=== PATIENT | female | born 1945 | race Caucasian/White ===

== ENCOUNTER → 2022-09-30 | Outpatient (CLI) | payer MEDICARE ==
[2022-09-30 14:07] LABS: Creatinine,Urine Random 39.6 mg/dL; Protein/Creatinine Ratio,Urine 0.227
[2022-09-30 20:44] LABS: Appearance,Urine Clear (Clear); Bilirubin,Urine Negative (Negative); Blood,Urine Negative (Negative); Color,Urine Yellow (Yellow); Ketones,Urine Negative (Negative); Nitrite,Urine Negative (Negative); PH, Urine 6.5 (5.0-8.0); Specific Gravity,Urine 1.014 (1.001-1.030); Urobilinogen,Urine 0.2 (0.2,1.0)
[2022-09-30 21:17] LABS: HCT 41.5 % (37.2-46.3); HGB 13.4 g/dL (12.0-15.0); MCH 29.3 pg (27.0-32.0); MCHC 32.3 g/dL (32.0-37.0); MCV 90.8 fL (80.0-97.0); Mean Platelet Volume 11.1 fL (9.5-12.2); NRBC Per 100 WBC 0 /100 WBCS (0.0-0.0); Platelet Count 259 X 10*3/uL (140-440); RBC 4.57 X 10*6/uL (4.10-5.20); RDW 14.2 % (11.5-14.5)
[2022-09-30 22:35] LABS: African American GFR (CKD) 85.5 (60.0-200.0); Albumin 4.7 g/dL (3.8-4.9); Albumin/Globulin Ratio 1.8 (1.60-3.17); Anion Gap 12.2 mmol/L (10.00-18.00); BUN/Creat Ratio 24.18 Ratio (12.00-20.00); Blood Urea Nitrogen 19.1 mg/dL (9.0-27.0); Calcium 10.3 mg/dL (8.7-10.3); Carbon Dioxide 26.7 mmol/L (20.0-27.5); Globulin 2.6 g/dL (1.6-3.3); Magnesium 2.4 mg/dL (1.5-2.4); Non-African American GFR(CKD) 73.7 (60.0-200.0); Phosphorus 3.1 mg/dL (2.4-5.1); Potassium 3.4 mmol/L (3.5-5.5); Total Bilirubin 0.3 mg/dL (0.30-1.20); Total Protein 7.2 g/dL (6.2-8.2)
== END | disposition home or self-care (01) ==
LOC: LABWHC1 12:18
PROVIDERS: ATTEND Nurse Practitioner Acute Care
DX: N25.81 Secondary hyperparathyroidism of renal origin (principal); N18.31 Chronic kidney disease, stage 3a; D63.1 Anemia in chronic kidney disease; N39.0 Urinary tract infection, site not specified; R80.9 Proteinuria, unspecified; E55.9 Vitamin D deficiency, unspecified
CPT/HCPCS: 36415; 80053; 81003; 82306; 82570; 83735; 83970; 84100; 84156; 85027

== ENCOUNTER → 2022-09-30 | Outpatient (CLI) | payer MEDICARE | END | disposition home or self-care (01) | LOC: LABPAT 12:15 | PROVIDERS: ATTEND Internal Medicine | DX: Z01.812 Encounter for preprocedural laboratory examination (principal); I35.0 Nonrheumatic aortic (valve) stenosis ==

== ENCOUNTER 2022-11-08 05:39 | Inpatient (IN) | payer MEDICARE, SELFPAY ==
[~2022-11-08 05:39] MED LIST: ALBUMIN HUMAN 25% 50 ML IV ONE; ALBUMIN HUMAN 5% 500 ML IVPB ONE; ASPIRIN 325 MG TAB PO ONE; CALCIUM CHLORIDE 100 MG/ML 10 ML SYRINGE IV ONE; CARDIOPLEGIC SOLN (K+ 16 MEQ/L 1,000 ML with SODIUM BICARB (1 MEQ/ML) 20 ML, LIDOCAINE ... PERFUSION ONE; CHLORHEXIDINE GLUCONATE 15 ML CUP MUCOUS MEM ONE; CLEVIDIPINE BUTYRATE 25 MG in EMPTY BAG 1 BAG IV ONE; HEPARIN SODIUM 1,000 UN/ML (10ML VL) IV ONE; HEPARIN SODIUM,PORCINE 5,000 UNIT in SODIUM CHLORIDE 0.9% 500 ML 500 ML IV ONE; INSULIN REGULAR 100 UNIT in SODIUM CHLORIDE 0.9% 100 ML IV ONE; LACTATED RINGERS 1,000 ML IV ONE; MAGNESIUM SULFATE 16.24 MEQ in EMPTY SYRINGE 1 SYR IV ONE; MANNITOL 25% 12.5 GM/50 ML VIAL IV ONE; NITROGLYCERIN SL TABS 0.4 MG TAB SUBLINGUAL ONE; NITROGLYCERIN-D5W PMX 25 MG/250 ML BTL IV ONE; NITROGLYCERIN-D5W PMX 50 MG in DEXTROSE/WATER 1 250ML.BAG IV ONE; NOREPINEPHRINE 4 MG in SODIUM CHLORIDE 0.9% 250 ML IV ONE; PAPAVERINE 360 MG in SODIUM CHLORIDE 0.9% 90 ML IV ONE; PHENYLEPHRINE 10 MG/ML VIAL IV ONE; PHENYLEPHRINE 40 MG in SODIUM CHLORIDE 0.9% 250 ML IV ONE; PROTAMINE SULFATE 10 MG/ML 25 ML VIAL IV ONE; PROTAMINE SULFATE 250 MG in EMPTY BAG 1 BAG IV ONE; SODIUM BICARB 8.4% 50 ML SYR (1 MEQ/ML) IV ONE; SODIUM CHLORIDE 0.9% 1,000 ML IV ONE; TRANEXAMIC ACID 2,000 MG in SODIUM CHLORIDE 0.9% 80 ML IV ONE; ceFAZolin 1,000 MG in SODIUM CHLORIDE 0.9% IRRIGATIO 1,000 ML IRRIGATION ONE; propofoL 1,000 MG/100 ML VIAL IV ONE
[2022-11-08] MEDS ORDERED: LACTATED RINGERS 1,000 ML IV ONE (06:00)
[2022-11-08] MEDS: ATORVASTATIN 10 MG TAB PO ONE ×2 (06:06→11:57)
[2022-11-08] MEDS ORDERED: SODIUM CHLORIDE 0.9% 100 ML BAG ONE (07:40)
[2022-11-08] MEDS ORDERED: MIDAZOLAM HCL 10 MG/10 ML VIAL ONE (07:40)
[2022-11-08] MEDS ORDERED: POTASSIUM ACETATE 2 MEQ/ML 20 ML VIAL IV ONE (07:40)
[2022-11-08] MEDS ORDERED: fentaNYL (PF) 50 MCG/ML 50 ML VIAL ONE (07:40)
[2022-11-08] MEDS ORDERED: HEPARIN SODIUM,PORCINE 10,000 UNIT/ML 1 ML VIAL ONE (07:40)
[2022-11-08] MEDS ORDERED: INSULIN REGULAR 100 UNIT/ML VIAL (IV) ONE (07:40)
[2022-11-08] MEDS ORDERED: ceFAZolin 1,000 MG VIAL ONE (07:40)
[2022-11-08] MEDS ORDERED: VECURONIUM 10 MG VIAL IV ONE (07:40)
[2022-11-08] MEDS ORDERED: ELECTROLYTE-R (PH 7.4) 1,000 ML IV.SOLN IV ONE (07:40)
[2022-11-08] MEDS ORDERED: MAGNESIUM SULFATE 4 MEQ/ML 10ML VIAL ONE (07:40)
[2022-11-08] MEDS ORDERED: NITROGLYCERIN-D5W PMX 50 MG/250 ML BOTTLE IV ONE (07:40)
[2022-11-08] MEDS ORDERED: WATER FOR INJECTION, STERILE 10 ML VIAL IV ONE (07:40)
[2022-11-08] MEDS ORDERED: CALCIUM CHLORIDE 100 MG/ML 10 ML SYRINGE ONE (07:40)
[2022-11-08] MEDS ORDERED: PROTAMINE SULFATE 10 MG/ML 5 ML VIAL IV ONE (07:40)
[2022-11-08] MEDS ORDERED: TRANEXAMIC ACID IN NACL,ISO-OS 1,000 MG/100 ML BAG ONE (07:40)
[2022-11-08] MEDS ORDERED: SODIUM CHLORIDE 0.9% IRRIG 1,000 ML BTL IRRIGATION ONE (07:40)
[2022-11-08] MEDS ORDERED: PHENYLEPHRINE-0.9% NACL SYG 1,000 MCG/10 ML SYRINGE ONE (07:40)
[2022-11-08] MEDS ORDERED: LIDOCAINE 2% SYG (PF) 100 MG/5 ML ONE (07:40)
[2022-11-08] MEDS ORDERED: PROPOFOL 10 MG/ML 20 ML VIAL IV ONE (07:40)
[2022-11-08 08:33] LABS: ABG Base Excess 2.7 mmol/L; ABG Glucose Whole Blood 118 mg/dL (75-99); ABG HCO3 27 mmol/L (21-25); ABG Hematocrit 34 % (34.0-46.0); ABG Ionized Calcium 4.8 mg/dL (4.5-5.3); ABG Lactic Acid Whole Blood 1.6 mmol/L (0.5-1.6); ABG Oxygen Saturation 99.7 % (94-97); ABG PCO2 37 mmHg (35-45); ABG PH 7.46 (7.35-7.45); ABG PO2 206 mmHg (83-108); ABG Sodium Whole Blood 142 mmol/L (135-146); ABG TCO2 28 mmol/L (19-24)
[2022-11-08 09:27] LABS: ABG Base Excess 1.7 mmol/L; ABG Glucose Whole Blood 133 mg/dL (75-99); ABG HCO3 27 mmol/L (21-25); ABG Hematocrit 32 % (34.0-46.0); ABG Ionized Calcium 4.7 mg/dL (4.5-5.3); ABG Lactic Acid Whole Blood 1.7 mmol/L (0.5-1.6); ABG Oxygen Saturation 99.5 % (94-97); ABG PCO2 43 mmHg (35-45); ABG PO2 191 mmHg (83-108); ABG Potassium Whole Blood 3.2 mmol/L (3.4-4.5); ABG Sodium Whole Blood 141 mmol/L (135-146); ABG TCO2 28 mmol/L (19-24)
--- NOTE | 2022-11-08 09:57 | P.ANPRN ---
Procedure Note - Anesthesia - MELISSA Intraop Pre Bypass MELISSA Intraop - Anesthesia Indication: Aortic Stenosis Date of Procedure: 11/08/22 Pre-operative Diagnosis: Aortic Stenosis Post-operative Diagnosis: Aortic Stenosis Surgeon: Shankar Naylor Ejection Fraction: Normal Regional Wall Motion Abnormalities: None Left Ventricle Hypertrophy: No R. Ventricle Function: Normal Aortic Valve: Aortic Stenosis. 0.5cm2 valve area. Peak mid 50's, mean low 30s asleep. Anatomy: Trileaflet Aortic Stenosis: Severe Aortic Regurgitation: Moderate Mitral Regurgitation: Mild Tricuspid Regurgitation: Trace Pulmonic Regurgitation: None Aortic Dissection: No Aortic Calcification: Mild Plural Effusion: None
[2022-11-08 10:05] LABS: ABG Base Excess 4.8 mmol/L; ABG HCO3 28 mmol/L (21-25); ABG Ionized Calcium 3.7 mg/dL (4.5-5.3); ABG Lactic Acid Whole Blood 1.6 mmol/L (0.5-1.6); ABG Oxygen Saturation 99.8 % (94-97); ABG PCO2 36 mmHg (35-45); ABG Potassium Whole Blood 3.5 mmol/L (3.4-4.5); ABG Sodium Whole Blood 143 mmol/L (135-146); ABG TCO2 29 mmol/L (19-24)
[2022-11-08 10:36] LABS: ABG Base Excess 0.8 mmol/L; ABG HCO3 24 mmol/L (21-25); ABG Hematocrit 26 % (34.0-46.0); ABG Ionized Calcium 4.3 mg/dL (4.5-5.3); ABG Lactic Acid Whole Blood 1.9 mmol/L (0.5-1.6); ABG PCO2 34 mmHg (35-45); ABG PH 7.47 (7.35-7.45); ABG PO2 379 mmHg (83-108); ABG Potassium Whole Blood 3.1 mmol/L (3.4-4.5); ABG Sodium Whole Blood 142 mmol/L (135-146); ABG TCO2 25 mmol/L (19-24)
[2022-11-08 11:27] LABS: ABG Base Excess -1.4 mmol/L; ABG HCO3 23 mmol/L (21-25); ABG Hematocrit 27 % (34.0-46.0); ABG Ionized Calcium 4.4 mg/dL (4.5-5.3); ABG PCO2 38 mmHg (35-45); ABG PO2 359 mmHg (83-108); ABG Potassium Whole Blood 3.9 mmol/L (3.4-4.5); ABG Sodium Whole Blood 142 mmol/L (135-146); ABG TCO2 25 mmol/L (19-24)
[2022-11-08 12:22] LABS: ABG Glucose Whole Blood 134 mg/dL (75-99); ABG PO2 >420 mmHg (83-108)
[2022-11-08 12:23] LABS: ABG Hematocrit 24 % (34.0-46.0)
[2022-11-08 12:24] LABS: ABG Glucose Whole Blood 118 mg/dL (75-99)
[2022-11-08 12:25] LABS: ABG Glucose Whole Blood 136 mg/dL (75-99); ABG Lactic Acid Whole Blood 2.7 mmol/L (0.5-1.6)
[2022-11-08 12:29] LABS: ABG Base Excess -0.6 mmol/L; ABG Glucose Whole Blood 155 mg/dL (75-99); ABG HCO3 24 mmol/L (21-25); ABG Hematocrit 30 % (34.0-46.0); ABG Ionized Calcium 4.9 mg/dL (4.5-5.3); ABG Oxygen Saturation 98.9 % (94-97); ABG PCO2 40 mmHg (35-45); ABG PH 7.39 (7.35-7.45); ABG PO2 131 mmHg (83-108); ABG Potassium Whole Blood 4.2 mmol/L (3.4-4.5); ABG Sodium Whole Blood 143 mmol/L (135-146); ABG TCO2 25 mmol/L (19-24)
--- NOTE | 2022-11-08 12:32 | P.OP ---
Date of Procedure: 11/08/22 Preoperative Diagnosis: Calcific aortic stenosis, single-vessel coronary artery disease in the LAD Postoperative Diagnosis: Same Procedure(s) Performed: Coronary artery bypass grafting 1 with CHOPRA to LAD, aortic valve replacement with 21 mm Inspiris Bovine aortic valve prosthesis, ligation of left atrial appendage with 35 mm AtriCure clip, epi-aortic ultrasound. Implants: 35mm AtriCure clip, 21 mm Inspiris bovine pericardial valve prosthesis in aortic position. Anesthesia: GETA Surgeon: Shankar Naylor Environmental Programs Manager #1: Rah Chowdhury Environmental Programs Manager #2: Daryn Epperson Estimated Blood Loss (ml): 200 IV fluids (ml): 2,000 Urine output (ml): 500 Pathology: other (Aortic valve) Condition: stable Disposition: ICU Indications for Procedure: 76-year-old female presented with shortness of breath and chest pain found to have significant disease in the left anterior descending coronary artery as well as severe aortic valvular stenosis. She was evaluated in the high risk valve clinic and felt to be appropriate for either surgery or 4 percutaneous intervention and have her. Both options were presented to the patient and she opted for surgery. This was scheduled electively. Operative Findings: Left ventricular function was normal. The heart was relatively small in size. Aortic valve was tricuspid and calcified. There was calcium in the aortic root. The ascending aorta was relatively disease-free. There was some calcification of the ascending aorta in the area of the root at the sinotubular junction. Left atrial appendage was relatively small. The LAD was a diffusely diseased vessel. Was grafted fairly proximally beyond the significant lesion. Description of Procedure: The patient was brought to the operating room, placed supine on the operating table, anesthetized and intubated. Arterial and [place]-Bobby lines had been placed in the preop holding area. We'll anesthesia was induced and the patient was intubated. MELISSA probe was placed and monitored by anesthesia. The anterior torso and bilateral lower extremities were sterilely prepped and draped. Midline sternotomy was performed a left hemisternum was retracted upwards and the left internal mammary artery was harvested on a vascularized pedicle. It was left intact on its origin from the subclavian and divided distally. It was a good conduit. The left pleural space was drained with 32-Tristanian chest tube. Standard sternal retractor was placed and the pericardium was opened in the midline. The heart was exposed with pericardial sutures. Epi-aortic ultrasound was performed with the findings as noted above. Patient was heparinized and cannulated for cardiopulmonary bypass with a 7 mm soft flow cannula in the distal ascending aorta and a two-stage venous cannula through the right atrial appendage into the inferior vena cava. Antegrade and retrograde cardioplegia lines were placed in standard fashion. Patient was placed on cardiopulmonary bypass and stabilized. Pursestring was placed in the right superior pulmonary vein. Aorta was crossclamped and the heart was arrested with cold crystalloid antegrade cardioplegia followed by retrograde cardioplegia. A second dose of retrograde cardioplegia was given after an hour. Left atrial vent was placed through the pursestring in the right superior pulmonary vein. The CHOPRA was tunneled into the pericardial space. The LAD was identified and opened just beyond the distal disease. CHOPRA was cut to appropriate length and the CHOPRA to LAD anastomosis constructed with running 8-0 Prolene suture. On completion anastomosis it was probed and noted to be patent. Suture was tied. Refitted flow of the CHOPRA was opened and the graft was noted to fill the distal vessel well the cunha was noted to fill well and there was no heme us fat acute issue. The CHOPRA was reclamped. The aorta was opened transversely and the aortic valve was exposed. The aortic valve was excised. The annulus was debrided of calcium. We copiously irrigated and then placed our valve sutures using pledgeted 2-0 Tycron with the pledgets on the ventricular side. The annulus was sized and a 21 mm interspersed valve was chosen and brought up on the field. Valve sutures were last through the sewing ring of the valve and the valve was seated without difficulty. Sutures were tied and cut and the valve was noted to seat well. Coronary ostia were free. We again irrigated and then closed the aorta with a 2 layer running closure of 4-0 Prolene. This was reinforced with some CoSeal. Patient was placed in Trendelenburg. Left atrial vent was removed and the pursestring was tied. Cross-clamp was removed. The aortic vent was turned on. Retrograde cardioplegia line was removed. Atrial and ventricular pacing wires were placed. The patient was initially paced. She eventually returned to normal sinus rhythm and the pacer was placed on backup. The heart was de-aired through the apex with a 16-gauge Angiocath through the apex of the left ventricle and through the aortic vent site. On completion of de-airing, the aortic vent was removed and the site reinforced with a 4-0 pledgeted Prolene suture. Patient was weaned from cardiopulmonary bypass without the use of inotropic support. Heparin was reversed with protamine and the patient was decannulated in standard fashion. The atrial cannulation site was reinforced with a 5-0 Prolene suture. Aortic cannulation site was reinforced with a 4-0 pledgeted Prolene suture. Patient remained hemodynamically stable without the need for inotropes. Blood from the pump was returned. Patient responded well to volume support. Once good hemostasis throughout had been assured, mediastinum was drained with a 36-Tristanian chest tube in the sternum closed with 8 sternal wires. Fascia was closed with 0 Ethibond. Subcutaneous and subcuticular layers were closed with layers of Vicryl suture. Dry sterile dressings were applied the patient was transferred to the ICU in stable condition.
[2022-11-08] MEDS ORDERED: ONDANSETRON 4 MG/2 ML VIAL IVP PRN (12:35)
[2022-11-08] MEDS ORDERED: DEXTROSE 5% IN WATER 100 ML with AMIODARONE 150 MG IV PRN (12:35)
[2022-11-08] MEDS ORDERED: Potassium Replacement Protocol 1 EACH MISC MISCELLANE PRN ×2 (12:35→14:20)
[2022-11-08] MEDS ORDERED: IPRATROPIUM-ALBUTEROL 3 ML NEB INHALATION SCH ×2 (12:35→20:00)
[2022-11-08] MEDS ORDERED: AMIODARONE 360 MG in DEXTROSE 5% IN WATER 200 ML IV PRN ×2 (12:35)
[2022-11-08] MEDS ORDERED: CALCIUM GLUCONATE IN NACL 2 GM in SALINE 1 100ML.BAG IVPB PRN (12:35)
[2022-11-08] MEDS ORDERED: NITROGLYCERIN-D5W PMX 50 MG in DEXTROSE/WATER 1 250ML.BAG IV SCH (12:35)
[2022-11-08] MEDS ORDERED: IPRATROPIUM-ALBUTEROL 3 ML NEB INHALATION PRN (12:35)
[2022-11-08] MEDS ORDERED: DEXTROSE 50% SYRINGE 50 ML IVP PRN ×2 (12:35)
[2022-11-08] MEDS ORDERED: DEXMEDETOMIDINE/0.9% NACL(PMX) 400 MCG in EMPTY BAG 1 BAG IV SCH (12:35)
[2022-11-08] MEDS ORDERED: BENZOCAINE/MENTHOL LOZENG 1 EACH LOZENGE MUCOUS MEM PRN (12:35)
[2022-11-08] MEDS ORDERED: Magnesium Replacement Protocol 1 EACH MISC MISCELLANE PRN (12:35)
[2022-11-08] MEDS ORDERED: METOCLOPRAMIDE 5 MG/ML 2 ML VIAL IVP PRN (12:35)
[2022-11-08] MEDS ORDERED: AMIODARONE 450 MG in DEXTROSE 5% IN WATER 250 ML IV PRN ×2 (12:35)
[2022-11-08] MEDS ORDERED: hydrALAZINE HCL 20 MG/ML 1 ML VIAL IVP PRN (12:35)
[2022-11-08 12:47] LABS: ABG Lactic Acid Whole Blood 3.5 mmol/L (0.5-1.6)
[2022-11-08] MEDS: LACTATED RINGERS 1,000 ML IV SCH (13:00)
[2022-11-08 13:05] LABS: Glucose,Whole Blood 147 mg/dL (70-110)
[2022-11-08] MEDS: CLEVIDIPINE BUTYRATE 25 MG in EMPTY BAG 1 BAG IV SCH ×3 (13:15→23:21)
[2022-11-08 13:22] LABS: Ionized Calcium 5.5 mg/dL (4.5-5.3)
[2022-11-08 13:26] LABS: ABG Base Excess -2.3 mmol/L; ABG HCO3 25 mmol/L (21-25); ABG Oxygen Saturation 98.5 % (94-97); ABG PCO2 54 mmHg (35-45); ABG PH 7.27 (7.35-7.45); ABG PO2 245 mmHg (83-108); ABG TCO2 26 mmol/L (19-24); Allen Test Performed? Yes
--- NOTE | 2022-11-08 13:29 | XR ---
EXAMINATION TYPE: XR chest 1V portable DATE OF EXAM: 11/08/2022 COMPARISON: 10/12/2022 HISTORY: Post cardiac procedure TECHNIQUE: Single frontal view of the chest is obtained. FINDINGS: ET tube is approximately 2 cm above kim. NG tube appears in good position. [place]-Bobby ca theter with tip overlying the proximal pulmonary outflow tract. There is postsurgical changes with le ft-sided chest tube. Mediastinal drain noted. Cardiac valve replacement surgery suggested. No sizable pneumothorax. Subsegmental changes at the left lung base most typical of postoperative atelectasis. IMPRESSION: 1. Postsurgical changes with suspected left basilar postoperative atelectasis.
[2022-11-08] MEDS: INSULIN REGULAR 100 UNIT in SODIUM CHLORIDE 0.9% 100 ML IV SCH (13:30)
[2022-11-08 13:32] LABS: ALT 23 U/L (4-34); Total Bilirubin 0.7 mg/dL (0.2-1.3)
[2022-11-08 13:33] LABS: Basophils % (A) 0 %; Eosinophils # (A) 0.1 k/uL (0-0.7); Eosinophils % (A) 0 %; HCT 28.1 % (34.0-46.0); Lymphocytes # (A) 0.9 k/uL (1.0-4.8); Lymphocytes % (A) 7 %; MCH 31.1 pg (25.0-35.0); MCHC 36.3 g/dL (31.0-37.0); MCV 85.7 fL (80.0-100.0); Mean Platelet Volume 8.1; Monocytes # (A) 0.4 k/uL (0-1.0); Monocytes % (A) 3 %; Neutrophils # (A) 12.5 k/uL (1.3-7.7); Neutrophils % (A) 89 %; Platelet Count 136 k/uL (150-450); Poikilocytosis Slight; RBC 3.28 m/uL (3.80-5.40); RDW 14.7 % (11.5-15.5)
[2022-11-08 13:34] LABS: HGB 10.2 gm/dL (11.4-16.0)
[2022-11-08 13:39] LABS: Partial Thromboplastin Time 24.1 sec (22.0-30.0); Prothrombin Time 10.9 sec (9.0-12.0)
[2022-11-08 13:44] LABS: AST 46 U/L (14-36); Alkaline Phosphatase 49 U/L (38-126); Magnesium 3.9 mg/dL (1.6-2.3)
[2022-11-08] MEDS ORDERED: IPRATROPIUM 0.5 MG/2.5 ML NEBU INHALATION PRN (13:45)
[2022-11-08 13:59] LABS: Glucose,Whole Blood 166 mg/dL (70-110)
[2022-11-08 14:01] LABS: African American GFR (CKD) >90 (>60 ml/min/1.73 sqM); Albumin 3.2 g/dL (3.5-5.0); Anion Gap 7 mmol/L; Blood Urea Nitrogen 20 mg/dL (7-17); Calcium 8.6 mg/dL (8.4-10.2); Carbon Dioxide 25 mmol/L (22-30); Chloride 109 mmol/L (98-107); Glucose 140 mg/dL (74-99); Non-African American GFR(CKD) 87 (>60 ml/min/1.73 sqM); Sodium 141 mmol/L (137-145); Total Protein 5.3 g/dL (6.3-8.2)
[2022-11-08 14:10] LABS: Potassium 3.8 mmol/L (3.5-5.1)
[2022-11-08] MEDS: POTASSIUM CHLORIDE 10 MEQ in WATER FOR INJECTION 1 100ML.BAG IVPB SCH ×2 (14:35→16:11)
[2022-11-08] MEDS: ACETAMINOPHEN IV (For NPO) 1,000 MG in EMPTY BAG 1 BAG IVPB SCH ×2 (14:35→18:07)
--- NOTE | 2022-11-08 14:40 | P.CNPUL ---
History of Present Illness Consult date: 11/08/22 Requesting physician: Shankar Naylor Reason for consult: other Chief complaint: Aortic stenosis, CAD. History of present illness: Pulmonary consult dated 11/08/2022. 76-year-old female with history of aortic stenosis and coronary disease. The patient is postop day #0, status post one-vessel bypass, CHOPRA to LAD, aortic valve replacement with 21 mm bovine aortic valve prosthesis, ligation of left atrial appendage, and epi-aortic ultrasound. I was asked to see the patient for critical care management. The patient is back in the intensive care unit. Her ventilator settings include the volume assist control, rate 16, tidal volume 350, FiO2 100%, and PEEP of 10. Blood gases show a PaO2 of 245, pCO2 of 54, and a pH is 7.27. The FiO2 was reduced down to 60%, and subsequently to 50%, and the rate was increased from 12 up to 16. The surgery was done by Dr. Naylor. I'm seeing the patient in the intensive care unit, room 263. She's currently on propofol at 35 mcg/kg/m, lactated Ringer's at 50 mL an hour, insulin at 2.5 units an hour, Cleveprex at 8 mg an hour and nitroglycerin at 5 mcg/m. The patient was initially evaluated by Dr. Naylor in early October. She apparently has had no aortic stenosis for many years. Her past medical history is positive for CAD, aortic stenosis, hypertension, hyperlipidemia, and atrial fibrillation. White count is 14, hemoglobin 10.2, and platelet count 136,000. Sodium 141, potassium 3.8, chlorides 109, CO2 25, BUN 20, creatinine 0.67. Chest x-ray shows typical postsurgical changes, and some atelectasis at the left lung base. Review of Systems REVIEW OF SYSTEMS: Review of systems cannot be obtained, as the patient is currently sedated and on the mechanical ventilator. In the history and physical performed by the surgeon, it is mentioned that the patient does have fatigue, and shortness of breath on exertion. CONSTITUTIONAL: [Negative.] NEUROLOGIC: [ Negative.] HEENT: [ Negative.] CARDIAC: [Negative.] PULMONARY: [Negative.] GI: [Negative.] : [Negative.] RHEUMATOLOGIC: [ Negative.] IMMUNOLOGIC: [ Negative.] ENDOCRINE: [Negative. ] DERMATOLOGIC: [Negative.] Past Medical History Past Medical History: Atrial Fibrillation, Asthma, Hyperlipidemia, Hypertension, Liver Disease, Osteoarthritis (OA), Renal Disease Additional Past Medical History / Comment(s): SOB w/exertion, allergy induced/environmental asthma, sees nephr.([place]) for some decreased kidney function, some meds affecting liver in past but now resolved, fatty liver History of Any Multi-Drug Resistant Organisms: None Reported Past Surgical History: Cardiac Ablation, Heart Catheterization, Joint Repla cement, Orthopedic Surgery, Tonsillectomy Additional Past Surgical History / Comment(s): right hip replaced, left knee replaced, ghulam CTS, cyst removed from foot, cyst removed from back, cataract removed right eye Past Anesthesia/Blood Transfusion Reactions: No Reported Reaction Smoking Status: Never smoker - Past Family History Father Family Medical History: Coronary Artery Disease (CAD) Additional Family Medical History / Comment(s): CABG x6 Medications and Allergies Home Medications Medication Instructions Recorded Confirmed Type Apixaban [Eliquis] 5 mg PO BID 10/08/22 11/03/22 History Astaxanthin 1 tab PO DAILY 10/08/22 11/08/22 History Cyanocobalamin (Vitamin B-12) 5,000 mcg PO DAILY 10/08/22 11/08/22 History [Vitamin B-12] Evolocumab [Repatha Syringe] 140 mg SQ Q14D 10/08/22 11/08/22 History Losartan [Cozaar] 50 mg PO DAILY 10/08/22 11/08/22 History Magnesium 400 mg PO DAILY 10/08/22 11/08/22 History Red Yeast Rice 600 mg PO BID 10/08/22 11/08/22 History Triamterene/Hydrochlorothiazid 1 each PO DAILY 10/08/22 11/08/22 History [Triamterene-Hctz 75-50 mg Tab] Vit C/Quercetin/Bioflav,Raoul 1 each PO BID 10/08/22 11/08/22 History [Quercetin Complex Capsule] Zinc Gluconate [Zinc] 30 mg PO DAILY 10/08/22 11/08/22 History dilTIAZem HCL [dilTIAZem HCL 24Hr 120 mg PO DAILY 10/08/22 11/08/22 History ER] Aspirin [[place] Aspirin EC] 81 mg PO DAILY 10/12/22 11/08/22 History Allergies Allergy/AdvReac Type Severity Reaction Status Date / Time ibuprofen Allergy throat Verified 11/08/22 06:06 swelling Penicillins Allergy throat Verified 11/08/22 06:06 swelling diphenhydramine AdvReac elevates Verified 11/08/22 06:06 [From Benadryl] blood pressure lactose AdvReac Abdominal Verified 11/08/22 06:06 Pain, increases phlegm beta severiano AdvReac Cough Uncoded 11/02/22 13:06 Physical Exam Osteopathic Statement: *. No significant issues noted on an osteopathic structural exam other than those noted in the History and Physical/Consult. Vitals: Vital Signs Temp Pulse Pulse Resp BP BP Pulse Ox 11/08/22 14:00 96.6 F L 74 16 96 11/08/22 13:45 76 16 96 11/08/22 13:32 11/08/22 13:30 83 12 97 11/08/22 13:15 80 12 98 11/08/22 13:00 96.1 F L 74 12 98 11/08/22 12:57 11/08/22 06:14 96.9 F L 63 16 146/70 158/81 98 FiO2 11/08/22 14:00 11/08/22 13:45 11/08/22 13:32 50 11/08/22 13:30 11/08/22 13:15 11/08/22 13:00 100 11/08/22 12:57 100 11/08/22 06:14 Intake and Output 11/07/22 11/08/22 11/08/22 22:59 06:59 14:59 Intake Total 200 198.299 Output Total 2180 Balance 200 -1981.701 Intake: IV 200 53 Intake, IV Titration 145.299 Amount Clevidipine Butyrate 25 0.567 mg In Empty Bag 1 bag @ 1 MG/HR 2 mls/hr IV .Q24H MICHELLE Rx#:[id number] Insulin Regular 100 unit 0.732 In Sodium Chloride 0.9% 100 ml @ Per Protocol IV .Q0M MICHELLE Rx#:[id number] Lactated Ringers 1,000 ml 100 @ 50 mls/hr IV .Q20H MICHELLE Rx#:[id number] Nitroglycerin-D5w Pmx 50 3.0 mg In Dextrose/Water 1 250ml.bag @ 5 MCG/MIN 1.5 mls/hr IV .Q24H MICHELLE Rx#: [id number] propofoL 1,000 mg In 41 Empty Bag 1 bag @ Titrate IV .Q0M MICHELLE Rx#: [id number] Output: Chest Tube Drainage 90 Lt Pleural 10 Mediastinal 80 Urine 590 Estimated Blood Loss 1500 Other: Weight 88.9 kg ABP, PAP, CO, CI - Last 8 Hours Arterial Blood Pressure 115/53 Arterial Blood Pressure 126/56 Arterial Blood Pressure 144/64 Arterial Blood Pressure 123/54 Arterial Blood Pressure 122/61 Pulmonary Artery Pressure 35/22 Pulmonary Artery Pressure 36/23 Pulmonary Artery Pressure 37/22 Pulmonary Artery Pressure 37/22 Pulmonary Artery Pressure 33/17 Cardiac Output 4.4 Cardiac Output 3.9 Cardiac Index 2.3 Cardiac Index 2.1 No acute distress, sedated, with an orally placed endotracheal tube. HEENT examination is grossly unremarkable. Neck supple. Full range of motion. No adenopathy thyromegaly or neck vein distention. Cardiovascular examination reveals regular rhythm rate. S1-S2 normal. No S3 or S4. No discernible murmur noted. Heart rate is 74 bpm. Lungs reveal clear breath sounds. Breath sounds are equal bilaterally. No adventitious lung sounds including wheezes rhonchi or crackles. Abdomen soft bowel sounds are heard. No masses or tenderness. Extremities are intact. No cyanosis clubbing or edema. Skin is without rash or lesion. Neurologic examination cannot be adequately assessed at this time. Results - Laboratory Findings CBC and BMP: 11/08/22 12:57 11/08/22 12:57 ABG ABG pH 7.27 (7.35-7.45) L 11/08/22 13:23 ABG pCO2 54 mmHg (35-45) H 11/08/22 13:23 ABG pO2 245 mmHg (83-108) H 11/08/22 13:23 ABG O2 Saturation 98.5 % (94-97) H 11/08/22 13:23 PT/INR, D-dimer PT 10.9 sec (9.0-12.0) 11/08/22 12:57 INR 1.0 (<1.2) 11/08/22 12:57 Abnormal lab findings: Abnormal Labs 11/05/22 11/08/22 11/08/22 11:56 08:30 09:28 WBC RBC Hgb Hct Plt Count Neutrophils # Lymphocytes # ABG pH 7.46 H ABG pCO2 ABG pO2 206 H 191 H ABG HCO3 27 H 27 H ABG Total CO2 28 H 28 H ABG O2 Saturation 99.7 H 99.5 H ABG Hematocrit 32 L ABG Potassium 3.0 L* 3.2 L ABG Ionized Calcium ABG Glucose 118 H 133 H ABG Lactic Acid 1.7 H Hemoglobin 10.9 L 10.5 L Chloride BUN Glucose POC Glucose (mg/dL) Ionized Calcium Vivi Magnesium AST Total Protein Albumin Arterial Blood Potassium 3.0 L* 3.2 L Arterial Blood Glucose 118 H 133 H Crossmatch See Detail 11/08/22 11/08/22 11/08/22 10:07 10:38 11:28 WBC RBC Hgb Hct Plt Count Neutrophils # Lymphocytes # ABG pH 7.50 H 7.47 H ABG pCO2 34 L ABG pO2 >420 H 379 H 359 H ABG HCO3 28 H ABG Total CO2 29 H 25 H 25 H ABG O2 Saturation 99.8 H 100.0 H 100.0 H ABG Hematocrit 24 L 26 L 27 L ABG Potassium 3.1 L ABG Ionized Calcium 3.7 L 4.3 L 4.4 L ABG Glucose 134 H 118 H 136 H ABG Lactic Acid 1.9 H 2.7 H* Hemoglobin 7.8 L 8.6 L 8.7 L Chloride BUN Glucose POC Glucose (mg/dL) Ionized Calcium Vivi Magnesium AST Total Protein Albumin Arterial Blood Potassium 3.1 L Arterial Blood Glucose 134 H 118 H 136 H Crossmatch 11/08/22 11/08/22 11/08/22 12:31 12:57 12:57 WBC 14.0 H RBC 3.28 L Hgb 10.2 L D Hct 28.1 L Plt Count 136 L Neutrophils # 12.5 H Lymphocytes # 0.9 L ABG pH ABG pCO2 ABG pO2 131 H ABG HCO3 ABG Total CO2 25 H ABG O2 Saturation 98.9 H ABG Hematocrit 30 L ABG Potassium ABG Ionized Calcium ABG Glucose 155 H ABG Lactic Acid 3.5 H* Hemoglobin 9.7 L Chloride 109 H BUN 20 H Glucose 140 H POC Glucose (mg/dL) Ionized Calcium Vivi 5.5 H Magnesium 3.9 H AST 46 H Total Protein 5.3 L Albumin 3.2 L Arterial Blood Potassium Arterial Blood Glucose 155 H Crossmatch 11/08/22 11/08/22 11/08/22 13:04 13:23 13:58 WBC RBC Hgb Hct Plt Count Neutrophils # Lymphocytes # ABG pH 7.27 L ABG pCO2 54 H ABG pO2 245 H ABG HCO3 ABG Total CO2 26 H ABG O2 Saturation 98.5 H ABG Hematocrit ABG Potassium ABG Ionized Calcium ABG Glucose ABG Lactic Acid Hemoglobin Chloride BUN Glucose POC Glucose (mg/dL) 147 H 166 H Ionized Calcium Vivi Magnesium AST Total Protein Albumin Arterial Blood Potassium Arterial Blood Glucose Crossmatch - Diagnostic Findings Chest x-ray: image reviewed Assessment and Plan Assessment: Postop day #0, status post aortic valve replacement, and single-vessel bypass, CHOPRA to LAD, and ligation of left atrial appendage. Routine postoperative ventilator management. History of long-standing aortic stenosis. History of CAD. History of atrial fibrillation. History of hypertension. History of hyperlipidemia. Plan: Plan dated 11/08/2022. The patient is seen in the intensive care unit, room 263. Labs, x-rays, and medications are reviewed. The surgeons operative note is also reviewed. The patient is examined. Ventilator changes are made. We will continue to follow the patient and make recommendations along the way. Overall prognosis remains guarded. No additional recommendations at this time. We will hopefully get the patient extubated in a timely fashion. Time with Patient: Greater than 30
[2022-11-08 15:07] LABS: Glucose,Whole Blood 155 mg/dL (70-110)
[2022-11-08 15:34] LABS: Basophils % (A) 0 %; Eosinophils % (A) 0 %; HCT 33.5 % (34.0-46.0); HGB 11.7 gm/dL (11.4-16.0); Lymphocytes # (A) 0.9 k/uL (1.0-4.8); Lymphocytes % (A) 6 %; MCH 30.1 pg (25.0-35.0); MCHC 34.9 g/dL (31.0-37.0); MCV 86.1 fL (80.0-100.0); Mean Platelet Volume 7.9; Monocytes # (A) 0.6 k/uL (0-1.0); Monocytes % (A) 4 %; Neutrophils # (A) 12.6 k/uL (1.3-7.7); Neutrophils % (A) 89 %; Platelet Count 185 k/uL (150-450); Poikilocytosis Slight; RBC 3.89 m/uL (3.80-5.40); RDW 14.3 % (11.5-15.5); WBC 14.1 k/uL (3.8-10.6)
--- NOTE | 2022-11-08 15:34 | P.ANPRN ---
Procedure Note - Anesthesia - MELISSA Intraop Post Bypass MELISSA Intraop Post Bypass Procedure Performed: CABG AVR Left Ventricle: wnl Ejection Fraction: Normal Regional Wall Motion Abnormalities: None R. Ventricle Function: Normal Aortic Valve: Prosthetic valve in place. No AI. Peak gradient 18, mean 8. No Perivalvular leak Mitral Valve: Unchanged Tricuspid: Unchanged Pulmonic: Unchanged Aortic Dissection: No
[2022-11-08] MEDS ORDERED: ALBUTEROL NEBULIZED 2.5 MG/3 ML INHALATION SCH (16:00)
[2022-11-08] MEDS ORDERED: IPRATROPIUM 0.5 MG/2.5 ML NEBU INHALATION SCH (16:00)
[2022-11-08] MEDS: ALBUMIN HUMAN 5% 250 ML in EMPTY BAG 1 BAG IVPB PRN ×2 (16:02→16:54)
[2022-11-08] MEDS: HEPARIN SODIUM,PORCINE/PF 5,000 UNIT/0.5 ML SYRINGE SQ SCH ×2 (16:03→23:21)
[2022-11-08 16:10] LABS: Glucose,Whole Blood 148 mg/dL (70-110)
[2022-11-08 17:01] LABS: Glucose,Whole Blood 142 mg/dL (70-110)
[2022-11-08 18:03] LABS: Glucose,Whole Blood 140 mg/dL (70-110)
--- NOTE | 2022-11-08 18:16 | P.CONS ---
History of Present Illness - Reason for Consult Consult date: 11/08/22 prediabetes Requesting physician: Shankar Naylor - Chief Complaint fatigue - History of Present Illness Patient is a 76-year-old female with atrial fibrillation, asthma, hypertension, dyslipidemia, and fatty infiltration of the liver who presented for coronary artery bypass grafting with a CHOPRA to the LAD as well as aortic valve replacement, bioprosthetic. Already of the procedure well and has been admitted to the ICU. Patient seen and examined at bedside. She is intubated and sedated on vent. Per nursing no immediate concerns, but is not yet awake enough for extubation. Vital signs reviewed General: nontoxic, no distress, appears at stated age Derm: warm, dry, WAYLON wraps in place b/l LE Eyes: pupils equal round reactive to light, conjunctival edema ENT: Nose and ears atraumatic Cardiovascular: S1S2 reg, no murmur, positive posterior tibial pulse bilateral Lungs: clear to auscultation bilateral, no rhonchi, no rales, no wheeze, no accessory muscle use Abdominal: soft, nontender to palpation, no guarding, no appreciable organomegaly, normal bowel sounds Ext: no gross muscle atrophy, no contractures Neuro: Sedated on vent. Psych: Alert, oriented, appropriate affect Assessment: CAD s/p CHOPRA to LAD with bioprosthetic valve replacement Hyperglycemia with prediabetes-A1c 10/12/22 6.3 Elevated lactic acid, anticipated outcome Leukocytosis, reactive Chronic atrial fibrillation Asthma without exacerbation Hypertension Dyslipidemia Fatty infiltration of the liver Chronic kidney disease Imaging: Chest X-ray post-surgical changes with suspected left basilar postoperative atelectasis Data Review: Return urinalysis reviewed white blood cell count 14.1, hemoglobin 11.7, platelets 185. Most recent ABG with pH of 7.27 pCO2 of 54 PaO2 to 45. Sodium 141, potassium 3.8, chloride 109, BUN 20, creatinine 0.67, blood sugar 140, ionized calcium 5.5, magnesium 3.9, bilirubin 0.7, AST 46, ALT 23. Blood sugars reviewed postoperatively asked for have been 140, 142:48, and 155. Plan: -Requires insulin drip for hyperglycemia control given recent coronary artery bypass Grafting. Currently getting 2.5 units per hour. Continue to follow blood sugars every hour. -Currently receiving lactated Ringer's and nitroglycerin at 5 mcg/m. -Goal is for extubation within the next 1 hour and 30 minutes per nursing -Will need repeat CBC, CMP in a.m. due to the recent open-heart surgery. Thank you for allowing us to participate in the care of this pleasant patient. Do not hesitate to contact us with questions. Someone can be reached from the [facility] hospitalist group all hours of the day at [phone] or via [employer]. Past Medical History Past Medical History: Atrial Fibrillation, Asthma, Hyperlipidemia, Hypertension, Liver Disease, Osteoarthritis (OA), Renal Disease Additional Past Medical History / Comment(s): SOB w/exertion, allergy induced/environmental asthma, sees nephr.([facility]) for some decreased kidney function, some meds affecting liver in past but now resolved, fatty liver History of Any Multi-Drug Resistant Organisms: None Reported Past Surgical History: Cardiac Ablation, Heart Catheterization, Joint Replacement, Orthopedic Surgery, Tonsillectomy Additional Past Surgical History / Comment(s): right hip replaced, left knee replaced, ghulam CTS, cyst removed from foot, cyst removed from back, cataract removed right eye Past Anesthesia/Blood Transfusion Reactions: No Reported Reaction Smoking Status: Never smoker - Past Family History Father Family Medical History: Coronary Artery Disease (CAD) Additional Family Medical History / Comment(s): CABG x6 Medications and Allergies Home Medications Medication Instructions Recorded Confirmed Type Apixaban [Eliquis] 5 mg PO BID 10/08/22 11/03/22 History Astaxanthin 1 tab PO DAILY 10/08/22 11/08/22 History Cyanocobalamin (Vitamin B-12) 5,000 mcg PO DAILY 10/08/22 11/08/22 History [Vitamin B-12] Evolocumab [Repatha Syringe] 140 mg SQ Q14D 10/08/22 11/08/22 History Losartan [Cozaar] 50 mg PO DAILY 10/08/22 11/08/22 History Magnesium 400 mg PO DAILY 10/08/22 11/08/22 History Red Yeast Rice 600 mg PO BID 10/08/22 11/08/22 History Triamterene/Hydrochlorothiazid 1 each PO DAILY 10/08/22 11/08/22 History [Triamterene-Hctz 75-50 mg Tab] Vit C/Quercetin/Bioflav,Barbour 1 each PO BID 10/08/22 11/08/22 History [Quercetin Complex Capsule] Zinc Gluconate [Zinc] 30 mg PO DAILY 10/08/22 11/08/22 History dilTIAZem HCL [dilTIAZem HCL 24Hr 120 mg PO DAILY 10/08/22 11/08/22 History ER] Aspirin [Dimmit Aspirin EC] 81 mg PO DAILY 10/12/22 11/08/22 History Allergies Allergy/AdvReac Type Severity Reaction Status Date / Time ibuprofen Allergy throat Verified 11/08/22 06:06 swelling Penicillins Allergy throat Verified 11/08/22 06:06 swelling diphenhydramine AdvReac elevates Verified 11/08/22 06:06 [From Benadryl] blood pressure lactose AdvReac Abdominal Verified 11/08/22 06:06 Pain, increases phlegm beta severiano AdvReac Cough Uncoded 11/02/22 13:06 Physical Exam Osteopathic Statement: *. No significant issues noted on an osteopathic structural exam other than those noted in the History and Physical/Consult. Vitals: Vital Signs Temp Pulse Pulse Resp BP BP Pulse Ox 11/08/22 18:04 11/08/22 17:15 70 25 H 99 11/08/22 17:00 98.2 F 70 23 98 11/08/22 16:57 11/08/22 16:45 67 24 98 11/08/22 16:30 71 19 98 11/08/22 16:15 73 23 99 11/08/22 16:04 77 11/08/22 16:00 98.1 F 74 20 99 11/08/22 15:45 75 21 98 11/08/22 15:38 11/08/22 15:37 74 11/08/22 15:30 75 16 98 11/08/22 15:15 74 21 99 11/08/22 15:00 73 18 97 11/08/22 14:45 72 18 97 11/08/22 14:30 71 17 97 11/08/22 14:15 71 15 97 11/08/22 14:00 96.6 F L 74 16 96 11/08/22 13:45 76 16 96 11/08/22 13:32 11/08/22 13:30 83 12 97 11/08/22 13:15 80 12 98 11/08/22 13:00 96.1 F L 74 12 98 11/08/22 12:57 11/08/22 06:14 96.9 F L 63 16 146/70 158/81 98 FiO2 11/08/22 18:04 30 11/08/22 17:15 11/08/22 17:00 11/08/22 16:57 40 11/08/22 16:45 11/08/22 16:30 11/08/22 16:15 11/08/22 16:04 11/08/22 16:00 40 11/08/22 15:45 11/08/22 15:38 50 11/08/22 15:37 11/08/22 15:30 11/08/22 15:15 11/08/22 15:00 11/08/22 14:45 11/08/22 14:30 11/08/22 14:15 11/08/22 14:00 11/08/22 13:45 11/08/22 13:32 50 11/08/22 13:30 11/08/22 13:15 11/08/22 13:00 100 11/08/22 12:57 100 11/08/22 06:14 Intake and Output 11/08/22 11/08/22 11/08/22 06:59 14:59 22:59 Intake Total 200 029.653 1746.803 Output Total 2210 230 Balance 200 -3557.493 4835.803 Intake: IV 200 53 Intake, IV Titration 031.129 5893.803 Amount ACETAMINOPHEN IV (For NPO 100 ) 1,000 mg In Empty Bag 1 bag @ 400 mls/hr IVPB Q6H MICHELLE Rx#:[id number] Albumin Human 5% 250 ml 250 In Empty Bag 1 bag @ 250 mls/hr IVPB ONCE ONE Rx#: [id number] Albumin Human 5% 250 ml 500 In Empty Bag 1 bag @ 250 mls/hr IVPB Q1HR PRN Rx#: [id number] Clevidipine Butyrate 25 10.866 2.933 mg In Empty Bag 1 bag @ 1 MG/HR 2 mls/hr IV .Q24H MICHELLE Rx#:[id number] Dexmedetomidine/0.9% NaCl 9.076 (Pmx) 400 mcg In Empty Bag 1 bag @ Titrate IV . Q0M MICHELLE Rx#:[id number] Insulin Regular 100 unit 0.732 4.579 In Sodium Chloride 0.9% 100 ml @ Per Protocol IV .Q0M MICHELLE Rx#:[id number] Lactated Ringers 1,000 ml 100 250 @ 50 mls/hr IV .Q20H MICHELLE Rx#:[id number] Nitroglycerin-D5w Pmx 50 3.0 7.5 mg In Dextrose/Water 1 250ml.bag @ 5 MCG/MIN 1.5 mls/hr IV .Q24H MICHELLE Rx#: [id number] Potassium Chloride 10 meq 300 In Water For Injection 1 100ml.bag @ 100 mls/hr IVPB Q1H MICHELLE Rx#: [id number] ceFAZolin 2 gm In Sodium 50 Chloride 0.9% 50 ml @ 100 mls/hr IVPB Q8HR MICHELLE Rx# :[id number] propofoL 1,000 mg In 68.07 22.715 Empty Bag 1 bag @ Titrate IV .Q0M MICHELLE Rx#: [id number] Output: Chest Tube Drainage 100 65 Lt Pleural 15 20 Mediastinal 85 45 Urine 610 165 Estimated Blood Loss 1500 Other: Voiding Method Indwelling Catheter Indwelling Catheter Weight 88.9 kg ABP, PAP, CO, CI - Last 8 Hours Arterial Blood Pressure 101/50 Arterial Blood Pressure 110/54 Arterial Blood Pressure 104/51 Arterial Blood Pressure 127/59 Arterial Blood Pressure 142/66 Arterial Blood Pressure 143/70 Arterial Blood Pressure 136/64 Arterial Blood Pressure 122/57 Arterial Blood Pressure 133/63 Arterial Blood Pressure 120/54 Arterial Blood Pressure 119/55 Arterial Blood Pressure 113/52 Arterial Blood Pressure 112/51 Arterial Blood Pressure 115/53 Arterial Blood Pressure 126/56 Arterial Blood Pressure 144/64 Arterial Blood Pressure 123/54 Arterial Blood Pressure 122/61 Pulmonary Artery Pressure 30/17 Pulmonary Artery Pressure 31/20 Pulmonary Artery Pressure 30/20 Pulmonary Artery Pressure 33/21 Pulmonary Artery Pressure 33/21 Pulmonary Artery Pressure 36/21 Pulmonary Artery Pressure 33/20 Pulmonary Artery Pressure 33/20 Pulmonary Artery Pressure 33/20 Pulmonary Artery Pressure 35/22 Pulmonary Artery Pressure 33/20 Pulmonary Artery Pressure 34/21 Pulmonary Artery Pressure 35/21 Pulmonary Artery Pressure 35/22 Pulmonary Artery Pressure 36/23 Pulmonary Artery Pressure 37/22 Pulmonary Artery Pressure 37/22 Pulmonary Artery Pressure 33/17 Cardiac Output 4 Cardiac Output 3.8 Cardiac Output 4.1 Cardiac Output 4.4 Cardiac Output 3.9 Cardiac Index 2.1 Cardiac Index 2 Cardiac Index 2.2 Cardiac Index 2.3 Cardiac Index 2.1 Results CBC & Chem 7: 11/08/22 15:00 11/08/22 12:57 Labs: Abnormal Lab Results - Last 24 Hours (Table) 11/05/22 11/08/22 11/08/22 Range/Units 11:56 08:30 09:28 WBC (3.8-10.6) k/uL RBC (3.80-5.40) m/uL Hgb (11.4-16.0) gm/dL Hct (34.0-46.0) % Plt Count (150-450) k/uL Neutrophils # (1.3-7.7) k/uL Lymphocytes # (1.0-4.8) k/uL ABG pH 7.46 H (7.35-7.45) ABG pCO2 (35-45) mmHg ABG pO2 206 H 191 H (83-108) mmHg ABG HCO3 27 H 27 H (21-25) mmol/L ABG Total CO2 28 H 28 H (19-24) mmol/L ABG O2 Saturation 99.7 H 99.5 H (94-97) % ABG Hematocrit 32 L (34.0-46.0) % ABG Potassium 3.0 L* 3.2 L (3.4-4.5) mmol/L ABG Ionized Calcium (4.5-5.3) mg/dL ABG Glucose 118 H 133 H (75-99) mg/dL ABG Lactic Acid 1.7 H (0.5-1.6) mmol/L Hemoglobin 10.9 L 10.5 L (11.4-16.0) gm/dL Chloride (98-107) mmol/L BUN (7-17) mg/dL Glucose (74-99) mg/dL POC Glucose (mg/dL) (70-110) mg/dL Ionized Calcium Vivi (4.5-5.3) mg/dL Magnesium (1.6-2.3) mg/dL AST (14-36) U/L Total Protein (6.3-8.2) g/dL Albumin (3.5-5.0) g/dL Arterial Blood Potassium 3.0 L* 3.2 L (3.4-4.5) mmol/L Arterial Blood Glucose 118 H 133 H (75-99) mg/dL Crossmatch See Detail 11/08/22 11/08/22 11/08/22 Range/Units 10:07 10:38 11:28 WBC (3.8-10.6) k/uL RBC (3.80-5.40) m/uL Hgb (11.4-16.0) gm/dL Hct (34.0-46.0) % Plt Count (150-450) k/uL Neutrophils # (1.3-7.7) k/uL Lymphocytes # (1.0-4.8) k/uL ABG pH 7.50 H 7.47 H (7.35-7.45) ABG pCO2 34 L (35-45) mmHg ABG pO2 >420 H 379 H 359 H (83-108) mmHg ABG HCO3 28 H (21-25) mmol/L ABG Total CO2 29 H 25 H 25 H (19-24) mmol/L ABG O2 Saturation 99.8 H 100.0 H 100.0 H (94-97) % ABG Hematocrit 24 L 26 L 27 L (34.0-46.0) % ABG Potassium 3.1 L (3.4-4.5) mmol/L ABG Ionized Calcium 3.7 L 4.3 L 4.4 L (4.5-5.3) mg/dL ABG Glucose 134 H 118 H 136 H (75-99) mg/dL ABG Lactic Acid 1.9 H 2.7 H* (0.5-1.6) mmol/L Hemoglobin 7.8 L 8.6 L 8.7 L (11.4-16.0) gm/dL Chloride (98-107) mmol/L BUN (7-17) mg/dL Glucose (74-99) mg/dL POC Glucose (mg/dL) (70-110) mg/dL Ionized Calcium Vivi (4.5-5.3) mg/dL Magnesium (1.6-2.3) mg/dL AST (14-36) U/L Total Protein (6.3-8.2) g/dL Albumin (3.5-5.0) g/dL Arterial Blood Potassium 3.1 L (3.4-4.5) mmol/L Arterial Blood Glucose 134 H 118 H 136 H (75-99) mg/dL Crossmatch 02/27/23 02/27/23 02/27/23 Range/Units 12:31 12:57 12:57 WBC 14.0 H (3.8-10.6) k/uL RBC 3.28 L (3.80-5.40) m/uL Hgb 10.2 L D (11.4-16.0) gm/dL Hct 28.1 L (34.0-46.0) % Plt Count 136 L (150-450) k/uL Neutrophils # 12.5 H (1.3-7.7) k/uL Lymphocytes # 0.9 L (1.0-4.8) k/uL ABG pH (7.35-7.45) ABG pCO2 (35-45) mmHg ABG pO2 131 H (83-108) mmHg ABG HCO3 (21-25) mmol/L ABG Total CO2 25 H (19-24) mmol/L ABG O2 Saturation 98.9 H (94-97) % ABG Hematocrit 30 L (34.0-46.0) % ABG Potassium (3.4-4.5) mmol/L ABG Ionized Calcium (4.5-5.3) mg/dL ABG Glucose 155 H (75-99) mg/dL ABG Lactic Acid 3.5 H* (0.5-1.6) mmol/L Hemoglobin 9.7 L (11.4-16.0) gm/dL Chloride 109 H (98-107) mmol/L BUN 20 H (7-17) mg/dL Glucose 140 H (74-99) mg/dL POC Glucose (mg/dL) (70-110) mg/dL Ionized Calcium Vivi 5.5 H (4.5-5.3) mg/dL Magnesium 3.9 H (1.6-2.3) mg/dL AST 46 H (14-36) U/L Total Protein 5.3 L (6.3-8.2) g/dL Albumin 3.2 L (3.5-5.0) g/dL Arterial Blood Potassium (3.4-4.5) mmol/L Arterial Blood Glucose 155 H (75-99) mg/dL Crossmatch 11/08/22 11/08/22 11/08/22 Range/Units 13:04 13:23 13:58 WBC (3.8-10.6) k/uL RBC (3.80-5.40) m/uL Hgb (11.4-16.0) gm/dL Hct (34.0-46.0) % Plt Count (150-450) k/uL Neutrophils # (1.3-7.7) k/uL Lymphocytes # (1.0-4.8) k/uL ABG pH 7.27 L (7.35-7.45) ABG pCO2 54 H (35-45) mmHg ABG pO2 245 H (83-108) mmHg ABG HCO3 (21-25) mmol/L ABG Total CO2 26 H (19-24) mmol/L ABG O2 Saturation 98.5 H (94-97) % ABG Hematocrit (34.0-46.0) % ABG Potassium (3.4-4.5) mmol/L ABG Ionized Calcium (4.5-5.3) mg/dL ABG Glucose (75-99) mg/dL ABG Lactic Acid (0.5-1.6) mmol/L Hemoglobin (11.4-16.0) gm/dL Chloride (98-107) mmol/L BUN (7-17) mg/dL Glucose (74-99) mg/dL POC Glucose (mg/dL) 147 H 166 H (70-110) mg/dL Ionized Calcium Vivi (4.5-5.3) mg/dL Magnesium (1.6-2.3) mg/dL AST (14-36) U/L Total Protein (6.3-8.2) g/dL Albumin (3.5-5.0) g/dL Arterial Blood Potassium (3.4-4.5) mmol/L Arterial Blood Glucose (75-99) mg/dL Crossmatch 11/08/22 11/08/22 11/08/22 Range/Units 15:00 15:04 16:08 WBC 14.1 H (3.8-10.6) k/uL RBC (3.80-5.40) m/uL Hgb (11.4-16.0) gm/dL Hct 33.5 L (34.0-46.0) % Plt Count (150-450) k/uL Neutrophils # 12.6 H (1.3-7.7) k/uL Lymphocytes # 0.9 L (1.0-4.8) k/uL ABG pH (7.35-7.45) ABG pCO2 (35-45) mmHg ABG pO2 (83-108) mmHg ABG HCO3 (21-25) mmol/L ABG Total CO2 (19-24) mmol/L ABG O2 Saturation (94-97) % ABG Hematocrit (34.0-46.0) % ABG Potassium (3.4-4.5) mmol/L ABG Ionized Calcium (4.5-5.3) mg/dL ABG Glucose (75-99) mg/dL ABG Lactic Acid (0.5-1.6) mmol/L Hemoglobin (11.4-16.0) gm/dL Chloride (98-107) mmol/L BUN (7-17) mg/dL Glucose (74-99) mg/dL POC Glucose (mg/dL) 155 H 148 H (70-110) mg/dL Ionized Calcium Vivi (4.5-5.3) mg/dL Magnesium (1.6-2.3) mg/dL AST (14-36) U/L Total Protein (6.3-8.2) g/dL Albumin (3.5-5.0) g/dL Arterial Blood Potassium (3.4-4.5) mmol/L Arterial Blood Glucose (75-99) mg/dL Crossmatch 11/08/22 11/08/22 Range/Units 16:59 18:02 WBC (3.8-10.6) k/uL RBC (3.80-5.40) m/uL Hgb (11.4-16.0) gm/dL Hct (34.0-46.0) % Plt Count (150-450) k/uL Neutrophils # (1.3-7.7) k/uL Lymphocytes # (1.0-4.8) k/uL ABG pH (7.35-7.45) ABG pCO2 (35-45) mmHg ABG pO2 (83-108) mmHg ABG HCO3 (21-25) mmol/L ABG Total CO2 (19-24) mmol/L ABG O2 Saturation (94-97) % ABG Hematocrit (34.0-46.0) % ABG Potassium (3.4-4.5) mmol/L ABG Ionized Calcium (4.5-5.3) mg/dL ABG Glucose (75-99) mg/dL ABG Lactic Acid (0.5-1.6) mmol/L Hemoglobin (11.4-16.0) gm/dL Chloride (98-107) mmol/L BUN (7-17) mg/dL Glucose (74-99) mg/dL POC Glucose (mg/dL) 142 H 140 H (70-110) mg/dL Ionized Calcium Vivi (4.5-5.3) mg/dL Magnesium (1.6-2.3) mg/dL AST (14-36) U/L Total Protein (6.3-8.2) g/dL Albumin (3.5-5.0) g/dL Arterial Blood Potassium (3.4-4.5) mmol/L Arterial Blood Glucose (75-99) mg/dL Crossmatch
[2022-11-08] MEDS ORDERED: ALBUMIN HUMAN 5% 250 ML in EMPTY BAG 1 BAG IVPB ONE (18:30)
[2022-11-08 18:39] LABS: ABG Base Excess -1.8 mmol/L; ABG HCO3 23 mmol/L (21-25); ABG Oxygen Saturation 99.1 % (94-97); ABG PCO2 38 mmHg (35-45); ABG PH 7.39 (7.35-7.45); ABG PO2 122 mmHg (83-108); ABG TCO2 24 mmol/L (19-24); Allen Test Performed? Yes
[2022-11-08 18:45] LABS: Basophils % (A) 0 %; Eosinophils % (A) 0 %; HCT 29.4 % (34.0-46.0); Lymphocytes # (A) 0.4 k/uL (1.0-4.8); Lymphocytes % (A) 3 %; MCH 29.3 pg (25.0-35.0); MCHC 34.1 g/dL (31.0-37.0); MCV 85.9 fL (80.0-100.0); Mean Platelet Volume 8.4; Monocytes # (A) 0.5 k/uL (0-1.0); Monocytes % (A) 4 %; Neutrophils # (A) 11.7 k/uL (1.3-7.7); Neutrophils % (A) 92 %; Platelet Count 140 k/uL (150-450); Poikilocytosis Slight; RBC 3.42 m/uL (3.80-5.40); RDW 14.2 % (11.5-15.5); WBC 12.7 k/uL (3.8-10.6)
[2022-11-08 19:00] LABS: Glucose,Whole Blood 138 mg/dL (70-110)
[2022-11-08 20:04] LABS: Glucose,Whole Blood 164 mg/dL (70-110)
[2022-11-08 20:54] LABS: Glucose,Whole Blood 158 mg/dL (70-110)
[2022-11-08] MEDS: ALBUTEROL NEBULIZED 2.5 MG/3 ML INHALATION SCH (21:35)
[2022-11-08] MEDS: IPRATROPIUM 0.5 MG/2.5 ML NEBU INHALATION SCH (21:35)
[2022-11-08 22:00] LABS: Glucose,Whole Blood 150 mg/dL (70-110)
[2022-11-08 23:13] LABS: Glucose,Whole Blood 162 mg/dL (70-110)
[2022-11-09 00:06] LABS: Glucose,Whole Blood 151 mg/dL (70-110)
[2022-11-09 00:58] LABS: Glucose,Whole Blood 147 mg/dL (70-110)
[2022-11-09] MEDS ORDERED: HYDROcodone/APAP 5-325MG 1 EACH TAB PO PRN ×2 (01:00)
[2022-11-09 01:54] LABS: Glucose,Whole Blood 144 mg/dL (70-110)
[2022-11-09 03:12] LABS: Glucose,Whole Blood 131 mg/dL (70-110)
[2022-11-09] MEDS: CLEVIDIPINE BUTYRATE 25 MG in EMPTY BAG 1 BAG IV SCH ×3 (03:38→22:20)
[2022-11-09 04:01] LABS: Glucose,Whole Blood 141 mg/dL (70-110)
[2022-11-09 05:00] LABS: Glucose,Whole Blood 139 mg/dL (70-110)
[2022-11-09 05:16] LABS: Basophils % (A) 0 %; Eosinophils % (A) 0 %; HGB 10.1 gm/dL (11.4-16.0); Lymphocytes # (A) 0.8 k/uL (1.0-4.8); Lymphocytes % (A) 6 %; MCH 30.7 pg (25.0-35.0); MCHC 35.9 g/dL (31.0-37.0); MCV 85.4 fL (80.0-100.0); Mean Platelet Volume 8.7; Monocytes # (A) 0.5 k/uL (0-1.0); Monocytes % (A) 4 %; Neutrophils # (A) 12.4 k/uL (1.3-7.7); Neutrophils % (A) 90 %; Platelet Count 159 k/uL (150-450); Poikilocytosis Slight; RBC 3.28 m/uL (3.80-5.40); RDW 14.2 % (11.5-15.5); WBC 13.9 k/uL (3.8-10.6)
[2022-11-09 05:28] LABS: Ionized Calcium 5.2 mg/dL (4.5-5.3)
[2022-11-09 05:49] LABS: ALT 21 U/L (4-34); AST 46 U/L (14-36); African American GFR (CKD) >90 (>60 ml/min/1.73 sqM); Albumin 3.8 g/dL (3.5-5.0); Alkaline Phosphatase 43 U/L (38-126); Anion Gap 10 mmol/L; Blood Urea Nitrogen 20 mg/dL (7-17); Calcium 8.8 mg/dL (8.4-10.2); Carbon Dioxide 25 mmol/L (22-30); Chloride 106 mmol/L (98-107); Glucose 128 mg/dL (74-99); Magnesium 2.7 mg/dL (1.6-2.3); Non-African American GFR(CKD) 82 (>60 ml/min/1.73 sqM); Sodium 141 mmol/L (137-145); Total Bilirubin 0.4 mg/dL (0.2-1.3); Total Protein 5.8 g/dL (6.3-8.2)
[2022-11-09] MEDS: POTASSIUM CHLORIDE 20 MEQ in WATER FOR INJECTION 1 100ML.BAG IVPB SCH ×4 (06:24→22:28)
[2022-11-09 06:59] LABS: Glucose,Whole Blood 134 mg/dL (70-110)
[2022-11-09] MEDS ORDERED: ACETAMINOPHEN TAB 325 MG TAB PO PRN (07:03)
--- NOTE | 2022-11-09 07:37 | P.CRDCN ---
History of Present Illness Consult date: 11/09/22 Chief complaint: Valvular heart disease History of present illness: The patient is a pleasant 76-year-old female patient with aortic stenosis and coronary artery disease as well as hypertension and dyslipidemia who was admitted to the hospital yesterday and underwent aortic valve replacement along with CHOPRA to LAD. This is postoperative patient day #1. The patient is more than 90 stable and as a matter of fact she is hypertensive. She was receiving calcium channel severiano IV and that was substituted into calcium channel severiano by mouth. We'll continue monitor the pressure and consider adjusting the medication if she remains hypertensive each she is refusing beta severiano. She is also somewhat confusing statin. Beside that she is on dual antiplatelet therapy with aspirin and Plavix. Urine output has been within normal limits. A t this point we'll continue the current medical regimen. Continue monitor urine output. Continue monitor the electrolytes. Consider adjusting the blood pressure medications if the pressure remains elevated. This is a correlation between the A-line as well as the blood pressure cuff. Assessment Status post aortic valve replacement Status post CHOPRA to LAD Hypertension Dyslipidemia Plan Continue the current medical regimen Agree about starting the patient on oral calcium channel severiano Monitor the kidney function and electrolytes Monitor urine output Follow-up with the patient Past Medical History Past Medical History: Atrial Fibrillation, Asthma, Hyperlipidemia, Hypertension, Liver Disease, Osteoarthritis (OA), Renal Disease Additional Past Medical History / Comment(s): SOB w/exertion, allergy induced/environmental asthma, sees nephr.([place]) for some decreased kidney function, some meds affecting liver in past but now resolved, fatty liver History of Any Multi-Drug Resistant Organisms: None Reported Past Surgical History: Cardiac Ablation, Heart Catheterization, Joint Replacement, Orthopedic Surgery, Tonsillectomy Additional Past Surgical History / Comment(s): right hip replaced, left knee replaced, ghulam CTS, cyst removed from foot, cyst removed from back, cataract removed right eye Past Anesthesia/Blood Transfusion Reactions: No Reported Reaction Smoking Status: Never smoker - Past Family History Father Family Medical History: Coronary Artery Disease (CAD) Additional Family Medical History / Comment(s): CABG x6 Medications and Allergies Home Medications Medication Instructions Recorded Confirmed Type Apixaban [Eliquis] 5 mg PO BID 10/08/22 11/03/22 History Astaxanthin 1 tab PO DAILY 10/08/22 11/08/22 History Cyanocobalamin (Vitamin B-12) 5,000 mcg PO DAILY 10/08/22 11/08/22 History [Vitamin B-12] Evolocumab [Repatha Syringe] 140 mg SQ Q14D 10/08/22 11/08/22 History Losartan [Cozaar] 50 mg PO DAILY 10/08/22 11/08/22 History Magnesium 400 mg PO DAILY 10/08/22 11/08/22 History Red Yeast Rice 600 mg PO BID 10/08/22 11/08/22 History Triamterene/Hydrochlorothiazid 1 each PO DAILY 10/08/22 11/08/22 History [Triamterene-Hctz 75-50 mg Tab] Vit C/Quercetin/Bioflav,[place] 1 each PO BID 10/08/22 11/08/22 History [Quercetin Complex Capsule] Zinc Gluconate [Zinc] 30 mg PO DAILY 10/08/22 11/08/22 History dilTIAZem HCL [dilTIAZem HCL 24Hr 120 mg PO DAILY 10/08/22 11/08/22 History ER] Aspirin [Christian Aspirin EC] 81 mg PO DAILY 10/12/22 11/08/22 History Allergies Allergy/AdvReac Type Severity Reaction Status Date / Time ibuprofen Allergy throat Verified 11/08/22 06:06 swelling Penicillins Allergy throat Verified 11/08/22 06:06 swelling diphenhydramine AdvReac elevates Verified 11/08/22 06:06 [From Benadryl] blood pressure lactose AdvReac Abdominal Verified 11/08/22 06:06 Pain, increases phlegm beta severiano AdvReac Cough Uncoded 11/02/22 13:06 Physical Exam Vitals: Vital Signs Temp Pulse Resp BP Pulse Ox FiO2 11/09/22 07:00 80 22 134/59 97 11/09/22 06:00 80 19 93 L 11/09/22 05:00 77 14 93 L 11/09/22 04:00 99.9 F H 77 19 93 L 11/09/22 03:00 79 20 94 L 11/09/22 02:00 78 17 95 11/09/22 01:00 78 18 95 11/09/22 00:00 99.1 F 80 23 95 11/08/22 23:10 83 20 96 11/08/22 23:00 83 14 95 11/08/22 22:30 84 19 96 02/27/23 22:00 85 14 95 11/08/22 21:56 84 11/08/22 21:39 80 11/08/22 21:30 82 12 96 11/08/22 21:00 80 17 95 11/08/22 20:30 81 20 96 11/08/22 20:00 98.6 F 81 19 95 11/08/22 19:30 78 21 93 L 11/08/22 19:00 98.4 F 78 22 94 L 11/08/22 18:45 76 24 97 11/08/22 18:30 77 21 99 11/08/22 18:15 77 22 98 11/08/22 18:04 30 11/08/22 18:00 98.6 F 74 23 99 11/08/22 17:45 73 24 99 11/08/22 17:30 70 23 98 11/08/22 17:15 70 25 H 99 11/08/22 17:00 98.2 F 70 23 98 11/08/22 16:57 40 11/08/22 16:45 67 24 98 11/08/22 16:30 71 19 98 11/08/22 16:15 73 23 99 11/08/22 16:04 77 11/08/22 16:00 98.1 F 74 20 99 40 11/08/22 15:45 75 21 98 11/08/22 15:38 50 11/08/22 15:37 74 11/08/22 15:30 75 16 98 11/08/22 15:15 74 21 99 11/08/22 15:00 73 18 97 11/08/22 14:45 72 18 97 11/08/22 14:30 71 17 97 11/08/22 14:15 71 15 97 11/08/22 14:00 96.6 F L 74 16 96 11/08/22 13:45 76 16 96 11/08/22 13:32 50 11/08/22 13:30 83 12 97 11/08/22 13:15 80 12 98 11/08/22 13:00 96.1 F L 74 12 98 100 11/08/22 12:57 100 Intake and Output 11/08/22 11/09/22 11/09/22 22:59 06:59 14:59 Intake Total 1754.248 749.824 Output Total 706 823 Balance 1048.248 -73.176 Intake: IV 217 571 CO/ CI 40 40 LR @50mls/hr 150 450 Pressure bag 27 81 Intake, IV Titration 1537.248 178.824 Amount ACETAMINOPHEN IV (For NPO 100 ) 1,000 mg In Empty Bag 1 bag @ 400 mls/hr IVPB Q6H [facility] Rx#:[id number] Albumin Human 5% 250 ml 250 In Empty Bag 1 bag @ 250 mls/hr IVPB ONCE ONE Rx#: [id number] Albumin Human 5% 250 ml 500 In Empty Bag 1 bag @ 250 mls/hr IVPB Q1HR PRN Rx#: [id number] Clevidipine Butyrate 25 26.766 86.800 mg In Empty Bag 1 bag @ 1 MG/HR 2 mls/hr IV .Q24H [facility] Rx#:[id number] Dexmedetomidine/0.9% NaCl 9.076 (Pmx) 400 mcg In Empty Bag 1 bag @ Titrate IV . Q0M [facility] Rx#:[id number] Insulin Regular 100 unit 16.691 28.524 In Sodium Chloride 0.9% 100 ml @ Per Protocol IV .Q0M [facility] Rx#:[id number] Lactated Ringers 1,000 ml 250 @ 50 mls/hr IV .Q20H [facility] Rx#:[id number] Nitroglycerin-D5w Pmx 50 12.0 13.5 mg In Dextrose/Water 1 250ml.bag @ 5 MCG/MIN 1.5 mls/hr IV .Q24H [facility] Rx#: [id number] Potassium Chloride 10 meq 300 In Water For Injection 1 100ml.bag @ 100 mls/hr IVPB Q1H [facility] Rx#: [id number] ceFAZolin 2 gm In Sodium 50 50 Chloride 0.9% 50 ml @ 100 mls/hr IVPB Q8HR [facility] Rx# :[id number] propofoL 1,000 mg In 22.715 Empty Bag 1 bag @ Titrate IV .Q0M [facility] Rx#: [id number] Output: Chest Tube Drainage 171 233 Lt Pleural 56 113 Mediastinal 115 120 Urine 535 590 Other: Voiding Method Indwelling Catheter Indwelling Catheter Weight 90.3 kg ABP, PAP, CO, CI - Last 8 Hours Arterial Blood Pressure 157/52 Arterial Blood Pressure 167/61 Arterial Blood Pressure 151/54 Arterial Blood Pressure 131/52 Arterial Blood Pressure 151/53 Arterial Blood Pressure 141/50 Arterial Blood Pressure 139/49 Arterial Blood Pressure 140/49 Pulmonary Artery Pressure 27/9 Pulmonary Artery Pressure 37/18 Pulmonary Artery Pressure 32/14 Pulmonary Artery Pressure 30/14 Pulmonary Artery Pressure 30/18 Pulmonary Artery Pressure 28/15 Pulmonary Artery Pressure 28/15 Pulmonary Artery Pressure 27/15 Cardiac Output 5 Cardiac Output 5 Cardiac Output 5.2 Cardiac Index 2.6 Cardiac Index 2.6 Cardiac Index 2.7 Results 11/09/22 05:00 11/09/22 05:00 Cardiac Enzymes 11/08/22 11/09/22 Range/Units 12:57 05:00 AST 46 H 46 H (14-36) U/L Coagulation 11/08/22 Range/Units 12:57 PT 10.9 (9.0-12.0) sec APTT 24.1 (22.0-30.0) sec CBC 11/08/22 11/08/22 11/08/22 Range/Units 12:57 15:00 18:00 WBC 14.0 H 14.1 H 12.7 H (3.8-10.6) k/uL RBC 3.28 L 3.89 3.42 L (3.80-5.40) m/uL Hgb 10.2 L D 11.7 10.0 L D (11.4-16.0) gm/dL Hct 28.1 L 33.5 L 29.4 L (34.0-46.0) % Plt Count 136 L 185 140 L (150-450) k/uL 11/09/22 Range/Units 05:00 WBC 13.9 H (3.8-10.6) k/uL RBC 3.28 L (3.80-5.40) m/uL Hgb 10.1 L (11.4-16.0) gm/dL Hct 28.0 L (34.0-46.0) % Plt Count 159 (150-450) k/uL Comprehensive Metabolic Panel 11/08/22 11/09/22 Range/Units 12:57 05:00 Sodium 141 141 (137-145) mmol/L Potassium 3.8 3.0 L (3.5-5.1) mmol/L Chloride 109 H 106 (98-107) mmol/L Carbon Dioxide 25 25 (22-30) mmol/L BUN 20 H 20 H (7-17) mg/dL Creatinine 0.67 0.73 (0.52-1.04) mg/dL Glucose 140 H 128 H (74-99) mg/dL Calcium 8.6 8.8 (8.4-10.2) mg/dL AST 46 H 46 H (14-36) U/L ALT 23 21 (4-34) U/L Alkaline Phosphatase 49 43 (38-126) U/L Total Protein 5.3 L 5.8 L (6.3-8.2) g/dL Albumin 3.2 L 3.8 (3.5-5.0) g/dL Current Medications Generic Name Dose Route Start Last Admin Trade Name Freq PRN Reason Stop Dose Admin Acetaminophen 650 mg 11/09/22 07:03 Acetaminophen Tab 325 Mg Tab PO Q4HR PRN Fever and/ or Pain Hydrocodone Bitart/Acetaminophen 2 each 11/09/22 01:00 Hydrocodone/Apap 5-325mg 1 Each Tab PO Q4HR PRN Severe Pain (Scale 7 to 10) Hydrocodone Bitart/Acetaminophen 1 each 11/09/22 01:00 11/09/22 03:02 Hydrocodone/Apap 5-325mg 1 Each Tab PO 1 each Q4HR PRN Administration Moderate Pain (Scale 4 to 6) Albuterol Sulfate 2.5 mg 11/08/22 20:00 11/08/22 21:35 Albuterol Nebulized 2.5 Mg/3 Ml INHALATION 2.5 mg RT-QID MICHELLE Administration Albuterol Sulfate 2.5 mg 11/08/22 13:45 Albuterol Nebulized 2.5 Mg/3 Ml INHALATION RT-Q2H PRN Shortness Of Breath Or Wheezing Aspirin 325 mg 11/09/22 09:00 Aspirin 325 Mg Tab PO DAILY [facility] Atorvastatin Calcium 40 mg 11/09/22 09:00 Atorvastatin 40 Mg Tab PO DAILY [facility] Benzocaine/Menthol 1 each 11/08/22 12:35 Benzocaine/Menthol Lozeng 1 Each Lozenge MUCOUS MEM Q2H PRN Sore Throat Bisacodyl 10 mg 11/09/22 09:00 Bisacodyl 10 Mg Supp RECTAL DAILY PRN Constipation Clopidogrel Bisulfate 75 mg 11/09/22 09:00 Clopidogrel 75 Mg Tab PO DAILY [facility] Cyanocobalamin 5,000 mcg 11/09/22 09:00 Cyanocobalamin 500 Mcg Tab PO DAILY [facility] Dextrose/Water 25 ml 11/08/22 12:35 Dextrose 50% Syringe 50 Ml IVP PER PROTOCOL PRN Hypoglycemia Protocol Dextrose/Water 50 ml 11/08/22 12:35 Dextrose 50% Syringe 50 Ml IVP PER PROTOCOL PRN Hypoglycemia Protocol Diltiazem HCl 30 mg 11/09/22 07:30 Diltiazem Oral 30 Mg Tab PO Q6HR MICHELLE Heparin Sodium (Porcine) 5,000 unit 11/08/22 16:00 11/08/22 23:21 Heparin Sodium,Porcine/Pf 5,000 Unit/0.5 Ml Syringe SQ 5,000 unit Q8HR MICHELLE Administration Hydralazine HCl 10 mg 11/08/22 12:35 11/09/22 06:24 Hydralazine Hcl 20 Mg/Ml 1 Ml Vial IVP 10 mg Q1H PRN Administration Blood Pressure - High Amiodarone HCl 150 mg/ 103 mls @ 618 mls/hr 11/08/22 12:35 Dextrose/Water IV .Q10M PRN A.FIB/FLUTTER Protocol Amiodarone HCl 360 mg/ 207.2 mls @ 34.533 mls/hr 11/08/22 12:35 Dextrose/Water IV .Q6H PRN A.FIB/FLUTTER Protocol 1 MG/MIN Amiodarone HCl 450 mg/ 250 mls @ 16.667 mls/hr 11/08/22 12:35 Dextrose/Water IV .Q15H PRN A.FIB/FLUTTER Protocol 0.5 MG/MIN Albumin Human 250 ml/ IV 250 mls @ 250 mls/hr 11/08/22 12:35 11/08/22 16:54 Solution IVPB 11/10/22 12:36 250 mls/hr Q1HR PRN Administration For Volume Protocol Cefazolin Sodium 2 gm/ Sodium 50 mls @ 100 mls/hr 11/08/22 16:00 11/08/22 23:12 Chloride IVPB 11/09/22 08:29 100 mls/hr Q8HR MICHELLE Administration Protocol Calcium Gluconate/Sodium 100 mls @ 100 mls/hr 11/08/22 12:35 Chloride 2 gm/ IV Solution IVPB 12/08/22 12:36 ONCE PRN Ionized Calcium less than 4.4 Clevidipine 25 mg/ IV Solution 50 mls @ 2 mls/hr 11/08/22 12:35 11/09/22 06:29 IV 0 mg/hr .Q24H MICHELLE 0 mls/hr Titration Protocol 1 MG/HR Lactated Ringer's 1,000 mls @ 20 mls/hr 11/08/22 12:35 11/08/22 13:00 Lactated Ringers IV 50 mls/hr .Q24H MICHELLE Administration Insulin Human Regular 100 unit 101 mls @ 0 mls/hr 11/08/22 12:35 11/09/22 03:17 / Sodium Chloride IV 4.5 unit/hr .Q0M MICHELLE 4.545 mls/hr Titration Protocol Per Protocol Potassium Chloride 20 meq/ IV 100 mls @ 50 mls/hr 11/09/22 06:00 11/09/22 06:24 Solution IVPB 11/09/22 11:59 50 mls/hr Q2H MICHELLE Administration Protocol Ipratropium V[place]y 0.5 mg 11/08/22 20:00 11/08/22 21:35 Ipratropium 0.5 Mg/2.5 Ml Nebu INHALATION 0.5 mg RT-QID MICHELLE Administration Ipratropium [place] 0.5 mg 11/08/22 13:45 Ipratropium 0.5 Mg/2.5 Ml Nebu INHALATION RT-Q2H PRN Shortness Of Breath Or Wheezing Magnesium Hydroxide 2,400 mg 11/09/22 09:00 Magnesium Hydroxide 2,400 Mg/10 Ml Cup PO BID PRN Constipation Metoclopramide HCl 10 mg 11/08/22 12:35 Metoclopramide 5 Mg/Ml 2 Ml Vial IVP Q4H PRN Nausea And Vomiting Miscellaneous Information 1 each 11/08/22 12:35 Potassium Replacement Protocol 1 Each Misc MISCELLANE DAILY PRN Per Protocol Protocol Miscellaneous Information 1 each 11/08/22 12:35 Magnesium Replacement Protocol 1 Each Misc MISCELLANE DAILY PRN Per Protocol Protocol Miscellaneous Information 1 each 11/08/22 14:20 Potassium Replacement Protocol 1 Each Misc MISCELLANE DAILY PRN Per Protocol Protocol Ondansetron HCl 4 mg 11/08/22 12:35 Ondansetron 4 Mg/2 Ml Vial IVP Q6HR PRN Nausea And Vomiting Pantoprazole Sodium 40 mg 11/09/22 09:00 Pantoprazole 40 Mg/10 Ml Vial IVP 11/09/22 10:00 DAILY [facility] Pantoprazole Sodium 40 mg 11/10/22 07:30 Pantoprazole 40 Mg Tablet PO AC-BRKFST MICHEL[facility] Senna/Docusate Sodium 2 each 11/09/22 21:00 Sennosides-Docusate Sodium 1 Each Tab PO HS [facility] Sodium Chloride 10 ml 11/08/22 21:00 11/08/22 21:41 Sodium Chloride 0.9% Flush 10 Ml Syringe IV Not Given BID [facility] Intake and Output 11/08/22 11/09/22 11/09/22 22:59 06:59 14:59 Intake Total 1754.248 749.824 Output Total 706 823 Balance 1048.248 -73.176 Intake: IV 217 571 CO/ CI 40 40 LR @50mls/hr 150 450 Pressure bag 27 81 Intake, IV Titration 1537.248 178.824 Amount ACETAMINOPHEN IV (For NPO 100 ) 1,000 mg In Empty Bag 1 bag @ 400 mls/hr IVPB Q6H [facility] Rx#:[id number] Albumin Human 5% 250 ml 250 In Empty Bag 1 bag @ 250 mls/hr IVPB ONCE ONE Rx#: [id number] Albumin Human 5% 250 ml 500 In Empty Bag 1 bag @ 250 mls/hr IVPB Q1HR PRN Rx#: [id number] Clevidipine Butyrate 25 26.766 86.800 mg In Empty Bag 1 bag @ 1 MG/HR 2 mls/hr IV .Q24H [facility] Rx#:[id number] Dexmedetomidine/0.9% NaCl 9.076 (Pmx) 400 mcg In Empty Bag 1 bag @ Titrate IV . Q0M [facility] Rx#:[id number] Insulin Regular 100 unit 16.691 28.524 In Sodium Chloride 0.9% 100 ml @ Per Protocol IV .Q0M [facility] Rx#:[id number] Lactated Ringers 1,000 ml 250 @ 50 mls/hr IV .Q20H [facility] Rx#:[id number] Nitroglycerin-D5w Pmx 50 12.0 13.5 mg In Dextrose/Water 1 250ml.bag @ 5 MCG/MIN 1.5 mls/hr IV .Q24H [facility] Rx#: [id number] Potassium Chloride 10 meq 300 In Water For Injection 1 100ml.bag @ 100 mls/hr IVPB Q1H [facility] Rx#: [id number] ceFAZolin 2 gm In Sodium 50 50 Chloride 0.9% 50 ml @ 100 mls/hr IVPB Q8HR [facility] Rx# :[id number] propofoL 1,000 mg In 22.715 Empty Bag 1 bag @ Titrate IV .Q0M [facility] Rx#: [id number] Output: Chest Tube Drainage 171 233 Lt Pleural 56 113 Mediastinal 115 120 Urine 535 590 Other: Voiding Method Indwelling Catheter Indwelling Catheter Weight 90.3 kg 11/09/22 05:00 11/09/22 05:00
[2022-11-09 08:14] LABS: Glucose,Whole Blood 121 mg/dL (70-110)
[2022-11-09] MEDS: ALBUTEROL NEBULIZED 2.5 MG/3 ML INHALATION SCH ×4 (08:20→21:12)
[2022-11-09] MEDS: IPRATROPIUM 0.5 MG/2.5 ML NEBU INHALATION SCH ×4 (08:20→21:12)
--- NOTE | 2022-11-09 08:46 | XR ---
EXAMINATION TYPE: XR chest 1V portable DATE OF EXAM: 11/09/2022 COMPARISON: 11/08/2022 HISTORY: Postoperative TECHNIQUE: Single frontal view of the chest is obtained. FINDINGS: ET tube and NG tube have been removed. Greene-Bobby catheter with tip overlying the proximal pulmonary outflow tract. There is postsurgical changes with left-sided chest tube. Mediastinal drain noted. Cardiac valve replacement surgery suggested. No sizable pneumothorax. Subsegmental changes at the left lung base most typical of postoperative atelectasis. Suspect small bilateral pleural effusio ns on today's exam. IMPRESSION: 1. Basilar suspected postoperative atelectasis with small pleural effusion.
[2022-11-09] MEDS: ASPIRIN 325 MG TAB PO SCH (08:59)
[2022-11-09] MEDS: CLOPIDOGREL 75 MG TAB PO SCH (08:59)
[2022-11-09] MEDS: CYANOCOBALAMIN 500 MCG TAB PO SCH (08:59)
[2022-11-09] MEDS: HEPARIN SODIUM,PORCINE/PF 5,000 UNIT/0.5 ML SYRINGE SQ SCH ×2 (08:59→16:40)
[2022-11-09] MEDS ORDERED: LOSARTAN 25 MG TAB PO SCH (09:00)
[2022-11-09] MEDS ORDERED: MAGNESIUM HYDROXIDE 2,400 MG/10 ML CUP PO PRN (09:00)
[2022-11-09] MEDS ORDERED: PANTOPRAZOLE 40 MG/10 ML VIAL IVP SCH (09:00)
[2022-11-09] MEDS ORDERED: ATORVASTATIN 40 MG TAB PO SCH (09:00)
[2022-11-09] MEDS ORDERED: bisacodyL 10 MG SUPP RECTAL PRN (09:00)
[2022-11-09] MEDS: DILTIAZEM ORAL 30 MG TAB PO SCH ×3 (09:00→16:40)
[2022-11-09 09:09] LABS: Glucose,Whole Blood 133 mg/dL (70-110)
--- NOTE | 2022-11-09 09:11 | P.PN ---
Subjective Progress Note Date: 11/09/22 Principal diagnosis: Calcific aortic stenosis, single-vessel coronary artery disease in the LAD. Previous medical history of preserved left ventricular function, HTN, HLD with statin intolerance, paroxysmal atrial fibrillation status post ablation on Eliquis for anticoagulation, stage III chronic kidney disease, previous tobacco dependence, family history of coronary artery disease POD #1 coronary artery bypass grafting 1 with left internal mammary artery to the left anterior descending artery, aortic valve replacement with 21 mm Inspiris bovine aortic valve prosthesis, ligation of the left atrial appendage with 35 mm AtriCure clip, epi-aortic ultrasound Postoperative acute blood loss anemia, expected given hemodilution, cardiopulmonary bypass pump and history of CKD The patient was seen and examined this morning sitting up in bed in the intensive care unit in no acute distress. She was successfully extubated yesterday at 18:44. Remains in sinus rhythm, hemodynamically stable although a bit hypertensive on no inotropes or pressors. Currently on IV nitro for vessel spasm prophylaxis. Currently on 4 L nasal cannula, only able to achieve 500 mL on her incentive spirometer with poor effort. Patient is very sleepy this morning but does arouse to voice, oriented to person, place, situation but thinks the year is 1972. When asked she does complain of post surgical pain, denies shortness of breath. Right internal jugular [place]/Cordis, right radial arterial line, mediastinal/left pleural chest tubes all present. Chest x-ray, lab work reviewed. No other new concerns. Objective - Vital Signs Vital signs: Vital Signs Temp 99.9 F H 11/09/22 04:00 Pulse 80 11/09/22 07:00 Resp 22 11/09/22 07:00 BP 134/59 11/09/22 07:00 Pulse Ox 97 11/09/22 07:00 FiO2 30 11/08/22 18:04 Intake & Output 11/08/22 11/09/22 11/09/22 18:59 06:59 18:59 Intake Total 2786.281 5712.450 Output Total 2440 1299 Balance -747.710 -251.550 Weight 90.3 kg Intake: IV 53 788 CO/ CI 80 LR @50mls/hr 600 Pressure bag 108 Intake, IV Titration 1639.290 259.450 Amount ACETAMINOPHEN IV (For NPO 100 ) 1,000 mg In Empty Bag 1 bag @ 400 mls/hr IVPB Q6H MICHELLE Rx#:[id number] Albumin Human 5% 250 ml 250 In Empty Bag 1 bag @ 250 mls/hr IVPB ONCE ONE Rx#: [id number] Albumin Human 5% 250 ml 500 In Empty Bag 1 bag @ 250 mls/hr IVPB Q1HR PRN Rx#: [id number] Clevidipine Butyrate 25 18.132 106.300 mg In Empty Bag 1 bag @ 1 MG/HR 2 mls/hr IV .Q24H MICHELLE Rx#:[id number] Dexmedetomidine/0.9% NaCl 9.076 (Pmx) 400 mcg In Empty Bag 1 bag @ Titrate IV . Q0M MICHELLE Rx#:[id number] Insulin Regular 100 unit 12.297 33.650 In Sodium Chloride 0.9% 100 ml @ Per Protocol IV .Q0M MICHELLE Rx#:[id number] Lactated Ringers 1,000 ml 300 50 @ 50 mls/hr IV .Q20H MICHELLE Rx#:[id number] Nitroglycerin-D5w Pmx 50 9.0 19.5 mg In Dextrose/Water 1 250ml.bag @ 5 MCG/MIN 1.5 mls/hr IV .Q24H MICHELLE Rx#: [id number] Potassium Chloride 10 meq 300 In Water For Injection 1 100ml.bag @ 100 mls/hr IVPB Q1H MICHELLE Rx#: [id number] ceFAZolin 2 gm In Sodium 50 50 Chloride 0.9% 50 ml @ 100 mls/hr IVPB Q8HR MICHELLE Rx# :[id number] propofoL 1,000 mg In 90.785 Empty Bag 1 bag @ Titrate IV .Q0M MICHELLE Rx#: [id number] Output: Chest Tube Drainage 165 339 Lt Pleural 35 149 Mediastinal 130 190 Urine 775 960 Estimated Blood Loss 1500 Other: Voiding Method Indwelling Catheter Indwelling Catheter ABP, PAP, CO, CI - Last Documented Arterial Blood Pressure 157/52 Pulmonary Artery Pressure 27/9 Cardiac Output 5 Cardiac Index 2.6 - Exam CONSTITUTIONAL: Appears comfortable, cooperative, no acute distress, very sleepy RESPIRATORY: Lungs sounds diminished bilaterally. Respirations even, nonlabored. Currently on 4 liters nasal cannula with oxygen saturation 96%. Able to achieve 500 mL on incentive spirometry. Very weak cough. CARDIOVASCULAR: S1, S2 present. Regular rate and rhythm, sinus rhythm on telemetry. Sternum stable. Palpable peripheral pulses bilaterally. Generalized edema present. No calf pain or tenderness noted. Heart hugger, antiembolism stockings, SCDs present. GASTROINTESTINAL: Abdomen soft, nontender, nondistended. Hypoactive bowel sounds present 4 quadrants. Tolerating minimal clear liquid diet. Denies flatus GENITOURINARY: Samaniego present draining clear, yellow urine. Output overnight 40-80 mL per hour INTEGUMENTARY: Skin is warm and dry with evidence of good perfusion. Anterior chest incision well approximated and covered with dry intact dressing NEUROLOGIC: Cranial nerves II through XII intact MUSKULOSKELETAL: Able to move all extremities, strength equal bilaterally PSYCHIATRIC: Sleepy but does arouse to voice, oriented to person place and situation, thinks the year is 1971 INVASIVE LINES AND TUBES: Mediastinal/left pleural chest tubes present and connected to wall suction, no air leaks present. Mediastinal tube with 90 mL serosanguineous drainage overnight, 320 mL since surgery. Left pleural chest tube with 93 mL serosanguineous drainage overnight, 210 mL since surgery. A/V epicardial pacemaker wires present, grounded. Right internal jugular [place]ord[place], right radial arterial line present. Last CO/CI 5/2.6, PA 26/9, CVP 7. - Allied health notes Allied health notes reviewed: nursing - Labs CBC & Chem 7: 11/09/22 05:00 11/09/22 05:00 Labs: Abnormal Lab Results - Last 24 Hours (Table) 11/05/22 11/08/22 11/08/22 Range/Units 11:56 08:30 09:28 WBC (3.8-10.6) k/uL RBC (3.80-5.40) m/uL Hgb (11.4-16.0) gm/dL Hct (34.0-46.0) % Plt Count (150-450) k/uL Neutrophils # (1.3-7.7) k/uL Lymphocytes # (1.0-4.8) k/uL ABG pH 7.46 H (7.35-7.45) ABG pCO2 (35-45) mmHg ABG pO2 206 H 191 H (83-108) mmHg ABG HCO3 27 H 27 H (21-25) mmol/L ABG Total CO2 28 H 28 H (19-24) mmol/L ABG O2 Saturation 99.7 H 99.5 H (94-97) % ABG Hematocrit 32 L (34.0-46.0) % ABG Potassium 3.0 L* 3.2 L (3.4-4.5) mmol/L ABG Ionized Calcium (4.5-5.3) mg/dL ABG Glucose 118 H 133 H (75-99) mg/dL ABG Lactic Acid 1.7 H (0.5-1.6) mmol/L Hemoglobin 10.9 L 10.5 L (11.4-16.0) gm/dL Potassium (3.5-5.1) mmol/L Chloride (98-107) mmol/L BUN (7-17) mg/dL Glucose (74-99) mg/dL POC Glucose (mg/dL) (70-110) mg/dL Ionized Calcium Vivi (4.5-5.3) mg/dL Magnesium (1.6-2.3) mg/dL AST (14-36) U/L Total Protein (6.3-8.2) g/dL Albumin (3.5-5.0) g/dL Arterial Blood Potassium 3.0 L* 3.2 L (3.4-4.5) mmol/L Arterial Blood Glucose 118 H 133 H (75-99) mg/dL Crossmatch See Detail 11/08/22 11/08/22 11/08/22 Range/Units 10:07 10:38 11:28 WBC (3.8-10.6) k/uL RBC (3.80-5.40) m/uL Hgb (11.4-16.0) gm/dL Hct (34.0-46.0) % Plt Count (150-450) k/uL Neutrophils # (1.3-7.7) k/uL Lymphocytes # (1.0-4.8) k/uL ABG pH 7.50 H 7.47 H (7.35-7.45) ABG pCO2 34 L (35-45) mmHg ABG pO2 >420 H 379 H 359 H (83-108) mmHg ABG HCO3 28 H (21-25) mmol/L ABG Total CO2 29 H 25 H 25 H (19-24) mmol/L ABG O2 Saturation 99.8 H 100.0 H 100.0 H (94-97) % ABG Hematocrit 24 L 26 L 27 L (34.0-46.0) % ABG Potassium 3.1 L (3.4-4.5) mmol/L ABG Ionized Calcium 3.7 L 4.3 L 4.4 L (4.5-5.3) mg/dL ABG Glucose 134 H 118 H 136 H (75-99) mg/dL ABG Lactic Acid 1.9 H 2.7 H* (0.5-1.6) mmol/L Hemoglobin 7.8 L 8.6 L 8.7 L (11.4-16.0) gm/dL Potassium (3.5-5.1) mmol/L Chloride (98-107) mmol/L BUN (7-17) mg/dL Glucose (74-99) mg/dL POC Glucose (mg/dL) (70-110) mg/dL Ionized Calcium Vivi (4.5-5.3) mg/dL Magnesium (1.6-2.3) mg/dL AST (14-36) U/L Total Protein (6.3-8.2) g/dL Albumin (3.5-5.0) g/dL Arterial Blood Potassium 3.1 L (3.4-4.5) mmol/L Arterial Blood Glucose 134 H 118 H 136 H (75-99) mg/dL Crossmatch 11/08/22 11/08/22 11/08/22 Range/Units 12:31 12:57 12:57 WBC 14.0 H (3.8-10.6) k/uL RBC 3.28 L (3.80-5.40) m/uL Hgb 10.2 L D (11.4-16.0) gm/dL Hct 28.1 L (34.0-46.0) % Plt Count 136 L (150-450) k/uL Neutrophils # 12.5 H (1.3-7.7) k/uL Lymphocytes # 0.9 L (1.0-4.8) k/uL ABG pH (7.35-7.45) ABG pCO2 (35-45) mmHg ABG pO2 131 H (83-108) mmHg ABG HCO3 (21-25) mmol/L ABG Total CO2 25 H (19-24) mmol/L ABG O2 Saturation 98.9 H (94-97) % ABG Hematocrit 30 L (34.0-46.0) % ABG Potassium (3.4-4.5) mmol/L ABG Ionized Calcium (4.5-5.3) mg/dL ABG Glucose 155 H (75-99) mg/dL ABG Lactic Acid 3.5 H* (0.5-1.6) mmol/L Hemoglobin 9.7 L (11.4-16.0) gm/dL Potassium (3.5-5.1) mmol/L Chloride 109 H (98-107) mmol/L BUN 20 H (7-17) mg/dL Glucose 140 H (74-99) mg/dL POC Glucose (mg/dL) (70-110) mg/dL Ionized Calcium Vivi 5.5 H (4.5-5.3) mg/dL Magnesium 3.9 H (1.6-2.3) mg/dL AST 46 H (14-36) U/L Total Protein 5.3 L (6.3-8.2) g/dL Albumin 3.2 L (3.5-5.0) g/dL Arterial Blood Potassium (3.4-4.5) mmol/L Arterial Blood Glucose 155 H (75-99) mg/dL Crossmatch 11/08/22 11/08/22 11/08/22 Range/Units 13:04 13:23 13:58 WBC (3.8-10.6) k/uL RBC (3.80-5.40) m/uL Hgb (11.4-16.0) gm/dL Hct (34.0-46.0) % Plt Count (150-450) k/uL Neutrophils # (1.3-7.7) k/uL Lymphocytes # (1.0-4.8) k/uL ABG pH 7.27 L (7.35-7.45) ABG pCO2 54 H (35-45) mmHg ABG pO2 245 H (83-108) mmHg ABG HCO3 (21-25) mmol/L ABG Total CO2 26 H (19-24) mmol/L ABG O2 Saturation 98.5 H (94-97) % ABG Hematocrit (34.0-46.0) % ABG Potassium (3.4-4.5) mmol/L ABG Ionized Calcium (4.5-5.3) mg/dL ABG Glucose (75-99) mg/dL ABG Lactic Acid (0.5-1.6) mmol/L Hemoglobin (11.4-16.0) gm/dL Potassium (3.5-5.1) mmol/L Chloride (98-107) mmol/L BUN (7-17) mg/dL Glucose (74-99) mg/dL POC Glucose (mg/dL) 147 H 166 H (70-110) mg/dL Ionized Calcium Vivi (4.5-5.3) mg/dL Magnesium (1.6-2.3) mg/dL AST (14-36) U/L Total Protein (6.3-8.2) g/dL Albumin (3.5-5.0) g/dL Arterial Blood Potassium (3.4-4.5) mmol/L Arterial Blood Glucose (75-99) mg/dL Crossmatch 11/08/22 11/08/22 11/08/22 Range/Units 15:00 15:04 16:08 WBC 14.1 H (3.8-10.6) k/uL RBC (3.80-5.40) m/uL Hgb (11.4-16.0) gm/dL Hct 33.5 L (34.0-46.0) % Plt Count (150-450) k/uL Neutrophils # 12.6 H (1.3-7.7) k/uL Lymphocytes # 0.9 L (1.0-4.8) k/uL ABG pH (7.35-7.45) ABG pCO2 (35-45) mmHg ABG pO2 (83-108) mmHg ABG HCO3 (21-25) mmol/L ABG Total CO2 (19-24) mmol/L ABG O2 Saturation (94-97) % ABG Hematocrit (34.0-46.0) % ABG Potassium (3.4-4.5) mmol/L ABG Ionized Calcium (4.5-5.3) mg/dL ABG Glucose (75-99) mg/dL ABG Lactic Acid (0.5-1.6) mmol/L Hemoglobin (11.4-16.0) gm/dL Potassium (3.5-5.1) mmol/L Chloride (98-107) mmol/L BUN (7-17) mg/dL Glucose (74-99) mg/dL POC Glucose (mg/dL) 155 H 148 H (70-110) mg/dL Ionized Calcium Vivi (4.5-5.3) mg/dL Magnesium (1.6-2.3) mg/dL AST (14-36) U/L Total Protein (6.3-8.2) g/dL Albumin (3.5-5.0) g/dL Arterial Blood Potassium (3.4-4.5) mmol/L Arterial Blood Glucose (75-99) mg/dL Crossmatch 11/08/22 11/08/22 11/08/22 Range/Units 16:59 18:00 18:02 WBC 12.7 H (3.8-10.6) k/uL RBC 3.42 L (3.80-5.40) m/uL Hgb 10.0 L D (11.4-16.0) gm/dL Hct 29.4 L (34.0-46.0) % Plt Count 140 L (150-450) k/uL Neutrophils # 11.7 H (1.3-7.7) k/uL Lymphocytes # 0.4 L (1.0-4.8) k/uL ABG pH (7.35-7.45) ABG pCO2 (35-45) mmHg ABG pO2 (83-108) mmHg ABG HCO3 (21-25) mmol/L ABG Total CO2 (19-24) mmol/L ABG O2 Saturation (94-97) % ABG Hematocrit (34.0-46.0) % ABG Potassium (3.4-4.5) mmol/L ABG Ionized Calcium (4.5-5.3) mg/dL ABG Glucose (75-99) mg/dL ABG Lactic Acid (0.5-1.6) mmol/L Hemoglobin (11.4-16.0) gm/dL Potassium (3.5-5.1) mmol/L Chloride (98-107) mmol/L BUN (7-17) mg/dL Glucose (74-99) mg/dL POC Glucose (mg/dL) 142 H 140 H (70-110) mg/dL Ionized Calcium Vivi (4.5-5.3) mg/dL Magnesium (1.6-2.3) mg/dL AST (14-36) U/L Total Protein (6.3-8.2) g/dL Albumin (3.5-5.0) g/dL Arterial Blood Potassium (3.4-4.5) mmol/L Arterial Blood Glucose (75-99) mg/dL Crossmatch 11/08/22 11/08/22 11/08/22 Range/Units 18:36 18:57 20:01 WBC (3.8-10.6) k/uL RBC (3.80-5.40) m/uL Hgb (11.4-16.0) gm/dL Hct (34.0-46.0) % Plt Count (150-450) k/uL Neutrophils # (1.3-7.7) k/uL Lymphocytes # (1.0-4.8) k/uL ABG pH (7.35-7.45) ABG pCO2 (35-45) mmHg ABG pO2 122 H (83-108) mmHg ABG HCO3 (21-25) mmol/L ABG Total CO2 (19-24) mmol/L ABG O2 Saturation 99.1 H (94-97) % ABG Hematocrit (34.0-46.0) % ABG Potassium (3.4-4.5) mmol/L ABG Ionized Calcium (4.5-5.3) mg/dL ABG Glucose (75-99) mg/dL ABG Lactic Acid (0.5-1.6) mmol/L Hemoglobin (11.4-16.0) gm/dL Potassium (3.5-5.1) mmol/L Chloride (98-107) mmol/L BUN (7-17) mg/dL Glucose (74-99) mg/dL POC Glucose (mg/dL) 138 H 164 H (70-110) mg/dL Ionized Calcium Vivi (4.5-5.3) mg/dL Magnesium (1.6-2.3) mg/dL AST (14-36) U/L Total Protein (6.3-8.2) g/dL Albumin (3.5-5.0) g/dL Arterial Blood Potassium (3.4-4.5) mmol/L Arterial Blood Glucose (75-99) mg/dL Crossmatch 11/08/22 11/08/22 11/08/22 Range/Units 20:52 21:57 23:06 WBC (3.8-10.6) k/uL RBC (3.80-5.40) m/uL Hgb (11.4-16.0) gm/dL Hct (34.0-46.0) % Plt Count (150-450) k/uL Neutrophils # (1.3-7.7) k/uL Lymphocytes # (1.0-4.8) k/uL ABG pH (7.35-7.45) ABG pCO2 (35-45) mmHg ABG pO2 (83-108) mmHg ABG HCO3 (21-25) mmol/L ABG Total CO2 (19-24) mmol/L ABG O2 Saturation (94-97) % ABG Hematocrit (34.0-46.0) % ABG Potassium (3.4-4.5) mmol/L ABG Ionized Calcium (4.5-5.3) mg/dL ABG Glucose (75-99) mg/dL ABG Lactic Acid (0.5-1.6) mmol/L Hemoglobin (11.4-16.0) gm/dL Potassium (3.5-5.1) mmol/L Chloride (98-107) mmol/L BUN (7-17) mg/dL Glucose (74-99) mg/dL POC Glucose (mg/dL) 158 H 150 H 162 H (70-110) mg/dL Ionized Calcium Vivi (4.5-5.3) mg/dL Magnesium (1.6-2.3) mg/dL AST (14-36) U/L Total Protein (6.3-8.2) g/dL Albumin (3.5-5.0) g/dL Arterial Blood Potassium (3.4-4.5) mmol/L Arterial Blood Glucose (75-99) mg/dL Crossmatch 11/09/22 11/09/22 11/09/22 Range/Units 00:05 00:56 01:53 WBC (3.8-10.6) k/uL RBC (3.80-5.40) m/uL Hgb (11.4-16.0) gm/dL Hct (34.0-46.0) % Plt Count (150-450) k/uL Neutrophils # (1.3-7.7) k/uL Lymphocytes # (1.0-4.8) k/uL ABG pH (7.35-7.45) ABG pCO2 (35-45) mmHg ABG pO2 (83-108) mmHg ABG HCO3 (21-25) mmol/L ABG Total CO2 (19-24) mmol/L ABG O2 Saturation (94-97) % ABG Hematocrit (34.0-46.0) % ABG Potassium (3.4-4.5) mmol/L ABG Ionized Calcium (4.5-5.3) mg/dL ABG Glucose (75-99) mg/dL ABG Lactic Acid (0.5-1.6) mmol/L Hemoglobin (11.4-16.0) gm/dL Potassium (3.5-5.1) mmol/L Chloride (98-107) mmol/L BUN (7-17) mg/dL Glucose (74-99) mg/dL POC Glucose (mg/dL) 151 H 147 H 144 H (70-110) mg/dL Ionized Calcium Vivi (4.5-5.3) mg/dL Magnesium (1.6-2.3) mg/dL AST (14-36) U/L Total Protein (6.3-8.2) g/dL Albumin (3.5-5.0) g/dL Arterial Blood Potassium (3.4-4.5) mmol/L Arterial Blood Glucose (75-99) mg/dL Crossmatch 11/09/22 11/09/22 11/09/22 Range/Units 03:10 04:00 04:58 WBC (3.8-10.6) k/uL RBC (3.80-5.40) m/uL Hgb (11.4-16.0) gm/dL Hct (34.0-46.0) % Plt Count (150-450) k/uL Neutrophils # (1.3-7.7) k/uL Lymphocytes # (1.0-4.8) k/uL ABG pH (7.35-7.45) ABG pCO2 (35-45) mmHg ABG pO2 (83-108) mmHg ABG HCO3 (21-25) mmol/L ABG Total CO2 (19-24) mmol/L ABG O2 Saturation (94-97) % ABG Hematocrit (34.0-46.0) % ABG Potassium (3.4-4.5) mmol/L ABG Ionized Calcium (4.5-5.3) mg/dL ABG Glucose (75-99) mg/dL ABG Lactic Acid (0.5-1.6) mmol/L Hemoglobin (11.4-16.0) gm/dL Potassium (3.5-5.1) mmol/L Chloride (98-107) mmol/L BUN (7-17) mg/dL Glucose (74-99) mg/dL POC Glucose (mg/dL) 131 H 141 H 139 H (70-110) mg/dL Ionized Calcium Vivi (4.5-5.3) mg/dL Magnesium (1.6-2.3) mg/dL AST (14-36) U/L Total Protein (6.3-8.2) g/dL Albumin (3.5-5.0) g/dL Arterial Blood Potassium (3.4-4.5) mmol/L Arterial Blood Glucose (75-99) mg/dL Crossmatch 11/09/22 11/09/22 11/09/22 Range/Units 05:00 05:00 06:58 WBC 13.9 H (3.8-10.6) k/uL RBC 3.28 L (3.80-5.40) m/uL Hgb 10.1 L (11.4-16.0) gm/dL Hct 28.0 L (34.0-46.0) % Plt Count (150-450) k/uL Neutrophils # 12.4 H (1.3-7.7) k/uL Lymphocytes # 0.8 L (1.0-4.8) k/uL ABG pH (7.35-7.45) ABG pCO2 (35-45) mmHg ABG pO2 (83-108) mmHg ABG HCO3 (21-25) mmol/L ABG Total CO2 (19-24) mmol/L ABG O2 Saturation (94-97) % ABG Hematocrit (34.0-46.0) % ABG Potassium (3.4-4.5) mmol/L ABG Ionized Calcium (4.5-5.3) mg/dL ABG Glucose (75-99) mg/dL ABG Lactic Acid (0.5-1.6) mmol/L Hemoglobin (11.4-16.0) gm/dL Potassium 3.0 L (3.5-5.1) mmol/L Chloride (98-107) mmol/L BUN 20 H (7-17) mg/dL Glucose 128 H (74-99) mg/dL POC Glucose (mg/dL) 134 H (70-110) mg/dL Ionized Calcium Vivi (4.5-5.3) mg/dL Magnesium 2.7 H (1.6-2.3) mg/dL AST 46 H (14-36) U/L Total Protein 5.8 L (6.3-8.2) g/dL Albumin (3.5-5.0) g/dL Arterial Blood Potassium (3.4-4.5) mmol/L Arterial Blood Glucose (75-99) mg/dL Crossmatch 11/09/22 Range/Units 08:12 WBC (3.8-10.6) k/uL RBC (3.80-5.40) m/uL Hgb (11.4-16.0) gm/dL Hct (34.0-46.0) % Plt Count (150-450) k/uL Neutrophils # (1.3-7.7) k/uL Lymphocytes # (1.0-4.8) k/uL ABG pH (7.35-7.45) ABG pCO2 (35-45) mmHg ABG pO2 (83-108) mmHg ABG HCO3 (21-25) mmol/L ABG Total CO2 (19-24) mmol/L ABG O2 Saturation (94-97) % ABG Hematocrit (34.0-46.0) % ABG Potassium (3.4-4.5) mmol/L ABG Ionized Calcium (4.5-5.3) mg/dL ABG Glucose (75-99) mg/dL ABG Lactic Acid (0.5-1.6) mmol/L Hemoglobin (11.4-16.0) gm/dL Potassium (3.5-5.1) mmol/L Chloride (98-107) mmol/L BUN (7-17) mg/dL Glucose (74-99) mg/dL POC Glucose (mg/dL) 121 H (70-110) mg/dL Ionized Calcium Vivi (4.5-5.3) mg/dL Magnesium (1.6-2.3) mg/dL AST (14-36) U/L Total Protein (6.3-8.2) g/dL Albumin (3.5-5.0) g/dL Arterial Blood Potassium (3.4-4.5) mmol/L Arterial Blood Glucose (75-99) mg/dL Crossmatch - Imaging and Cardiology Chest x-ray: report reviewed, image reviewed Assessment and Plan Assessment: 1. Calcific aortic stenosis, status post bioprostetic AVR 2. Single-vessel coronary artery disease in the LAD, status post 1V CABG 3. Preserved left ventricular function, EF 55% on MELISSA 4. HTN 5. HLD with statin intolerance, currently on Repatha, cholesterol 195, LDL 98 6. Paroxysmal atrial fibrillation status post ablation on Eliquis for anticoagulation, currently sinus, status post ligation of left atrial appendage 7. Stage III chronic kidney disease 8. Previous tobacco dependence, preoperative FEV1 96% of predicted 9. Family history of coronary artery disease 10. Postoperative acute blood loss anemia, expected Plan: 1. Continue to maximize medical therapy with aspirin, Plavix. Will initiate CCB due to BB intolerance, continue Repatha at home (only takes every 2 weeks). Discontinue IV nitro. Will start ARB for better blood pressure control 2. Wean O2 as tolerated. Encourage incentive spirometry is 10 times every hour while awake. Bronchodilators per pulmonology 3. Increase activity as tolerated, PT/OT/cardiac rehab consulted 4. Will monitor daily labs and x-rays. Electrolyte replacement per protocol 5. GI/DVT prophylaxis 6. Pain control with current medication regimen. No narcotics due to sleepiness 7. Insulin management per primary care service. Patient is not diabetic, hemoglobin A1c 6.3% 8. Discontinue [place]. Connect Cordis to continuous CVP monitoring 9. Will discontinue mediastinal chest tube, continue left pleural chest tube for another 24 hours 10. Continue Samaniego catheter for another 24 hours for strict accurate intake and output 11. Daily weights 12. Reorient PRN 13. Patient takes multuple homeopathic meds at home, hold for now 14. More recommendations to follow
[2022-11-09 10:20] LABS: Glucose,Whole Blood 124 mg/dL (70-110)
--- NOTE | 2022-11-09 10:30 | P.PN ---
Subjective Progress Note Date: 11/09/22 Principal diagnosis: ICU management. Pulmonary consult dated 11/08/2022. 76-year-old female with history of aortic stenosis and coronary disease. The patient is postop day #0, status post one-vessel bypass, CHOPRA to LAD, aortic valve replacement with 21 mm bovine aortic valve prosthesis, ligation of left atrial appendage, and epi-aortic ultrasound. I was asked to see the patient for critical care management. The patient is back in the intensive care unit. Her ventilator settings include the volume assist control, rate 16, tidal volume 350, FiO2 100%, and PEEP of 10. Blood gases show a PaO2 of 245, pCO2 of 54, and a pH is 7.27. The FiO2 was reduced down to 60%, and subsequently to 50%, and the rate was increased from 12 up to 16. The surgery was done by Dr. Naylor. I'm seeing the patient in the intensive care unit, room 263. She's currently on propofol at 35 mcg/kg/m, lactated Ringer's at 50 mL an hour, insulin at 2.5 units an hour, Cleveprex at 8 mg an hour and nitroglycerin at 5 mcg/m. The patient was initially evaluated by Dr. Naylor in early October. She apparently has had no aortic stenosis for many years. Her past medical history is positive for CAD, aortic stenosis, hypertension, hyperlipidemia, and atrial fibrillation. White count is 14, hemoglobin 10.2, and platelet count 136,000. Sodium 141, potassium 3.8, chlorides 109, CO2 25, BUN 20, creatinine 0.67. Chest x-ray shows typical postsurgical changes, and some atelectasis at the left lung base. Progress note dated 11/09/2022. This is a 76-year-old female seen yesterday in consultation. She has a history of long-standing aortic stenosis and coronary disease. She is postop day #1, has post one-vessel bypass, CHOPRA to LAD, and aortic valve replacement, with a bovine aortic valve prosthesis. She also had ligation upper left atrial appendage. The patient was extubated in less than 6 hours. Today she is seen in room 263. The patient's on 4 L of oxygen. She's receiving an insulin drip at 4 units an hour. She's getting lactated Ringer's at 20 mL an hour. She's quite lethargic. White count 13.9, hemoglobin 10.1, hematocrit 28, with a normal platelet count. Sodium 141, potassium 3, chlorides 106, CO2 25, BUN 20, creatinine 0.73. Chest x-ray shows some bibasilar atelectasis or infiltrate. Objective - Vital Signs Vital signs: Vital Signs Temp 100.0 F H 11/09/22 08:00 Pulse 81 11/09/22 09:00 Resp 27 H 11/09/22 09:00 BP 126/67 11/09/22 09:00 Pulse Ox 97 11/09/22 09:00 FiO2 30 11/08/22 18:04 Intake & Output 11/08/22 11/09/22 11/09/22 18:59 06:59 18:59 Intake Total 0020.377 0973.450 160.649 Output Total 2440 1299 115 Balance -747.710 -251.550 45.649 Weight 90.3 kg Intake: IV 53 788 138 CO/ CI 80 20 LR @50mls/hr 600 100 Pressure bag 108 18 Intake, IV Titration 1639.290 259.450 22.649 Amount ACETAMINOPHEN IV (For NPO 100 ) 1,000 mg In Empty Bag 1 bag @ 400 mls/hr IVPB Q6H MICHELLE Rx#:[id number] Albumin Human 5% 250 ml 250 In Empty Bag 1 bag @ 250 mls/hr IVPB ONCE ONE Rx#: [id number] Albumin Human 5% 250 ml 500 In Empty Bag 1 bag @ 250 mls/hr IVPB Q1HR PRN Rx#: [id number] Clevidipine Butyrate 25 18.132 106.300 mg In Empty Bag 1 bag @ 1 MG/HR 2 mls/hr IV .Q24H MICHELLE Rx#:[id number] Dexmedetomidine/0.9% NaCl 9.076 (Pmx) 400 mcg In Empty Bag 1 bag @ Titrate IV . Q0M MICHELLE Rx#:[id number] Insulin Regular 100 unit 12.297 33.650 22.649 In Sodium Chloride 0.9% 100 ml @ Per Protocol IV .Q0M MICHELLE Rx#:[id number] Lactated Ringers 1,000 ml 300 50 @ 20 mls/hr IV .Q24H MICHELLE Rx#:[id number] Nitroglycerin-D5w Pmx 50 9.0 19.5 mg In Dextrose/Water 1 250ml.bag @ 5 MCG/MIN 1.5 mls/hr IV .Q24H MICHELLE Rx#: [id number] Potassium Chloride 10 meq 300 In Water For Injection 1 100ml.bag @ 100 mls/hr IVPB Q1H MICHELLE Rx#: [id number] ceFAZolin 2 gm In Sodium 50 50 Chloride 0.9% 50 ml @ 100 mls/hr IVPB Q8HR MICHELLE Rx# :[id number] propofoL 1,000 mg In 90.785 Empty Bag 1 bag @ Titrate IV .Q0M MICHELLE Rx#: [id number] Output: Chest Tube Drainage 165 339 10 Lt Pleural 35 149 0 Mediastinal 130 190 10 Urine 775 960 105 Estimated Blood Loss 1500 Other: Voiding Method Indwelling Catheter Indwelling Catheter Indwelling Catheter ABP, PAP, CO, CI - Last Documented Arterial Blood Pressure 167/54 Pulmonary Artery Pressure 24/8 Cardiac Output 5.2 Cardiac Index 2.7 - Exam No acute distress, lethargic, extubated, currently on 4 L. HEENT examination is grossly unremarkable. Neck supple. Full range of motion. No adenopathy thyromegaly or neck vein distention. Cardiovascular examination reveals regular rhythm rate. S1-S2 normal. No S3 or S4. No discernible murmur noted. Heart rate is 81 bpm. Lungs reveal clear breath sounds. Breath sounds are equal bilaterally. No adventitious lung sounds including wheezes rhonchi or crackles. Saturations are 96%. Abdomen soft bowel sounds are heard. No masses or tenderness. Extremities are intact. No cyanosis clubbing or edema. Skin is without rash or lesion. Neurologic examination is brief but nonfocal. The patient's quite lethargic. - Labs CBC & Chem 7: 11/09/22 05:00 11/09/22 05:00 Labs: Abnormal Lab Results - Last 24 Hours (Table) 11/05/22 11/08/22 11/08/22 Range/Units 11:56 08:30 09:28 WBC (3.8-10.6) k/uL RBC (3.80-5.40) m/uL Hgb (11.4-16.0) gm/dL Hct (34.0-46.0) % Plt Count (150-450) k/uL Neutrophils # (1.3-7.7) k/uL Lymphocytes # (1.0-4.8) k/uL ABG pH 7.46 H (7.35-7.45) ABG pCO2 (35-45) mmHg ABG pO2 206 H 191 H (83-108) mmHg ABG HCO3 27 H 27 H (21-25) mmol/L ABG Total CO2 28 H 28 H (19-24) mmol/L ABG O2 Saturation 99.7 H 99.5 H (94-97) % ABG Hematocrit 32 L (34.0-46.0) % ABG Potassium 3.0 L* 3.2 L (3.4-4.5) mmol/L ABG Ionized Calcium (4.5-5.3) mg/dL ABG Glucose 118 H 133 H (75-99) mg/dL ABG Lactic Acid 1.7 H (0.5-1.6) mmol/L Hemoglobin 10.9 L 10.5 L (11.4-16.0) gm/dL Potassium (3.5-5.1) mmol/L Chloride (98-107) mmol/L BUN (7-17) mg/dL Glucose (74-99) mg/dL POC Glucose (mg/dL) (70-110) mg/dL Ionized Calcium Vivi (4.5-5.3) mg/dL Magnesium (1.6-2.3) mg/dL AST (14-36) U/L Total Protein (6.3-8.2) g/dL Albumin (3.5-5.0) g/dL Arterial Blood Potassium 3.0 L* 3.2 L (3.4-4.5) mmol/L Arterial Blood Glucose 118 H 133 H (75-99) mg/dL Crossmatch See Detail 11/08/22 11/08/22 11/08/22 Range/Units 10:07 10:38 11:28 WBC (3.8-10.6) k/uL RBC (3.80-5.40) m/uL Hgb (11.4-16.0) gm/dL Hct (34.0-46.0) % Plt Count (150-450) k/uL Neutrophils # (1.3-7.7) k/uL Lymphocytes # (1.0-4.8) k/uL ABG pH 7.50 H 7.47 H (7.35-7.45) ABG pCO2 34 L (35-45) mmHg ABG pO2 >420 H 379 H 359 H (83-108) mmHg ABG HCO3 28 H (21-25) mmol/L ABG Total CO2 29 H 25 H 25 H (19-24) mmol/L ABG O2 Saturation 99.8 H 100.0 H 100.0 H (94-97) % ABG Hematocrit 24 L 26 L 27 L (34.0-46.0) % ABG Potassium 3.1 L (3.4-4.5) mmol/L ABG Ionized Calcium 3.7 L 4.3 L 4.4 L (4.5-5.3) mg/dL ABG Glucose 134 H 118 H 136 H (75-99) mg/dL ABG Lactic Acid 1.9 H 2.7 H* (0.5-1.6) mmol/L Hemoglobin 7.8 L 8.6 L 8.7 L (11.4-16.0) gm/dL Potassium (3.5-5.1) mmol/L Chloride (98-107) mmol/L BUN (7-17) mg/dL Glucose (74-99) mg/dL POC Glucose (mg/dL) (70-110) mg/dL Ionized Calcium Vivi (4.5-5.3) mg/dL Magnesium (1.6-2.3) mg/dL AST (14-36) U/L Total Protein (6.3-8.2) g/dL Albumin (3.5-5.0) g/dL Arterial Blood Potassium 3.1 L (3.4-4.5) mmol/L Arterial Blood Glucose 134 H 118 H 136 H (75-99) mg/dL Crossmatch 11/08/22 11/08/22 11/08/22 Range/Units 12:31 12:57 12:57 WBC 14.0 H (3.8-10.6) k/uL RBC 3.28 L (3.80-5.40) m/uL Hgb 10.2 L D (11.4-16.0) gm/dL Hct 28.1 L (34.0-46.0) % Plt Count 136 L (150-450) k/uL Neutrophils # 12.5 H (1.3-7.7) k/uL Lymphocytes # 0.9 L (1.0-4.8) k/uL ABG pH (7.35-7.45) ABG pCO2 (35-45) mmHg ABG pO2 131 H (83-108) mmHg ABG HCO3 (21-25) mmol/L ABG Total CO2 25 H (19-24) mmol/L ABG O2 Saturation 98.9 H (94-97) % ABG Hematocrit 30 L (34.0-46.0) % ABG Potassium (3.4-4.5) mmol/L ABG Ionized Calcium (4.5-5.3) mg/dL ABG Glucose 155 H (75-99) mg/dL ABG Lactic Acid 3.5 H* (0.5-1.6) mmol/L Hemoglobin 9.7 L (11.4-16.0) gm/dL Potassium (3.5-5.1) mmol/L Chloride 109 H (98-107) mmol/L BUN 20 H (7-17) mg/dL Glucose 140 H (74-99) mg/dL POC Glucose (mg/dL) (70-110) mg/dL Ionized Calcium Vivi 5.5 H (4.5-5.3) mg/dL Magnesium 3.9 H (1.6-2.3) mg/dL AST 46 H (14-36) U/L Total Protein 5.3 L (6.3-8.2) g/dL Albumin 3.2 L (3.5-5.0) g/dL Arterial Blood Potassium (3.4-4.5) mmol/L Arterial Blood Glucose 155 H (75-99) mg/dL Crossmatch 11/08/22 11/08/22 11/08/22 Range/Units 13:04 13:23 13:58 WBC (3.8-10.6) k/uL RBC (3.80-5.40) m/uL Hgb (11.4-16.0) gm/dL Hct (34.0-46.0) % Plt Count (150-450) k/uL Neutrophils # (1.3-7.7) k/uL Lymphocytes # (1.0-4.8) k/uL ABG pH 7.27 L (7.35-7.45) ABG pCO2 54 H (35-45) mmHg ABG pO2 245 H (83-108) mmHg ABG HCO3 (21-25) mmol/L ABG Total CO2 26 H (19-24) mmol/L ABG O2 Saturation 98.5 H (94-97) % ABG Hematocrit (34.0-46.0) % ABG Potassium (3.4-4.5) mmol/L ABG Ionized Calcium (4.5-5.3) mg/dL ABG Glucose (75-99) mg/dL ABG Lactic Acid (0.5-1.6) mmol/L Hemoglobin (11.4-16.0) gm/dL Potassium (3.5-5.1) mmol/L Chloride (98-107) mmol/L BUN (7-17) mg/dL Glucose (74-99) mg/dL POC Glucose (mg/dL) 147 H 166 H (70-110) mg/dL Ionized Calcium Vivi (4.5-5.3) mg/dL Magnesium (1.6-2.3) mg/dL AST (14-36) U/L Total Protein (6.3-8.2) g/dL Albumin (3.5-5.0) g/dL Arterial Blood Potassium (3.4-4.5) mmol/L Arterial Blood Glucose (75-99) mg/dL Crossmatch 11/08/22 11/08/22 11/08/22 Range/Units 15:00 15:04 16:08 WBC 14.1 H (3.8-10.6) k/uL RBC (3.80-5.40) m/uL Hgb (11.4-16.0) gm/dL Hct 33.5 L (34.0-46.0) % Plt Count (150-450) k/uL Neutrophils # 12.6 H (1.3-7.7) k/uL Lymphocytes # 0.9 L (1.0-4.8) k/uL ABG pH (7.35-7.45) ABG pCO2 (35-45) mmHg ABG pO2 (83-108) mmHg ABG HCO3 (21-25) mmol/L ABG Total CO2 (19-24) mmol/L ABG O2 Saturation (94-97) % ABG Hematocrit (34.0-46.0) % ABG Potassium (3.4-4.5) mmol/L ABG Ionized Calcium (4.5-5.3) mg/dL ABG Glucose (75-99) mg/dL ABG Lactic Acid (0.5-1.6) mmol/L Hemoglobin (11.4-16.0) gm/dL Potassium (3.5-5.1) mmol/L Chloride (98-107) mmol/L BUN (7-17) mg/dL Glucose (74-99) mg/dL POC Glucose (mg/dL) 155 H 148 H (70-110) mg/dL Ionized Calcium Vivi (4.5-5.3) mg/dL Magnesium (1.6-2.3) mg/dL AST (14-36) U/L Total Protein (6.3-8.2) g/dL Albumin (3.5-5.0) g/dL Arterial Blood Potassium (3.4-4.5) mmol/L Arterial Blood Glucose (75-99) mg/dL Crossmatch 11/08/22 11/08/22 11/08/22 Range/Units 16:59 18:00 18:02 WBC 12.7 H (3.8-10.6) k/uL RBC 3.42 L (3.80-5.40) m/uL Hgb 10.0 L D (11.4-16.0) gm/dL Hct 29.4 L (34.0-46.0) % Plt Count 140 L (150-450) k/uL Neutrophils # 11.7 H (1.3-7.7) k/uL Lymphocytes # 0.4 L (1.0-4.8) k/uL ABG pH (7.35-7.45) ABG pCO2 (35-45) mmHg ABG pO2 (83-108) mmHg ABG HCO3 (21-25) mmol/L ABG Total CO2 (19-24) mmol/L ABG O2 Saturation (94-97) % ABG Hematocrit (34.0-46.0) % ABG Potassium (3.4-4.5) mmol/L ABG Ionized Calcium (4.5-5.3) mg/dL ABG Glucose (75-99) mg/dL ABG Lactic Acid (0.5-1.6) mmol/L Hemoglobin (11.4-16.0) gm/dL Potassium (3.5-5.1) mmol/L Chloride (98-107) mmol/L BUN (7-17) mg/dL Glucose (74-99) mg/dL POC Glucose (mg/dL) 142 H 140 H (70-110) mg/dL Ionized Calcium Vivi (4.5-5.3) mg/dL Magnesium (1.6-2.3) mg/dL AST (14-36) U/L Total Protein (6.3-8.2) g/dL Albumin (3.5-5.0) g/dL Arterial Blood Potassium (3.4-4.5) mmol/L Arterial Blood Glucose (75-99) mg/dL Crossmatch 11/08/22 11/08/22 11/08/22 Range/Units 18:36 18:57 20:01 WBC (3.8-10.6) k/uL RBC (3.80-5.40) m/uL Hgb (11.4-16.0) gm/dL Hct (34.0-46.0) % Plt Count (150-450) k/uL Neutrophils # (1.3-7.7) k/uL Lymphocytes # (1.0-4.8) k/uL ABG pH (7.35-7.45) ABG pCO2 (35-45) mmHg ABG pO2 122 H (83-108) mmHg ABG HCO3 (21-25) mmol/L ABG Total CO2 (19-24) mmol/L ABG O2 Saturation 99.1 H (94-97) % ABG Hematocrit (34.0-46.0) % ABG Potassium (3.4-4.5) mmol/L ABG Ionized Calcium (4.5-5.3) mg/dL ABG Glucose (75-99) mg/dL ABG Lactic Acid (0.5-1.6) mmol/L Hemoglobin (11.4-16.0) gm/dL Potassium (3.5-5.1) mmol/L Chloride (98-107) mmol/L BUN (7-17) mg/dL Glucose (74-99) mg/dL POC Glucose (mg/dL) 138 H 164 H (70-110) mg/dL Ionized Calcium Vivi (4.5-5.3) mg/dL Magnesium (1.6-2.3) mg/dL AST (14-36) U/L Total Protein (6.3-8.2) g/dL Albumin (3.5-5.0) g/dL Arterial Blood Potassium (3.4-4.5) mmol/L Arterial Blood Glucose (75-99) mg/dL Crossmatch 11/08/22 11/08/22 11/08/22 Range/Units 20:52 21:57 23:06 WBC (3.8-10.6) k/uL RBC (3.80-5.40) m/uL Hgb (11.4-16.0) gm/dL Hct (34.0-46.0) % Plt Count (150-450) k/uL Neutrophils # (1.3-7.7) k/uL Lymphocytes # (1.0-4.8) k/uL ABG pH (7.35-7.45) ABG pCO2 (35-45) mmHg ABG pO2 (83-108) mmHg ABG HCO3 (21-25) mmol/L ABG Total CO2 (19-24) mmol/L ABG O2 Saturation (94-97) % ABG Hematocrit (34.0-46.0) % ABG Potassium (3.4-4.5) mmol/L ABG Ionized Calcium (4.5-5.3) mg/dL ABG Glucose (75-99) mg/dL ABG Lactic Acid (0.5-1.6) mmol/L Hemoglobin (11.4-16.0) gm/dL Potassium (3.5-5.1) mmol/L Chloride (98-107) mmol/L BUN (7-17) mg/dL Glucose (74-99) mg/dL POC Glucose (mg/dL) 158 H 150 H 162 H (70-110) mg/dL Ionized Calcium Vivi (4.5-5.3) mg/dL Magnesium (1.6-2.3) mg/dL AST (14-36) U/L Total Protein (6.3-8.2) g/dL Albumin (3.5-5.0) g/dL Arterial Blood Potassium (3.4-4.5) mmol/L Arterial Blood Glucose (75-99) mg/dL Crossmatch 11/09/22 11/09/22 11/09/22 Range/Units 00:05 00:56 01:53 WBC (3.8-10.6) k/uL RBC (3.80-5.40) m/uL Hgb (11.4-16.0) gm/dL Hct (34.0-46.0) % Plt Count (150-450) k/uL Neutrophils # (1.3-7.7) k/uL Lymphocytes # (1.0-4.8) k/uL ABG pH (7.35-7.45) ABG pCO2 (35-45) mmHg ABG pO2 (83-108) mmHg ABG HCO3 (21-25) mmol/L ABG Total CO2 (19-24) mmol/L ABG O2 Saturation (94-97) % ABG Hematocrit (34.0-46.0) % ABG Potassium (3.4-4.5) mmol/L ABG Ionized Calcium (4.5-5.3) mg/dL ABG Glucose (75-99) mg/dL ABG Lactic Acid (0.5-1.6) mmol/L Hemoglobin (11.4-16.0) gm/dL Potassium (3.5-5.1) mmol/L Chloride (98-107) mmol/L BUN (7-17) mg/dL Glucose (74-99) mg/dL POC Glucose (mg/dL) 151 H 147 H 144 H (70-110) mg/dL Ionized Calcium Vivi (4.5-5.3) mg/dL Magnesium (1.6-2.3) mg/dL AST (14-36) U/L Total Protein (6.3-8.2) g/dL Albumin (3.5-5.0) g/dL Arterial Blood Potassium (3.4-4.5) mmol/L Arterial Blood Glucose (75-99) mg/dL Crossmatch 11/09/22 11/09/22 11/09/22 Range/Units 03:10 04:00 04:58 WBC (3.8-10.6) k/uL RBC (3.80-5.40) m/uL Hgb (11.4-16.0) gm/dL Hct (34.0-46.0) % Plt Count (150-450) k/uL Neutrophils # (1.3-7.7) k/uL Lymphocytes # (1.0-4.8) k/uL ABG pH (7.35-7.45) ABG pCO2 (35-45) mmHg ABG pO2 (83-108) mmHg ABG HCO3 (21-25) mmol/L ABG Total CO2 (19-24) mmol/L ABG O2 Saturation (94-97) % ABG Hematocrit (34.0-46.0) % ABG Potassium (3.4-4.5) mmol/L ABG Ionized Calcium (4.5-5.3) mg/dL ABG Glucose (75-99) mg/dL ABG Lactic Acid (0.5-1.6) mmol/L Hemoglobin (11.4-16.0) gm/dL Potassium (3.5-5.1) mmol/L Chloride (98-107) mmol/L BUN (7-17) mg/dL Glucose (74-99) mg/dL POC Glucose (mg/dL) 131 H 141 H 139 H (70-110) mg/dL Ionized Calcium Vivi (4.5-5.3) mg/dL Magnesium (1.6-2.3) mg/dL AST (14-36) U/L Total Protein (6.3-8.2) g/dL Albumin (3.5-5.0) g/dL Arterial Blood Potassium (3.4-4.5) mmol/L Arterial Blood Glucose (75-99) mg/dL Crossmatch 11/09/22 11/09/22 11/09/22 Range/Units 05:00 05:00 06:58 WBC 13.9 H (3.8-10.6) k/uL RBC 3.28 L (3.80-5.40) m/uL Hgb 10.1 L (11.4-16.0) gm/dL Hct 28.0 L (34.0-46.0) % Plt Count (150-450) k/uL Neutrophils # 12.4 H (1.3-7.7) k/uL Lymphocytes # 0.8 L (1.0-4.8) k/uL ABG pH (7.35-7.45) ABG pCO2 (35-45) mmHg ABG pO2 (83-108) mmHg ABG HCO3 (21-25) mmol/L ABG Total CO2 (19-24) mmol/L ABG O2 Saturation (94-97) % ABG Hematocrit (34.0-46.0) % ABG Potassium (3.4-4.5) mmol/L ABG Ionized Calcium (4.5-5.3) mg/dL ABG Glucose (75-99) mg/dL ABG Lactic Acid (0.5-1.6) mmol/L Hemoglobin (11.4-16.0) gm/dL Potassium 3.0 L (3.5-5.1) mmol/L Chloride (98-107) mmol/L BUN 20 H (7-17) mg/dL Glucose 128 H (74-99) mg/dL POC Glucose (mg/dL) 134 H (70-110) mg/dL Ionized Calcium Vivi (4.5-5.3) mg/dL Magnesium 2.7 H (1.6-2.3) mg/dL AST 46 H (14-36) U/L Total Protein 5.8 L (6.3-8.2) g/dL Albumin (3.5-5.0) g/dL Arterial Blood Potassium (3.4-4.5) mmol/L Arterial Blood Glucose (75-99) mg/dL Crossmatch 11/09/22 11/09/22 11/09/22 Range/Units 08:12 09:07 10:18 WBC (3.8-10.6) k/uL RBC (3.80-5.40) m/uL Hgb (11.4-16.0) gm/dL Hct (34.0-46.0) % Plt Count (150-450) k/uL Neutrophils # (1.3-7.7) k/uL Lymphocytes # (1.0-4.8) k/uL ABG pH (7.35-7.45) ABG pCO2 (35-45) mmHg ABG pO2 (83-108) mmHg ABG HCO3 (21-25) mmol/L ABG Total CO2 (19-24) mmol/L ABG O2 Saturation (94-97) % ABG Hematocrit (34.0-46.0) % ABG Potassium (3.4-4.5) mmol/L ABG Ionized Calcium (4.5-5.3) mg/dL ABG Glucose (75-99) mg/dL ABG Lactic Acid (0.5-1.6) mmol/L Hemoglobin (11.4-16.0) gm/dL Potassium (3.5-5.1) mmol/L Chloride (98-107) mmol/L BUN (7-17) mg/dL Glucose (74-99) mg/dL POC Glucose (mg/dL) 121 H 133 H 124 H (70-110) mg/dL Ionized Calcium Vivi (4.5-5.3) mg/dL Magnesium (1.6-2.3) mg/dL AST (14-36) U/L Total Protein (6.3-8.2) g/dL Albumin (3.5-5.0) g/dL Arterial Blood Potassium (3.4-4.5) mmol/L Arterial Blood Glucose (75-99) mg/dL Crossmatch Assessment and Plan Assessment: Postop day #1, status post aortic valve replacement, and single-vessel bypass, CHOPRA to LAD, and ligation of left atrial appendage. Routine postoperative ventilator management, status post extubation on 11/08/2022. History of long-standing aortic stenosis. History of CAD. History of atrial fibrillation. History of hypertension. History of hyperlipidemia. Plan: Plan dated 11/08/2022. The patient is seen in the intensive care unit, room 263. Labs, x-rays, and medications are reviewed. The surgeons operative note is also reviewed. The patient is examined. Ventilator changes are made. We will continue to follow the patient and make recommendations along the way. Overall prognosis remains guarded. No additional recommendations at this time. We will hopefully get the patient extubated in a timely fashion. Plan dated 11/09/2022. The patient was extubated yesterday, within the 6 hour window. Labs, x-rays, and medications are reviewed. The patient is quite lethargic this morning. We will continue to follow and make recommendations along the way. Her labs, x- rays, medications are all reviewed. The patient currently is on 4 L. She is receiving an insulin drip at 4 units an hour. She's getting lactated Ringer's at 20 mL an hour. Prognosis is guarded. Time with Patient: Greater than 30
[2022-11-09] MEDS ORDERED: LOSARTAN 25 MG TAB PO STA (10:52)
[2022-11-09 11:06] LABS: Glucose,Whole Blood 130 mg/dL (70-110)
[2022-11-09] MEDS: LACTATED RINGERS 1,000 ML IV SCH (11:29)
[2022-11-09 13:02] LABS: Glucose,Whole Blood 119 mg/dL (70-110)
[2022-11-09 14:30] LABS: Glucose,Whole Blood 122 mg/dL (70-110)
[2022-11-09 16:33] LABS: Glucose,Whole Blood 138 mg/dL (70-110)
[2022-11-09] MEDS: INSULIN REGULAR 100 UNIT in SODIUM CHLORIDE 0.9% 100 ML IV SCH (17:07)
[2022-11-09 17:08] LABS: ABG Base Excess 0.4 mmol/L; ABG HCO3 23 mmol/L (21-25); ABG Oxygen Saturation 92.7 % (94-97); ABG PCO2 28 mmHg (35-45); ABG PH 7.52 (7.35-7.45); ABG TCO2 24 mmol/L (19-24); Allen Test Performed? Yes
[2022-11-09 17:08] LABS: Glucose,Whole Blood 145 mg/dL (70-110)
[2022-11-09 17:10] LABS: ABG PO2 57 mmHg (83-108)
--- NOTE | 2022-11-09 18:03 | P.PN ---
Subjective Progress Note Date: 11/09/22 (delayed charting seen at 0955) Patient is a 76-year-old female with atrial fibrillation, asthma, hypertension, dyslipidemia, and fatty infiltration of the liver who presented for coronary artery bypass grafting with a CHOPRA to the LAD as well as aortic valve replacement, bioprosthetic. She tolerated the procedure well was admitted to the ICU. Patient seen and examined at bedside. She is up in the chair, she denies any pain at this time, she is feeling very tired. No nausea or vomiting. Vital signs reviewed General: nontoxic, no distress, appears at stated age Cardiovascular: S1S2 reg, no murmur, positive posterior tibial pulse bilateral, Lungs: CTA bilateral, no rhonchi, no rales , no accessory muscle use Abdominal: soft, nontender to palpation, no guarding, no appreciable organomegaly Ext: no gross muscle atrophy, no edema, no contractures Neuro: CN II-XI grossly intact, no focal neuro deficits Psych: Alert, oriented, appropriate affect Assessment: CAD s/p CHOPRA to LAD with bioprosthetic valve replacement Hyperglycemia with prediabetes-A1c 10/12/22 6.3 Elevated lactic acid, anticipated outcome Leukocytosis, reactive Chronic atrial fibrillation Asthma without exacerbation Hypertension Dyslipidemia Fatty infiltration of the liver Chronic kidney disease stage III Imaging: chest x-ray reviwed by myself. Line and tubes in appropraite position. b/l atelectasis Data Review: Labs reviewed White blood cell count 13.9, hemoglobin 10.1, platelets 159, sodium 141, potassium 3, carbon dioxide 25, chloride 10, BUN 20, creatinine 0.73, blood sugar 128, bilirubin 2.7 Blood sugars reviewed and on the trip she has had a blood sugar of 121-147 Plan: - cardio thorasic note reviewed. Hx of BB intoleratnce, continue repatha, continue diltiazem 30 mg every 6 hours -Pulmonary note reviewed. Continue to wean oxygen as able. -Patient continues to be lethargic with variable oral intake. Recommend contin uing insulin drip today. Plans will be to transition to sliding scale insulin tomorrow. At the time of my evaluation she was requiring 4 units per hour. -She'll need repeat CBC in a.m. to assess for stabilization of hemoglobin and white blood cell count. We will need repeat BMP in a.m. to the invasive nature of coronary artery bypass grafting. - Continue with aspirin 325 mg daily and Plavix 75 mg daily Cozaar 50 mg oral daily Thank you for allowing us to participate in the care of this pleasant patient. Do not hesitate to contact us with questions. Someone can be reached from the [facility] [place] [facility] [place] [facility] all hours of the day at [phone] or via perfect serve. DVT prophylaxis: Heparin 5000 units every 8 hours Objective - Vital Signs Vital signs: Vital Signs Temp 99 F 11/09/22 16:00 Pulse 82 11/09/22 17:00 Resp 26 H 11/09/22 17:00 BP 100/56 11/09/22 17:00 Pulse Ox 92 L 11/09/22 17:00 FiO2 60 11/09/22 17:39 Intake & Output 11/08/22 11/09/22 11/09/22 18:59 06:59 18:59 Intake Total 1844.155 9950.450 796.186 Output Total 2440 1299 615 Balance -747.710 -251.550 181.186 Weight 90.3 kg 90.3 kg Intake: IV 53 788 708 CO/ CI 80 20 LR @50mls/hr 600 340 Potassium Chloride 20 meq 300 In Water For Injection 1 100ml.bag @ 50 mls/hr IVPB Q2H [facility] Rx#: [id number] Pressure bag 108 48 Intake, IV Titration 1639.290 259.450 88.186 Amount ACETAMINOPHEN IV (For NPO 100 ) 1,000 mg In Empty Bag 1 bag @ 400 mls/hr IVPB Q6H [facility] Rx#:[id number] Albumin Human 5% 250 ml 250 In Empty Bag 1 bag @ 250 mls/hr IVPB ONCE ONE Rx#: [id number] Albumin Human 5% 250 ml 500 In Empty Bag 1 bag @ 250 mls/hr IVPB Q1HR PRN Rx#: [id number] Clevidipine Butyrate 25 18.132 106.300 33.133 mg In Empty Bag 1 bag @ 1 MG/HR 2 mls/hr IV .Q24H [facility] Rx#:[id number] Dexmedetomidine/0.9% NaCl 9.076 (Pmx) 400 mcg In Empty Bag 1 bag @ Titrate IV . Q0M [facility] Rx#:[id number] Insulin Regular 100 unit 12.297 33.650 55.053 In Sodium Chloride 0.9% 100 ml @ Per Protocol IV .Q0M [facility] Rx#:[id number] Lactated Ringers 1,000 ml 300 50 @ 20 mls/hr IV .Q24H [facility] Rx#:[id number] Nitroglycerin-D5w Pmx 50 9.0 19.5 mg In Dextrose/Water 1 250ml.bag @ 5 MCG/MIN 1.5 mls/hr IV .Q24H [facility] Rx#: [id number] Potassium Chloride 10 meq 300 In Water For Injection 1 100ml.bag @ 100 mls/hr IVPB Q1H [facility] Rx#: [id number] ceFAZolin 2 gm In Sodium 50 50 Chloride 0.9% 50 ml @ 100 mls/hr IVPB Q8HR [facility] Rx# :[id number] propofoL 1,000 mg In 90.785 Empty Bag 1 bag @ Titrate IV .Q0M [facility] Rx#: [id number] Output: Chest Tube Drainage 165 339 180 Lt Pleural 35 149 170 Mediastinal 130 190 10 Urine 775 960 435 Estimated Blood Loss 1500 Other: Voiding Method Indwelling Catheter Indwelling Catheter Indwelling Catheter ABP, PAP, CO, CI - Last Documented Arterial Blood Pressure 145/48 Pulmonary Artery Pressure 27/10 Cardiac Output 5.2 Cardiac Index 2.7 - Labs CBC & Chem 7: 11/09/22 05:00 11/09/22 05:00 Labs: Abnormal Lab Results - Last 24 Hours (Table) 11/05/22 11/08/22 11/08/22 Range/Units 11:56 18:00 18:02 WBC 12.7 H (3.8-10.6) k/uL RBC 3.42 L (3.80-5.40) m/uL Hgb 10.0 L D (11.4-16.0) gm/dL Hct 29.4 L (34.0-46.0) % Plt Count 140 L (150-450) k/uL Neutrophils # 11.7 H (1.3-7.7) k/uL Lymphocytes # 0.4 L (1.0-4.8) k/uL ABG pH (7.35-7.45) ABG pCO2 (35-45) mmHg ABG pO2 (83-108) mmHg ABG O2 Saturation (94-97) % Potassium (3.5-5.1) mmol/L BUN (7-17) mg/dL Glucose (74-99) mg/dL POC Glucose (mg/dL) 140 H (70-110) mg/dL Magnesium (1.6-2.3) mg/dL AST (14-36) U/L Total Protein (6.3-8.2) g/dL Crossmatch See Detail 11/08/22 11/08/22 11/08/22 Range/Units 18:36 18:57 20:01 WBC (3.8-10.6) k/uL RBC (3.80-5.40) m/uL Hgb (11.4-16.0) gm/dL Hct (34.0-46.0) % Plt Count (150-450) k/uL Neutrophils # (1.3-7.7) k/uL Lymphocytes # (1.0-4.8) k/uL ABG pH (7.35-7.45) ABG pCO2 (35-45) mmHg ABG pO2 122 H (83-108) mmHg ABG O2 Saturation 99.1 H (94-97) % Potassium (3.5-5.1) mmol/L BUN (7-17) mg/dL Glucose (74-99) mg/dL POC Glucose (mg/dL) 138 H 164 H (70-110) mg/dL Magnesium (1.6-2.3) mg/dL AST (14-36) U/L Total Protein (6.3-8.2) g/dL Crossmatch 11/08/22 11/08/22 11/08/22 Range/Units 20:52 21:57 23:06 WBC (3.8-10.6) k/uL RBC (3.80-5.40) m/uL Hgb (11.4-16.0) gm/dL Hct (34.0-46.0) % Plt Count (150-450) k/uL Neutrophils # (1.3-7.7) k/uL Lymphocytes # (1.0-4.8) k/uL ABG pH (7.35-7.45) ABG pCO2 (35-45) mmHg ABG pO2 (83-108) mmHg ABG O2 Saturation (94-97) % Potassium (3.5-5.1) mmol/L BUN (7-17) mg/dL Glucose (74-99) mg/dL POC Glucose (mg/dL) 158 H 150 H 162 H (70-110) mg/dL Magnesium (1.6-2.3) mg/dL AST (14-36) U/L Total Protein (6.3-8.2) g/dL Crossmatch 11/09/22 11/09/22 11/09/22 Range/Units 00:05 00:56 01:53 WBC (3.8-10.6) k/uL RBC (3.80-5.40) m/uL Hgb (11.4-16.0) gm/dL Hct (34.0-46.0) % Plt Count (150-450) k/uL Neutrophils # (1.3-7.7) k/uL Lymphocytes # (1.0-4.8) k/uL ABG pH (7.35-7.45) ABG pCO2 (35-45) mmHg ABG pO2 (83-108) mmHg ABG O2 Saturation (94-97) % Potassium (3.5-5.1) mmol/L BUN (7-17) mg/dL Glucose (74-99) mg/dL POC Glucose (mg/dL) 151 H 147 H 144 H (70-110) mg/dL Magnesium (1.6-2.3) mg/dL AST (14-36) U/L Total Protein (6.3-8.2) g/dL Crossmatch 11/09/22 11/09/22 11/09/22 Range/Units 03:10 04:00 04:58 WBC (3.8-10.6) k/uL RBC (3.80-5.40) m/uL Hgb (11.4-16.0) gm/dL Hct (34.0-46.0) % Plt Count (150-450) k/uL Neutrophils # (1.3-7.7) k/uL Lymphocytes # (1.0-4.8) k/uL ABG pH (7.35-7.45) ABG pCO2 (35-45) mmHg ABG pO2 (83-108) mmHg ABG O2 Saturation (94-97) % Potassium (3.5-5.1) mmol/L BUN (7-17) mg/dL Glucose (74-99) mg/dL POC Glucose (mg/dL) 131 H 141 H 139 H (70-110) mg/dL Magnesium (1.6-2.3) mg/dL AST (14-36) U/L Total Protein (6.3-8.2) g/dL Crossmatch 11/09/22 11/09/22 11/09/22 Range/Units 05:00 05:00 06:58 WBC 13.9 H (3.8-10.6) k/uL RBC 3.28 L (3.80-5.40) m/uL Hgb 10.1 L (11.4-16.0) gm/dL Hct 28.0 L (34.0-46.0) % Plt Count (150-450) k/uL Neutrophils # 12.4 H (1.3-7.7) k/uL Lymphocytes # 0.8 L (1.0-4.8) k/uL ABG pH (7.35-7.45) ABG pCO2 (35-45) mmHg ABG pO2 (83-108) mmHg ABG O2 Saturation (94-97) % Potassium 3.0 L (3.5-5.1) mmol/L BUN 20 H (7-17) mg/dL Glucose 128 H (74-99) mg/dL POC Glucose (mg/dL) 134 H (70-110) mg/dL Magnesium 2.7 H (1.6-2.3) mg/dL AST 46 H (14-36) U/L Total Protein 5.8 L (6.3-8.2) g/dL Crossmatch 11/09/22 11/09/22 11/09/22 Range/Units 08:12 09:07 10:18 WBC (3.8-10.6) k/uL RBC (3.80-5.40) m/uL Hgb (11.4-16.0) gm/dL Hct (34.0-46.0) % Plt Count (150-450) k/uL Neutrophils # (1.3-7.7) k/uL Lymphocytes # (1.0-4.8) k/uL ABG pH (7.35-7.45) ABG pCO2 (35-45) mmHg ABG pO2 (83-108) mmHg ABG O2 Saturation (94-97) % Potassium (3.5-5.1) mmol/L BUN (7-17) mg/dL Glucose (74-99) mg/dL POC Glucose (mg/dL) 121 H 133 H 124 H (70-110) mg/dL Magnesium (1.6-2.3) mg/dL AST (14-36) U/L Total Protein (6.3-8.2) g/dL Crossmatch 11/09/22 11/09/22 11/09/22 Range/Units 11:04 13:01 14:27 WBC (3.8-10.6) k/uL RBC (3.80-5.40) m/uL Hgb (11.4-16.0) gm/dL Hct (34.0-46.0) % Plt Count (150-450) k/uL Neutrophils # (1.3-7.7) k/uL Lymphocytes # (1.0-4.8) k/uL ABG pH (7.35-7.45) ABG pCO2 (35-45) mmHg ABG pO2 (83-108) mmHg ABG O2 Saturation (94-97) % Potassium (3.5-5.1) mmol/L BUN (7-17) mg/dL Glucose (74-99) mg/dL POC Glucose (mg/dL) 130 H 119 H 122 H (70-110) mg/dL Magnesium (1.6-2.3) mg/dL AST (14-36) U/L Total Protein (6.3-8.2) g/dL Crossmatch 11/09/22 11/09/22 11/09/22 Range/Units 16:31 17:06 17:07 WBC (3.8-10.6) k/uL RBC (3.80-5.40) m/uL Hgb (11.4-16.0) gm/dL Hct (34.0-46.0) % Plt Count (150-450) k/uL Neutrophils # (1.3-7.7) k/uL Lymphocytes # (1.0-4.8) k/uL ABG pH 7.52 H (7.35-7.45) ABG pCO2 28 L (35-45) mmHg ABG pO2 57 L* (83-108) mmHg ABG O2 Saturation 92.7 L (94-97) % Potassium (3.5-5.1) mmol/L BUN (7-17) mg/dL Glucose (74-99) mg/dL POC Glucose (mg/dL) 138 H 145 H (70-110) mg/dL Magnesium (1.6-2.3) mg/dL AST (14-36) U/L Total Protein (6.3-8.2) g/dL Crossmatch
[2022-11-09 18:16] LABS: Glucose,Whole Blood 144 mg/dL (70-110)
[2022-11-09 19:01] LABS: Glucose,Whole Blood 149 mg/dL (70-110)
[2022-11-09 19:47] LABS: Glucose,Whole Blood 140 mg/dL (70-110)
--- NOTE | 2022-11-09 20:03 | XR ---
EXAMINATION TYPE: XR chest 1V DATE OF EXAM: 11/09/2022 COMPARISON: Today HISTORY: Short of breath TECHNIQUE: FINDINGS: Heart size is normal. There is some mild atelectasis left lower lung field. No heart failur e. There are sternal wires. There is left-sided chest tube. No pneumothorax. There are no hilar lukas s. Thoracic aorta is atheromatous. IMPRESSION: There is some atelectasis in the left lower lobe which is improved compared to exam this morning. No heart failure.
[2022-11-09 21:29] LABS: Glucose,Whole Blood 125 mg/dL (70-110)
[2022-11-09 22:26] LABS: Glucose,Whole Blood 138 mg/dL (70-110)
[2022-11-09] MEDS: SENNOSIDES-DOCUSATE SODIUM 1 EACH TAB PO SCH (22:29)
[2022-11-09 22:34] LABS: ABG Base Excess 2.3 mmol/L; ABG HCO3 26 mmol/L (21-25); ABG Oxygen Saturation 98.4 % (94-97); ABG PCO2 33 mmHg (35-45); ABG PO2 190 mmHg (83-108); ABG TCO2 27 mmol/L (19-24); Allen Test Performed? Yes
[2022-11-10] MEDS: ACETAMINOPHEN TAB 500 MG TAB PO PRN ×2 (00:24→06:48)
[2022-11-10] MEDS: DILTIAZEM ORAL 30 MG TAB PO SCH ×4 (00:25→17:21)
[2022-11-10] MEDS: HEPARIN SODIUM,PORCINE/PF 5,000 UNIT/0.5 ML SYRINGE SQ SCH ×3 (00:25→15:44)
[2022-11-10] MEDS: POTASSIUM CHLORIDE 20 MEQ in WATER FOR INJECTION 1 100ML.BAG IVPB SCH (00:25)
[2022-11-10 00:39] LABS: Glucose,Whole Blood 152 mg/dL (70-110)
[2022-11-10 02:05] LABS: Glucose,Whole Blood 136 mg/dL (70-110)
[2022-11-10 03:21] LABS: Glucose,Whole Blood 127 mg/dL (70-110)
[2022-11-10 04:58] LABS: Glucose,Whole Blood 121 mg/dL (70-110)
[2022-11-10 05:06] LABS: Basophils % (A) 0 %; Eosinophils % (A) 0 %; HCT 27.3 % (34.0-46.0); HGB 9.3 gm/dL (11.4-16.0); Lymphocytes # (A) 1.8 k/uL (1.0-4.8); Lymphocytes % (A) 11 %; MCH 29.7 pg (25.0-35.0); MCHC 34.1 g/dL (31.0-37.0); MCV 87.2 fL (80.0-100.0); Mean Platelet Volume 9.1; Monocytes # (A) 0.6 k/uL (0-1.0); Monocytes % (A) 4 %; Neutrophils % (A) 83 %; Platelet Count 156 k/uL (150-450); RBC 3.13 m/uL (3.80-5.40); RDW 14.8 % (11.5-15.5); WBC 15.6 k/uL (3.8-10.6)
[2022-11-10 05:12] LABS: Ionized Calcium 5.3 mg/dL (4.5-5.3)
[2022-11-10 05:20] LABS: ALT 17 U/L (4-34); AST 30 U/L (14-36); African American GFR (CKD) >90 (>60 ml/min/1.73 sqM); Albumin 3.3 g/dL (3.5-5.0); Alkaline Phosphatase 49 U/L (38-126); Anion Gap 7 mmol/L; Blood Urea Nitrogen 23 mg/dL (7-17); Calcium 8.8 mg/dL (8.4-10.2); Carbon Dioxide 26 mmol/L (22-30); Chloride 104 mmol/L (98-107); Glucose 120 mg/dL (74-99); Non-African American GFR(CKD) 79 (>60 ml/min/1.73 sqM); Potassium 3.9 mmol/L (3.5-5.1); Sodium 137 mmol/L (137-145); Total Bilirubin 0.7 mg/dL (0.2-1.3); Total Protein 5.5 g/dL (6.3-8.2)
[2022-11-10] MEDS: POTASSIUM CHLORIDE 10 MEQ in WATER FOR INJECTION 1 100ML.BAG IVPB SCH ×2 (06:49→08:22)
[2022-11-10] MEDS: PANTOPRAZOLE 40 MG TABLET PO SCH (06:49)
[2022-11-10 06:56] LABS: Glucose,Whole Blood 141 mg/dL (70-110)
[2022-11-10 07:54] LABS: Glucose,Whole Blood 140 mg/dL (70-110)
[2022-11-10] MEDS: ASPIRIN 325 MG TAB PO SCH (08:22)
[2022-11-10] MEDS: CLOPIDOGREL 75 MG TAB PO SCH (08:22)
[2022-11-10] MEDS: LOSARTAN 50 MG TAB PO SCH (08:22)
[2022-11-10] MEDS: CYANOCOBALAMIN 500 MCG TAB PO SCH (08:23)
[2022-11-10] MEDS: ALBUTEROL NEBULIZED 2.5 MG/3 ML INHALATION SCH ×4 (08:39→20:10)
[2022-11-10] MEDS: IPRATROPIUM 0.5 MG/2.5 ML NEBU INHALATION SCH ×4 (08:39→20:10)
--- NOTE | 2022-11-10 08:46 | XR ---
EXAMINATION TYPE: XR chest 1V portable DATE OF EXAM: 11/10/2022 COMPARISON: 11/09/2022 HISTORY: Shortness of breath TECHNIQUE: Single frontal view of the chest is obtained. FINDINGS: Heart is enlarged with postoperative change. Atherosclerotic change aorta. Left-sided ches t tube seen and there is bibasilar consolidation and small effusion. Suggestion of previous aortic va lve surgery. Epicardial leads suggested. IMPRESSION: 1. Small bilateral effusions with cardiomegaly and basilar atelectasis or early infiltrate. Findings are stable.
[2022-11-10 09:12] LABS: Glucose,Whole Blood 128 mg/dL (70-110)
[2022-11-10] MEDS: INSULIN DETEMIR (LEVEMIR) 100 UNIT/ML SYR SQ SCH (09:13)
[2022-11-10] MEDS: LACTATED RINGERS 1,000 ML IV SCH (09:14)
[2022-11-10] MEDS ORDERED: FUROSEMIDE 10 MG/ML 2 ML VIAL IV ONE (09:33)
--- NOTE | 2022-11-10 10:01 | P.PN ---
Subjective Progress Note Date: 11/10/22 Principal diagnosis: Calcific aortic stenosis, single-vessel coronary artery disease in the LAD. Previous medical history of preserved left ventricular function, HTN, HLD with statin intolerance, paroxysmal atrial fibrillation status post ablation on Eliquis for anticoagulation, stage III chronic kidney disease, previous tobacco dependence, family history of coronary artery disease POD #2 coronary artery bypass grafting 1 with left internal mammary artery to the left anterior descending artery, aortic valve replacement with 21 mm Inspiris bovine aortic valve prosthesis, ligation of the left atrial appendage with 35 mm AtriCure clip, epi-aortic ultrasound Postoperative acute blood loss anemia, expected given hemodilution, cardiopulmonary bypass pump and history of CKD The patient was seen and examined this morning sitting up in a recliner in the intensive care unit in no acute distress. Remains in sinus rhythm, hemodynamically stable. Currently on 7 L high flow nasal cannula, only able to achieve 500 mL on her incentive spirometer with poor effort, was on bipap last night due to ABGs 7.52///. Patient remains very sleepy this morning, oriented to person only, does not know where she is or why she is here, doesn't know the date. When asked she does complain of post surgical pain, denies shortness of breath. Right internal jugular cordis, right radial arterial line, left pleural chest tubes all present. Chest x-ray, lab work reviewed. Objective - Vital Signs Vital signs: Vital Signs Temp 97.5 F L 11/10/22 04:00 Pulse 79 11/10/22 08:51 Resp 21 11/10/22 08:51 BP 119/67 11/10/22 07:00 Pulse Ox 94 L 11/10/22 07:00 FiO2 50 11/10/22 04:00 Intake & Output 11/09/22 11/10/22 11/10/22 18:59 06:59 18:59 Intake Total 832.186 505.832 81 Output Total 665 525 40 Balance 167.186 -19.168 41 Weight 90.3 kg Intake: IV 744 407 31 CO/ CI 20 LR @50mls/hr 370 335 25 Potassium Chloride 20 meq 300 In Water For Injection 1 100ml.bag @ 50 mls/hr IVPB Q2H [facility] Rx#: [id number] Pressure bag 54 72 6 Intake, IV Titration 88.186 98.832 50 Amount Clevidipine Butyrate 25 33.133 29.134 50 mg In Empty Bag 1 bag @ 1 MG/HR 2 mls/hr IV .Q24H [facility] Rx#:[id number] Insulin Regular 100 unit 55.053 69.698 In Sodium Chloride 0.9% 100 ml @ Per Protocol IV .Q0M [facility] Rx#:[id number] Output: Chest Tube Drainage 200 90 0 Lt Pleural 190 90 0 Mediastinal 10 Urine 465 435 40 Other: Voiding Method Indwelling Catheter Indwelling Catheter ABP, PAP, CO, CI - Last Documented Arterial Blood Pressure 129/48 Pulmonary Artery Pressure 27/10 Cardiac Output 5.2 Cardiac Index 2.7 - Exam CONSTITUTIONAL: Appears comfortable but somewhat fidgity, cooperative, no acute distress, very sleepy RESPIRATORY: Lungs sounds diminished bilaterally. Respirations even, nonlabored. Currently on 7 liters high flow nasal cannula with oxygen saturation 956%. Able to achieve 500 mL on incentive spirometry with very poor effort. Very weak cough. CARDIOVASCULAR: S1, S2 present. Regular rate and rhythm, sinus rhythm on telemetry. Sternum stable. Palpable peripheral pulses bilaterally. Generalized edema present. No calf pain or tenderness noted. Heart hugger, antiembolism stockings, SCDs present. GASTROINTESTINAL: Abdomen soft, nontender, nondistended. Hypoactive bowel sounds present 4 quadrants. Tolerating minimal clear liquid diet. Denies flatus GENITOURINARY: Samaniego present draining clear, yellow urine. Output overnight 20-40 mL per hour, 900 mL in the last 24 hours INTEGUMENTARY: Skin is warm and dry with evidence of good perfusion. Anterior chest incision well approximated and covered with dry intact dressing NEUROLOGIC: Cranial nerves II through XII intact MUSKULOSKELETAL: Able to move all extremities, strength equal bilaterally PSYCHIATRIC: Sleepy but does arouse to voice, oriented to person only INVASIVE LINES AND TUBES: Left pleural chest tube present and connected to wall suction, no air leaks present, 70 mL serosanguineous drainage overnight, 300 mL in the last 24 hours. A/V epicardial pacemaker wires present, grounded. Right internal jugular Cordis, right radial arterial line present. Last CVP 10. - Allied health notes Allied health notes reviewed: nursing - Labs CBC & Chem 7: 11/10/22 05:00 11/10/22 05:00 Labs: Abnormal Lab Results - Last 24 Hours (Table) 11/09/22 11/09/22 11/09/22 Range/Units 10:18 11:04 13:01 WBC (3.8-10.6) k/uL RBC (3.80-5.40) m/uL Hgb (11.4-16.0) gm/dL Hct (34.0-46.0) % Neutrophils # (1.3-7.7) k/uL ABG pH (7.35-7.45) ABG pCO2 (35-45) mmHg ABG pO2 (83-108) mmHg ABG HCO3 (21-25) mmol/L ABG Total CO2 (19-24) mmol/L ABG O2 Saturation (94-97) % Potassium (3.5-5.1) mmol/L BUN (7-17) mg/dL Glucose (74-99) mg/dL POC Glucose (mg/dL) 124 H 130 H 119 H (70-110) mg/dL Total Protein (6.3-8.2) g/dL Albumin (3.5-5.0) g/dL 11/09/22 11/09/22 11/09/22 Range/Units 14:27 16:31 17:06 WBC (3.8-10.6) k/uL RBC (3.80-5.40) m/uL Hgb (11.4-16.0) gm/dL Hct (34.0-46.0) % Neutrophils # (1.3-7.7) k/uL ABG pH 7.52 H (7.35-7.45) ABG pCO2 28 L (35-45) mmHg ABG pO2 57 L* (83-108) mmHg ABG HCO3 (21-25) mmol/L ABG Total CO2 (19-24) mmol/L ABG O2 Saturation 92.7 L (94-97) % Potassium (3.5-5.1) mmol/L BUN (7-17) mg/dL Glucose (74-99) mg/dL POC Glucose (mg/dL) 122 H 138 H (70-110) mg/dL Total Protein (6.3-8.2) g/dL Albumin (3.5-5.0) g/dL 11/09/22 11/09/22 11/09/22 Range/Units 17:07 18:15 19:00 WBC (3.8-10.6) k/uL RBC (3.80-5.40) m/uL Hgb (11.4-16.0) gm/dL Hct (34.0-46.0) % Neutrophils # (1.3-7.7) k/uL ABG pH (7.35-7.45) ABG pCO2 (35-45) mmHg ABG pO2 (83-108) mmHg ABG HCO3 (21-25) mmol/L ABG Total CO2 (19-24) mmol/L ABG O2 Saturation (94-97) % Potassium (3.5-5.1) mmol/L BUN (7-17) mg/dL Glucose (74-99) mg/dL POC Glucose (mg/dL) 145 H 144 H 149 H (70-110) mg/dL Total Protein (6.3-8.2) g/dL Albumin (3.5-5.0) g/dL 11/09/22 11/09/22 11/09/22 Range/Units 19:45 19:45 21:28 WBC (3.8-10.6) k/uL RBC (3.80-5.40) m/uL Hgb (11.4-16.0) gm/dL Hct (34.0-46.0) % Neutrophils # (1.3-7.7) k/uL ABG pH (7.35-7.45) ABG pCO2 (35-45) mmHg ABG pO2 (83-108) mmHg ABG HCO3 (21-25) mmol/L ABG Total CO2 (19-24) mmol/L ABG O2 Saturation (94-97) % Potassium 3.4 L (3.5-5.1) mmol/L BUN (7-17) mg/dL Glucose (74-99) mg/dL POC Glucose (mg/dL) 140 H 125 H (70-110) mg/dL Total Protein (6.3-8.2) g/dL Albumin (3.5-5.0) g/dL 11/09/22 11/09/22 11/10/22 Range/Units 22:25 22:30 00:38 WBC (3.8-10.6) k/uL RBC (3.80-5.40) m/uL Hgb (11.4-16.0) gm/dL Hct (34.0-46.0) % Neutrophils # (1.3-7.7) k/uL ABG pH 7.50 H (7.35-7.45) ABG pCO2 33 L (35-45) mmHg ABG pO2 190 H (83-108) mmHg ABG HCO3 26 H (21-25) mmol/L ABG Total CO2 27 H (19-24) mmol/L ABG O2 Saturation 98.4 H (94-97) % Potassium (3.5-5.1) mmol/L BUN (7-17) mg/dL Glucose (74-99) mg/dL POC Glucose (mg/dL) 138 H 152 H (70-110) mg/dL Total Protein (6.3-8.2) g/dL Albumin (3.5-5.0) g/dL 11/10/22 11/10/22 11/10/22 Range/Units 02:04 03:20 04:55 WBC (3.8-10.6) k/uL RBC (3.80-5.40) m/uL Hgb (11.4-16.0) gm/dL Hct (34.0-46.0) % Neutrophils # (1.3-7.7) k/uL ABG pH (7.35-7.45) ABG pCO2 (35-45) mmHg ABG pO2 (83-108) mmHg ABG HCO3 (21-25) mmol/L ABG Total CO2 (19-24) mmol/L ABG O2 Saturation (94-97) % Potassium (3.5-5.1) mmol/L BUN (7-17) mg/dL Glucose (74-99) mg/dL POC Glucose (mg/dL) 136 H 127 H 121 H (70-110) mg/dL Total Protein (6.3-8.2) g/dL Albumin (3.5-5.0) g/dL 11/10/22 11/10/22 11/10/22 Range/Units 05:00 05:00 06:55 WBC 15.6 H (3.8-10.6) k/uL RBC 3.13 L (3.80-5.40) m/uL Hgb 9.3 L (11.4-16.0) gm/dL Hct 27.3 L (34.0-46.0) % Neutrophils # 13.0 H (1.3-7.7) k/uL ABG pH (7.35-7.45) ABG pCO2 (35-45) mmHg ABG pO2 (83-108) mmHg ABG HCO3 (21-25) mmol/L ABG Total CO2 (19-24) mmol/L ABG O2 Saturation (94-97) % Potassium (3.5-5.1) mmol/L BUN 23 H (7-17) mg/dL Glucose 120 H (74-99) mg/dL POC Glucose (mg/dL) 141 H (70-110) mg/dL Total Protein 5.5 L (6.3-8.2) g/dL Albumin 3.3 L (3.5-5.0) g/dL 11/10/22 11/10/22 Range/Units 07:53 09:10 WBC (3.8-10.6) k/uL RBC (3.80-5.40) m/uL Hgb (11.4-16.0) gm/dL Hct (34.0-46.0) % Neutrophils # (1.3-7.7) k/uL ABG pH (7.35-7.45) ABG pCO2 (35-45) mmHg ABG pO2 (83-108) mmHg ABG HCO3 (21-25) mmol/L ABG Total CO2 (19-24) mmol/L ABG O2 Saturation (94-97) % Potassium (3.5-5.1) mmol/L BUN (7-17) mg/dL Glucose (74-99) mg/dL POC Glucose (mg/dL) 140 H 128 H (70-110) mg/dL Total Protein (6.3-8.2) g/dL Albumin (3.5-5.0) g/dL - Imaging and Cardiology Chest x-ray: report reviewed, image reviewed Assessment and Plan Assessment: 1. Calcific aortic stenosis, status post bioprostetic AVR 2. Single-vessel coronary artery disease in the LAD, status post 1V CABG 3. Preserved left ventricular function, EF 55% on MELISSA 4. HTN 5. HLD with statin intolerance, currently on Repatha, cholesterol 195, LDL 98 6. Paroxysmal atrial fibrillation status post ablation on Eliquis for anticoagulation, currently sinus, status post ligation of left atrial appendage 7. Stage III chronic kidney disease 8. Previous tobacco dependence, preoperative FEV1 96% of predicted 9. Family history of coronary artery disease 10. Postoperative acute blood loss anemia, expected 11. Confusion, encephalopathy Plan: 1. Continue to maximize medical therapy with aspirin, Plavix, CCB, ARB. Continue Repatha at home (only takes every 2 weeks) 2. Wean O2 as tolerated. Encourage incentive spirometry is 10 times every hour while awake. Bronchodilators per pulmonology 3. Increase activity as tolerated, PT/OT/cardiac rehab consulted 4. Will monitor daily labs and x-rays. Electrolyte replacement per protocol. Will give 20 mg IVP lasix x1 5. GI/DVT prophylaxis 6. Pain control with current medication regimen. No narcotics due to sleepiness 7. Insulin management per primary care service. Patient is not diabetic, hemoglobin A1c 6.3% 8. Discontinue cordis, arterial line 9. Will discontinue left pleural chest tube 10. Continue Samaniego catheter for another 24 hours for strict accurate intake and output 11. Daily weights 12. Reorient PRN. Will send for brain CT 13. Patient takes multuple homeopathic meds at home, hold for now 14. More recommendations to follow
[2022-11-10 10:15] LABS: Glucose,Whole Blood 138 mg/dL (70-110)
[2022-11-10 10:41] LABS: ABG Base Excess 2.1 mmol/L; ABG HCO3 25 mmol/L (21-25); ABG Oxygen Saturation 99.5 % (94-97); ABG PCO2 33 mmHg (35-45); ABG PO2 157 mmHg (83-108); ABG TCO2 26 mmol/L (19-24)
--- NOTE | 2022-11-10 10:43 | P.PN ---
Subjective Progress Note Date: 11/10/22 The patient is a pleasant 76-year-old female patient who underwent the day before yesterday aortic valve replacement using bioprosthetic valve with CHOPRA to LAD 11/10/2022 The patient was seen and evaluated this morning beach she does have change in mental status and there is a concern regarding stroke. She is in process of having the computed tomography scan. Otherwise she is hemodynamically stable a nd she has been maintaining normal sinus mechanism. From the cardiovascular standpoint of view, at this point we'll continue the current medical regimen. Continue dual antiplatelet therapy along with beta severiano and statin. Follow- up with the patient after the computed tomography scan Examination is remarkable for change in mental status. She has otherwise regular rhythm with diminished breathing sounds bilaterally and no lower extremities edema noted Assessment Change in mental status Status post aortic valve replacement and CHOPRA to LAD bypass Multiple comorbid conditions Plan Continue the current medical regimen Follow-up with the patient after the computed tomography scan Continue monitor the hemoglobin and kidney function Follow-up with the patient Objective - Vital Signs Vital signs: Vital Signs Temp 97.5 F L 11/10/22 04:00 Pulse 79 11/10/22 08:51 Resp 21 11/10/22 08:51 BP 119/67 11/10/22 07:00 Pulse Ox 94 L 11/10/22 07:00 FiO2 50 11/10/22 04:00 Intake & Output 11/09/22 11/10/22 11/10/22 18:59 06:59 18:59 Intake Total 832.186 505.832 81 Output Total 665 525 40 Balance 167.186 -19.168 41 Weight 90.3 kg Intake: IV 744 407 31 CO/ CI 20 LR @50mls/hr 370 335 25 Potassium Chloride 20 meq 300 In Water For Injection 1 100ml.bag @ 50 mls/hr IVPB Q2H [facility] Rx#: [id number] Pressure bag 54 72 6 Intake, IV Titration 88.186 98.832 50 Amount Clevidipine Butyrate 25 33.133 29.134 50 mg In Empty Bag 1 bag @ 1 MG/HR 2 mls/hr IV .Q24H [facility] Rx#:[id number] Insulin Regular 100 unit 55.053 69.698 In Sodium Chloride 0.9% 100 ml @ Per Protocol IV .Q0M [facility] Rx#:[id number] Output: Chest Tube Drainage 200 90 0 Lt Pleural 190 90 0 Mediastinal 10 Urine 465 435 40 Other: Voiding Method Indwelling Catheter Indwelling Catheter ABP, PAP, CO, CI - Last Documented Arterial Blood Pressure 129/48 Pulmonary Artery Pressure 27/10 Cardiac Output 5.2 Cardiac Index 2.7 - Labs CBC & Chem 7: 11/10/22 05:00 11/10/22 05:00 Labs: Abnormal Lab Results - Last 24 Hours (Table) 11/09/22 11/09/22 11/09/22 Range/Units 11:04 13:01 14:27 WBC (3.8-10.6) k/uL RBC (3.80-5.40) m/uL Hgb (11.4-16.0) gm/dL Hct (34.0-46.0) % Neutrophils # (1.3-7.7) k/uL ABG pH (7.35-7.45) ABG pCO2 (35-45) mmHg ABG pO2 (83-108) mmHg ABG HCO3 (21-25) mmol/L ABG Total CO2 (19-24) mmol/L ABG O2 Saturation (94-97) % Potassium (3.5-5.1) mmol/L BUN (7-17) mg/dL Glucose (74-99) mg/dL POC Glucose (mg/dL) 130 H 119 H 122 H (70-110) mg/dL Total Protein (6.3-8.2) g/dL Albumin (3.5-5.0) g/dL 11/09/22 11/09/22 11/09/22 Range/Units 16:31 17:06 17:07 WBC (3.8-10.6) k/uL RBC (3.80-5.40) m/uL Hgb (11.4-16.0) gm/dL Hct (34.0-46.0) % Neutrophils # (1.3-7.7) k/uL ABG pH 7.52 H (7.35-7.45) ABG pCO2 28 L (35-45) mmHg ABG pO2 57 L* (83-108) mmHg ABG HCO3 (21-25) mmol/L ABG Total CO2 (19-24) mmol/L ABG O2 Saturation 92.7 L (94-97) % Potassium (3.5-5.1) mmol/L BUN (7-17) mg/dL Glucose (74-99) mg/dL POC Glucose (mg/dL) 138 H 145 H (70-110) mg/dL Total Protein (6.3-8.2) g/dL Albumin (3.5-5.0) g/dL 11/09/22 11/09/22 11/09/22 Range/Units 18:15 19:00 19:45 WBC (3.8-10.6) k/uL RBC (3.80-5.40) m/uL Hgb (11.4-16.0) gm/dL Hct (34.0-46.0) % Neutrophils # (1.3-7.7) k/uL ABG pH (7.35-7.45) ABG pCO2 (35-45) mmHg ABG pO2 (83-108) mmHg ABG HCO3 (21-25) mmol/L ABG Total CO2 (19-24) mmol/L ABG O2 Saturation (94-97) % Potassium 3.4 L (3.5-5.1) mmol/L BUN (7-17) mg/dL Glucose (74-99) mg/dL POC Glucose (mg/dL) 144 H 149 H (70-110) mg/dL Total Protein (6.3-8.2) g/dL Albumin (3.5-5.0) g/dL 11/09/22 11/09/22 11/09/22 Range/Units 19:45 21:28 22:25 WBC (3.8-10.6) k/uL RBC (3.80-5.40) m/uL Hgb (11.4-16.0) gm/dL Hct (34.0-46.0) % Neutrophils # (1.3-7.7) k/uL ABG pH (7.35-7.45) ABG pCO2 (35-45) mmHg ABG pO2 (83-108) mmHg ABG HCO3 (21-25) mmol/L ABG Total CO2 (19-24) mmol/L ABG O2 Saturation (94-97) % Potassium (3.5-5.1) mmol/L BUN (7-17) mg/dL Glucose (74-99) mg/dL POC Glucose (mg/dL) 140 H 125 H 138 H (70-110) mg/dL Total Protein (6.3-8.2) g/dL Albumin (3.5-5.0) g/dL 11/09/22 11/10/22 11/10/22 Range/Units 22:30 00:38 02:04 WBC (3.8-10.6) k/uL RBC (3.80-5.40) m/uL Hgb (11.4-16.0) gm/dL Hct (34.0-46.0) % Neutrophils # (1.3-7.7) k/uL ABG pH 7.50 H (7.35-7.45) ABG pCO2 33 L (35-45) mmHg ABG pO2 190 H (83-108) mmHg ABG HCO3 26 H (21-25) mmol/L ABG Total CO2 27 H (19-24) mmol/L ABG O2 Saturation 98.4 H (94-97) % Potassium (3.5-5.1) mmol/L BUN (7-17) mg/dL Glucose (74-99) mg/dL POC Glucose (mg/dL) 152 H 136 H (70-110) mg/dL Total Protein (6.3-8.2) g/dL Albumin (3.5-5.0) g/dL 11/10/22 11/10/22 11/10/22 Range/Units 03:20 04:55 05:00 WBC 15.6 H (3.8-10.6) k/uL RBC 3.13 L (3.80-5.40) m/uL Hgb 9.3 L (11.4-16.0) gm/dL Hct 27.3 L (34.0-46.0) % Neutrophils # 13.0 H (1.3-7.7) k/uL ABG pH (7.35-7.45) ABG pCO2 (35-45) mmHg ABG pO2 (83-108) mmHg ABG HCO3 (21-25) mmol/L ABG Total CO2 (19-24) mmol/L ABG O2 Saturation (94-97) % Potassium (3.5-5.1) mmol/L BUN (7-17) mg/dL Glucose (74-99) mg/dL POC Glucose (mg/dL) 127 H 121 H (70-110) mg/dL Total Protein (6.3-8.2) g/dL Albumin (3.5-5.0) g/dL 11/10/22 11/10/22 11/10/22 Range/Units 05:00 06:55 07:53 WBC (3.8-10.6) k/uL RBC (3.80-5.40) m/uL Hgb (11.4-16.0) gm/dL Hct (34.0-46.0) % Neutrophils # (1.3-7.7) k/uL ABG pH (7.35-7.45) ABG pCO2 (35-45) mmHg ABG pO2 (83-108) mmHg ABG HCO3 (21-25) mmol/L ABG Total CO2 (19-24) mmol/L ABG O2 Saturation (94-97) % Potassium (3.5-5.1) mmol/L BUN 23 H (7-17) mg/dL Glucose 120 H (74-99) mg/dL POC Glucose (mg/dL) 141 H 140 H (70-110) mg/dL Total Protein 5.5 L (6.3-8.2) g/dL Albumin 3.3 L (3.5-5.0) g/dL 11/10/22 11/10/22 Range/Units 09:10 10:13 WBC (3.8-10.6) k/uL RBC (3.80-5.40) m/uL Hgb (11.4-16.0) gm/dL Hct (34.0-46.0) % Neutrophils # (1.3-7.7) k/uL ABG pH (7.35-7.45) ABG pCO2 (35-45) mmHg ABG pO2 (83-108) mmHg ABG HCO3 (21-25) mmol/L ABG Total CO2 (19-24) mmol/L ABG O2 Saturation (94-97) % Potassium (3.5-5.1) mmol/L BUN (7-17) mg/dL Glucose (74-99) mg/dL POC Glucose (mg/dL) 128 H 138 H (70-110) mg/dL Total Protein (6.3-8.2) g/dL Albumin (3.5-5.0) g/dL
[2022-11-10 10:44] LABS: Allen Test Performed? no
--- NOTE | 2022-11-10 11:09 | CT ---
EXAMINATION TYPE: CT brain wo con DATE OF EXAM: 11/10/2022 COMPARISON: Encephalopathy HISTORY: Encephalopathy CT DLP: 1146.9 mGycm Automated exposure control for dose reduction was used. FINDINGS: There is hyperostosis of the calvarium which appears intact. There is no midline shift or mass effect . Mild generalized degenerative change. Asymmetry of the frontal horn could be on the basis of the sy nechia. Faint low attenuation in the white matter nonspecific but most likely on the basis of remote white matter ischemia. Intracranial atherosclerotic changes. Craniocervical junction maintained. Sell a turcica is normal. IMPRESSION: 1. No acute hemorrhage or mass effect. Asymmetry of the frontal horn could be nn the basis of a synec hia. No prior studies available for comparison. MRI recommended for further evaluation. 2. Nonspecific white matter changes most likely on the basis of remote white matter ischemia. If conc olga for acute ischemia or brain edema correlate with MRI as clinically indicated.
--- NOTE | 2022-11-10 11:13 | P.PN ---
Subjective Progress Note Date: 11/10/22 Principal diagnosis: ICU management. Pulmonary consult dated 11/08/2022. 76-year-old female with history of aortic stenosis and coronary disease. The patient is postop day #0, status post one-vessel bypass, CHOPRA to LAD, aortic valve replacement with 21 mm bovine aortic valve prosthesis, ligation of left atrial appendage, and epi-aortic ultrasound. I was asked to see the patient for critical care management. The patient is back in the intensive care unit. Her ventilator settings include the volume assist control, rate 16, tidal volume 350, FiO2 100%, and PEEP of 10. Blood gases show a PaO2 of 245, pCO2 of 54, and a pH is 7.27. The FiO2 was reduced down to 60%, and subsequently to 50%, and the rate was increased from 12 up to 16. The surgery was done by Dr. Naylor. I'm seeing the patient in the intensive care unit, room 263. She's currently on propofol at 35 mcg/kg/m, lactated Ringer's at 50 mL an hour, insulin at 2.5 units an hour, Cleveprex at 8 mg an hour and nitroglycerin at 5 mcg/m. The patient was initially evaluated by Dr. Naylor in early October. She apparently has had no aortic stenosis for many years. Her past medical history is positive for CAD, aortic stenosis, hypertension, hyperlipidemia, and atrial fibrillation. White count is 14, hemoglobin 10.2, and platelet count 136,000. Sodium 141, potassium 3.8, chlorides 109, CO2 25, BUN 20, creatinine 0.67. Chest x-ray shows typical postsurgical changes, and some atelectasis at the left lung base. Progress note dated 11/09/2022. This is a 76-year-old female seen yesterday in consultation. She has a history of long-standing aortic stenosis and coronary disease. She is postop day #1, has post one-vessel bypass, CHOPRA to LAD, and aortic valve replacement, with a bovine aortic valve prosthesis. She also had ligation upper left atrial appendage. The patient was extubated in less than 6 hours. Today she is seen in room 263. The patient's on 4 L of oxygen. She's receiving an insulin drip at 4 units an hour. She's getting lactated Ringer's at 20 mL an hour. She's quite lethargic. White count 13.9, hemoglobin 10.1, hematocrit 28, with a normal platelet count. Sodium 141, potassium 3, chlorides 106, CO2 25, BUN 20, creatinine 0.73. Chest x-ray shows some bibasilar atelectasis or infiltrate. Progress note dated 11/10/2022. 76-year-old female, postop day #2, status post aortic valve replacement for aortic stenosis, and one-vessel bypass. Currently, the patient's on 7 L high flow oxygen. Lactated Ringer's is running at keep vein open. She's getting insulin drip of 5.5 units an hour. Her respiratory difficulty last night, I placed on BiPAP, 10/5 and 50%. She seemed to tolerate that well. Because of her mental status, we will send her for a CAT scan of the brain. Labs today include a white count 15.6, hemoglobin 9.3, hematocrit 27.3, and a normal rodo telet count. Blood gases done in the morning, show pO2 of 157, pCO2 33, and a pH is 7.5. Sodium 137, potassium 3.9, chlorides 104, CO2 26, BUN 23, and creatinine 0.75. Chest x-ray shows some bibasilar atelectasis, and small pleural effusions. Brain CT, done without contrast showed no acute hemorrhage or mass effect. Objective - Vital Signs Vital signs: Vital Signs Temp 97.5 F L 11/10/22 04:00 Pulse 79 11/10/22 08:51 Resp 21 11/10/22 08:51 BP 119/67 11/10/22 07:00 Pulse Ox 94 L 11/10/22 07:00 FiO2 50 11/10/22 04:00 Intake & Output 11/09/22 11/10/22 11/10/22 18:59 06:59 18:59 Intake Total 832.186 505.832 81 Output Total 665 525 40 Balance 167.186 -19.168 41 Weight 90.3 kg Intake: IV 744 407 31 CO/ CI 20 LR @50mls/hr 370 335 25 Potassium Chloride 20 meq 300 In Water For Injection 1 100ml.bag @ 50 mls/hr IVPB Q2H [facility] Rx#: [id number] Pressure bag 54 72 6 Intake, IV Titration 88.186 98.832 50 Amount Clevidipine Butyrate 25 33.133 29.134 50 mg In Empty Bag 1 bag @ 1 MG/HR 2 mls/hr IV .Q24H [facility] Rx#:[id number] Insulin Regular 100 unit 55.053 69.698 In Sodium Chloride 0.9% 100 ml @ Per Protocol IV .Q0M [facility] Rx#:[id number] Output: Chest Tube Drainage 200 90 0 Lt Pleural 190 90 0 Mediastinal 10 Urine 465 435 40 Other: Voiding Method Indwelling Catheter Indwelling Catheter ABP, PAP, CO, CI - Last Documented Arterial Blood Pressure 129/48 Pulmonary Artery Pressure 27/10 Cardiac Output 5.2 Cardiac Index 2.7 - Exam No acute distress, lethargic, extubated, currently on 7 L. HEENT examination is grossly unremarkable. Neck supple. Full range of motion. No adenopathy thyromegaly or neck vein distention. Cardiovascular examination reveals regular rhythm rate. S1-S2 normal. No S3 or S4. No discernible murmur noted. Heart rate is 79 bpm. Lungs reveal clear breath sounds. Breath sounds are equal bilaterally. No adventitious lung sounds including wheezes rhonchi or crackles. Saturations are 94 %. Abdomen soft bowel sounds are heard. No masses or tenderness. Extremities are intact. No cyanosis clubbing or edema. Skin is without rash or lesion. Neurologic examination is brief but nonfocal. The patient's quite lethargic. - Labs CBC & Chem 7: 11/10/22 05:00 11/10/22 05:00 Labs: Abnormal Lab Results - Last 24 Hours (Table) 11/09/22 11/09/22 11/09/22 Range/Units 11:04 13:01 14:27 WBC (3.8-10.6) k/uL RBC (3.80-5.40) m/uL Hgb (11.4-16.0) gm/dL Hct (34.0-46.0) % Neutrophils # (1.3-7.7) k/uL ABG pH (7.35-7.45) ABG pCO2 (35-45) mmHg ABG pO2 (83-108) mmHg ABG HCO3 (21-25) mmol/L ABG Total CO2 (19-24) mmol/L ABG O2 Saturation (94-97) % Potassium (3.5-5.1) mmol/L BUN (7-17) mg/dL Glucose (74-99) mg/dL POC Glucose (mg/dL) 130 H 119 H 122 H (70-110) mg/dL Total Protein (6.3-8.2) g/dL Albumin (3.5-5.0) g/dL 11/09/22 11/09/22 11/09/22 Range/Units 16:31 17:06 17:07 WBC (3.8-10.6) k/uL RBC (3.80-5.40) m/uL Hgb (11.4-16.0) gm/dL Hct (34.0-46.0) % Neutrophils # (1.3-7.7) k/uL ABG pH 7.52 H (7.35-7.45) ABG pCO2 28 L (35-45) mmHg ABG pO2 57 L* (83-108) mmHg ABG HCO3 (21-25) mmol/L ABG Total CO2 (19-24) mmol/L ABG O2 Saturation 92.7 L (94-97) % Potassium (3.5-5.1) mmol/L BUN (7-17) mg/dL Glucose (74-99) mg/dL POC Glucose (mg/dL) 138 H 145 H (70-110) mg/dL Total Protein (6.3-8.2) g/dL Albumin (3.5-5.0) g/dL 11/09/22 11/09/22 11/09/22 Range/Units 18:15 19:00 19:45 WBC (3.8-10.6) k/uL RBC (3.80-5.40) m/uL Hgb (11.4-16.0) gm/dL Hct (34.0-46.0) % Neutrophils # (1.3-7.7) k/uL ABG pH (7.35-7.45) ABG pCO2 (35-45) mmHg ABG pO2 (83-108) mmHg ABG HCO3 (21-25) mmol/L ABG Total CO2 (19-24) mmol/L ABG O2 Saturation (94-97) % Potassium 3.4 L (3.5-5.1) mmol/L BUN (7-17) mg/dL Glucose (74-99) mg/dL POC Glucose (mg/dL) 144 H 149 H (70-110) mg/dL Total Protein (6.3-8.2) g/dL Albumin (3.5-5.0) g/dL 11/09/22 11/09/22 11/09/22 Range/Units 19:45 21:28 22:25 WBC (3.8-10.6) k/uL RBC (3.80-5.40) m/uL Hgb (11.4-16.0) gm/dL Hct (34.0-46.0) % Neutrophils # (1.3-7.7) k/uL ABG pH (7.35-7.45) ABG pCO2 (35-45) mmHg ABG pO2 (83-108) mmHg ABG HCO3 (21-25) mmol/L ABG Total CO2 (19-24) mmol/L ABG O2 Saturation (94-97) % Potassium (3.5-5.1) mmol/L BUN (7-17) mg/dL Glucose (74-99) mg/dL POC Glucose (mg/dL) 140 H 125 H 138 H (70-110) mg/dL Total Protein (6.3-8.2) g/dL Albumin (3.5-5.0) g/dL 11/09/22 11/10/22 11/10/22 Range/Units 22:30 00:38 02:04 WBC (3.8-10.6) k/uL RBC (3.80-5.40) m/uL Hgb (11.4-16.0) gm/dL Hct (34.0-46.0) % Neutrophils # (1.3-7.7) k/uL ABG pH 7.50 H (7.35-7.45) ABG pCO2 33 L (35-45) mmHg ABG pO2 190 H (83-108) mmHg ABG HCO3 26 H (21-25) mmol/L ABG Total CO2 27 H (19-24) mmol/L ABG O2 Saturation 98.4 H (94-97) % Potassium (3.5-5.1) mmol/L BUN (7-17) mg/dL Glucose (74-99) mg/dL POC Glucose (mg/dL) 152 H 136 H (70-110) mg/dL Total Protein (6.3-8.2) g/dL Albumin (3.5-5.0) g/dL 11/10/22 11/10/22 11/10/22 Range/Units 03:20 04:55 05:00 WBC 15.6 H (3.8-10.6) k/uL RBC 3.13 L (3.80-5.40) m/uL Hgb 9.3 L (11.4-16.0) gm/dL Hct 27.3 L (34.0-46.0) % Neutrophils # 13.0 H (1.3-7.7) k/uL ABG pH (7.35-7.45) ABG pCO2 (35-45) mmHg ABG pO2 (83-108) mmHg ABG HCO3 (21-25) mmol/L ABG Total CO2 (19-24) mmol/L ABG O2 Saturation (94-97) % Potassium (3.5-5.1) mmol/L BUN (7-17) mg/dL Glucose (74-99) mg/dL POC Glucose (mg/dL) 127 H 121 H (70-110) mg/dL Total Protein (6.3-8.2) g/dL Albumin (3.5-5.0) g/dL 11/10/22 11/10/22 11/10/22 Range/Units 05:00 06:55 07:53 WBC (3.8-10.6) k/uL RBC (3.80-5.40) m/uL Hgb (11.4-16.0) gm/dL Hct (34.0-46.0) % Neutrophils # (1.3-7.7) k/uL ABG pH (7.35-7.45) ABG pCO2 (35-45) mmHg ABG pO2 (83-108) mmHg ABG HCO3 (21-25) mmol/L ABG Total CO2 (19-24) mmol/L ABG O2 Saturation (94-97) % Potassium (3.5-5.1) mmol/L BUN 23 H (7-17) mg/dL Glucose 120 H (74-99) mg/dL POC Glucose (mg/dL) 141 H 140 H (70-110) mg/dL Total Protein 5.5 L (6.3-8.2) g/dL Albumin 3.3 L (3.5-5.0) g/dL 11/10/22 11/10/22 11/10/22 Range/Units 09:10 10:13 10:39 WBC (3.8-10.6) k/uL RBC (3.80-5.40) m/uL Hgb (11.4-16.0) gm/dL Hct (34.0-46.0) % Neutrophils # (1.3-7.7) k/uL ABG pH 7.50 H (7.35-7.45) ABG pCO2 33 L (35-45) mmHg ABG pO2 157 H (83-108) mmHg ABG HCO3 (21-25) mmol/L ABG Total CO2 26 H (19-24) mmol/L ABG O2 Saturation 99.5 H (94-97) % Potassium (3.5-5.1) mmol/L BUN (7-17) mg/dL Glucose (74-99) mg/dL POC Glucose (mg/dL) 128 H 138 H (70-110) mg/dL Total Protein (6.3-8.2) g/dL Albumin (3.5-5.0) g/dL Assessment and Plan Assessment: Postop day #2, status post aortic valve replacement, and single-vessel bypass, CHOPRA to LAD, and ligation of left atrial appendage. Routine postoperative ventilator management, status post extubation on 11/08/2022. History of long-standing aortic stenosis. History of CAD. History of atrial fibrillation. History of hypertension. History of hyperlipidemia. Plan: Plan dated 11/08/2022. The patient is seen in the intensive care unit, room 263. Labs, x-rays, and medications are reviewed. The surgeons operative note is also reviewed. The patient is examined. Ventilator changes are made. We will continue to follow the patient and make recommendations along the way. Overall prognosis remains guarded. No additional recommendations at this time. We will hopefully get the patient extubated in a timely fashion. Plan dated 11/09/2022. The patient was extubated yesterday, within the 6 hour window. Labs, x-rays, and medications are reviewed. The patient is quite lethargic this morning. We will continue to follow and make recommendations along the way. Her labs, x- rays, medications are all reviewed. The patient currently is on 4 L. She is receiving an insulin drip at 4 units an hour. She's getting lactated Ringer's at 20 mL an hour. Prognosis is guarded. Plan dated 11/10/2022. Computed tomography scan of the brain without contrast, showed no acute hemorrhage or mass effect. Other changes are noted. MRI was recommended. The patient is currently on 7 L high flow oxygen. She's getting insulin 5.5 units per hour. Last night we had her on BiPAP with settings of 10/5 and 50%. Labs, x-rays, and medications are reviewed. Overall prognosis remains guarded. We will continue to follow and make recommendations along the way. Time with Patient: Less than 30
[2022-11-10 11:45] LABS: Glucose,Whole Blood 137 mg/dL (70-110)
[2022-11-10] MEDS: INSULIN ASPART (NovoLOG) 100 UNIT/ML VIAL SQ SCH ×5 (12:02→20:46)
[2022-11-10 17:21] LABS: Glucose,Whole Blood 117 mg/dL (70-110)
--- NOTE | 2022-11-10 17:42 | P.PN ---
Subjective Progress Note Date: 11/10/22 (Delayed charting seen at 1005) Patient is a 76-year-old female with atrial fibrillation, asthma, hypertension, dyslipidemia, and fatty infiltration of the liver who presented for coronary artery bypass grafting with a CHOPRA to the LAD as well as aortic valve replacement, bioprosthetic. She tolerated the procedure well was admitted to the ICU. Patient seen and examined at bedside. She is in the chair but is lethargic and not rousable to voice, no sternal rub she does groan. Per nursing has been lethargic this morning and stat head CT was ordered by critical care Vital signs reviewed General: nontoxic, no distress, appears at stated age Cardiovascular: S1S2 reg, no murmur, positive posterior tibial pulse bilateral, Lungs: CTA bilateral, no rhonchi, no rales , no accessory muscle use Abdominal: soft, nontender to palpation, no guarding, no appreciable organomegaly Ext: no gross muscle atrophy, no edema, no contractures Neuro: Withdraws to tactile stimuli in the right arm and right leg, left arm, and left leg. Psych: Lethargic, was able to answer her name to stimuli. Assessment: CAD s/p CHOPRA to LAD with bioprosthetic valve replacement Hyperglycemia with prediabetes - A1c 10/12/22 6.3 Acute blood loss anemia, anticipated outcome of surgery. Leukocytosis, reactive Chronic atrial fibrillation Asthma without exacerbation Hypertension Dyslipidemia Fatty infiltration of the liver Chronic kidney disease stage II Resolved: Elevated lactic acid, anticipated outcome Imaging: chest x-ray reviwed by myself from 11/10/22 left sided chest tube remains in place. Data Review: Labs reviewed- blood cell count 15.6, hemoglobin 9.3, platelets 166, sodium 137, potassium 3.9, chloride 104, bicarb 26, BUN 23, creatinine 0.75, glucose 117. Blood sugars overnight are reviewed and have ranged between 152 and 141 this morning. Plan: - Discontinue insulin drip. Start Levemir 20 units in the morning, NovoLog 5 un its with meals, and sliding scale insulin - Pulmonary note reviewed. Check head CT - cardio thorasic note reviewed. Hx of BB intolerance, continue repatha, continue diltiazem 30 mg every 6 hours. Lasix IVP X 1 - Cardio note reviewed: continue current care - Check ABG- reviewed without hypercapnea - Requires CBC in a.m. to assess for stabilization of hemoglobin and white blood cell count, BMP in a.m. to the invasive nature of coronary artery bypass grafting. - Continue with aspirin 325 mg daily and Plavix 75 mg daily - Cozaar 50 mg oral daily Thank you for allowing us to participate in the care of this pleasant patient. Do not hesitate to contact us with questions. Someone can be reached from the [facility] hospitalist group all hours of the day at [phone] or via [employer]. DVT prophylaxis: Heparin 5000 units every 8 hours Objective - Vital Signs Vital signs: Vital Signs Temp 98.4 F 11/10/22 16:00 Pulse 85 11/10/22 16:00 Resp 21 11/10/22 16:00 BP 100/48 11/10/22 15:00 Pulse Ox 98 11/10/22 16:00 FiO2 50 11/10/22 04:00 Intake & Output 11/09/22 11/10/22 11/10/22 18:59 06:59 18:59 Intake Total 832.186 505.832 673 Output Total 051 979 1553 Balance 167.186 -19.168 -747 Weight 90.3 kg Intake: IV 744 407 623 CO/ CI 20 LR @50mls/hr 370 335 475 Potassium Chloride 20 meq 300 100 In Water For Injection 1 100ml.bag @ 50 mls/hr IVPB Q2H [facility] Rx#: [id number] Pressure bag 54 72 48 Intake, IV Titration 88.186 98.832 50 Amount Clevidipine Butyrate 25 33.133 29.134 50 mg In Empty Bag 1 bag @ 1 MG/HR 2 mls/hr IV .Q24H [facility] Rx#:[id number] Insulin Regular 100 unit 55.053 69.698 In Sodium Chloride 0.9% 100 ml @ Per Protocol IV .Q0M [facility] Rx#:[id number] Output: Chest Tube Drainage 200 90 0 Lt Pleural 190 90 0 Mediastinal 10 Urine 408 119 1611 Other: Voiding Method Indwelling Catheter Indwelling Catheter Indwelling Catheter ABP, PAP, CO, CI - Last Documented Arterial Blood Pressure 130/48 Pulmonary Artery Pressure 27/10 Cardiac Output 5.2 Cardiac Index 2.7 - Labs CBC & Chem 7: 11/10/22 05:00 11/10/22 05:00 Labs: Abnormal Lab Results - Last 24 Hours (Table) 11/09/22 11/09/22 11/09/22 Range/Units 18:15 19:00 19:45 WBC (3.8-10.6) k/uL RBC (3.80-5.40) m/uL Hgb (11.4-16.0) gm/dL Hct (34.0-46.0) % Neutrophils # (1.3-7.7) k/uL ABG pH (7.35-7.45) ABG pCO2 (35-45) mmHg ABG pO2 (83-108) mmHg ABG HCO3 (21-25) mmol/L ABG Total CO2 (19-24) mmol/L ABG O2 Saturation (94-97) % Potassium 3.4 L (3.5-5.1) mmol/L BUN (7-17) mg/dL Glucose (74-99) mg/dL POC Glucose (mg/dL) 144 H 149 H (70-110) mg/dL Total Protein (6.3-8.2) g/dL Albumin (3.5-5.0) g/dL 11/09/22 11/09/22 11/09/22 Range/Units 19:45 21:28 22:25 WBC (3.8-10.6) k/uL RBC (3.80-5.40) m/uL Hgb (11.4-16.0) gm/dL Hct (34.0-46.0) % Neutrophils # (1.3-7.7) k/uL ABG pH (7.35-7.45) ABG pCO2 (35-45) mmHg ABG pO2 (83-108) mmHg ABG HCO3 (21-25) mmol/L ABG Total CO2 (19-24) mmol/L ABG O2 Saturation (94-97) % Potassium (3.5-5.1) mmol/L BUN (7-17) mg/dL Glucose (74-99) mg/dL POC Glucose (mg/dL) 140 H 125 H 138 H (70-110) mg/dL Total Protein (6.3-8.2) g/dL Albumin (3.5-5.0) g/dL 11/09/22 11/10/22 11/10/22 Range/Units 22:30 00:38 02:04 WBC (3.8-10.6) k/uL RBC (3.80-5.40) m/uL Hgb (11.4-16.0) gm/dL Hct (34.0-46.0) % Neutrophils # (1.3-7.7) k/uL ABG pH 7.50 H (7.35-7.45) ABG pCO2 33 L (35-45) mmHg ABG pO2 190 H (83-108) mmHg ABG HCO3 26 H (21-25) mmol/L ABG Total CO2 27 H (19-24) mmol/L ABG O2 Saturation 98.4 H (94-97) % Potassium (3.5-5.1) mmol/L BUN (7-17) mg/dL Glucose (74-99) mg/dL POC Glucose (mg/dL) 152 H 136 H (70-110) mg/dL Total Protein (6.3-8.2) g/dL Albumin (3.5-5.0) g/dL 11/10/22 11/10/22 11/10/22 Range/Units 03:20 04:55 05:00 WBC 15.6 H (3.8-10.6) k/uL RBC 3.13 L (3.80-5.40) m/uL Hgb 9.3 L (11.4-16.0) gm/dL Hct 27.3 L (34.0-46.0) % Neutrophils # 13.0 H (1.3-7.7) k/uL ABG pH (7.35-7.45) ABG pCO2 (35-45) mmHg ABG pO2 (83-108) mmHg ABG HCO3 (21-25) mmol/L ABG Total CO2 (19-24) mmol/L ABG O2 Saturation (94-97) % Potassium (3.5-5.1) mmol/L BUN (7-17) mg/dL Glucose (74-99) mg/dL POC Glucose (mg/dL) 127 H 121 H (70-110) mg/dL Total Protein (6.3-8.2) g/dL Albumin (3.5-5.0) g/dL 11/10/22 11/10/22 11/10/22 Range/Units 05:00 06:55 07:53 WBC (3.8-10.6) k/uL RBC (3.80-5.40) m/uL Hgb (11.4-16.0) gm/dL Hct (34.0-46.0) % Neutrophils # (1.3-7.7) k/uL ABG pH (7.35-7.45) ABG pCO2 (35-45) mmHg ABG pO2 (83-108) mmHg ABG HCO3 (21-25) mmol/L ABG Total CO2 (19-24) mmol/L ABG O2 Saturation (94-97) % Potassium (3.5-5.1) mmol/L BUN 23 H (7-17) mg/dL Glucose 120 H (74-99) mg/dL POC Glucose (mg/dL) 141 H 140 H (70-110) mg/dL Total Protein 5.5 L (6.3-8.2) g/dL Albumin 3.3 L (3.5-5.0) g/dL 11/10/22 11/10/22 11/10/22 Range/Units 09:10 10:13 10:39 WBC (3.8-10.6) k/uL RBC (3.80-5.40) m/uL Hgb (11.4-16.0) gm/dL Hct (34.0-46.0) % Neutrophils # (1.3-7.7) k/uL ABG pH 7.50 H (7.35-7.45) ABG pCO2 33 L (35-45) mmHg ABG pO2 157 H (83-108) mmHg ABG HCO3 (21-25) mmol/L ABG Total CO2 26 H (19-24) mmol/L ABG O2 Saturation 99.5 H (94-97) % Potassium (3.5-5.1) mmol/L BUN (7-17) mg/dL Glucose (74-99) mg/dL POC Glucose (mg/dL) 128 H 138 H (70-110) mg/dL Total Protein (6.3-8.2) g/dL Albumin (3.5-5.0) g/dL 11/10/22 11/10/22 Range/Units 11:44 17:20 WBC (3.8-10.6) k/uL RBC (3.80-5.40) m/uL Hgb (11.4-16.0) gm/dL Hct (34.0-46.0) % Neutrophils # (1.3-7.7) k/uL ABG pH (7.35-7.45) ABG pCO2 (35-45) mmHg ABG pO2 (83-108) mmHg ABG HCO3 (21-25) mmol/L ABG Total CO2 (19-24) mmol/L ABG O2 Saturation (94-97) % Potassium (3.5-5.1) mmol/L BUN (7-17) mg/dL Glucose (74-99) mg/dL POC Glucose (mg/dL) 137 H 117 H (70-110) mg/dL Total Protein (6.3-8.2) g/dL Albumin (3.5-5.0) g/dL
[2022-11-10 20:37] LABS: Glucose,Whole Blood 131 mg/dL (70-110)
[2022-11-10] MEDS: SENNOSIDES-DOCUSATE SODIUM 1 EACH TAB PO SCH (21:50)
[2022-11-11] MEDS: HEPARIN SODIUM,PORCINE/PF 5,000 UNIT/0.5 ML SYRINGE SQ SCH ×4 (00:47→23:57)
[2022-11-11] MEDS: DILTIAZEM ORAL 30 MG TAB PO SCH ×2 (00:47→06:31)
[2022-11-11 04:30] LABS: Basophils % (A) 0 %; Eosinophils # (A) 0.1 k/uL (0-0.7); Eosinophils % (A) 1 %; HCT 23.3 % (34.0-46.0); Lymphocytes # (A) 1.5 k/uL (1.0-4.8); Lymphocytes % (A) 16 %; MCH 29.6 pg (25.0-35.0); MCHC 33.6 g/dL (31.0-37.0); Monocytes # (A) 0.3 k/uL (0-1.0); Monocytes % (A) 4 %; Neutrophils % (A) 77 %; Platelet Count 133 k/uL (150-450); RBC 2.65 m/uL (3.80-5.40); RDW 14.6 % (11.5-15.5)
[2022-11-11 04:39] LABS: HGB 7.8 gm/dL (11.4-16.0)
[2022-11-11 04:49] LABS: ALT 19 U/L (4-34); AST 43 U/L (14-36); African American GFR (CKD) >90 (>60 ml/min/1.73 sqM); Albumin 2.9 g/dL (3.5-5.0); Alkaline Phosphatase 52 U/L (38-126); Anion Gap 6 mmol/L; Blood Urea Nitrogen 22 mg/dL (7-17); Calcium 8.4 mg/dL (8.4-10.2); Carbon Dioxide 26 mmol/L (22-30); Chloride 106 mmol/L (98-107); Glucose 124 mg/dL (74-99); Non-African American GFR(CKD) 81 (>60 ml/min/1.73 sqM); Potassium 3.4 mmol/L (3.5-5.1); Sodium 138 mmol/L (137-145); Total Bilirubin 0.6 mg/dL (0.2-1.3); Total Protein 5.2 g/dL (6.3-8.2)
[2022-11-11 06:29] LABS: Glucose,Whole Blood 124 mg/dL (70-110)
[2022-11-11] MEDS: INSULIN ASPART (NovoLOG) 100 UNIT/ML VIAL SQ SCH ×5 (06:29→20:56)
[2022-11-11] MEDS: INSULIN DETEMIR (LEVEMIR) 100 UNIT/ML SYR SQ SCH (06:29)
[2022-11-11] MEDS: POTASSIUM CHLORIDE 10 MEQ in WATER FOR INJECTION 1 100ML.BAG IVPB SCH ×8 (06:31→21:52)
[2022-11-11] MEDS: PANTOPRAZOLE 40 MG TABLET PO SCH (06:31)
[2022-11-11] MEDS ORDERED: FUROSEMIDE 10 MG/ML 2 ML VIAL IV ONE ×2 (08:02→20:07)
[2022-11-11] MEDS: ALBUTEROL NEBULIZED 2.5 MG/3 ML INHALATION SCH ×4 (08:19→20:02)
[2022-11-11] MEDS: IPRATROPIUM 0.5 MG/2.5 ML NEBU INHALATION SCH ×4 (08:19→20:02)
--- NOTE | 2022-11-11 08:29 | P.PN ---
Subjective Progress Note Date: 11/11/22 Principal diagnosis: Calcific aortic stenosis, single-vessel coronary artery disease in the LAD. Previous medical history of preserved left ventricular function, HTN, HLD with statin intolerance, paroxysmal atrial fibrillation status post ablation on Eliquis for anticoagulation, stage III chronic kidney disease, previous tobacco dependence, family history of coronary artery disease POD #2 coronary artery bypass grafting 1 with left internal mammary artery to the left anterior descending artery, aortic valve replacement with 21 mm Inspiris bovine aortic valve prosthesis, ligation of the left atrial appendage with 35 mm AtriCure clip, epi-aortic ultrasound Postoperative acute blood loss anemia, expected given hemodilution, cardiopulmonary bypass pump and history of CKD Confusion, encephalopathy, no acute events on CT of brain The patient was seen and examined this morning sitting up in a recliner in the intensive care unit in no acute distress. Remains in sinus rhythm, hemodynamically stable. Currently on 3 L nasal cannula with oxygen saturation in the mid 90s, only able to achieve 500 mL on her incentive spirometer with poor effort, was on bipap last night. Patient more alert this morning, alert to person, place, surgery but still doesn't know the year. When asked she does complain of post surgical pain, denies shortness of breath. Did have CT of the brain yesterday which demonstrated no acute process. Right radial arterial line present. Chest x-ray, lab work reviewed. Objective - Vital Signs Vital signs: Vital Signs Temp 98.5 F 11/11/22 08:00 Pulse 90 11/11/22 08:00 Resp 28 H 11/11/22 08:00 BP 106/58 11/11/22 08:00 Pulse Ox 96 11/11/22 08:00 FiO2 50 11/11/22 05:00 Intake & Output 11/10/22 11/11/22 11/11/22 18:59 06:59 18:59 Intake Total 779 636 106 Output Total 1510 490 135 Balance -731 146 -29 Weight 88.5 kg Intake: IV 729 636 106 LR @50mls/hr 575 600 100 Potassium Chloride 20 meq 100 In Water For Injection 1 100ml.bag @ 50 mls/hr IVPB Q2H [facility] Rx#: [id number] Pressure bag 54 36 6 Intake, IV Titration 50 Amount Clevidipine Butyrate 25 50 mg In Empty Bag 1 bag @ 1 MG/HR 2 mls/hr IV .Q24H [facility] Rx#:[id number] Output: Chest Tube Drainage 0 Lt Pleural 0 Urine 1510 490 135 Other: Voiding Method Indwelling Catheter Indwelling Catheter ABP, PAP, CO, CI - Last Documented Arterial Blood Pressure 130/48 Pulmonary Artery Pressure 27/10 Cardiac Output 5.2 Cardiac Index 2.7 - Exam CONSTITUTIONAL: Appears comfortable but somewhat fidgity, cooperative, no acute distress, less sleepy RESPIRATORY: Lungs sounds diminished bilaterally. Respirations even, nonlabored. Currently on 3 liters nasal cannula with oxygen saturation 96%. Able to achieve 500 mL on incentive spirometry with very poor effort. Very weak cough. CARDIOVASCULAR: S1, S2 present. Regular rate and rhythm, sinus rhythm on telemetry. Sternum stable. Palpable peripheral pulses bilaterally. Generalized edema present. No calf pain or tenderness noted. Heart hugger, antiembolism stockings, SCDs present. GASTROINTESTINAL: Abdomen soft, nontender, nondistended. Active bowel sounds present 4 quadrants. Tolerating minimal clear liquid diet INTEGUMENTARY: Skin is warm and dry with evidence of good perfusion. Anterior chest incision well approximated and covered with dry intact dressing NEUROLOGIC: Cranial nerves II through XII intact MUSKULOSKELETAL: Able to move all extremities, strength equal bilaterally PSYCHIATRIC: Arouses to voice, oriented to person, place, situation, doesn't know the date INVASIVE LINES AND TUBES: A/V epicardial pacemaker wires present, grounded. Right radial arterial line present - Allied health notes Allied health notes reviewed: nursing - Labs CBC & Chem 7: 11/11/22 04:10 11/11/22 04:10 Labs: Abnormal Lab Results - Last 24 Hours (Table) 11/10/22 11/10/22 11/10/22 Range/Units 09:10 10:13 10:39 RBC (3.80-5.40) m/uL Hgb (11.4-16.0) gm/dL Hct (34.0-46.0) % Plt Count (150-450) k/uL ABG pH 7.50 H (7.35-7.45) ABG pCO2 33 L (35-45) mmHg ABG pO2 157 H (83-108) mmHg ABG Total CO2 26 H (19-24) mmol/L ABG O2 Saturation 99.5 H (94-97) % Potassium (3.5-5.1) mmol/L BUN (7-17) mg/dL Glucose (74-99) mg/dL POC Glucose (mg/dL) 128 H 138 H (70-110) mg/dL AST (14-36) U/L Total Protein (6.3-8.2) g/dL Albumin (3.5-5.0) g/dL 11/10/22 11/10/22 11/10/22 Range/Units 11:44 17:20 20:35 RBC (3.80-5.40) m/uL Hgb (11.4-16.0) gm/dL Hct (34.0-46.0) % Plt Count (150-450) k/uL ABG pH (7.35-7.45) ABG pCO2 (35-45) mmHg ABG pO2 (83-108) mmHg ABG Total CO2 (19-24) mmol/L ABG O2 Saturation (94-97) % Potassium (3.5-5.1) mmol/L BUN (7-17) mg/dL Glucose (74-99) mg/dL POC Glucose (mg/dL) 137 H 117 H 131 H (70-110) mg/dL AST (14-36) U/L Total Protein (6.3-8.2) g/dL Albumin (3.5-5.0) g/dL 11/11/22 11/11/22 11/11/22 Range/Units 04:10 04:10 06:28 RBC 2.65 L (3.80-5.40) m/uL Hgb 7.8 L D (11.4-16.0) gm/dL Hct 23.3 L (34.0-46.0) % Plt Count 133 L (150-450) k/uL ABG pH (7.35-7.45) ABG pCO2 (35-45) mmHg ABG pO2 (83-108) mmHg ABG Total CO2 (19-24) mmol/L ABG O2 Saturation (94-97) % Potassium 3.4 L (3.5-5.1) mmol/L BUN 22 H (7-17) mg/dL Glucose 124 H (74-99) mg/dL POC Glucose (mg/dL) 124 H (70-110) mg/dL AST 43 H (14-36) U/L Total Protein 5.2 L (6.3-8.2) g/dL Albumin 2.9 L (3.5-5.0) g/dL - Imaging and Cardiology Chest x-ray: image reviewed CT Scan - head: report reviewed, image reviewed Assessment and Plan Assessment: 1. Calcific aortic stenosis, status post bioprostetic AVR 2. Single-vessel coronary artery disease in the LAD, status post 1V CABG 3. Preserved left ventricular function, EF 55% on MELISSA 4. HTN 5. HLD with statin intolerance, currently on Repatha, cholesterol 195, LDL 98 6. Paroxysmal atrial fibrillation status post ablation on Eliquis for anticoagulation, currently sinus, status post ligation of left atrial appendage 7. Stage III chronic kidney disease 8. Previous tobacco dependence, preoperative FEV1 96% of predicted 9. Family history of coronary artery disease 10. Postoperative acute blood loss anemia, expected 11. Confusion, encephalopathy Plan: 1. Continue to maximize medical therapy with aspirin, Plavix, CCB, ARB. Continue Repatha at home (only takes every 2 weeks) 2. Wean O2 as tolerated. Encourage incentive spirometry is 10 times every hour while awake. Bronchodilators per pulmonology 3. Increase activity as tolerated, PT/OT/cardiac rehab following 4. Will monitor daily labs and x-rays. Electrolyte replacement per protocol. Will give 20 mg IVP lasix x1 5. GI/DVT prophylaxis 6. Pain control with current medication regimen. No narcotics due to sleepiness 7. Insulin management per primary care service. Patient is not diabetic, hemoglobin A1c 6.3% 8. Discontinue arterial line 9. Continue Samaniego catheter for another 24 hours for strict accurate intake and output 10. Daily weights 11. Reorient PRN 12. Patient takes multuple homeopathic meds at home, hold for now 13. More recommendations to follow
--- NOTE | 2022-11-11 09:16 | XR ---
EXAMINATION TYPE: XR chest 1V portable DATE OF EXAM: 11/11/2022 Comparison: 11/10/2022 Clinical History: 76 year-old female post cardiac surgery Findings: Median sternotomy wires are present with prosthetic aortic valve. Interval removal of left-sided ches t tube. There is interstitial prominence. Increasing opacity at the left base. No appreciable pneumot horax. Mild cardiomegaly. Impression: Interval removal of left chest tube. No appreciable pneumothorax. Correlate for mild pulmonary vascul ar congestion. Increasing retrocardiac and left basilar atelectasis or infiltrate and probably small effusion.
[2022-11-11] MEDS: LOSARTAN 50 MG TAB PO SCH (10:07)
[2022-11-11] MEDS: ASPIRIN 325 MG TAB PO SCH (10:07)
[2022-11-11] MEDS: CLOPIDOGREL 75 MG TAB PO SCH (10:07)
[2022-11-11] MEDS: CYANOCOBALAMIN 500 MCG TAB PO SCH (10:07)
[2022-11-11] MEDS: DILTIAZEM CD 120 MG CAP.ER.24H PO SCH (10:09)
[2022-11-11 11:41] LABS: Glucose,Whole Blood 116 mg/dL (70-110)
[2022-11-11] MEDS: LACTATED RINGERS 1,000 ML IV SCH (12:08)
--- NOTE | 2022-11-11 12:41 | P.PN ---
Subjective Progress Note Date: 11/11/22 Principal diagnosis: ICU management. Pulmonary consult dated 11/08/2022. 76-year-old female with history of aortic stenosis and coronary disease. The patient is postop day #0, status post one-vessel bypass, CHOPRA to LAD, aortic valve replacement with 21 mm bovine aortic valve prosthesis, ligation of left atrial appendage, and epi-aortic ultrasound. I was asked to see the patient for critical care management. The patient is back in the intensive care unit. Her ventilator settings include the volume assist control, rate 16, tidal volume 350, FiO2 100%, and PEEP of 10. Blood gases show a PaO2 of 245, pCO2 of 54, and a pH is 7.27. The FiO2 was reduced down to 60%, and subsequently to 50%, and the rate was increased from 12 up to 16. The surgery was done by Dr. Naylor. I'm seeing the patient in the intensive care unit, room 263. She's currently on propofol at 35 mcg/kg/m, lactated Ringer's at 50 mL an hour, insulin at 2.5 units an hour, Cleveprex at 8 mg an hour and nitroglycerin at 5 mcg/m. The patient was initially evaluated by Dr. Naylor in early October. She apparently has had no aortic stenosis for many years. Her past medical history is positive for CAD, aortic stenosis, hypertension, hyperlipidemia, and atrial fibrillation. White count is 14, hemoglobin 10.2, and platelet count 136,000. Sodium 141, potassium 3.8, chlorides 109, CO2 25, BUN 20, creatinine 0.67. Chest x-ray shows typical postsurgical changes, and some atelectasis at the left lung base. Progress note dated 11/09/2022. This is a 76-year-old female seen yesterday in consultation. She has a history of long-standing aortic stenosis and coronary disease. She is postop day #1, has post one-vessel bypass, CHOPRA to LAD, and aortic valve replacement, with a bovine aortic valve prosthesis. She also had ligation upper left atrial appendage. The patient was extubated in less than 6 hours. Today she is seen in room 263. The patient's on 4 L of oxygen. She's receiving an insulin drip at 4 units an hour. She's getting lactated Ringer's at 20 mL an hour. She's quite lethargic. White count 13.9, hemoglobin 10.1, hematocrit 28, with a normal platelet count. Sodium 141, potassium 3, chlorides 106, CO2 25, BUN 20, creatinine 0.73. Chest x-ray shows some bibasilar atelectasis or infiltrate. Progress note dated 11/10/2022. 76-year-old female, postop day #2, status post aortic valve replacement for aortic stenosis, and one-vessel bypass. Currently, the patient's on 7 L high flow oxygen. Lactated Ringer's is running at keep vein open. She's getting insulin drip of 5.5 units an hour. Her respiratory difficulty last night, I placed on BiPAP, 10/5 and 50%. She seemed to tolerate that well. Because of her mental status, we will send her for a CAT scan of the brain. Labs today include a white count 15.6, hemoglobin 9.3, hematocrit 27.3, and a normal rodo telet count. Blood gases done in the morning, show pO2 of 157, pCO2 33, and a pH is 7.5. Sodium 137, potassium 3.9, chlorides 104, CO2 26, BUN 23, and creatinine 0.75. Chest x-ray shows some bibasilar atelectasis, and small pleural effusions. Brain CT, done without contrast showed no acute hemorrhage or mass effect. Progress note dated 11/11/2022. 76-year-old female postop day #3, status post aortic valve replacement, for aortic stenosis, and one-vessel bypass grafting. Currently, the patient's on 3 L of oxygen. She's getting lactated Ringer's at 50 mL an hour. Because of poor mental status, she went back on BiPAP last night, with settings of IPAP 10, EPAP 5, 50%. She appears much more awake today, although she still confused. Computed tomography scan of the brain showed nothing acute. White count 9, hemoglobin 7.8, hematocrit 23.3, and platelet count 133,000. Sodium 138, po tassium 3.4, chlorides 106, CO2 26, BUN 22, and creatinine 0.74. Chest x-ray showed no pneumothorax after chest tube removal. There is mild pulmonary vascular congestion, and some mild bibasilar infiltrates or atelectasis. Objective - Vital Signs Vital signs: Vital Signs Temp 100.5 F H 11/11/22 12:00 Pulse 89 11/11/22 12:00 Resp 15 11/11/22 12:00 BP 113/44 11/11/22 12:00 Pulse Ox 96 11/11/22 12:00 FiO2 50 11/11/22 05:00 Intake & Output 11/10/22 11/11/22 11/11/22 18:59 06:59 18:59 Intake Total 779 636 312 Output Total 5999 188 6174 Balance -731 146 -973 Weight 88.5 kg Intake: IV 729 636 312 LR @50mls/hr 575 600 300 Potassium Chloride 20 meq 100 In Water For Injection 1 100ml.bag @ 50 mls/hr IVPB Q2H [facility] Rx#: [id number] Pressure bag 54 36 12 Intake, IV Titration 50 Amount Clevidipine Butyrate 25 50 mg In Empty Bag 1 bag @ 1 MG/HR 2 mls/hr IV .Q24H [facility] Rx#:[id number] Output: Chest Tube Drainage 0 Lt Pleural 0 Urine 5891 728 8858 Other: Voiding Method Indwelling Catheter Indwelling Catheter Indwelling Catheter ABP, PAP, CO, CI - Last Documented Arterial Blood Pressure 118/46 Pulmonary Artery Pressure 27/10 Cardiac Output 5.2 Cardiac Index 2.7 - Exam No acute distress, much more awake, extubated, currently on 3 L. HEENT examination is grossly unremarkable. Neck supple. Full range of motion. No adenopathy thyromegaly or neck vein distention. Cardiovascular examination reveals regular rhythm rate. S1-S2 normal. No S3 or S4. No discernible murmur noted. Heart rate is 89 bpm. Lungs reveal clear breath sounds. Breath sounds are equal bilaterally. No adventitious lung sounds including wheezes rhonchi or crackles. Saturations are 96 %. Abdomen soft bowel sounds are heard. No masses or tenderness. Extremities are intact. No cyanosis clubbing or edema. Skin is without rash or lesion. Neurologic examination is brief but nonfocal. The patient appears much more awake, but is still confused. - Labs CBC & Chem 7: 11/11/22 04:10 11/11/22 04:10 Labs: Abnormal Lab Results - Last 24 Hours (Table) 11/10/22 11/10/22 11/11/22 Range/Units 17:20 20:35 04:10 RBC 2.65 L (3.80-5.40) m/uL Hgb 7.8 L D (11.4-16.0) gm/dL Hct 23.3 L (34.0-46.0) % Plt Count 133 L (150-450) k/uL Potassium (3.5-5.1) mmol/L BUN (7-17) mg/dL Glucose (74-99) mg/dL POC Glucose (mg/dL) 117 H 131 H (70-110) mg/dL AST (14-36) U/L Total Protein (6.3-8.2) g/dL Albumin (3.5-5.0) g/dL 11/11/22 11/11/22 11/11/22 Range/Units 04:10 06:28 11:39 RBC (3.80-5.40) m/uL Hgb (11.4-16.0) gm/dL Hct (34.0-46.0) % Plt Count (150-450) k/uL Potassium 3.4 L (3.5-5.1) mmol/L BUN 22 H (7-17) mg/dL Glucose 124 H (74-99) mg/dL POC Glucose (mg/dL) 124 H 116 H (70-110) mg/dL AST 43 H (14-36) U/L Total Protein 5.2 L (6.3-8.2) g/dL Albumin 2.9 L (3.5-5.0) g/dL Assessment and Plan Assessment: Postop day #3, status post aortic valve replacement, and single-vessel bypass, CHOPRA to LAD, and ligation of left atrial appendage. Routine postoperative ventilator management, status post extubation on 11/08/2022. Postoperative confusion, somnolence, and lethargy. History of long-standing aortic stenosis. History of CAD. History of atrial fibrillation. History of hypertension. History of hyperlipidemia. Plan: Plan dated 11/08/2022. The patient is seen in the intensive care unit, room 263. Labs, x-rays, and medications are reviewed. The surgeons operative note is also reviewed. The patient is examined. Ventilator changes are made. We will continue to follow the patient and make recommendations along the way. Overall prognosis remains guarded. No additional recommendations at this time. We will hopefully get the patient extubated in a timely fashion. Plan dated 11/09/2022. The patient was extubated yesterday, within the 6 hour window. Labs, x-rays, and medications are reviewed. The patient is quite lethargic this morning. We will continue to follow and make recommendations along the way. Her labs, x- rays, medications are all reviewed. The patient currently is on 4 L. She is receiving an insulin drip at 4 units an hour. She's getting lactated Ringer's at 20 mL an hour. Prognosis is guarded. Plan dated 11/10/2022. Computed tomography scan of the brain without contrast, showed no acute hemorrhage or mass effect. Other changes are noted. MRI was recommended. The patient is currently on 7 L high flow oxygen. She's getting insulin 5.5 units per hour. Last night we had her on BiPAP with settings of 10/5 and 50%. Labs, x-rays, and medications are reviewed. Overall prognosis remains guarded. We will continue to follow and make recommendations along the way. Plan dated 11/11/2022 The patient appears much more awake and alert today. CAT scan of the brain showed nothing acute. She did require BiPAP last night. She was on 7 L yesterday, but has been weaned down to 3 L. Labs, x-rays, and medications are reviewed. Prognosis is guarded. We will continue to follow make recommendations along the way. Time with Patient: Less than 30
--- NOTE | 2022-11-11 13:20 | P.PN ---
Subjective Progress Note Date: 11/11/22 The patient is a pleasant 76-year-old female patient who underwent the day before yesterday aortic valve replacement using bioprosthetic valve with CHOPRA to LAD 11/10/2022 The patient was seen and evaluated this morning beach she does have change in mental status and there is a concern regarding stroke. She is in process of having the computed tomography scan. Otherwise she is hemodynamically stable a nd she has been maintaining normal sinus mechanism. From the cardiovascular standpoint of view, at this point we'll continue the current medical regimen. Continue dual antiplatelet therapy along with beta severiano and statin. Follow- up with the patient after the computed tomography scan 11/11/2022 The patient was seen and evaluated this morning. Her mentation is definitely better. She underwent a computed tomography scan of the brain yesterday which did not show any acute abnormalities. Her pressure has been soft. I would advise decrease the dose of losartan and continue the current medical regimen including antiplatelet as well as beta severiano as well as a statin. The examination is remarkable for regular rhythm with diminished breathing sounds bilaterally. Assessment Change in mental status which has improved. Stroke was ruled out Status post aortic valve replacement and CHOPRA to LAD bypass Multiple comorbid conditions Plan Continue the current medical regimen Decrease the dose of losartan Objective - Vital Signs Vital signs: Vital Signs Temp 100.5 F H 11/11/22 12:00 Pulse 87 11/11/22 13:00 Resp 24 11/11/22 13:00 BP 87/49 11/11/22 13:00 Pulse Ox 96 11/11/22 13:00 FiO2 50 11/11/22 05:00 Intake & Output 11/10/22 11/11/22 11/11/22 18:59 06:59 18:59 Intake Total 779 636 362 Output Total 7228 580 0216 Balance -731 146 -998 Weight 88.5 kg Intake: IV 729 636 362 LR @50mls/hr 575 600 350 Potassium Chloride 20 meq 100 In Water For Injection 1 100ml.bag @ 50 mls/hr IVPB Q2H MICHELLE Rx#: [id number] Pressure bag 54 36 12 Intake, IV Titration 50 Amount Clevidipine Butyrate 25 50 mg In Empty Bag 1 bag @ 1 MG/HR 2 mls/hr IV .Q24H MICHELLE Rx#:[id number] Output: Chest Tube Drainage 0 Lt Pleural 0 Urine 5762 964 5119 Other: Voiding Method Indwelling Catheter Indwelling Catheter Indwelling Catheter ABP, PAP, CO, CI - Last Documented Arterial Blood Pressure 118/46 Pulmonary Artery Pressure 27/10 Cardiac Output 5.2 Cardiac Index 2.7 - Labs CBC & Chem 7: 11/11/22 04:10 11/11/22 04:10 Labs: Abnormal Lab Results - Last 24 Hours (Table) 11/10/22 11/10/22 11/11/22 Range/Units 17:20 20:35 04:10 RBC 2.65 L (3.80-5.40) m/uL Hgb 7.8 L D (11.4-16.0) gm/dL Hct 23.3 L (34.0-46.0) % Plt Count 133 L (150-450) k/uL Potassium (3.5-5.1) mmol/L BUN (7-17) mg/dL Glucose (74-99) mg/dL POC Glucose (mg/dL) 117 H 131 H (70-110) mg/dL AST (14-36) U/L Total Protein (6.3-8.2) g/dL Albumin (3.5-5.0) g/dL 11/11/22 11/11/22 11/11/22 Range/Units 04:10 06:28 11:39 RBC (3.80-5.40) m/uL Hgb (11.4-16.0) gm/dL Hct (34.0-46.0) % Plt Count (150-450) k/uL Potassium 3.4 L (3.5-5.1) mmol/L BUN 22 H (7-17) mg/dL Glucose 124 H (74-99) mg/dL POC Glucose (mg/dL) 124 H 116 H (70-110) mg/dL AST 43 H (14-36) U/L Total Protein 5.2 L (6.3-8.2) g/dL Albumin 2.9 L (3.5-5.0) g/dL
[2022-11-11 15:19] LABS: Magnesium 2.1 mg/dL (1.6-2.3); Potassium 3.5 mmol/L (3.5-5.1)
[2022-11-11] MEDS ORDERED: ACETAMINOPHEN IV (For NPO) 1,000 MG in EMPTY BAG 1 BAG IVPB STA (16:15)
[2022-11-11 17:05] LABS: Glucose,Whole Blood 124 mg/dL (70-110)
--- NOTE | 2022-11-11 17:07 | P.PN ---
Subjective Progress Note Date: 11/11/22 (delayed charting seen at 0905) Patient is a 76-year-old female with atrial fibrillation, asthma, hypertension, dyslipidemia, and fatty infiltration of the liver who presented for coronary artery bypass grafting with a CHOPRA to the LAD as well as aortic valve replacement, bioprosthetic. She tolerated the procedure well was admitted to the ICU. Patient seen and examined at bedside. She is in the chair and awakes to voice. She is having some chest pain, no nausea and she is feeling very weak and tired. Vital signs reviewed General: nontoxic, no distress, appears at stated age Cardiovascular: S1S2 reg, no murmur, positive posterior tibial pulse bilateral, Lungs: CTA bilateral, no rhonchi, no rales , no accessory muscle use Abdominal: soft, nontender to palpation, no guarding, no appreciable organomegaly Ext: no gross muscle atrophy, no edema, no contractures Neuro: Withdraws to tactile stimuli in the right arm and right leg, left arm, and left leg. Psych: Lethargic, awakes and answers questions appropriately but falls back asleep. Assessment: CAD s/p CHOPRA to LAD with bioprosthetic valve replacement Hyperglycemia with prediabetes - A1c 10/12/22 6.3 Acute blood loss anemia and thrombocytopenia, anticipated outcome of surgery. Leukocytosis, reactive Chronic atrial fibrillation Asthma without exacerbation Hypertension Dyslipidemia Fatty infiltration of the liver Chronic kidney disease stage II Resolved: Elevated lactic acid, anticipated outcome Imaging: chest x-ray reviwed by myself from 11/11/22- removal of chest tube, no PTX CT had-no acute hemorrhage or mass effect, some asymmetry of the frontal horn, nonspecific white matter changes. Data Review: Labs reviewed- White blood cell count 9, hemoglobin 7.8, hematocrit 23.3, platelets 133, sodium 138, potassium 3.4, chloride 106, carbon dioxide 26, BUN 22, creatinine 0.74, glucose 124. Blood sugars I reviewed and a.m. fasting blood sugar was 124, lunchtime blood sugar 116 Plan: - blood sugars well controlled and Levemir discontinued. Discontinue fixed dose NovoLog. Continue with sliding scale insulin. If sugars elevate would consider Metformin given patient's pre-diabetes - Pulmonary note reviewed. required BiPAP overnight. - cardio thorasic note reviewed. Hx of BB intolerance, continue repatha, continue diltiazem 30 mg every 6 hours. Again repeat lasix. - Cardio note reviewed: Decrease Losartan dose - Due to worsening anemia- will need to check ferritin and iron studies, will need to follow CBC in AM. - BMP in a.m. to the invasive nature of coronary artery bypass grafting and hx of CKD - Continue with aspirin 325 mg daily and Plavix 75 mg daily - Cozaar 50 mg oral daily Thank you for allowing us to participate in the care of this pleasant patient. Do not hesitate to contact us with questions. Someone can be reached from the [facility] hospitalist group all hours of the day at [phone] or via [employer]. DVT prophylaxis: Heparin 5000 units every 8 hours Objective - Vital Signs Vital signs: Vital Signs Temp 100.5 F H 11/11/22 12:00 Pulse 77 11/11/22 15:21 Resp 23 11/11/22 15:00 BP 89/49 11/11/22 15:00 Pulse Ox 97 11/11/22 15:00 FiO2 50 11/11/22 05:00 Intake & Output 11/10/22 11/11/22 11/11/22 18:59 06:59 18:59 Intake Total 779 636 462 Output Total 3063 335 1006 Balance -731 146 -1123 Weight 88.5 kg Intake: IV 729 636 462 LR @50mls/hr 575 600 450 Potassium Chloride 20 meq 100 In Water For Injection 1 100ml.bag @ 50 mls/hr IVPB Q2H MICHELLE Rx#: [id number] Pressure bag 54 36 12 Intake, IV Titration 50 Amount Clevidipine Butyrate 25 50 mg In Empty Bag 1 bag @ 1 MG/HR 2 mls/hr IV .Q24H MICHELLE Rx#:[id number] Output: Chest Tube Drainage 0 Lt Pleural 0 Urine 8473 949 3250 Other: Voiding Method Indwelling Catheter Indwelling Catheter Indwelling Catheter ABP, PAP, CO, CI - Last Documented Arterial Blood Pressure 118/46 Pulmonary Artery Pressure 27/10 Cardiac Output 5.2 Cardiac Index 2.7 - Labs CBC & Chem 7: 11/11/22 04:10 11/11/22 14:22 Labs: Abnormal Lab Results - Last 24 Hours (Table) 11/10/22 11/10/22 11/11/22 Range/Units 17:20 20:35 04:10 RBC 2.65 L (3.80-5.40) m/uL Hgb 7.8 L D (11.4-16.0) gm/dL Hct 23.3 L (34.0-46.0) % Plt Count 133 L (150-450) k/uL Potassium (3.5-5.1) mmol/L BUN (7-17) mg/dL Glucose (74-99) mg/dL POC Glucose (mg/dL) 117 H 131 H (70-110) mg/dL AST (14-36) U/L Total Protein (6.3-8.2) g/dL Albumin (3.5-5.0) g/dL 11/11/22 11/11/22 11/11/22 Range/Units 04:10 06:28 11:39 RBC (3.80-5.40) m/uL Hgb (11.4-16.0) gm/dL Hct (34.0-46.0) % Plt Count (150-450) k/uL Potassium 3.4 L (3.5-5.1) mmol/L BUN 22 H (7-17) mg/dL Glucose 124 H (74-99) mg/dL POC Glucose (mg/dL) 124 H 116 H (70-110) mg/dL AST 43 H (14-36) U/L Total Protein 5.2 L (6.3-8.2) g/dL Albumin 2.9 L (3.5-5.0) g/dL
[2022-11-11] MEDS: SENNOSIDES-DOCUSATE SODIUM 1 EACH TAB PO SCH (20:27)
[2022-11-11 20:57] LABS: Glucose,Whole Blood 131 mg/dL (70-110)
[2022-11-12 00:28] LABS: % Iron Saturation 6.9 (12.00-45.00)
[2022-11-12 05:52] LABS: HCT 23.6 % (34.0-46.0); HGB 7.9 gm/dL (11.4-16.0); MCH 30.2 pg (25.0-35.0); MCHC 33.3 g/dL (31.0-37.0); MCV 90.5 fL (80.0-100.0); Mean Platelet Volume 8.6; Platelet Count 159 k/uL (150-450); RBC 2.61 m/uL (3.80-5.40); RDW 14.5 % (11.5-15.5); WBC 6.3 k/uL (3.8-10.6)
[2022-11-12 06:04] LABS: Potassium 3.6 mmol/L (3.5-5.1)
[2022-11-12 06:05] LABS: African American GFR (CKD) >90 (>60 ml/min/1.73 sqM); Anion Gap 9 mmol/L; Blood Urea Nitrogen 26 mg/dL (7-17); Calcium 8.7 mg/dL (8.4-10.2); Carbon Dioxide 25 mmol/L (22-30); Chloride 105 mmol/L (98-107); Glucose 120 mg/dL (74-99); Magnesium 2.1 mg/dL (1.6-2.3); Non-African American GFR(CKD) 85 (>60 ml/min/1.73 sqM); Sodium 139 mmol/L (137-145)
[2022-11-12 06:40] LABS: Glucose,Whole Blood 123 mg/dL (70-110)
[2022-11-12] MEDS: INSULIN ASPART (NovoLOG) 100 UNIT/ML VIAL SQ SCH ×4 (07:06→20:59)
[2022-11-12] MEDS: ASCORBIC ACID 500 MG TAB PO SCH ×2 (07:10→17:04)
[2022-11-12] MEDS: FERROUS SULFATE 325 MG TAB PO SCH ×2 (07:10→17:02)
[2022-11-12] MEDS ORDERED: Potassium Replacement Protocol 1 EACH MISC MISCELLANE PRN (07:10)
[2022-11-12] MEDS: PANTOPRAZOLE 40 MG TABLET PO SCH (07:10)
[2022-11-12] MEDS: POTASSIUM CHLORIDE 10 MEQ in WATER FOR INJECTION 1 100ML.BAG IVPB SCH ×2 (07:48→10:23)
--- NOTE | 2022-11-12 07:56 | XR ---
EXAMINATION TYPE: XR chest 1V portable DATE OF EXAM: 11/12/2022 COMPARISON: 11/11/2022 HISTORY: Postsurgical TECHNIQUE: Single frontal view of the chest is obtained. FINDINGS: Median sternotomy wires are present with prosthetic aortic valve. Interval removal of left -sided chest tube. There is interstitial prominence. Increasing opacity at the left base. No apprecia ble pneumothorax. Mild cardiomegaly. IMPRESSION: 1. Bilateral infiltrate and pleural effusion greater on the left stable. Correlate for mild venous co ngestion.
[2022-11-12] MEDS ORDERED: polyethylene glycoL 3350 17 GM POWD.PACK PO PRN (08:09)
[2022-11-12] MEDS ORDERED: FUROSEMIDE 10 MG/ML 2 ML VIAL IV ONE ×2 (08:43→18:00)
--- NOTE | 2022-11-12 08:46 | P.PN ---
Subjective Progress Note Date: 11/12/22 Principal diagnosis: Calcific aortic stenosis, single-vessel coronary artery disease in the LAD. Previous medical history of preserved left ventricular function, HTN, HLD with statin intolerance, paroxysmal atrial fibrillation status post ablation on Eliquis for anticoagulation, stage III chronic kidney disease, previous tobacco dependence, family history of coronary artery disease POD #4 coronary artery bypass grafting 1 with left internal mammary artery to the left anterior descending artery, aortic valve replacement with 21 mm Inspiris bovine aortic valve prosthesis, ligation of the left atrial appendage with 35 mm AtriCure clip, epi-aortic ultrasound Postoperative acute blood loss anemia, expected given hemodilution, cardiopulmonary bypass pump and history of CKD Confusion, encephalopathy, no acute events on CT of brain Paroxysmal atrial fibrillation, known common occurrence after open heart surgery, not a complication The patient was seen and examined this morning sitting up in a recliner in the intensive care unit in no acute distress. Did have a 3-4 hour run of atrial fibrillation yesterday which was responsive to amiodarone, currently in sinus rh ythm, hemodynamically stable. Currently on bipap, 40% FiO2, IPAP 10, EPAP 3 with oxygen saturation in the high 90s. Patient alert this morning, alert to person, place, surgery but still doesn't know the year. When asked she does complain of post surgical pain, denies shortness of breath. Chest x-ray, lab work reviewed. Objective - Vital Signs Vital signs: Vital Signs Temp 97.5 F L 11/12/22 04:00 Pulse 74 11/12/22 07:00 Resp 29 H 11/12/22 07:00 BP 113/59 11/12/22 07:00 Pulse Ox 98 11/12/22 07:00 FiO2 40 11/12/22 03:24 Intake & Output 11/11/22 11/12/22 11/12/22 18:59 06:59 18:59 Intake Total 582 240 20 Output Total 1745 1485 40 Balance -1163 -1245 -20 Weight 84.6 kg Intake: IV 582 240 20 LR @ 20 570 240 20 Pressure bag 12 Output: Urine 1745 1485 40 Other: Voiding Method Indwelling Catheter Indwelling Catheter ABP, PAP, CO, CI - Last Documented Arterial Blood Pressure 118/46 Pulmonary Artery Pressure 27/10 Cardiac Output 5.2 Cardiac Index 2.7 - Exam CONSTITUTIONAL: Appears comfortable but somewhat fidgity, cooperative, no acute distress RESPIRATORY: Lungs sounds diminished bilaterally. Respirations even, nonlabored. Currently bipap with oxygen saturation 97% CARDIOVASCULAR: S1, S2 present. Regular rate and rhythm, sinus rhythm on telemetry. Sternum stable. Palpable peripheral pulses bilaterally. Generalized edema present, less than yesterday. No calf pain or tenderness noted. Heart hugger, antiembolism stockings, SCDs present. GASTROINTESTINAL: Abdomen soft, nontender, nondistended. Active bowel sounds present 4 quadrants. No documented bowel movement yet INTEGUMENTARY: Skin is warm and dry with evidence of good perfusion. Anterior chest incision well approximated and covered with dry intact dressing NEUROLOGIC: Cranial nerves II through XII intact MUSKULOSKELETAL: Able to move all extremities, strength equal bilaterally PSYCHIATRIC: Arouses to voice, oriented to person, place, situation, doesn't know the date INVASIVE LINES AND TUBES: A/V epicardial pacemaker wires present, grounded - Allied health notes Allied health notes reviewed: nursing - Labs CBC & Chem 7: 11/12/22 05:29 11/12/22 05:29 Labs: Abnormal Lab Results - Last 24 Hours (Table) 11/11/22 11/11/22 11/11/22 Range/Units 11:39 14:22 17:03 RBC (3.80-5.40) m/uL Hgb (11.4-16.0) gm/dL Hct (34.0-46.0) % BUN (7-17) mg/dL Glucose (74-99) mg/dL POC Glucose (mg/dL) 116 H 124 H (70-110) mg/dL Iron 14 L (50-170) ug/dL TIBC 204 L (228-460) ug/dL % Saturation 6.90 L (12.00-45.00) Transferrin 146.0 L (204.0-354.0) mg/dL 11/11/22 11/12/22 11/12/22 Range/Units 20:56 05:29 05:29 RBC 2.61 L (3.80-5.40) m/uL Hgb 7.9 L (11.4-16.0) gm/dL Hct 23.6 L (34.0-46.0) % BUN 26 H (7-17) mg/dL Glucose 120 H (74-99) mg/dL POC Glucose (mg/dL) 131 H (70-110) mg/dL Iron (50-170) ug/dL TIBC (228-460) ug/dL % Saturation (12.00-45.00) Transferrin (204.0-354.0) mg/dL 11/12/22 Range/Units 06:38 RBC (3.80-5.40) m/uL Hgb (11.4-16.0) gm/dL Hct (34.0-46.0) % BUN (7-17) mg/dL Glucose (74-99) mg/dL POC Glucose (mg/dL) 123 H (70-110) mg/dL Iron (50-170) ug/dL TIBC (228-460) ug/dL % Saturation (12.00-45.00) Transferrin (204.0-354.0) mg/dL - Imaging and Cardiology Chest x-ray: report reviewed, image reviewed Assessment and Plan Assessment: 1. Calcific aortic stenosis, status post bioprostetic AVR 2. Single-vessel coronary artery disease in the LAD, status post 1V CABG 3. Preserved left ventricular function, EF 55% on MELISSA 4. HTN 5. HLD with statin intolerance, currently on Repatha, cholesterol 195, LDL 98 6. Paroxysmal atrial fibrillation status post ablation on Eliquis for anticoagulation, currently sinus, status post ligation of left atrial appendage 7. Stage III chronic kidney disease 8. Previous tobacco dependence, preoperative FEV1 96% of predicted 9. Family history of coronary artery disease 10. Postoperative acute blood loss anemia, expected 11. Confusion, encephalopathy 12. Paroxysmal atrial fibrillation, currently sinus Plan: 1. Continue to maximize medical therapy with aspirin, Plavix, CCB, ARB. Continue Repatha at home (only takes every 2 weeks) 2. Continue amiodarone for afib prophylaxis, will transition to oral 3. Wean O2 as tolerated. Encourage incentive spirometry is 10 times every hour while awake. Bronchodilators per pulmonology 4. Increase activity as tolerated, PT/OT/cardiac rehab following 5. Will monitor daily labs and x-rays. Electrolyte replacement per protocol 6. GI/DVT prophylaxis 7. Pain control with current medication regimen. No narcotics due to sl eepiness 8. Insulin management per primary care service. Patient is not diabetic, hemoglobin A1c 6.3% 9. Continue Samaniego catheter for another 24 hours for strict accurate intake and output 10. Daily weights 11. Reorient PRN 12. Patient takes multuple homeopathic meds at home, continue to hold 13. Will consult Dr. Plummer for possible IPR at discharge 14. More recommendations to follow
[2022-11-12] MEDS: ALBUTEROL NEBULIZED 2.5 MG/3 ML INHALATION SCH ×4 (09:23→20:53)
[2022-11-12] MEDS: IPRATROPIUM 0.5 MG/2.5 ML NEBU INHALATION SCH ×4 (09:24→20:52)
[2022-11-12] MEDS: AMIODARONE 200 MG TAB PO SCH ×2 (10:21→21:01)
[2022-11-12] MEDS: ACETAMINOPHEN TAB 500 MG TAB PO PRN (10:21)
[2022-11-12] MEDS: HEPARIN SODIUM,PORCINE/PF 5,000 UNIT/0.5 ML SYRINGE SQ SCH ×2 (10:21→15:42)
[2022-11-12] MEDS: ASPIRIN 325 MG TAB PO SCH (10:22)
[2022-11-12] MEDS: DILTIAZEM CD 120 MG CAP.ER.24H PO SCH (10:22)
[2022-11-12] MEDS: CLOPIDOGREL 75 MG TAB PO SCH (10:22)
[2022-11-12] MEDS: CYANOCOBALAMIN 500 MCG TAB PO SCH (10:29)
[2022-11-12] MEDS: bisacodyL 10 MG SUPP RECTAL SCH (10:29)
--- NOTE | 2022-11-12 10:29 | P.PN ---
Subjective Progress Note Date: 11/12/22 The patient is a pleasant 76-year-old female patient who underwent the day before yesterday aortic valve replacement using bioprosthetic valve with CHOPRA to LAD 11/10/2022 The patient was seen and evaluated this morning beach she does have change in mental status and there is a concern regarding stroke. She is in process of having the computed tomography scan. Otherwise she is hemodynamically stable a nd she has been maintaining normal sinus mechanism. From the cardiovascular standpoint of view, at this point we'll continue the current medical regimen. Continue dual antiplatelet therapy along with beta severiano and statin. Follow- up with the patient after the computed tomography scan 11/11/2022 The patient was seen and evaluated this morning. Her mentation is definitely better. She underwent a computed tomography scan of the brain yesterday which did not show any acute abnormalities. Her pressure has been soft. I would advise decrease the dose of losartan and continue the current medical regimen including antiplatelet as well as beta severiano as well as a statin. November 122022 The patient was seen and evaluated this morning beach she seems to be slightly confused with a change in mental status this morning. She is maintaining normal sinus mechanism beach she is on amiodarone IV and she is in process to be switched into amiodarone by mouth. Hemodynamically she is stable. She has been maintaining normal sinus mechanism. The examination is remarkable for regular rhythm with diminished breathing sounds bilaterally. Assessment Change in mental status which has improved. Stroke was ruled out Status post aortic valve replacement and CHOPRA to LAD bypass Paroxysmal atrial fibrillation Plan Continue the current medical regimen Follow-up with the patient Objective - Vital Signs Vital signs: Vital Signs Temp 97.5 F L 11/12/22 04:00 Pulse 80 11/12/22 09:36 Resp 29 H 11/12/22 07:00 BP 113/59 11/12/22 07:00 Pulse Ox 99 11/12/22 09:23 FiO2 40 11/12/22 03:24 Intake & Output 11/11/22 11/12/22 11/12/22 18:59 06:59 18:59 Intake Total 582 240 20 Output Total 1745 1485 40 Balance -1163 -1245 -20 Weight 84.6 kg Intake: IV 582 240 20 LR @ 20 570 240 20 Pressure bag 12 Output: Urine 1745 1485 40 Other: Voiding Method Indwelling Catheter Indwelling Catheter ABP, PAP, CO, CI - Last Documented Arterial Blood Pressure 118/46 Pulmonary Artery Pressure 27/10 Cardiac Output 5.2 Cardiac Index 2.7 - Labs CBC & Chem 7: 11/12/22 05:29 11/12/22 05:29 Labs: Abnormal Lab Results - Last 24 Hours (Table) 11/11/22 11/11/22 11/11/22 Range/Units 11:39 14:22 17:03 RBC (3.80-5.40) m/uL Hgb (11.4-16.0) gm/dL Hct (34.0-46.0) % BUN (7-17) mg/dL Glucose (74-99) mg/dL POC Glucose (mg/dL) 116 H 124 H (70-110) mg/dL Iron 14 L (50-170) ug/dL TIBC 204 L (228-460) ug/dL % Saturation 6.90 L (12.00-45.00) Transferrin 146.0 L (204.0-354.0) mg/dL 11/11/22 11/12/22 11/12/22 Range/Units 20:56 05:29 05:29 RBC 2.61 L (3.80-5.40) m/uL Hgb 7.9 L (11.4-16.0) gm/dL Hct 23.6 L (34.0-46.0) % BUN 26 H (7-17) mg/dL Glucose 120 H (74-99) mg/dL POC Glucose (mg/dL) 131 H (70-110) mg/dL Iron (50-170) ug/dL TIBC (228-460) ug/dL % Saturation (12.00-45.00) Transferrin (204.0-354.0) mg/dL 11/12/22 Range/Units 06:38 RBC (3.80-5.40) m/uL Hgb (11.4-16.0) gm/dL Hct (34.0-46.0) % BUN (7-17) mg/dL Glucose (74-99) mg/dL POC Glucose (mg/dL) 123 H (70-110) mg/dL Iron (50-170) ug/dL TIBC (228-460) ug/dL % Saturation (12.00-45.00) Transferrin (204.0-354.0) mg/dL
--- NOTE | 2022-11-12 11:34 | P.PN ---
Subjective Progress Note Date: 11/12/22 Principal diagnosis: ICU management. Pulmonary consult dated 11/08/2022. 76-year-old female with history of aortic stenosis and coronary disease. The patient is postop day #0, status post one-vessel bypass, CHOPRA to LAD, aortic valve replacement with 21 mm bovine aortic valve prosthesis, ligation of left atrial appendage, and epi-aortic ultrasound. I was asked to see the patient for critical care management. The patient is back in the intensive care unit. Her ventilator settings include the volume assist control, rate 16, tidal volume 350, FiO2 100%, and PEEP of 10. Blood gases show a PaO2 of 245, pCO2 of 54, and a pH is 7.27. The FiO2 was reduced down to 60%, and subsequently to 50%, and the rate was increased from 12 up to 16. The surgery was done by Dr. Naylor. I'm seeing the patient in the intensive care unit, room 263. She's currently on propofol at 35 mcg/kg/m, lactated Ringer's at 50 mL an hour, insulin at 2.5 units an hour, Cleveprex at 8 mg an hour and nitroglycerin at 5 mcg/m. The patient was initially evaluated by Dr. Naylor in early October. She apparently has had no aortic stenosis for many years. Her past medical history is positive for CAD, aortic stenosis, hypertension, hyperlipidemia, and atrial fibrillation. White count is 14, hemoglobin 10.2, and platelet count 136,000. Sodium 141, potassium 3.8, chlorides 109, CO2 25, BUN 20, creatinine 0.67. Chest x-ray shows typical postsurgical changes, and some atelectasis at the left lung base. Progress note dated 11/09/2022. This is a 76-year-old female seen yesterday in consultation. She has a history of long-standing aortic stenosis and coronary disease. She is postop day #1, has post one-vessel bypass, CHOPRA to LAD, and aortic valve replacement, with a bovine aortic valve prosthesis. She also had ligation upper left atrial appendage. The patient was extubated in less than 6 hours. Today she is seen in room 263. The patient's on 4 L of oxygen. She's receiving an insulin drip at 4 units an hour. She's getting lactated Ringer's at 20 mL an hour. She's quite lethargic. White count 13.9, hemoglobin 10.1, hematocrit 28, with a normal platelet count. Sodium 141, potassium 3, chlorides 106, CO2 25, BUN 20, creatinine 0.73. Chest x-ray shows some bibasilar atelectasis or infiltrate. Progress note dated 11/10/2022. 76-year-old female, postop day #2, status post aortic valve replacement for aortic stenosis, and one-vessel bypass. Currently, the patient's on 7 L high flow oxygen. Lactated Ringer's is running at keep vein open. She's getting insulin drip of 5.5 units an hour. Her respiratory difficulty last night, I placed on BiPAP, 10/5 and 50%. She seemed to tolerate that well. Because of her mental status, we will send her for a CAT scan of the brain. Labs today include a white count 15.6, hemoglobin 9.3, hematocrit 27.3, and a normal rodo telet count. Blood gases done in the morning, show pO2 of 157, pCO2 33, and a pH is 7.5. Sodium 137, potassium 3.9, chlorides 104, CO2 26, BUN 23, and creatinine 0.75. Chest x-ray shows some bibasilar atelectasis, and small pleural effusions. Brain CT, done without contrast showed no acute hemorrhage or mass effect. Progress note dated 11/11/2022. 76-year-old female postop day #3, status post aortic valve replacement, for aortic stenosis, and one-vessel bypass grafting. Currently, the patient's on 3 L of oxygen. She's getting lactated Ringer's at 50 mL an hour. Because of poor mental status, she went back on BiPAP last night, with settings of IPAP 10, EPAP 5, 50%. She appears much more awake today, although she still confused. Computed tomography scan of the brain showed nothing acute. White count 9, hemoglobin 7.8, hematocrit 23.3, and platelet count 133,000. Sodium 138, po tassium 3.4, chlorides 106, CO2 26, BUN 22, and creatinine 0.74. Chest x-ray showed no pneumothorax after chest tube removal. There is mild pulmonary vascular congestion, and some mild bibasilar infiltrates or atelectasis. Progress note dated 11/12/2022. 76-year-old female, postop day #4, and is post aortic valve replacement for aortic stenosis and one-vessel bypass grafting. The patient's currently on 4 L of oxygen. She didn't use BiPAP last night with settings of 10/5, and 40%. She's getting amiodarone 0.5 mg per hour. She's getting lactated Ringer's at KVO. White count 6.3, hemoglobin 7.9, hematocrit 23.6, and platelet count 159,000. Sodium 139, potassium 3.6, chlorides 105, CO2 25, BUN 26, creatinine 0.71. Chest x-ray shows bibasilar infiltrates or atelectasis, and some small bilateral pleural effusions. There may be a component of mild fluid overload. Objective - Vital Signs Vital signs: Vital Signs Temp 97.5 F L 11/12/22 04:00 Pulse 80 11/12/22 09:36 Resp 29 H 11/12/22 07:00 BP 113/59 11/12/22 07:00 Pulse Ox 99 11/12/22 09:23 FiO2 40 11/12/22 03:24 Intake & Output 11/11/22 11/12/22 11/12/22 18:59 06:59 18:59 Intake Total 582 240 20 Output Total 1745 1485 40 Balance -1163 -1245 -20 Weight 84.6 kg Intake: IV 582 240 20 LR @ 20 570 240 20 Pressure bag 12 Output: Urine 1745 1485 40 Other: Voiding Method Indwelling Catheter Indwelling Catheter ABP, PAP, CO, CI - Last Documented Arterial Blood Pressure 118/46 Pulmonary Artery Pressure 27/10 Cardiac Output 5.2 Cardiac Index 2.7 - Exam No acute distress, much more awake, extubated, currently on 4 L. HEENT examination is grossly unremarkable. Neck supple. Full range of motion. No adenopathy thyromegaly or neck vein distention. Cardiovascular examination reveals regular rhythm rate. S1-S2 normal. No S3 or S4. No discernible murmur noted. Heart rate is 80 bpm. Lungs reveal clear breath sounds. Breath sounds are equal bilaterally. No adventitious lung sounds including wheezes rhonchi or crackles. Saturations are 99 %. Abdomen soft bowel sounds are heard. No masses or tenderness. Extremities are intact. No cyanosis clubbing or edema. Skin is without rash or lesion. Neurologic examination is brief but nonfocal. The patient appears much more awake, but is still confused. - Labs CBC & Chem 7: 11/12/22 05:29 11/12/22 05:29 Labs: Abnormal Lab Results - Last 24 Hours (Table) 11/11/22 11/11/22 11/11/22 Range/Units 11:39 14:22 17:03 RBC (3.80-5.40) m/uL Hgb (11.4-16.0) gm/dL Hct (34.0-46.0) % BUN (7-17) mg/dL Glucose (74-99) mg/dL POC Glucose (mg/dL) 116 H 124 H (70-110) mg/dL Iron 14 L (50-170) ug/dL TIBC 204 L (228-460) ug/dL % Saturation 6.90 L (12.00-45.00) Transferrin 146.0 L (204.0-354.0) mg/dL 11/11/22 11/12/22 11/12/22 Range/Units 20:56 05:29 05:29 RBC 2.61 L (3.80-5.40) m/uL Hgb 7.9 L (11.4-16.0) gm/dL Hct 23.6 L (34.0-46.0) % BUN 26 H (7-17) mg/dL Glucose 120 H (74-99) mg/dL POC Glucose (mg/dL) 131 H (70-110) mg/dL Iron (50-170) ug/dL TIBC (228-460) ug/dL % Saturation (12.00-45.00) Transferrin (204.0-354.0) mg/dL 11/12/22 Range/Units 06:38 RBC (3.80-5.40) m/uL Hgb (11.4-16.0) gm/dL Hct (34.0-46.0) % BUN (7-17) mg/dL Glucose (74-99) mg/dL POC Glucose (mg/dL) 123 H (70-110) mg/dL Iron (50-170) ug/dL TIBC (228-460) ug/dL % Saturation (12.00-45.00) Transferrin (204.0-354.0) mg/dL Assessment and Plan Assessment: Postop day #4, status post aortic valve replacement, and single-vessel bypass, CHOPRA to LAD, and ligation of left atrial appendage. Routine postoperative ventilator management, status post extubation on 11/08/2022. Postoperative confusion, somnolence, and lethargy. History of long-standing aortic stenosis. History of CAD. History of atrial fibrillation. History of hypertension. History of hyperlipidemia. Plan: Plan dated 11/08/2022. The patient is seen in the intensive care unit, room 263. Labs, x-rays, and medications are reviewed. The surgeons operative note is also reviewed. The patient is examined. Ventilator changes are made. We will continue to follow the patient and make recommendations along the way. Overall prognosis remains guarded. No additional recommendations at this time. We will hopefully get the patient extubated in a timely fashion. Plan dated 11/09/2022. The patient was extubated yesterday, within the 6 hour window. Labs, x-rays, and medications are reviewed. The patient is quite lethargic this morning. We will continue to follow and make recommendations along the way. Her labs, x-ray s, medications are all reviewed. The patient currently is on 4 L. She is receiving an insulin drip at 4 units an hour. She's getting lactated Ringer's at 20 mL an hour. Prognosis is guarded. Plan dated 11/10/2022. Computed tomography scan of the brain without contrast, showed no acute hemorrha ge or mass effect. Other changes are noted. MRI was recommended. The patient is currently on 7 L high flow oxygen. She's getting insulin 5.5 units per hour. Last night we had her on BiPAP with settings of 10/5 and 50%. Labs, x-rays, and medications are reviewed. Overall prognosis remains guarded. We will continue to follow and make recommendations along the way. Plan dated 11/11/2022 The patient appears much more awake and alert today. CAT scan of the brain showed nothing acute. She did require BiPAP last night. She was on 7 L yesterday, but has been weaned down to 3 L. Labs, x-rays, and medications are reviewed. Prognosis is guarded. We will continue to follow make recommend ations along the way. Plan dated 11/12/2022. The patient's overall situation has remained about the same, to slightly improved. Her mental status is a bit better, but she still a bit confused. She did require the BiPAP last night. Labs, x-rays, and medications are reviewed. She remains on amiodarone at 0.5 mg/m. We will continue to follow the patient and make recommendations along the way. Prognosis is guarded. Time with Patient: Less than 30
[2022-11-12 11:41] LABS: Glucose,Whole Blood 111 mg/dL (70-110)
--- NOTE | 2022-11-12 12:37 | P.CONS ---
History of Present Illness - Chief Complaint Cardiac debility - History of Present Illness I had the opportunity to see patient for inpatient rehab consultation. Patient admitted to Dr. Naylor November 08 for elective aVR and CABG single-vessel. Seen in ICU by Dr. Shelley for medical. Seen by Dr. Sims for cardiology. Seen by Dr. Wagoner for ICU care. Chest x-rays followed for bilateral infiltrates and effusions. Head CT was done demonstrate nonspecific white matter change only. His started therapy. PT reports two-person total assistance bed mobility and transfer. Fatigues. OT reports two-person total assistance for grooming, upper dressing, bathing, toileting and toilet transfer. Previous functional history as elicited from patient and granddaughter: 76-year-old right-handed white female is lives in one floor home with daughter and granddaughter and son-in-law. Patient independent with cooking, laundry, driving. ECP Dr. Montoya. Review of Systems Review of systems: ENT: Denies sneezes or discharge. Eyes: Denies discharge or photophobia. Cardiac: Turtle discomfort. Pulmonary: At least moderate shortness of breath. Breast: Denies discharge or lumps. Gastrointestinal: Denies nausea, emesis, constipation, diarrhea. Genitourinary: Denies discharge or frequency. Musculoskeletal: Denies muscle or bone aches. Neurologic: Generalized weakness. Endocrine: Denies shakes or sweats. Oncology: Denies cancers. Dermatologic: Denies rash, itching, pruritus. ALLERGY/immunology: Denies sneezes, rashes. Past Medical History Past Medical History: Atrial Fibrillation, Asthma, Hyperlipidemia, Hypertension, Liver Disease, Osteoarthritis (OA), Renal Disease Additional Past Medical History / Comment(s): SOB w/exertion, allergy induced/environmental asthma, sees nephr.([facility] [place]) for some decreased kidney function, some meds affecting liver in past but now resolved, fatty liver History of Any Multi-Drug Resistant Organisms: None Reported Past Surgical History: Cardiac Ablation, Heart Catheterization, Joint Replacement, Orthopedic Surgery, Tonsillectomy Additional Past Surgical History / Comment(s): right hip replaced, left knee replaced, ghulam CTS, cyst removed from foot, cyst removed from back, cataract removed right eye Past Anesthesia/Blood Transfusion Reactions: No Reported Reaction Smoking Status: Never smoker - Past Family History Father Family Medical History: Coronary Artery Disease (CAD) Additional Family Medical History / Comment(s): CABG x6 Medications and Allergies Home Medications Medication Instructions Recorded Confirmed Type Apixaban [Eliquis] 5 mg PO BID 10/08/22 11/03/22 History Astaxanthin 1 tab PO DAILY 10/08/22 11/08/22 History Cyanocobalamin (Vitamin B-12) 5,000 mcg PO DAILY 10/08/22 11/08/22 History [Vitamin B-12] Evolocumab [Repatha Syringe] 140 mg SQ Q14D 10/08/22 11/08/22 History Losartan [Cozaar] 50 mg PO DAILY 10/08/22 11/08/22 History Magnesium 400 mg PO DAILY 10/08/22 11/08/22 History Red Yeast Rice 600 mg PO BID 10/08/22 11/08/22 History Triamterene/Hydrochlorothiazid 1 each PO DAILY 10/08/22 11/08/22 History [Triamterene-Hctz 75-50 mg Tab] Vit C/Quercetin/Bioflav,Dare 1 each PO BID 10/08/22 11/08/22 History [Quercetin Complex Capsule] Zinc Gluconate [Zinc] 30 mg PO DAILY 10/08/22 11/08/22 History dilTIAZem HCL [dilTIAZem HCL 24Hr 120 mg PO DAILY 10/08/22 11/08/22 History ER] Aspirin [Nevis Aspirin EC] 81 mg PO DAILY 10/12/22 11/08/22 History Allergies Allergy/AdvReac Type Severity Reaction Status Date / Time ibuprofen Allergy throat Verified 11/08/22 06:06 swelling Penicillins Allergy throat Verified 11/08/22 06:06 swelling diphenhydramine AdvReac elevates Verified 11/08/22 06:06 [From Benadryl] blood pressure lactose AdvReac Abdominal Verified 11/08/22 06:06 Pain, increases phlegm [id number] Reductase AdvReac Unknown Verified 11/09/22 08:27 Inhibitor beta severiano AdvReac Cough Uncoded 11/02/22 13:06 Physical Exam Vitals: Vital Signs Temp Pulse Resp BP Pulse Ox FiO2 11/12/22 12:17 73 11/12/22 09:36 80 11/12/22 09:24 98 11/12/22 09:23 99 11/12/22 07:00 74 29 H 113/59 98 11/12/22 06:00 71 24 105/51 97 11/12/22 05:00 73 22 114/47 99 11/12/22 04:00 97.5 F L 71 17 108/55 98 11/12/22 03:24 40 11/12/22 03:00 69 25 H 104/48 98 11/12/22 02:00 70 25 H 116/57 98 11/12/22 01:00 71 21 96/56 98 45 11/12/22 00:00 98.1 F 78 21 100/67 98 45 11/11/22 23:56 45 11/11/22 23:00 100 20 96/64 98 50 11/11/22 22:00 124 H 19 95/50 98 50 11/11/22 21:00 121 H 23 98/64 98 50 11/11/22 20:19 111 H 11/11/22 20:00 98.1 F 112 H 19 97/54 99 50 11/11/22 19:00 80 13 97/49 97 11/11/22 18:00 83 22 101/51 96 11/11/22 17:00 89 10 L 88/56 95 11/11/22 16:00 99.6 F 83 24 112/47 95 11/11/22 15:21 77 11/11/22 15:11 82 11/11/22 15:00 83 23 89/49 97 11/11/22 14:00 81 19 92/42 96 11/11/22 13:00 87 24 87/49 96 Intake and Output 11/11/22 11/12/22 11/12/22 22:59 06:59 14:59 Intake Total 250 160 20 Output Total 960 760 40 Balance -710 -600 -20 Intake: IV 250 160 20 LR @ 20 250 160 20 Output: Urine 960 760 40 Other: Voiding Method Indwelling Catheter Indwelling Catheter Weight 84.6 kg ABP, PAP, CO, CI - Last 8 Hours Cardiac Output 5.2 Cardiac Index 2.7 Skin: Atrophic, intact. General: Overweight build and comfortable appearance.. Head: Normocephalic, atraumatic. Eyes: Symmetric. Pupils equal round. Ears: Symmetric. Hearing within normal limits. Mouth: Clear. Neck: Supple. Carotid without bruit. Cardiac: Regular rate and rhythm. Lungs: Clear anteriorly and posteriorly. Abdomen: Soft active nontender. Extremities: Normal tone. Neurological: Mental status: Alert, cooperative, pleasant. Low voice volume. Cranial nerves: Symmetric facial tone and trapezius. Motor: Active movement all 4 limbs but poor. Sensation: Intact throughout. DTRs: Symmetric and equal throughout. Mobility: Requires two-person assist to Miguelina chair. Results CBC & Chem 7: 11/12/22 05:29 11/12/22 05:29 Labs: Abnormal Lab Results - Last 24 Hours (Table) 11/11/22 11/11/22 11/11/22 Range/Units 14:22 17:03 20:56 RBC (3.80-5.40) m/uL Hgb (11.4-16.0) gm/dL Hct (34.0-46.0) % BUN (7-17) mg/dL Glucose (74-99) mg/dL POC Glucose (mg/dL) 124 H 131 H (70-110) mg/dL Iron 14 L (50-170) ug/dL TIBC 204 L (228-460) ug/dL % Saturation 6.90 L (12.00-45.00) Transferrin 146.0 L (204.0-354.0) mg/dL 11/12/22 11/12/22 11/12/22 Range/Units 05:29 05:29 06:38 RBC 2.61 L (3.80-5.40) m/uL Hgb 7.9 L (11.4-16.0) gm/dL Hct 23.6 L (34.0-46.0) % BUN 26 H (7-17) mg/dL Glucose 120 H (74-99) mg/dL POC Glucose (mg/dL) 123 H (70-110) mg/dL Iron (50-170) ug/dL TIBC (228-460) ug/dL % Saturation (12.00-45.00) Transferrin (204.0-354.0) mg/dL 11/12/22 Range/Units 11:40 RBC (3.80-5.40) m/uL Hgb (11.4-16.0) gm/dL Hct (34.0-46.0) % BUN (7-17) mg/dL Glucose (74-99) mg/dL POC Glucose (mg/dL) 111 H (70-110) mg/dL Iron (50-170) ug/dL TIBC (228-460) ug/dL % Saturation (12.00-45.00) Transferrin (204.0-354.0) mg/dL Assessment and Plan Plan: Impression: Cardiac debility with recent CABG single-vessel and aVR. Comments and plan: At this time PT and OT are ongoing. Patient currently two- person total assistance for any mobility or self-care. Not quite ready for full inpatient rehab yet. We'll continue to follow with yourself hopefully will be some improvement over weekend.
[2022-11-12] MEDS ORDERED: POTASSIUM BICARBONATE/CIT AC 20 MEQ TABLET.EFF PO ONE (12:45)
--- NOTE | 2022-11-12 14:06 | P.PN ---
Subjective Progress Note Date: 11/12/22 (delayed charting seen at 0830) Patient is a 76-year-old female with atrial fibrillation, asthma, hypertension, dyslipidemia, and fatty infiltration of the liver who presented for coronary artery bypass grafting with a CHOPRA to the LAD as well as aortic valve replacement, bioprosthetic. She tolerated the procedure well was admitted to the ICU. Imaging: CT head-no acute hemorrhage or mass effect, some asymmetry of the frontal horn, nonspecific white matter changes. Patient seen and examined at bedside. She is in the chair and awakes to voice. She is having some chest pain, no nausea and she is feeling very weak and tired. Vital signs reviewed General: nontoxic, no distress, appears at stated age Cardiovascular: S1S2 reg, no murmur, positive posterior tibial pulse bilateral, Lungs: CTA bilateral, no rhonchi, no rales , no accessory muscle use Abdominal: soft, nontender to palpation, no guarding, no appreciable organomegaly Ext: no gross muscle atrophy, no edema, no contractures Neuro: Withdraws to tactile stimuli in the right arm and right leg, left arm, and left leg. Psych: Awake, alert, conversational Assessment: CAD s/p CHOPRA to LAD with bioprosthetic valve replacement Hyperglycemia with prediabetes - A1c 10/12/22 6.3 Acute blood loss anemia, anticipated outcome of surgery. Iron deficiency anemia Leukocytosis, reactive Chronic atrial fibrillation-- had 3-4 run on 32 Asthma without exacerbation Hypertension Dyslipidemia Fatty infiltration of the liver Chronic kidney disease stage II Resolved: Elevated lactic acid, anticipated outcome thrombocytopenia Imaging: Chest x-ray reviewed by myself from 11/12/22- increased interstitial markings. Data Review: Labs reviewed- remarkable for HgB 7.9, BUN 26 Blood sugars reviewed and a.m. fasting blood sugar was 120, evening blood sugars were 131 and 124 Plan: - sugars well controlled, Continue with sliding scale insulin. - Pulmonary note reviewed. Required bipap again last night. - cardio thorasic note reviewed. Consult IPR for possible rehab - Cardio note reviewed: Continue current care - Repeat CBC in AM given anemia. - Continue with aspirin 325 mg daily and Plavix 75 mg daily - Cozaar 50 mg oral daily - Dr Plummer will follow - Start ferrous sulfate 325 mg twice daily Thank you for allowing us to participate in the care of this pleasant patient. Do not hesitate to contact us with questions. Someone can be reached from the [facility] hospitalist group all hours of the day at [phone] or via perfect serve. DVT prophylaxis: Heparin 5000 units every 8 hours Objective - Vital Signs Vital signs: Vital Signs Temp 97.8 F 11/12/22 12:00 Pulse 77 11/12/22 13:00 Resp 26 H 11/12/22 13:00 BP 118/58 11/12/22 13:00 Pulse Ox 97 11/12/22 13:00 FiO2 40 11/12/22 03:24 Intake & Output 11/11/22 11/12/22 11/12/22 18:59 06:59 18:59 Intake Total 582 240 410 Output Total 1745 1485 785 Balance -[facility] -5535 -[facility] Weight 84.6 kg Intake: IV 582 240 260 LR @ 20 570 240 60 Potassium Chloride 20 meq 200 In Water For Injection 1 100ml.bag @ 50 mls/hr IVPB Q2H [facility] Rx#: [id number] Pressure bag 12 Oral 150 Output: Urine 1745 1485 785 Other: Voiding Method Indwelling Catheter Indwelling Catheter Indwelling Catheter ABP, PAP, CO, CI - Last Documented Arterial Blood Pressure 118/46 Pulmonary Artery Pressure 27/10 Cardiac Output 5.2 Cardiac Index 2.7 - Labs CBC & Chem 7: 11/12/22 05:29 11/12/22 05:29 Labs: Abnormal Lab Results - Last 24 Hours (Table) 11/11/22 11/11/22 11/11/22 Range/Units 14:22 17:03 20:56 RBC (3.80-5.40) m/uL Hgb (11.4-16.0) gm/dL Hct (34.0-46.0) % BUN (7-17) mg/dL Glucose (74-99) mg/dL POC Glucose (mg/dL) 124 H 131 H (70-110) mg/dL Iron 14 L (50-170) ug/dL TIBC 204 L (228-460) ug/dL % Saturation 6.90 L (12.00-45.00) Transferrin 146.0 L (204.0-354.0) mg/dL 11/12/22 11/12/22 11/12/22 Range/Units 05:29 05:29 06:38 RBC 2.61 L (3.80-5.40) m/uL Hgb 7.9 L (11.4-16.0) gm/dL Hct 23.6 L (34.0-46.0) % BUN 26 H (7-17) mg/dL Glucose 120 H (74-99) mg/dL POC Glucose (mg/dL) 123 H (70-110) mg/dL Iron (50-170) ug/dL TIBC (228-460) ug/dL % Saturation (12.00-45.00) Transferrin (204.0-354.0) mg/dL 11/12/22 Range/Units 11:40 RBC (3.80-5.40) m/uL Hgb (11.4-16.0) gm/dL Hct (34.0-46.0) % BUN (7-17) mg/dL Glucose (74-99) mg/dL POC Glucose (mg/dL) 111 H (70-110) mg/dL Iron (50-170) ug/dL TIBC (228-460) ug/dL % Saturation (12.00-45.00) Transferrin (204.0-354.0) mg/dL
[2022-11-12] MEDS: LOSARTAN 25 MG TAB PO SCH (15:42)
[2022-11-12 20:59] LABS: Glucose,Whole Blood 115 mg/dL (70-110)
[2022-11-12] MEDS: SENNOSIDES-DOCUSATE SODIUM 1 EACH TAB PO SCH (21:01)
[2022-11-13] MEDS: HEPARIN SODIUM,PORCINE/PF 5,000 UNIT/0.5 ML SYRINGE SQ SCH ×3 (00:45→16:20)
[2022-11-13 00:50] LABS: ABG Base Excess 6.5 mmol/L; ABG HCO3 30 mmol/L (21-25); ABG Oxygen Saturation 98.1 % (94-97); ABG PCO2 40 mmHg (35-45); ABG PH 7.49 (7.35-7.45); ABG PO2 85 mmHg (83-108); ABG TCO2 31 mmol/L (19-24); Allen Test Performed? Yes
[2022-11-13 04:19] LABS: HCT 24.9 % (34.0-46.0); HGB 8.4 gm/dL (11.4-16.0); MCHC 33.5 g/dL (31.0-37.0); MCV 89.6 fL (80.0-100.0); Mean Platelet Volume 8.8; Platelet Count 206 k/uL (150-450); RBC 2.78 m/uL (3.80-5.40); RDW 14.3 % (11.5-15.5); WBC 6.1 k/uL (3.8-10.6)
[2022-11-13 04:41] LABS: African American GFR (CKD) >90 (>60 ml/min/1.73 sqM); Anion Gap 7 mmol/L; Blood Urea Nitrogen 24 mg/dL (7-17); Calcium 8.7 mg/dL (8.4-10.2); Carbon Dioxide 29 mmol/L (22-30); Chloride 101 mmol/L (98-107); Glucose 116 mg/dL (74-99); Magnesium 2.1 mg/dL (1.6-2.3); Non-African American GFR(CKD) 79 (>60 ml/min/1.73 sqM); Potassium 3.5 mmol/L (3.5-5.1); Sodium 137 mmol/L (137-145)
[2022-11-13] MEDS: POTASSIUM BICARBONATE/CIT AC 20 MEQ TABLET.EFF NG-TUBE SCH ×2 (05:30→06:48)
[2022-11-13 06:08] LABS: Glucose,Whole Blood 120 mg/dL (70-110)
[2022-11-13] MEDS: INSULIN ASPART (NovoLOG) 100 UNIT/ML VIAL SQ SCH ×4 (06:46→20:36)
[2022-11-13] MEDS: FERROUS SULFATE 325 MG TAB PO SCH ×2 (06:47→16:20)
[2022-11-13] MEDS: ASCORBIC ACID 500 MG TAB PO SCH ×2 (06:47→16:21)
[2022-11-13] MEDS: PANTOPRAZOLE 40 MG TABLET PO SCH (06:47)
--- NOTE | 2022-11-13 07:48 | XR ---
EXAMINATION TYPE: XR chest 1V portable DATE OF EXAM: 11/13/2022 6:29 AM COMPARISON: Chest radiograph from one day prior. TECHNIQUE: XR chest 1V portable Portable AP radiograph of the chest. CLINICAL INDICATION:Female, 76 years old with history of post cardiac surgery; FINDINGS: Lungs/Pleura: There is no evidence of focal consolidation, or pneumothorax. Blunting of the left cos tophrenic angle. Pulmonary vascularity: Unremarkable. Heart/mediastinum: Cardiomediastinal silhouette is enlarged and stable. Left atrial appendage occlusi on device is present. Aortic valvular repair changes. Musculoskeletal: No acute osseous pathology. Midline sternotomy wires are noted. IMPRESSION: Stable exam with cardiomegaly and possible small left pleural effusion.
--- NOTE | 2022-11-13 07:54 | P.PN ---
Subjective Progress Note Date: 11/13/22 The patient is a pleasant 76-year-old female patient who underwent the day before yesterday aortic valve replacement using bioprosthetic valve with CHOPRA to LAD 11/10/2022 The patient was seen and evaluated this morning beach she does have change in mental status and there is a concern regarding stroke. She is in process of having the computed tomography scan. Otherwise she is hemodynamically stable a nd she has been maintaining normal sinus mechanism. From the cardiovascular standpoint of view, at this point we'll continue the current medical regimen. Continue dual antiplatelet therapy along with beta severiano and statin. Follow- up with the patient after the computed tomography scan 11/11/2022 The patient was seen and evaluated this morning. Her mentation is definitely better. She underwent a computed tomography scan of the brain yesterday which did not show any acute abnormalities. Her pressure has been soft. I would advise decrease the dose of losartan and continue the current medical regimen including antiplatelet as well as beta severiano as well as a statin. November 122022 The patient was seen and evaluated this morning beach she seems to be slightly confused with a change in mental status this morning. She is maintaining normal sinus mechanism beach she is on amiodarone IV and she is in process to be switched into amiodarone by mouth. Hemodynamically she is stable. She has been maintaining normal sinus mechanism. 2022 The patient was seen and evaluated this morning. Her mentation has somewhat improved but still fluctuate and get worse during the night. Hemodynamically she is stable. The chest x-ray was reviewed and shows small left pleural e ffusion. She might benefit from some Lasix. Otherwise she is on maximize medical treatment. Assessment Change in mental status which has improved. Stroke was ruled out Status post aortic valve replacement and CHOPRA to LAD bypass Paroxysmal atrial fibrillation Plan Continue the current medical regimen Follow-up with the patient Objective - Vital Signs Vital signs: Vital Signs Temp 98.9 F 11/13/22 00:00 Pulse 76 11/13/22 07:00 Resp 24 11/13/22 07:00 BP 107/54 11/13/22 07:00 Pulse Ox 97 11/13/22 07:00 FiO2 40 11/13/22 04:13 Intake & Output 11/12/22 11/13/22 11/13/22 18:59 06:59 18:59 Intake Total 410 Output Total 830 Balance -420 Weight 85.3 kg Intake: IV 260 LR @ 20 60 Potassium Chloride 20 meq 200 In Water For Injection 1 100ml.bag @ 50 mls/hr IVPB Q2H [facility] Rx#: [id number] Oral 150 Output: Urine 830 Other: Voiding Method Indwelling Catheter Bedpan External Catheter ABP, PAP, CO, CI - Last Documented Arterial Blood Pressure 118/46 Pulmonary Artery Pressure 27/10 Cardiac Output 5.2 Cardiac Index 2.7 - Labs CBC & Chem 7: 11/13/22 03:54 11/13/22 03:54 Labs: Abnormal Lab Results - Last 24 Hours (Table) 11/12/22 11/12/22 11/13/22 Range/Units 11:40 20:57 00:49 RBC (3.80-5.40) m/uL Hgb (11.4-16.0) gm/dL Hct (34.0-46.0) % ABG pH 7.49 H (7.35-7.45) ABG HCO3 30 H (21-25) mmol/L ABG Total CO2 31 H (19-24) mmol/L ABG O2 Saturation 98.1 H (94-97) % BUN (7-17) mg/dL Glucose (74-99) mg/dL POC Glucose (mg/dL) 111 H 115 H (70-110) mg/dL 11/13/22 11/13/22 11/13/22 Range/Units 03:54 03:54 06:06 RBC 2.78 L (3.80-5.40) m/uL Hgb 8.4 L (11.4-16.0) gm/dL Hct 24.9 L (34.0-46.0) % ABG pH (7.35-7.45) ABG HCO3 (21-25) mmol/L ABG Total CO2 (19-24) mmol/L ABG O2 Saturation (94-97) % BUN 24 H (7-17) mg/dL Glucose 116 H (74-99) mg/dL POC Glucose (mg/dL) 120 H (70-110) mg/dL
[2022-11-13] MEDS: ALBUTEROL NEBULIZED 2.5 MG/3 ML INHALATION SCH ×4 (08:40→21:57)
[2022-11-13] MEDS: IPRATROPIUM 0.5 MG/2.5 ML NEBU INHALATION SCH ×4 (08:41→21:57)
[2022-11-13] MEDS: bisacodyL 10 MG SUPP RECTAL SCH (09:09)
[2022-11-13] MEDS: CLOPIDOGREL 75 MG TAB PO SCH (09:26)
[2022-11-13] MEDS: ASPIRIN 325 MG TAB PO SCH (09:26)
[2022-11-13] MEDS: AMIODARONE 200 MG TAB PO SCH ×2 (09:26→20:37)
[2022-11-13] MEDS: CYANOCOBALAMIN 500 MCG TAB PO SCH (09:26)
[2022-11-13] MEDS: ACETAMINOPHEN TAB 500 MG TAB PO PRN ×2 (09:27→17:24)
[2022-11-13] MEDS: DILTIAZEM CD 120 MG CAP.ER.24H PO SCH (09:27)
[2022-11-13] MEDS ORDERED: POTASSIUM CHLORIDE ER 20 MEQ TAB.ER PO STA (10:15)
--- NOTE | 2022-11-13 10:46 | P.PN ---
Subjective Progress Note Date: 11/13/22 Principal diagnosis: Calcific aortic stenosis, single-vessel coronary artery disease in the LAD. Past medical history significant for preserved left ventricular function, HTN, HLD with statin intolerance, paroxysmal atrial fibrillation status post ablation on Eliquis for anticoagulation, stage III chronic kidney disease, previous tobacco dependence, family history of coronary artery disease. POD #5 coronary artery bypass grafting 1 with left internal mammary artery to the left anterior descending artery, aortic valve replacement with 21 mm Inspiris bovine aortic valve prosthesis, ligation of the left atrial appendage with 35 mm AtriCure clip, epi-aortic ultrasound. Postoperative acute blood loss anemia, expected given hemodilution, cardiopulmonary bypass pump and history of CKD. Confusion, encephalopathy, no acute events on CT of brain. Paroxysmal atrial fibrillation, known common occurrence after open heart surgery, not a complication. The patient was seen and examined in follow-up today 11/13/2022 at her bedside in the intensive care unit. Currently patient is sitting up to the bedside chair, is awake, alert and oriented [address]. Denies any complaints of pain or shortness of breath at this time. Oxygen saturations are 97% on 3 L nasal cannula and she is achieving 500 mL on her incentive spirometry with much encouragement. No further episodes of atrial fibrillation reported, bedside telemetry is currently showing normal sinus rhythm heart rate 76 BPM. She remained hemodynamically stable and currently on no inotropic or pressor support. Chest x-ray was reviewed. Objective - Vital Signs Vital signs: Vital Signs Temp 98.9 F 11/13/22 00:00 Pulse 78 11/13/22 08:55 Resp 24 11/13/22 07:00 BP 107/54 11/13/22 07:00 Pulse Ox 97 11/13/22 07:00 FiO2 40 11/13/22 04:13 Intake & Output 11/12/22 11/13/22 11/13/22 18:59 06:59 18:59 Intake Total 410 Output Total 830 Balance -420 Weight 85.3 kg Intake: IV 260 LR @ 20 60 Potassium Chloride 20 meq 200 In Water For Injection 1 100ml.bag @ 50 mls/hr IVPB Q2H [facility] Rx#: [id number] Oral 150 Output: Urine 830 Other: Voiding Method Indwelling Catheter Bedpan External Catheter ABP, PAP, CO, CI - Last Documented Arterial Blood Pressure 118/46 Pulmonary Artery Pressure 27/10 Cardiac Output 5.2 Cardiac Index 2.7 - Exam CONSTITUTIONAL: Appears comfortable but somewhat fidgity, cooperative, no acute distress. RESPIRATORY: Lungs sounds clear throughout, diminished bilateral bases left greater than right. Respirations are symmetrical, nonlabored. Oxygen saturation 97% on 3 L nasal cannula. Achieving 500 mL on her incentive spirometry with much encouragement. Strong cough. CARDIOVASCULAR: S1, S2 present. Regular rate and rhythm, sinus rhythm on telemetry, heart rate 76 BPM.. Sternum stable. Palpable peripheral pulses bilaterally. Trace generalized edema. No calf pain or tenderness noted. Heart hugger, antiembolism stockings, SCDs present. GASTROINTESTINAL: Abdomen soft, nontender, nondistended. Active bowel sounds present 4 quadrants. Tolerating diet. Bowel movement this a.m. INTEGUMENTARY: Skin is warm and dry with evidence of good perfusion. Mediastinal chest incision well approximated and covered with dry intact dressing. No drainage or redness present. NEUROLOGIC: Cranial nerves II through XII intact. No focal deficits. MUSKULOSKELETAL: Able to move all extremities, strength equal bilaterally PSYCHIATRIC: Awake and alert, oriented to person, place, situation, doesn't know the date, states 1972. - Allied health notes Allied health notes reviewed: nursing - Labs CBC & Chem 7: 11/13/22 03:54 11/13/22 03:54 Labs: Abnormal Lab Results - Last 24 Hours (Table) 11/12/22 11/12/22 11/13/22 Range/Units 11:40 20:57 00:49 RBC (3.80-5.40) m/uL Hgb (11.4-16.0) gm/dL Hct (34.0-46.0) % ABG pH 7.49 H (7.35-7.45) ABG HCO3 30 H (21-25) mmol/L ABG Total CO2 31 H (19-24) mmol/L ABG O2 Saturation 98.1 H (94-97) % BUN (7-17) mg/dL Glucose (74-99) mg/dL POC Glucose (mg/dL) 111 H 115 H (70-110) mg/dL 11/13/22 11/13/22 11/13/22 Range/Units 03:54 03:54 06:06 RBC 2.78 L (3.80-5.40) m/uL Hgb 8.4 L (11.4-16.0) gm/dL Hct 24.9 L (34.0-46.0) % ABG pH (7.35-7.45) ABG HCO3 (21-25) mmol/L ABG Total CO2 (19-24) mmol/L ABG O2 Saturation (94-97) % BUN 24 H (7-17) mg/dL Glucose 116 H (74-99) mg/dL POC Glucose (mg/dL) 120 H (70-110) mg/dL - Imaging and Cardiology Chest x-ray: report reviewed, image reviewed Assessment and Plan Assessment: 1. Calcific aortic stenosis, status post bioprostetic AVR 2. Single-vessel coronary artery disease in the LAD, status post 1V CABG 3. Preserved left ventricular function, EF 55% on MELISSA 4. Hypertension 5. Hyperlipidemia with statin intolerance, currently on Repatha, cholesterol 195, LDL 98 6. Paroxysmal atrial fibrillation status post ablation on Eliquis for anticoagulation, currently sinus, status post ligation of left atrial appendage 7. Stage III chronic kidney disease 8. Previous tobacco dependence, preoperative FEV1 96% of predicted 9. Family history of coronary artery disease 10. Postoperative acute blood loss anemia, expected 11. Confusion, encephalopathy 12. Paroxysmal atrial fibrillation, currently sinus Plan: 1. Continue to maximize medical therapy with aspirin, Plavix, Cardizem cd 120 mg by mouth daily and losartan. Continue Repatha at home (only takes every 2 weeks). 2. Continue amiodarone for afib prophylaxis, amiodarone 400 mg by mouth twice a day. 3. Wean O2 as tolerated. Encourage incentive spirometry is 10 times every hour while awake. Bronchodilators per pulmonology. 4. Increase activity as tolerated, PT/OT/cardiac rehab following. Needs much encouragement with activity. 5. Will monitor daily labs and chest x-rays. Electrolyte replacement per protocol. 6. GI/DVT prophylaxis. 7. Pain control with current medication regimen. Avoid narcotics. 8. Insulin management per primary care service. Patient is not diabetic, hemoglobin A1c 6.3%. 9. Continue to monitor strict accurate intake and output. 10. Daily weights 11. Reorient PRN. 12. Patient takes multuple homeopathic meds at home, continue to hold. 13. Dr. Plummer consult noted and appreciated, currently being evaluated for possible IPR at discharge. 14. Encourage nutrition. 15. More recommendations to follow based on patient's clinical course. Time with Patient: Greater than 30
--- NOTE | 2022-11-13 10:55 | P.PN ---
Subjective Progress Note Date: 11/13/22 Patient is a 76-year-old female with atrial fibrillation, asthma, hypertension, dyslipidemia, and fatty infiltration of the liver who presented for coronary artery bypass grafting with a CHOPRA to the LAD as well as aortic valve replacement, bioprosthetic. She tolerated the procedure well was admitted to the ICU. Imaging: CT head-no acute hemorrhage or mass effect, some asymmetry of the frontal horn, nonspecific white matter changes. Patient seen and examined at bedside. No acute events overnight. Per nursing, patient is delirious, with waxing mentation. Samaniego catheter has been discon tinued. She had 1 bowel movement today. Patient currently denies any significant chest pain, shortness of breath, abdominal pain. Vital signs reviewed General: nontoxic, no distress, appears at stated age Cardiovascular: S1S2 reg, no murmur, positive posterior tibial pulse bilateral, Lungs: CTA bilateral, no rhonchi, no rales , no accessory muscle use Abdominal: soft, nontender to palpation, no guarding, no appreciable organomegaly Ext: no gross muscle atrophy, no edema, no contractures Neuro: CN II-12 grossly intact, no focal neurological deficits Psych: Awake, drowsy, oriented 1 Assessment: Postop and ICU delirium CAD s/p CHOPRA to LAD with bioprosthetic valve replacement Hyperglycemia with prediabetes - A1c 10/12/22 6.3 Acute blood loss anemia, anticipated outcome of surgery, resolving Iron deficiency anemia Leukocytosis, reactive Chronic atrial fibrillation Asthma without exacerbation Hypertension Dyslipidemia Fatty infiltration of the liver Chronic kidney disease stage II Resolved: Elevated lactic acid, anticipated outcome thrombocytopenia Imaging: Chest x-ray reviewed by myself from today, improved interstitial markings Data Review: Labs reviewed- remarkable for HgB 8.4, improving, BUN 24 down trending, pH 7.49, pCO2 40 Blood sugars reviewed and a.m. fasting blood sugar was 116, in 24 hours, blood sugars range from 111-120. Plan: - Patient likely has postop and ICU delirium, having bowel movements, Samaniego catheter has been discontinued, continue delirium precautions - sugars well controlled, Continue with sliding scale insulin. - Cardio note reviewed: Continue current care, no changes - Repeat CBC in AM given anemia. - Patient also receiving IV Lasix 20 mg 2, repeat BMP tomorrow morning to monitor for renal function - IPR note reviewed: patient not ready for inpatient rehab yet, continue work with PT/OT Thank you for allowing us to participate in the care of this pleasant patient. Do not hesitate to contact us with questions. Someone can be reached from the [facility] hospitalist group all hours of the day at [phone] or via perfect serve. DVT prophylaxis: Heparin 5000 units every 8 hours Objective - Vital Signs Vital signs: Vital Signs Temp 98.9 F 11/13/22 00:00 Pulse 78 11/13/22 08:55 Resp 24 11/13/22 07:00 BP 107/54 11/13/22 07:00 Pulse Ox 97 11/13/22 07:00 FiO2 40 11/13/22 04:13 Intake & Output 11/12/22 11/13/22 11/13/22 18:59 06:59 18:59 Intake Total 410 Output Total 830 Balance -420 Weight 85.3 kg Intake: IV 260 LR @ 20 60 Potassium Chloride 20 meq 200 In Water For Injection 1 100ml.bag @ 50 mls/hr IVPB Q2H [facility] Rx#: [id number] Oral 150 Output: Urine 830 Other: Voiding Method Indwelling Catheter Bedpan External Catheter ABP, PAP, CO, CI - Last Documented Arterial Blood Pressure 118/46 Pulmonary Artery Pressure 27/10 Cardiac Output 5.2 Cardiac Index 2.7 - Labs CBC & Chem 7: 11/13/22 03:54 11/13/22 03:54 Labs: Abnormal Lab Results - Last 24 Hours (Table) 11/12/22 11/12/22 11/13/22 Range/Units 11:40 20:57 00:49 RBC (3.80-5.40) m/uL Hgb (11.4-16.0) gm/dL Hct (34.0-46.0) % ABG pH 7.49 H (7.35-7.45) ABG HCO3 30 H (21-25) mmol/L ABG Total CO2 31 H (19-24) mmol/L ABG O2 Saturation 98.1 H (94-97) % BUN (7-17) mg/dL Glucose (74-99) mg/dL POC Glucose (mg/dL) 111 H 115 H (70-110) mg/dL 11/13/22 11/13/22 11/13/22 Range/Units 03:54 03:54 06:06 RBC 2.78 L (3.80-5.40) m/uL Hgb 8.4 L (11.4-16.0) gm/dL Hct 24.9 L (34.0-46.0) % ABG pH (7.35-7.45) ABG HCO3 (21-25) mmol/L ABG Total CO2 (19-24) mmol/L ABG O2 Saturation (94-97) % BUN 24 H (7-17) mg/dL Glucose 116 H (74-99) mg/dL POC Glucose (mg/dL) 120 H (70-110) mg/dL
[2022-11-13 11:52] LABS: Glucose,Whole Blood 130 mg/dL (70-110)
[2022-11-13] MEDS: FUROSEMIDE 10 MG/ML 2 ML VIAL IV SCH ×2 (11:53→16:20)
--- NOTE | 2022-11-13 12:56 | P.PN ---
Subjective Progress Note Date: 11/13/22 Principal diagnosis: ICU management. Pulmonary consult dated 11/08/2022. 76-year-old female with history of aortic stenosis and coronary disease. The patient is postop day #0, status post one-vessel bypass, CHOPRA to LAD, aortic valve replacement with 21 mm bovine aortic valve prosthesis, ligation of left atrial appendage, and epi-aortic ultrasound. I was asked to see the patient for critical care management. The patient is back in the intensive care unit. Her ventilator settings include the volume assist control, rate 16, tidal volume 350, FiO2 100%, and PEEP of 10. Blood gases show a PaO2 of 245, pCO2 of 54, and a pH is 7.27. The FiO2 was reduced down to 60%, and subsequently to 50%, and the rate was increased from 12 up to 16. The surgery was done by Dr. Naylor. I'm seeing the patient in the intensive care unit, room 263. She's currently on propofol at 35 mcg/kg/m, lactated Ringer's at 50 mL an hour, insulin at 2.5 units an hour, Cleveprex at 8 mg an hour and nitroglycerin at 5 mcg/m. The patient was initially evaluated by Dr. Naylor in early October. She apparently has had no aortic stenosis for many years. Her past medical history is positive for CAD, aortic stenosis, hypertension, hyperlipidemia, and atrial fibrillation. White count is 14, hemoglobin 10.2, and platelet count 136,000. Sodium 141, potassium 3.8, chlorides 109, CO2 25, BUN 20, creatinine 0.67. Chest x-ray shows typical postsurgical changes, and some atelectasis at the left lung base. Progress note dated 11/09/2022. This is a 76-year-old female seen yesterday in consultation. She has a history of long-standing aortic stenosis and coronary disease. She is postop day #1, has post one-vessel bypass, CHOPRA to LAD, and aortic valve replacement, with a bovine aortic valve prosthesis. She also had ligation upper left atrial appendage. The patient was extubated in less than 6 hours. Today she is seen in room 263. The patient's on 4 L of oxygen. She's receiving an insulin drip at 4 units an hour. She's getting lactated Ringer's at 20 mL an hour. She's quite lethargic. White count 13.9, hemoglobin 10.1, hematocrit 28, with a normal platelet count. Sodium 141, potassium 3, chlorides 106, CO2 25, BUN 20, creatinine 0.73. Chest x-ray shows some bibasilar atelectasis or infiltrate. Progress note dated 11/10/2022. 76-year-old female, postop day #2, status post aortic valve replacement for aortic stenosis, and one-vessel bypass. Currently, the patient's on 7 L high flow oxygen. Lactated Ringer's is running at keep vein open. She's getting insulin drip of 5.5 units an hour. Her respiratory difficulty last night, I placed on BiPAP, 10/5 and 50%. She seemed to tolerate that well. Because of her mental status, we will send her for a CAT scan of the brain. Labs today include a white count 15.6, hemoglobin 9.3, hematocrit 27.3, and a normal rodo telet count. Blood gases done in the morning, show pO2 of 157, pCO2 33, and a pH is 7.5. Sodium 137, potassium 3.9, chlorides 104, CO2 26, BUN 23, and creatinine 0.75. Chest x-ray shows some bibasilar atelectasis, and small pleural effusions. Brain CT, done without contrast showed no acute hemorrhage or mass effect. Progress note dated 11/11/2022. 76-year-old female postop day #3, status post aortic valve replacement, for aortic stenosis, and one-vessel bypass grafting. Currently, the patient's on 3 L of oxygen. She's getting lactated Ringer's at 50 mL an hour. Because of poor mental status, she went back on BiPAP last night, with settings of IPAP 10, EPAP 5, 50%. She appears much more awake today, although she still confused. Computed tomography scan of the brain showed nothing acute. White count 9, hemoglobin 7.8, hematocrit 23.3, and platelet count 133,000. Sodium 138, po tassium 3.4, chlorides 106, CO2 26, BUN 22, and creatinine 0.74. Chest x-ray showed no pneumothorax after chest tube removal. There is mild pulmonary vascular congestion, and some mild bibasilar infiltrates or atelectasis. Progress note dated 11/12/2022. 76-year-old female, postop day #4, and is post aortic valve replacement for aortic stenosis and one-vessel bypass grafting. The patient's currently on 4 L of oxygen. She didn't use BiPAP last night with settings of 10/5, and 40%. She's getting amiodarone 0.5 mg per hour. She's getting lactated Ringer's at KVO. White count 6.3, hemoglobin 7.9, hematocrit 23.6, and platelet count 159,000. Sodium 139, potassium 3.6, chlorides 105, CO2 25, BUN 26, creatinine 0.71. Chest x-ray shows bibasilar infiltrates or atelectasis, and some small bilateral pleural effusions. There may be a component of mild fluid overload. Progress note dated 11/13/2022. 76-year-old female, postop day #5, status post aortic valve replacement for aortic stenosis, and one-vessel bypass grafting. The patient is seen today in room 263. She's currently on 2 L of oxygen. She's not receiving any IV fluids. At nighttime, she requires BiPAP, with settings of 10/5, and 40%. Her mental status is not much improved. White count 6.1, hemoglobin 8.4, hematocrit 24.9, and platelet count 206,000. A blood gas done on 35% shows a pO2 of 85, pCO2 of 40, and a pH is 7.49. This is consistent with a primary metabolic alkalosis. Sodium 137, potassium 3.5, chlorides 101, CO2 29, BUN 24, and creatinine 0.75. Chest x-ray is stable, with evidence of cardiomegaly, and small bilateral effusions. Objective - Vital Signs Vital signs: Vital Signs Temp 98.9 F 11/13/22 00:00 Pulse 78 11/13/22 08:55 Resp 24 11/13/22 07:00 BP 107/54 11/13/22 07:00 Pulse Ox 97 11/13/22 07:00 FiO2 40 11/13/22 04:13 Intake & Output 11/12/22 11/13/22 11/13/22 18:59 06:59 18:59 Intake Total 410 Output Total 830 550 Balance -420 -550 Weight 85.3 kg Intake: IV 260 LR @ 20 60 Potassium Chloride 20 meq 200 In Water For Injection 1 100ml.bag @ 50 mls/hr IVPB Q2H [facility] Rx#: [id number] Oral 150 Output: Urine 830 550 Other: Voiding Method Indwelling Catheter Bedpan External Catheter ABP, PAP, CO, CI - Last Documented Arterial Blood Pressure 118/46 Pulmonary Artery Pressure 27/10 Cardiac Output 5.2 Cardiac Index 2.7 - Exam No acute distress, much more awake, extubated, currently on 2 L. HEENT examination is grossly unremarkable. Neck supple. Full range of motion. No adenopathy thyromegaly or neck vein distention. Cardiovascular examination reveals regular rhythm rate. S1-S2 normal. No S3 or S4. No discernible murmur noted. Heart rate is 77 bpm. Lungs reveal clear breath sounds. Breath sounds are equal bilaterally. No adventitious lung sounds including wheezes rhonchi or crackles. Saturations are 97 %. Abdomen soft bowel sounds are heard. No masses or tenderness. Extremities are intact. No cyanosis clubbing or edema. Skin is without rash or lesion. Neurologic examination is brief but nonfocal. The patient appears much more awake, but is still confused. - Labs CBC & Chem 7: 11/13/22 03:54 11/13/22 03:54 Labs: Abnormal Lab Results - Last 24 Hours (Table) 11/12/22 11/13/22 11/13/22 Range/Units 20:57 00:49 03:54 RBC 2.78 L (3.80-5.40) m/uL Hgb 8.4 L (11.4-16.0) gm/dL Hct 24.9 L (34.0-46.0) % ABG pH 7.49 H (7.35-7.45) ABG HCO3 30 H (21-25) mmol/L ABG Total CO2 31 H (19-24) mmol/L ABG O2 Saturation 98.1 H (94-97) % BUN (7-17) mg/dL Glucose (74-99) mg/dL POC Glucose (mg/dL) 115 H (70-110) mg/dL 11/13/22 11/13/22 11/13/22 Range/Units 03:54 06:06 11:50 RBC (3.80-5.40) m/uL Hgb (11.4-16.0) gm/dL Hct (34.0-46.0) % ABG pH (7.35-7.45) ABG HCO3 (21-25) mmol/L ABG Total CO2 (19-24) mmol/L ABG O2 Saturation (94-97) % BUN 24 H (7-17) mg/dL Glucose 116 H (74-99) mg/dL POC Glucose (mg/dL) 120 H 130 H (70-110) mg/dL Assessment and Plan Assessment: Postop day #5, status post aortic valve replacement, and single-vessel bypass, CHOPRA to LAD, and ligation of left atrial appendage. Routine postoperative ventilator management, status post extubation on 11/08/2022. Postoperative confusion, somnolence, and lethargy. History of long-standing aortic stenosis. History of CAD. History of atrial fibrillation. History of hypertension. History of hyperlipidemia. Plan: Plan dated 11/08/2022. The patient is seen in the intensive care unit, room 263. Labs, x-rays, and medications are reviewed. The surgeons operative note is also reviewed. The patient is examined. Ventilator changes are made. We will continue to follow the patient and make recommendations along the way. Overall prognosis remains guarded. No additional recommendations at this time. We will hopefully get the patient extubated in a timely fashion. Plan dated 11/09/2022. The patient was extubated yesterday, within the 6 hour window. Labs, x-rays, and medications are reviewed. The patient is quite lethargic this morning. We will continue to follow and make recommendations along the way. Her labs, x- rays, medications are all reviewed. The patient currently is on 4 L. She is receiving an insulin drip at 4 units an hour. She's getting lactated Ringer's at 20 mL an hour. Prognosis is guarded. Plan dated 11/10/2022. Computed tomography scan of the brain without contrast, showed no acute hemorrhage or mass effect. Other changes are noted. MRI was recommended. The patient is currently on 7 L high flow oxygen. She's getting insulin 5.5 units per hour. Last night we had her on BiPAP with settings of 10/5 and 50%. Labs, x-rays, and medications are reviewed. Overall prognosis remains guarded. We will continue to follow and make recommendations along the way. Plan dated 11/11/2022 The patient appears much more awake and alert today. CAT scan of the brain showed nothing acute. She did require BiPAP last night. She was on 7 L yesterday, but has been weaned down to 3 L. Labs, x-rays, and medications are reviewed. Prognosis is guarded. We will continue to follow make recommendations along the way. Plan dated 11/12/2022. The patient's overall situation has remained about the same, to slightly improved. Her mental status is a bit better, but she still a bit confused. She did require the BiPAP last night. Labs, x-rays, and medications are reviewed. She remains on amiodarone at 0.5 mg/m. We will continue to follow the patient and make recommendations along the way. Prognosis is guarded. Plan dated 11/13/2022. The patient's mental status is only marginally improved. She still is requiring BiPAP at nighttime. Arterial blood gas done shows a primary metabolic alkalosis, likely secondary to a low potassium level. She's currently on 2 L. No IV fluids. Labs, x-rays, and medications are all reviewed. We will continue to follow the patient and make recommendations along the way. Prognosis is certainly guarded. Time with Patient: Less than 30
[2022-11-13 14:52] LABS: Appearance,Urine Clear (Clear); Bacteria,Urine Rare /hpf; Bilirubin,Urine Negative (Negative); Blood,Urine Negative (Negative); Color,Urine Colorless; Glucose,Urine (UA) Negative (Negative); Hyaline Casts,Urine 1 /lpf (0-2); Ketones,Urine Negative (Negative); Leukocyte Esterase,Urine Small (Negative); Mucus,Urine Rare /hpf; Nitrite,Urine Negative (Negative); PH, Urine 5.5 (5.0-8.0); Protein,Urine Negative (Negative); RBC,Urine 1 /hpf (0-5); Specific Gravity,Urine 1.007 (1.001-1.035); Squamous Epithelial Cell,Urine 1 /hpf (0-4); Urobilinogen,Urine <2.0 mg/dL (<2.0); WBC,Urine 2 /hpf (0-5)
[2022-11-13] MEDS: LOSARTAN 25 MG TAB PO SCH ×2 (14:59→17:24)
[2022-11-13 16:19] LABS: Glucose,Whole Blood 98 mg/dL (70-110)
[2022-11-13 20:11] LABS: Glucose,Whole Blood 125 mg/dL (70-110)
[2022-11-13] MEDS: SENNOSIDES-DOCUSATE SODIUM 1 EACH TAB PO SCH (20:39)
[2022-11-14] MEDS: HEPARIN SODIUM,PORCINE/PF 5,000 UNIT/0.5 ML SYRINGE SQ SCH ×4 (00:54→23:19)
[2022-11-14 05:13] LABS: Glucose,Whole Blood 120 mg/dL (70-110)
[2022-11-14 06:19] LABS: HCT 26.2 % (34.0-46.0); HGB 8.8 gm/dL (11.4-16.0); MCHC 33.4 g/dL (31.0-37.0); MCV 89.8 fL (80.0-100.0); Mean Platelet Volume 8.4; Platelet Count 226 k/uL (150-450); RBC 2.92 m/uL (3.80-5.40); RDW 14.3 % (11.5-15.5); WBC 6.3 k/uL (3.8-10.6)
[2022-11-14 06:29] LABS: Albumin 3.3 g/dL (3.5-5.0); Potassium 3.5 mmol/L (3.5-5.1); Total Bilirubin 0.6 mg/dL (0.2-1.3); Total Protein 5.8 g/dL (6.3-8.2)
[2022-11-14] MEDS: FERROUS SULFATE 325 MG TAB PO SCH ×2 (06:33→16:01)
[2022-11-14] MEDS: ASCORBIC ACID 500 MG TAB PO SCH ×2 (06:33→16:01)
[2022-11-14] MEDS: PANTOPRAZOLE 40 MG TABLET PO SCH (06:33)
[2022-11-14] MEDS: INSULIN ASPART (NovoLOG) 100 UNIT/ML VIAL SQ SCH ×4 (06:37→21:16)
[2022-11-14 06:38] LABS: Glucose,Whole Blood 126 mg/dL (70-110)
[2022-11-14] MEDS ORDERED: POTASSIUM BICARBONATE/CIT AC 20 MEQ TABLET.EFF NG-TUBE SCH (07:00)
--- NOTE | 2022-11-14 07:40 | XR ---
EXAMINATION TYPE: XR chest 1V portable DATE OF EXAM: 11/14/2022 6:10 AM COMPARISON: Chest radiograph from one day prior. TECHNIQUE: XR chest 1V portable Portable AP radiograph of the chest. CLINICAL INDICATION:Female, 76 years old with history of post op AVR/CABG; FINDINGS: Lungs/Pleura: There is no evidence of focal consolidation, or pneumothorax. Blunting of the left cos tophrenic angle. Pulmonary vascularity: Unremarkable. Heart/mediastinum: Cardiomediastinal silhouette is enlarged and stable. Left atrial appendage occlusi on device is present. Aortic valvular repair changes. Musculoskeletal: No acute osseous pathology. Midline sternotomy wires are noted. IMPRESSION: Stable exam with cardiomegaly and possible small left pleural effusion.
[2022-11-14] MEDS ORDERED: POTASSIUM CHLORIDE ER 20 MEQ TAB.ER PO SCH (08:00)
[2022-11-14] MEDS: bisacodyL 10 MG SUPP RECTAL SCH (08:18)
[2022-11-14] MEDS: AMIODARONE 200 MG TAB PO SCH ×2 (08:25→20:24)
[2022-11-14] MEDS: ACETAMINOPHEN TAB 500 MG TAB PO PRN ×2 (08:25→13:44)
[2022-11-14] MEDS: ASPIRIN 325 MG TAB PO SCH (08:25)
[2022-11-14] MEDS: CLOPIDOGREL 75 MG TAB PO SCH (08:25)
[2022-11-14] MEDS: DILTIAZEM CD 120 MG CAP.ER.24H PO SCH (08:25)
[2022-11-14] MEDS: CYANOCOBALAMIN 500 MCG TAB PO SCH (08:25)
[2022-11-14] MEDS: POTASSIUM CHLORIDE ER 10 MEQ TAB.ER.PRT PO SCH ×2 (08:58→16:00)
[2022-11-14] MEDS: IPRATROPIUM 0.5 MG/2.5 ML NEBU INHALATION SCH ×4 (09:01→20:34)
[2022-11-14] MEDS: ALBUTEROL NEBULIZED 2.5 MG/3 ML INHALATION SCH ×4 (09:01→20:34)
[2022-11-14] MEDS: FUROSEMIDE 10 MG/ML 2 ML VIAL IV SCH ×2 (09:04→16:00)
--- NOTE | 2022-11-14 10:04 | P.PN ---
Subjective Progress Note Date: 11/14/22 The patient is a pleasant 76-year-old female patient who underwent the day before yesterday aortic valve replacement using bioprosthetic valve with CHOPRA to LAD 11/10/2022 The patient was seen and evaluated this morning beach she does have change in mental status and there is a concern regarding stroke. She is in process of having the computed tomography scan. Otherwise she is hemodynamically stable a nd she has been maintaining normal sinus mechanism. From the cardiovascular standpoint of view, at this point we'll continue the current medical regimen. Continue dual antiplatelet therapy along with beta severiano and statin. Follow- up with the patient after the computed tomography scan 11/11/2022 The patient was seen and evaluated this morning. Her mentation is definitely better. She underwent a computed tomography scan of the brain yesterday which did not show any acute abnormalities. Her pressure has been soft. I would advise decrease the dose of losartan and continue the current medical regimen including antiplatelet as well as beta severiano as well as a statin. November 122022 The patient was seen and evaluated this morning beach she seems to be slightly confused with a change in mental status this morning. She is maintaining normal sinus mechanism beach she is on amiodarone IV and she is in process to be switched into amiodarone by mouth. Hemodynamically she is stable. She has been maintaining normal sinus mechanism. November The patient was seen and evaluated this morning. Her mentation has somewhat improved but still fluctuate and get worse during the night. Hemodynamically she is stable. The chest x-ray was reviewed and shows small left pleural effusion. She might benefit from some Lasix. Otherwise she is on maximize medical treatment. November 142022 The patient was seen this morning. Her mentation has improved significantly. Hemodynamically she is stable and she is not on any vasopressors. She is on dual antiplatelet therapy but she is not on beta severiano because of "ALLERGY". She was started on Lasix IV by the surgical team for possible "edema in the brain". The computed tomography scan of the brain did not show any acute ab normalities when she had it done 2 days ago. Assessment Change in mental status which has improved. Which has improved Status post aortic valve replacement and CHOPRA to LAD bypass Paroxysmal atrial fibrillation Plan Continue the current medical regimen Follow-up with the patient Objective - Vital Signs Vital signs: Vital Signs Temp 98.3 F 03/05/23 08:00 Pulse 84 11/14/22 09:13 Resp 23 11/14/22 09:00 BP 106/53 11/14/22 09:00 Pulse Ox 94 L 11/14/22 09:00 FiO2 40 11/14/22 04:10 Intake & Output 11/13/22 11/14/22 11/14/22 18:59 06:59 18:59 Intake Total 120 Output Total 1750 500 Balance -1750 -380 Weight 83.8 kg Intake: Oral 120 Output: Urine 1750 500 Other: Voiding Method Bedside Commode Bedside Commode Bedside Commode # Voids 1 1 ABP, PAP, CO, CI - Last Documented Arterial Blood Pressure 118/46 Pulmonary Artery Pressure 27/10 Cardiac Output 5.2 Cardiac Index 2.7 - Labs CBC & Chem 7: 11/14/22 06:02 11/14/22 06:02 Labs: Abnormal Lab Results - Last 24 Hours (Table) 11/13/22 11/13/22 11/13/22 Range/Units 11:50 14:11 20:10 RBC (3.80-5.40) m/uL Hgb (11.4-16.0) gm/dL Hct (34.0-46.0) % Carbon Dioxide (22-30) mmol/L BUN (7-17) mg/dL Glucose (74-99) mg/dL POC Glucose (mg/dL) 130 H 125 H (70-110) mg/dL Total Protein (6.3-8.2) g/dL Albumin (3.5-5.0) g/dL Ur Leukocyte Esterase Small H (Negative) Urine Bacteria Rare H (None) /hpf Urine Mucus Rare H (None) /hpf 11/14/22 11/14/22 11/14/22 Range/Units 05:12 06:02 06:02 RBC 2.92 L (3.80-5.40) m/uL Hgb 8.8 L (11.4-16.0) gm/dL Hct 26.2 L (34.0-46.0) % Carbon Dioxide 33 H (22-30) mmol/L BUN 21 H (7-17) mg/dL Glucose 117 H (74-99) mg/dL POC Glucose (mg/dL) 120 H (70-110) mg/dL Total Protein 5.8 L (6.3-8.2) g/dL Albumin 3.3 L (3.5-5.0) g/dL Ur Leukocyte Esterase (Negative) Urine Bacteria (None) /hpf Urine Mucus (None) /hpf 11/14/22 Range/Units 06:36 RBC (3.80-5.40) m/uL Hgb (11.4-16.0) gm/dL Hct (34.0-46.0) % Carbon Dioxide (22-30) mmol/L BUN (7-17) mg/dL Glucose (74-99) mg/dL POC Glucose (mg/dL) 126 H (70-110) mg/dL Total Protein (6.3-8.2) g/dL Albumin (3.5-5.0) g/dL Ur Leukocyte Esterase (Negative) Urine Bacteria (None) /hpf Urine Mucus (None) /hpf
--- NOTE | 2022-11-14 10:11 | P.PN ---
Subjective Progress Note Date: 11/14/22 Principal diagnosis: Calcific aortic stenosis, single-vessel coronary artery disease in the LAD. Past medical history significant for preserved left ventricular function, HTN, HLD with statin intolerance, paroxysmal atrial fibrillation status post ablation on Eliquis for anticoagulation, stage III chronic kidney disease, previous tobacco dependence, family history of coronary artery disease. POD #6 coronary artery bypass grafting 1 with left internal mammary artery to the left anterior descending artery, aortic valve replacement with 21 mm Inspiris bovine aortic valve prosthesis, ligation of the left atrial appendage with 35 mm AtriCure clip, epi-aortic ultrasound. Postoperative acute blood loss anemia, expected given hemodilution, cardiopulmonary bypass pump and history of CKD. Confusion, encephalopathy, no acute events on CT of brain. Paroxysmal atrial fibrillation, known common occurrence after open heart surgery, not a complication. The patient was seen and examined today 11/15/2019 3R bedside in the intensive care unit. Currently she is sitting up to the bedside chair, is awake, alert, oriented [address]. Denies any complaints of pain or shortness of breath at this time. Oxygen saturations are 96% on room air and she is achieving 500 mL on her incentive spirometry with much encouragement. Bedside telemetry showing normal sinus rhythm heart rate 80 ppm. She remains hemodynamically stable and is currently on no inotropic pressure support. Patient did have a bowel movement this morning and her urine output in the last 8 hours was 500 mL. Laboratory results this morning show a WBC count of 6.3, hemoglobin 8.8, hematocrit 26.2, platelets 226, sodium 138, potassium 3.5, chloride 99, CO2 33, BUN 21, creatinine 0.84 and glucose 117. Chest x-ray was reviewed. The patient is standing better today with assistance from one nurse. Objective - Vital Signs Vital signs: Vital Signs Temp 98.3 F 11/14/22 08:00 Pulse 84 11/14/22 09:13 Resp 23 11/14/22 09:00 BP 106/53 11/14/22 09:00 Pulse Ox 94 L 11/14/22 09:00 FiO2 40 11/14/22 04:10 Intake & Output 11/13/22 11/14/22 11/14/22 18:59 06:59 18:59 Intake Total 120 Output Total 1750 500 Balance -1750 -380 Weight 83.8 kg Intake: Oral 120 Output: Urine 1750 500 Other: Voiding Method Bedside Commode Bedside Commode Bedside Commode # Voids 1 1 ABP, PAP, CO, CI - Last Documented Arterial Blood Pressure 118/46 Pulmonary Artery Pressure 27/10 Cardiac Output 5.2 Cardiac Index 2.7 - Exam CONSTITUTIONAL: Appears comfortable, cooperative, no acute distress. RESPIRATORY: Lungs sounds clear throughout, diminished bilateral bases left greater than right. Respirations are symmetrical, nonlabored. Oxygen saturation 96% on room air. Achieving 500 mL on her incentive spirometry with much encouragement. Strong cough. CARDIOVASCULAR: S1, S2 present. Regular rate and rhythm, sinus rhythm on telemetry, heart rate 80 BPM. Sternum stable. Palpable peripheral pulses bilaterally. No edema present. No calf pain or tenderness noted. Heart hugger, antiembolism stockings, SCDs present. GASTROINTESTINAL: Abdomen soft, nontender, nondistended. Active bowel sounds present 4 quadrants. Tolerating diet. Bowel movement this a.m. GENITOURINARY: Continues to void. Urine output 500 mL in the last 8 hours. INTEGUMENTARY: Skin is warm and dry, no clubbing or cyanosis. Mediastinal chest incision well approximated and covered with dry intact dressing. No drainage or redness present. NEUROLOGIC: Cranial nerves II through XII intact. No focal deficits. MUSKULOSKELETAL: Able to move all extremities, strength equal bilaterally. PSYCHIATRIC: Awake and alert, oriented to person, place, situation, doesn't know the date, states 1966. - Allied health notes Allied health notes reviewed: nursing - Labs CBC & Chem 7: 11/14/22 06:02 11/14/22 06:02 Labs: Abnormal Lab Results - Last 24 Hours (Table) 11/13/22 11/13/22 11/13/22 Range/Units 11:50 14:11 20:10 RBC (3.80-5.40) m/uL Hgb (11.4-16.0) gm/dL Hct (34.0-46.0) % Carbon Dioxide (22-30) mmol/L BUN (7-17) mg/dL Glucose (74-99) mg/dL POC Glucose (mg/dL) 130 H 125 H (70-110) mg/dL Total Protein (6.3-8.2) g/dL Albumin (3.5-5.0) g/dL Ur Leukocyte Esterase Small H (Negative) Urine Bacteria Rare H (None) /hpf Urine Mucus Rare H (None) /hpf 11/14/22 11/14/22 11/14/22 Range/Units 05:12 06:02 06:02 RBC 2.92 L (3.80-5.40) m/uL Hgb 8.8 L (11.4-16.0) gm/dL Hct 26.2 L (34.0-46.0) % Carbon Dioxide 33 H (22-30) mmol/L BUN 21 H (7-17) mg/dL Glucose 117 H (74-99) mg/dL POC Glucose (mg/dL) 120 H (70-110) mg/dL Total Protein 5.8 L (6.3-8.2) g/dL Albumin 3.3 L (3.5-5.0) g/dL Ur Leukocyte Esterase (Negative) Urine Bacteria (None) /hpf Urine Mucus (None) /hpf 11/14/22 Range/Units 06:36 RBC (3.80-5.40) m/uL Hgb (11.4-16.0) gm/dL Hct (34.0-46.0) % Carbon Dioxide (22-30) mmol/L BUN (7-17) mg/dL Glucose (74-99) mg/dL POC Glucose (mg/dL) 126 H (70-110) mg/dL Total Protein (6.3-8.2) g/dL Albumin (3.5-5.0) g/dL Ur Leukocyte Esterase (Negative) Urine Bacteria (None) /hpf Urine Mucus (None) /hpf - Imaging and Cardiology Chest x-ray: report reviewed, image reviewed Assessment and Plan Assessment: 1. Calcific aortic stenosis, status post bioprostetic AVR 2. Single-vessel coronary artery disease in the LAD, status post 1V CABG 3. Preserved left ventricular function, EF 55% on MELISSA 4. Hypertension 5. Hyperlipidemia with statin intolerance, currently on Repatha, cholesterol 195, LDL 98 6. Paroxysmal atrial fibrillation status post ablation on Eliquis for anticoagulation, currently sinus, status post ligation of left atrial appendage 7. Stage III chronic kidney disease 8. Previous tobacco dependence, preoperative FEV1 96% of predicted 9. Family history of coronary artery disease 10. Postoperative acute blood loss anemia, expected 11. Confusion, encephalopathy 12. Paroxysmal atrial fibrillation, currently sinus Plan: 1. Continue to maximize medical therapy with aspirin, Plavix, Cardizem cd 120 mg by mouth daily and losartan. Continue Repatha at home (only takes every 2 weeks). 2. Continue amiodarone for afib prophylaxis, amiodarone 400 mg by mouth twice a day. 3. Encourage incentive spirometry is 10 times every hour while awake. Bronchodilators per pulmonology. 4. Increase activity as tolerated, PT/OT/cardiac rehab following. Needs much encouragement with activity. 5. Will monitor daily labs and chest x-rays. Electrolyte replacement per protocol. 6. GI/DVT prophylaxis. 7. Pain control with current medication regimen. Avoid narcotics due to the patient's confusion. 8. Insulin management per primary care service. Patient is not diabetic, hemoglobin A1c 6.3%. 9. Continue to monitor strict accurate intake and output. 10. Daily weights 11. Reorient PRN. 12. Patient takes multuple homeopathic meds at home, continue to hold. 13. Dr. Plummer consult noted and appreciated, currently being evaluated for possible IPR at discharge. 14. Encourage nutrition. 15. Lasix 20 mg IV twice a day at 9 AM and at 4 PM. Potassium chloride 10 mEq by mouth twice a day@9 AM and at 4 PM while on Lasix. 16. More recommendations to follow based on patient's clinical course. Time with Patient: Greater than 30
--- NOTE | 2022-11-14 11:37 | P.PN ---
Subjective Progress Note Date: 11/14/22 Principal diagnosis: ICU management. Pulmonary consult dated 11/08/2022. 76-year-old female with history of aortic stenosis and coronary disease. The patient is postop day #0, status post one-vessel bypass, CHOPRA to LAD, aortic valve replacement with 21 mm bovine aortic valve prosthesis, ligation of left atrial appendage, and epi-aortic ultrasound. I was asked to see the patient for critical care management. The patient is back in the intensive care unit. Her ventilator settings include the volume assist control, rate 16, tidal volume 350, FiO2 100%, and PEEP of 10. Blood gases show a PaO2 of 245, pCO2 of 54, and a pH is 7.27. The FiO2 was reduced down to 60%, and subsequently to 50%, and the rate was increased from 12 up to 16. The surgery was done by Dr. Naylor. I'm seeing the patient in the intensive care unit, room 263. She's currently on propofol at 35 mcg/kg/m, lactated Ringer's at 50 mL an hour, insulin at 2.5 units an hour, Cleveprex at 8 mg an hour and nitroglycerin at 5 mcg/m. The patient was initially evaluated by Dr. Naylor in early October. She apparently has had no aortic stenosis for many years. Her past medical history is positive for CAD, aortic stenosis, hypertension, hyperlipidemia, and atrial fibrillation. White count is 14, hemoglobin 10.2, and platelet count 136,000. Sodium 141, potassium 3.8, chlorides 109, CO2 25, BUN 20, creatinine 0.67. Chest x-ray shows typical postsurgical changes, and some atelectasis at the left lung base. Progress note dated 11/09/2022. This is a 76-year-old female seen yesterday in consultation. She has a history of long-standing aortic stenosis and coronary disease. She is postop day #1, has post one-vessel bypass, CHOPRA to LAD, and aortic valve replacement, with a bovine aortic valve prosthesis. She also had ligation upper left atrial appendage. The patient was extubated in less than 6 hours. Today she is seen in room 263. The patient's on 4 L of oxygen. She's receiving an insulin drip at 4 units an hour. She's getting lactated Ringer's at 20 mL an hour. She's quite lethargic. White count 13.9, hemoglobin 10.1, hematocrit 28, with a normal platelet count. Sodium 141, potassium 3, chlorides 106, CO2 25, BUN 20, creatinine 0.73. Chest x-ray shows some bibasilar atelectasis or infiltrate. Progress note dated 11/10/2022. 76-year-old female, postop day #2, status post aortic valve replacement for aortic stenosis, and one-vessel bypass. Currently, the patient's on 7 L high flow oxygen. Lactated Ringer's is running at keep vein open. She's getting insulin drip of 5.5 units an hour. Her respiratory difficulty last night, I placed on BiPAP, 10/5 and 50%. She seemed to tolerate that well. Because of her mental status, we will send her for a CAT scan of the brain. Labs today include a white count 15.6, hemoglobin 9.3, hematocrit 27.3, and a normal rodo telet count. Blood gases done in the morning, show pO2 of 157, pCO2 33, and a pH is 7.5. Sodium 137, potassium 3.9, chlorides 104, CO2 26, BUN 23, and creatinine 0.75. Chest x-ray shows some bibasilar atelectasis, and small pleural effusions. Brain CT, done without contrast showed no acute hemorrhage or mass effect. Progress note dated 11/11/2022. 76-year-old female postop day #3, status post aortic valve replacement, for aortic stenosis, and one-vessel bypass grafting. Currently, the patient's on 3 L of oxygen. She's getting lactated Ringer's at 50 mL an hour. Because of poor mental status, she went back on BiPAP last night, with settings of IPAP 10, EPAP 5, 50%. She appears much more awake today, although she still confused. Computed tomography scan of the brain showed nothing acute. White count 9, hemoglobin 7.8, hematocrit 23.3, and platelet count 133,000. Sodium 138, po tassium 3.4, chlorides 106, CO2 26, BUN 22, and creatinine 0.74. Chest x-ray showed no pneumothorax after chest tube removal. There is mild pulmonary vascular congestion, and some mild bibasilar infiltrates or atelectasis. Progress note dated 11/12/2022. 76-year-old female, postop day #4, and is post aortic valve replacement for aortic stenosis and one-vessel bypass grafting. The patient's currently on 4 L of oxygen. She didn't use BiPAP last night with settings of 10/5, and 40%. She's getting amiodarone 0.5 mg per hour. She's getting lactated Ringer's at KVO. White count 6.3, hemoglobin 7.9, hematocrit 23.6, and platelet count 159,000. Sodium 139, potassium 3.6, chlorides 105, CO2 25, BUN 26, creatinine 0.71. Chest x-ray shows bibasilar infiltrates or atelectasis, and some small bilateral pleural effusions. There may be a component of mild fluid overload. Progress note dated 11/13/2022. 76-year-old female, postop day #5, status post aortic valve replacement for aortic stenosis, and one-vessel bypass grafting. The patient is seen today in room 263. She's currently on 2 L of oxygen. She's not receiving any IV fluids. At nighttime, she requires BiPAP, with settings of 10/5, and 40%. Her mental status is not much improved. White count 6.1, hemoglobin 8.4, hematocrit 24.9, and platelet count 206,000. A blood gas done on 35% shows a pO2 of 85, pCO2 of 40, and a pH is 7.49. This is consistent with a primary metabolic alkalosis. Sodium 137, potassium 3.5, chlorides 101, CO2 29, BUN 24, and creatinine 0.75. Chest x-ray is stable, with evidence of cardiomegaly, and small bilateral effusions. Progress note dated 11/14/2022. 76-year-old female, postop day #6, status post aortic replacement for aortic stenosis, and one-vessel bypass grafting. The patient is seen today in room 263. Her mental status is not much improved. She's currently on room air, with saturations of 90-91%. She's not receiving any IV fluids. She didn't use BiPAP last night for about 6 hours, with settings of 10/5%, and 40%. White count 6.3, hemoglobin 8.8, hematocrit 26.2, and a normal platelet count. Sodium 138, potassium 3.5, chlorides 99, CO2 33, BUN 21, and creatinine 0.84. Chest x-ray shows cardiomegaly, and a small left-sided pleural effusion. The chest x-ray is largely unchanged. Objective - Vital Signs Vital signs: Vital Signs Temp 98.3 F 11/14/22 08:00 Pulse 81 11/14/22 11:00 Resp 26 H 11/14/22 11:00 BP 110/43 11/14/22 11:00 Pulse Ox 96 11/14/22 11:00 FiO2 40 11/14/22 04:10 Intake & Output 11/13/22 11/14/22 11/14/22 18:59 06:59 18:59 Intake Total 120 200 Output Total 1750 500 500 Balance -1750 -380 -300 Weight 83.8 kg Intake: Oral 120 200 Output: Urine 1750 500 500 Other: Voiding Method Bedside Commode Bedside Commode Bedside Commode # Voids 1 1 3 # Bowel Movements 2 ABP, PAP, CO, CI - Last Documented Arterial Blood Pressure 118/46 Pulmonary Artery Pressure 27/10 Cardiac Output 5.2 Cardiac Index 2.7 - Exam No acute distress, much more awake, extubated, currently on room air. HEENT examination is grossly unremarkable. Neck supple. Full range of motion. No adenopathy thyromegaly or neck vein distention. Cardiovascular examination reveals regular rhythm rate. S1-S2 normal. No S3 or S4. No discernible murmur noted. Heart rate is 81 bpm. Lungs reveal clear breath sounds. Breath sounds are equal bilaterally. No adventitious lung sounds including wheezes rhonchi or crackles. Saturations are 90-92% on room air. Abdomen soft bowel sounds are heard. No masses or tenderness. Extremities are intact. No cyanosis clubbing or edema. Skin is without rash or lesion. Neurologic examination is brief but nonfocal. The patient appears much more awake, but is still confused. - Labs CBC & Chem 7: 11/14/22 06:02 11/14/22 06:02 Labs: Abnormal Lab Results - Last 24 Hours (Table) 11/13/22 11/13/22 11/13/22 Range/Units 11:50 14:11 20:10 RBC (3.80-5.40) m/uL Hgb (11.4-16.0) gm/dL Hct (34.0-46.0) % Carbon Dioxide (22-30) mmol/L BUN (7-17) mg/dL Glucose (74-99) mg/dL POC Glucose (mg/dL) 130 H 125 H (70-110) mg/dL Total Protein (6.3-8.2) g/dL Albumin (3.5-5.0) g/dL Ur Leukocyte Esterase Small H (Negative) Urine Bacteria Rare H (None) /hpf Urine Mucus Rare H (None) /hpf 11/14/22 11/14/22 11/14/22 Range/Units 05:12 06:02 06:02 RBC 2.92 L (3.80-5.40) m/uL Hgb 8.8 L (11.4-16.0) gm/dL Hct 26.2 L (34.0-46.0) % Carbon Dioxide 33 H (22-30) mmol/L BUN 21 H (7-17) mg/dL Glucose 117 H (74-99) mg/dL POC Glucose (mg/dL) 120 H (70-110) mg/dL Total Protein 5.8 L (6.3-8.2) g/dL Albumin 3.3 L (3.5-5.0) g/dL Ur Leukocyte Esterase (Negative) Urine Bacteria (None) /hpf Urine Mucus (None) /hpf 11/14/22 Range/Units 06:36 RBC (3.80-5.40) m/uL Hgb (11.4-16.0) gm/dL Hct (34.0-46.0) % Carbon Dioxide (22-30) mmol/L BUN (7-17) mg/dL Glucose (74-99) mg/dL POC Glucose (mg/dL) 126 H (70-110) mg/dL Total Protein (6.3-8.2) g/dL Albumin (3.5-5.0) g/dL Ur Leukocyte Esterase (Negative) Urine Bacteria (None) /hpf Urine Mucus (None) /hpf Assessment and Plan Assessment: Postop day #6, status post aortic valve replacement, and single-vessel bypass, CHOPRA to LAD, and ligation of left atrial appendage. Routine postoperative ventilator management, status post extubation on 11/08/2022. Postoperative confusion, somnolence, and lethargy. History of long-standing aortic stenosis. History of CAD. History of atrial fibrillation. History of hypertension. History of hyperlipidemia. Plan: Plan dated 11/08/2022. The patient is seen in the intensive care unit, room 263. Labs, x-rays, and medications are reviewed. The surgeons operative note is also reviewed. The patient is examined. Ventilator changes are made. We will continue to follow the patient and make recommendations along the way. Overall prognosis remains guarded. No additional recommendations at this time. We will hopefully get the patient extubated in a timely fashion. Plan dated 11/09/2022. The patient was extubated yesterday, within the 6 hour window. Labs, x-rays, and medications are reviewed. The patient is quite lethargic this morning. We will continue to follow and make recommendations along the way. Her labs, x-r ays, medications are all reviewed. The patient currently is on 4 L. She is receiving an insulin drip at 4 units an hour. She's getting lactated Ringer's at 20 mL an hour. Prognosis is guarded. Plan dated 11/10/2022. Computed tomography scan of the brain without contrast, showed no acute hemorr danny or mass effect. Other changes are noted. MRI was recommended. The patient is currently on 7 L high flow oxygen. She's getting insulin 5.5 units per hour. Last night we had her on BiPAP with settings of 10/5 and 50%. Labs, x-rays, and medications are reviewed. Overall prognosis remains guarded. We will continue to follow and make recommendations along the way. Plan dated 11/11/2022 The patient appears much more awake and alert today. CAT scan of the brain showed nothing acute. She did require BiPAP last night. She was on 7 L yesterday, but has been weaned down to 3 L. Labs, x-rays, and medications are reviewed. Prognosis is guarded. We will continue to follow make recomme ndations along the way. Plan dated 11/12/2022. The patient's overall situation has remained about the same, to slightly improved. Her mental status is a bit better, but she still a bit confused. She did require the BiPAP last night. Labs, x-rays, and medications are reviewed. She remains on amiodarone at 0.5 mg/m. We will continue to follow the patient and make recommendations along the way. Prognosis is guarded. Plan dated 11/13/2022. The patient's mental status is only marginally improved. She still is requiring BiPAP at nighttime. Arterial blood gas done shows a primary metabolic alkalosis, likely secondary to a low potassium level. She's currently on 2 L. No IV fluids. Labs, x-rays, and medications are all reviewed. We will continue to follow the patient and make recommendations along the way. Prognosis is certainly guarded. Plan dated 11/14/2022. The patient's mental status is still not great. She is very confused, and lethargic. She thinks is 1957. She's not receiving any supplemental oxygen. She's not receiving any IV fluids. Labs, x-rays, and medications are reviewed. She's using BiPAP at nighttime, with settings of 10/5 and 40%. We will continue to follow make recommendations along the way. Prognosis is certainly guarded. Time with Patient: Less than 30
[2022-11-14 11:40] LABS: Glucose,Whole Blood 102 mg/dL (70-110)
--- NOTE | 2022-11-14 11:44 | P.PN ---
Subjective Progress Note Date: 11/14/22 Subjective: Patient seen and examined at bedside. No acute events overnight. Continues to require BiPAP at night Patient continues to be delirious with waxing mentation. She is not combative. Patient has been voiding well, and has been having bowel movements. Patient is completely alert and orientated at baseline. Pertinent positives and negatives as discussed above, a complete review of systems was performed and all other systems are negative. Vitals Signs Reviewed. General: nontoxic, no distress, appears at stated age Derm: warm, dry, sternal dressing appears clean, dry, intact Head: atraumatic, normocephalic, symmetric Eyes: EOMI, no lid lag, anicteric sclera Mouth: no lip lesion, mucus membranes moist Cardiovascular: S1S2 reg, no murmur Lungs: CTA bilateral, no rhonchi, no rales , no accessory muscle use Abdominal: soft, nontender to palpation, no guarding, no appreciable organomegaly Ext: no gross muscle atrophy, no edema, no contractures Neuro: CN II-XI grossly intact, no focal neuro deficits Psych: Alert, oriented 1, appropriate affect Data Reviewed Today: Pertinent Labs: Hemoglobin 8.8, bicarb 33, BUN 21, potassium 2.5, blood sugars ranged between 98-130 Imaging: Chest x-ray independently interpreted, no changes compared to yesterday Assessment and Plan: Patient is a 76-year-old female with atrial fibrillation, asthma, hypertension, dyslipidemia, and fatty infiltration of the liver who presented for coronary artery bypass grafting with a CHOPRA to the LAD as well as aortic valve replacement, bioprosthetic. Patient continues to require BiPAP at night, currently in the ICU, critically ill. Active: Postop and ICU delirium CAD s/p CHOPRA to LAD with bioprosthetic valve replacement Mild hypokalemia Hyperglycemia with prediabetes - A1c 10/12/22 6.3 Acute blood loss anemia, anticipated outcome of surgery, resolving Iron deficiency anemia - Patient likely has postop and ICU delirium, having bowel movements, voiding well, continue delirium precautions, avoid narcotics, Tylenol for pain - Patient will likely benefit from sleep optimalization, started on melatonin 3 mg at night, patient is also on BiPAP at night - TSH and B12 level were ordered - sugars well controlled, Continue with sliding scale insulin. - Cardio note reviewed: Continue current care, no changes - Cardiothoracic note reviewed: Continue 20 mg IV Lasix twice a day, BMP tomorrow to monitor for renal function - Application Operations Engineer following - Getting 20 mEq of oral potassium daily, BMP tomorrow - Hemoglobin improving, CBC in a.m. - Patient not ready for inpatient rehab yet, continue work with PT/OT Resolved: Reactive leukocytosis Elevated lactic acid, anticipated outcome thrombocytopenia Chronic: Chronic atrial fibrillation Asthma without exacerbation Hypertension Dyslipidemia Fatty infiltration of the liver Chronic kidney disease stage II DVT ppx: Subcu heparin Thank you for allowing us to participate in the care of this pleasant patient. Do not hesitate to contact us with questions. Someone can be reached from the [facility] hospitalist group all hours of the day at [phone] or via [employer]. Objective - Vital Signs Vital signs: Vital Signs Temp 98.3 F 11/14/22 08:00 Pulse 81 11/14/22 11:00 Resp 26 H 11/14/22 11:00 BP 110/43 11/14/22 11:00 Pulse Ox 96 11/14/22 11:00 FiO2 40 11/14/22 04:10 Intake & Output 11/13/22 11/14/22 11/14/22 18:59 06:59 18:59 Intake Total 120 200 Output Total 1750 500 500 Balance -1750 -380 -300 Weight 83.8 kg Intake: Oral 120 200 Output: Urine 1750 500 500 Other: Voiding Method Bedside Commode Bedside Commode Bedside Commode # Voids 1 1 3 # Bowel Movements 2 ABP, PAP, CO, CI - Last Documented Arterial Blood Pressure 118/46 Pulmonary Artery Pressure 27/10 Cardiac Output 5.2 Cardiac Index 2.7 - Labs CBC & Chem 7: 11/14/22 06:02 11/14/22 06:02 Labs: Abnormal Lab Results - Last 24 Hours (Table) 11/13/22 11/13/22 11/13/22 Range/Units 11:50 14:11 20:10 RBC (3.80-5.40) m/uL Hgb (11.4-16.0) gm/dL Hct (34.0-46.0) % Carbon Dioxide (22-30) mmol/L BUN (7-17) mg/dL Glucose (74-99) mg/dL POC Glucose (mg/dL) 130 H 125 H (70-110) mg/dL Total Protein (6.3-8.2) g/dL Albumin (3.5-5.0) g/dL Ur Leukocyte Esterase Small H (Negative) Urine Bacteria Rare H (None) /hpf Urine Mucus Rare H (None) /hpf 11/14/22 11/14/22 11/14/22 Range/Units 05:12 06:02 06:02 RBC 2.92 L (3.80-5.40) m/uL Hgb 8.8 L (11.4-16.0) gm/dL Hct 26.2 L (34.0-46.0) % Carbon Dioxide 33 H (22-30) mmol/L BUN 21 H (7-17) mg/dL Glucose 117 H (74-99) mg/dL POC Glucose (mg/dL) 120 H (70-110) mg/dL Total Protein 5.8 L (6.3-8.2) g/dL Albumin 3.3 L (3.5-5.0) g/dL Ur Leukocyte Esterase (Negative) Urine Bacteria (None) /hpf Urine Mucus (None) /hpf 11/14/22 Range/Units 06:36 RBC (3.80-5.40) m/uL Hgb (11.4-16.0) gm/dL Hct (34.0-46.0) % Carbon Dioxide (22-30) mmol/L BUN (7-17) mg/dL Glucose (74-99) mg/dL POC Glucose (mg/dL) 126 H (70-110) mg/dL Total Protein (6.3-8.2) g/dL Albumin (3.5-5.0) g/dL Ur Leukocyte Esterase (Negative) Urine Bacteria (None) /hpf Urine Mucus (None) /hpf
[2022-11-14] MEDS: LOSARTAN 25 MG TAB PO SCH (13:44)
[2022-11-14 16:16] LABS: Glucose,Whole Blood 118 mg/dL (70-110)
[2022-11-14 18:12] LABS: Vitamin B12 >3600.0 pg/mL (200.0-944.0)
[2022-11-14] MEDS: MELATONIN 3 MG TABLET PO SCH (20:24)
[2022-11-14] MEDS: SENNOSIDES-DOCUSATE SODIUM 1 EACH TAB PO SCH (20:25)
[2022-11-14 20:29] LABS: Glucose,Whole Blood 132 mg/dL (70-110)
[2022-11-15] MEDS: ALBUTEROL NEBULIZED 2.5 MG/3 ML INHALATION PRN ×2 (00:44→23:36)
[2022-11-15 06:04] LABS: HCT 27.1 % (34.0-46.0); MCH 30.2 pg (25.0-35.0); MCHC 33.2 g/dL (31.0-37.0); MCV 90.9 fL (80.0-100.0); Mean Platelet Volume 8.3; Platelet Count 281 k/uL (150-450); RBC 2.98 m/uL (3.80-5.40); RDW 14.3 % (11.5-15.5); WBC 7.4 k/uL (3.8-10.6)
[2022-11-15 06:12] LABS: Glucose,Whole Blood 115 mg/dL (70-110)
[2022-11-15 06:35] LABS: Albumin 3.5 g/dL (3.5-5.0); Calcium 9.2 mg/dL (8.4-10.2); Potassium 3.6 mmol/L (3.5-5.1); Total Bilirubin 0.5 mg/dL (0.2-1.3); Total Protein 6.2 g/dL (6.3-8.2)
[2022-11-15] MEDS: INSULIN ASPART (NovoLOG) 100 UNIT/ML VIAL SQ SCH ×4 (06:36→20:13)
[2022-11-15] MEDS: ASCORBIC ACID 500 MG TAB PO SCH ×2 (06:50→16:02)
[2022-11-15] MEDS: FERROUS SULFATE 325 MG TAB PO SCH ×2 (06:50→16:02)
[2022-11-15] MEDS: PANTOPRAZOLE 40 MG TABLET PO SCH (06:50)
[2022-11-15] MEDS ORDERED: bisacodyL 10 MG SUPP RECTAL PRN (07:00)
--- NOTE | 2022-11-15 08:30 | XR ---
EXAMINATION TYPE: XR chest 2V DATE OF EXAM: 11/15/2022 COMPARISON: 11/14/2022 TECHNIQUE: PA and lateral views submitted. HISTORY: Postop CABG FINDINGS: Heart is enlarged and there is postsurgical changes with no sizable pneumothorax. Diffuse bilateral i nfiltrate and pleural effusion has progressed from prior exam. IMPRESSION: 1. Increasing bilateral consolidation and pleural effusions correlate for CHF otherwise consider diff use pneumonia.
--- NOTE | 2022-11-15 08:35 | P.PN ---
Subjective Progress Note Date: 11/15/22 Principal diagnosis: Calcific aortic stenosis, single-vessel coronary artery disease in the LAD. Previous medical history of preserved left ventricular function, HTN, HLD with statin intolerance, paroxysmal atrial fibrillation status post ablation on Eliquis for anticoagulation, stage III chronic kidney disease, previous tobacco dependence, family history of coronary artery disease POD #7 coronary artery bypass grafting 1 with left internal mammary artery to the left anterior descending artery, aortic valve replacement with 21 mm Inspiris bovine aortic valve prosthesis, ligation of the left atrial appendage with 35 mm AtriCure clip, epi-aortic ultrasound Postoperative acute blood loss anemia, expected given hemodilution, cardiopulmonary bypass pump and history of CKD Confusion, encephalopathy, no acute events on CT of brain Paroxysmal atrial fibrillation, known common occurrence after open heart surgery, not a complication The patient was seen and examined this morning sitting up in a recliner in the intensive care unit in no acute distress. Remains in sinus rhythm, hemodynamically stable. Remains on room air with oxygen saturation in the low to mid 90s. Patient alert this morning, alert to person and place, still doesn't know the year. When asked she does complain of post surgical pain, denies shortness of breath. Chest x-ray, lab work reviewed. Patient was ambulatory in the hallway yesterday with staff assistance. She continues to do better everyday clinically, although mentation has not completely rebounded yet. Per nursing her mentation does improve throughout the day, especially when family present. Objective - Vital Signs Vital signs: Vital Signs Temp 97.6 F 11/15/22 04:00 Pulse 75 11/15/22 07:00 Resp 23 11/15/22 07:00 BP 95/45 11/15/22 07:00 Pulse Ox 90 L 11/15/22 07:00 FiO2 35 11/15/22 03:45 Intake & Output 11/14/22 11/15/22 11/15/22 18:59 06:59 18:59 Intake Total 500 320 Output Total 1050 500 Balance -550 -180 Weight 86 kg Intake: Oral 500 320 Output: Urine 1050 500 Other: Voiding Method Bedside Commode Bedside Commode # Voids 1 1 # Bowel Movements 1 ABP, PAP, CO, CI - Last Documented Arterial Blood Pressure 118/46 Pulmonary Artery Pressure 27/10 Cardiac Output 5.2 Cardiac Index 2.7 - Exam CONSTITUTIONAL: Appears calm and comfortable, cooperative, no acute distress RESPIRATORY: Lungs sounds diminished bilaterally. Respirations even, nonlabored. Currently on room air with oxygen saturation 93%, able to achieve 600 mL on incentive spirometry, weak non-productive cough CARDIOVASCULAR: S1, S2 present. Regular rate and rhythm, sinus rhythm on telemetry. Sternum stable. Palpable peripheral pulses bilaterally. No edema present. No calf pain or tenderness noted. Heart hugger, antiembolism stockings, SCDs present. GASTROINTESTINAL: Abdomen soft, nontender, nondistended. Active bowel sounds present 4 quadrants. Tolerating oral diet, food from home. Positive bowel move ment 3/5 INTEGUMENTARY: Skin is warm and dry with evidence of good perfusion. Anterior chest incision well approximated NEUROLOGIC: Cranial nerves II through XII intact MUSKULOSKELETAL: Able to move all extremities, strength equal bilaterally PSYCHIATRIC: Arouses to voice, oriented to person, place, doesn't know the date - Allied health notes Allied health notes reviewed: nursing - Labs CBC & Chem 7: 11/15/22 05:31 11/15/22 05:31 Labs: Abnormal Lab Results - Last 24 Hours (Table) 11/14/22 11/14/22 11/14/22 Range/Units 06:02 16:14 20:28 RBC (3.80-5.40) m/uL Hgb (11.4-16.0) gm/dL Hct (34.0-46.0) % BUN (7-17) mg/dL Glucose (74-99) mg/dL POC Glucose (mg/dL) 118 H 132 H (70-110) mg/dL Total Protein (6.3-8.2) g/dL Vitamin B12 >3600.0 H (200.0-944.0) pg/mL 11/15/22 11/15/22 11/15/22 Range/Units 05:31 05:31 06:11 RBC 2.98 L (3.80-5.40) m/uL Hgb 9.0 L (11.4-16.0) gm/dL Hct 27.1 L (34.0-46.0) % BUN 21 H (7-17) mg/dL Glucose 106 H (74-99) mg/dL POC Glucose (mg/dL) 115 H (70-110) mg/dL Total Protein 6.2 L (6.3-8.2) g/dL Vitamin B12 (200.0-944.0) pg/mL - Imaging and Cardiology Chest x-ray: image reviewed Assessment and Plan Assessment: 1. Calcific aortic stenosis, status post bioprostetic AVR 2. Single-vessel coronary artery disease in the LAD, status post 1V CABG 3. Preserved left ventricular function, EF 55% on MELISSA 4. HTN 5. HLD with statin intolerance, currently on Repatha, cholesterol 195, LDL 98 6. Paroxysmal atrial fibrillation status post ablation on Eliquis for anticoagulation, currently sinus, status post ligation of left atrial appendage 7. Stage III chronic kidney disease 8. Previous tobacco dependence, preoperative FEV1 96% of predicted 9. Family history of coronary artery disease 10. Postoperative acute blood loss anemia, expected 11. Confusion, encephalopathy 12. Paroxysmal atrial fibrillation, status post ligation of left atrial appendage, currently sinus 13. Medical debility Plan: 1. Continue to maximize medical therapy with aspirin, Plavix, CCB, ARB. Continue Repatha at home (only takes every 2 weeks) 2. Continue amiodarone for afib prophylaxis, taper weekly 3. Encourage incentive spirometry is 10 times every hour while awake. Bronchodilators per pulmonology 4. Increase activity as tolerated, PT/OT/cardiac rehab following 5. Will monitor daily labs and x-rays. Electrolyte replacement per protocol 6. GI/DVT prophylaxis 7. Pain control with current medication regimen. No narcotics 8. Insulin management per primary care service. Patient is not diabetic, hemo globin A1c 6.3% 9. Strict accurate intake and output, daily weights 10. Shower daily 11. Reorient PRN 12. Patient takes multuple homeopathic meds at home, continue to hold 13. Discharge planning in progress. Anticipate discharge to [facility] if accepted and insurance auth obtained in the next 24 hours 14. More recommendations to follow
[2022-11-15] MEDS: ALBUTEROL NEBULIZED 2.5 MG/3 ML INHALATION SCH ×4 (08:46→19:58)
[2022-11-15] MEDS: IPRATROPIUM 0.5 MG/2.5 ML NEBU INHALATION SCH ×4 (08:46→19:58)
--- NOTE | 2022-11-15 08:53 | P.PN ---
Subjective Progress Note Date: 11/15/22 PROGRESS NOTE The patient is a 76-year-old female status post aortic valve replacement and CABG with episodes of paroxysmal atrial ablation. She had episode of confusion, improving. She is complaining of soreness but no clear anginal pain. She has no dizziness or palpitations. Her breathing is stable. She had improvement in her mentation according to the nursing staff. Hemodynamically she is stable. Her urinary output has been.. Medications: Amiodarone 400 mg twice a day, aspirin, Plavix 75 mg daily, diltiazem 120 mg daily, Lasix 20 mg IV twice a day, losartan 12-1/2 mg daily PHYSICAL EXAMINATION: Blood pressure 95/50 heart rate 70 LUNGS: Decreased breath sounds at the bases HEART: Regular rate and rhythm, S1, S2. No S3. systolic ejection murmur ABDOMEN: Soft, nontender, no organomegaly EXTREMETIES: No edema LAB: Hemoglobin of 9, BUN 21, creatinine 0.84 IMPRESSION: 1. Status post CABG and aortic valve replacement 2. Encephalopathy, improving 3. Paroxysmal atrial fibrillation, maintaining sinus mechanism 4. Hyperlipidemia, intolerant to statin PLAN: 1. Continue present therapy 2. Increase physical activity 3. Follow her renal functions 4. Depending on her progress further recommendations will be made Objective - Vital Signs Vital signs: Vital Signs Temp 97.6 F 11/15/22 04:00 Pulse 75 11/15/22 07:00 Resp 23 11/15/22 07:00 BP 95/45 11/15/22 07:00 Pulse Ox 90 L 11/15/22 07:00 FiO2 35 11/15/22 03:45 Intake & Output 11/14/22 11/15/22 11/15/22 18:59 06:59 18:59 Intake Total 500 320 Output Total 1050 500 Balance -550 -180 Weight 86 kg Intake: Oral 500 320 Output: Urine 1050 500 Other: Voiding Method Bedside Commode Bedside Commode # Voids 1 1 # Bowel Movements 1 ABP, PAP, CO, CI - Last Documented Arterial Blood Pressure 118/46 Pulmonary Artery Pressure 27/10 Cardiac Output 5.2 Cardiac Index 2.7 - Labs CBC & Chem 7: 11/15/22 05:31 11/15/22 05:31 Labs: Abnormal Lab Results - Last 24 Hours (Table) 11/14/22 11/14/22 11/14/22 Range/Units 06:02 16:14 20:28 RBC (3.80-5.40) m/uL Hgb (11.4-16.0) gm/dL Hct (34.0-46.0) % BUN (7-17) mg/dL Glucose (74-99) mg/dL POC Glucose (mg/dL) 118 H 132 H (70-110) mg/dL Total Protein (6.3-8.2) g/dL Vitamin B12 >3600.0 H (200.0-944.0) pg/mL 11/15/22 11/15/22 11/15/22 Range/Units 05:31 05:31 06:11 RBC 2.98 L (3.80-5.40) m/uL Hgb 9.0 L (11.4-16.0) gm/dL Hct 27.1 L (34.0-46.0) % BUN 21 H (7-17) mg/dL Glucose 106 H (74-99) mg/dL POC Glucose (mg/dL) 115 H (70-110) mg/dL Total Protein 6.2 L (6.3-8.2) g/dL Vitamin B12 (200.0-944.0) pg/mL
--- NOTE | 2022-11-15 09:27 | P.PN ---
Subjective Progress Note Date: 11/15/22 On today's evaluation of 11/15/2022, the patient is postop day #7. The patient is doing better gradually. Her confusion gradually improving and although she still confused she is much more alert and awake and communicating. She has no focal neurological deficits. She is post single-vessel bypass surgery with CHOPRA to LAD and she also underwent an aortic valve replacement. The patient is currently on room air oxygen. Current cardiac rhythm is sinus. She is sitting up on a chair. She is using the incentive spirometer. Surgical once is striking and intact. The chest x-ray showing cardiomegaly and small pleural effusions most on the left and there is some atelectatic changes in the right midlung in the left midlung area. The patient currently is on amiodarone 400 mg by mouth twice a day and her current cardiac rhythm is sinus pH she is also on aspirin 325 mg by mouth daily. She is on Lasix 20 mg IV every 12 hours. She is on losartan for blood pressure control 12.5 mg by mouth on a daily basis. She is also on Cardizem 120 mg by mouth daily. Her blood work is showing a number of this, 7.4 with a hemoglobin of 9 and a platelet count of 281. BUN is at 21 with a creatinine of 0.8 and a sodium level is at 138. Overall fluid balance over the past 24 hours is -2.1 L. Objective - Vital Signs Vital signs: Vital Signs Temp 97.6 F 11/15/22 04:00 Pulse 74 11/15/22 08:46 Resp 16 11/15/22 08:46 BP 95/45 11/15/22 07:00 Pulse Ox 92 L 11/15/22 08:46 FiO2 35 11/15/22 08:46 Intake & Output 11/14/22 11/15/22 11/15/22 18:59 06:59 18:59 Intake Total 500 320 Output Total 1050 500 Balance -550 -180 Weight 86 kg Intake: Oral 500 320 Output: Urine 1050 500 Other: Voiding Method Bedside Commode Bedside Commode # Voids 1 1 # Bowel Movements 1 ABP, PAP, CO, CI - Last Documented Arterial Blood Pressure 118/46 Pulmonary Artery Pressure 27/10 Cardiac Output 5.2 Cardiac Index 2.7 - Exam No acute distress, currently on room air. HEENT examination is grossly unremarkable. Neck supple. Full range of motion. No adenopathy thyromegaly or neck vein distention. Cardiovascular examination reveals regular rhythm rate. S1-S2 normal. No S3 or S4. No discernible murmur noted. Lungs reveal clear breath sounds. Breath sounds are equal bilaterally. No adventitious lung sounds including wheezes rhonchi or crackles. Abdomen soft bowel sounds are heard. No masses or tenderness. Extremities are intact. No cyanosis clubbing or edema. Skin is without rash or lesion. Neurologic examination is brief but nonfocal. The patient appears much more awake, but is still confused. - Labs CBC & Chem 7: 11/15/22 05:31 11/15/22 05:31 Labs: Abnormal Lab Results - Last 24 Hours (Table) 11/14/22 11/14/22 11/14/22 Range/Units 06:02 16:14 20:28 RBC (3.80-5.40) m/uL Hgb (11.4-16.0) gm/dL Hct (34.0-46.0) % BUN (7-17) mg/dL Glucose (74-99) mg/dL POC Glucose (mg/dL) 118 H 132 H (70-110) mg/dL Total Protein (6.3-8.2) g/dL Vitamin B12 >3600.0 H (200.0-944.0) pg/mL 11/15/22 11/15/22 11/15/22 Range/Units 05:31 05:31 06:11 RBC 2.98 L (3.80-5.40) m/uL Hgb 9.0 L (11.4-16.0) gm/dL Hct 27.1 L (34.0-46.0) % BUN 21 H (7-17) mg/dL Glucose 106 H (74-99) mg/dL POC Glucose (mg/dL) 115 H (70-110) mg/dL Total Protein 6.2 L (6.3-8.2) g/dL Vitamin B12 (200.0-944.0) pg/mL Assessment and Plan Plan: Postop day #7, status post aortic valve replacement, and single-vessel bypass, CHOPRA to LAD, and ligation of left atrial appendage. Routine postoperative ventilator management, status post extubation on 11/08/2022. Postoperative confusion, somnolence, and lethargy. History of long-standing aortic stenosis. History of CAD. History of atrial fibrillation. History of hypertension. History of hyperlipidemia. Plan The patient's altered mentation is improving gradually. The patient does have some residual confusion. The patient has some atelectatic changes in the lungs and she would benefit from ongoing use of incentive spirometer Agree with diuretics and the patient is oriented and in negative fluid balance. The patient is receiving 20 mg IV Lasix every 12 hours. Continue aspirin and Plavix continue Cardizem 120 mg by mouth on a daily basis in addition to losartan 12.5 mg by mouth daily Increase mobility and activity hemoglobin stable at 9.0 We'll continue to follow
[2022-11-15] MEDS: AMIODARONE 200 MG TAB PO SCH ×2 (10:00→20:13)
[2022-11-15] MEDS: HEPARIN SODIUM,PORCINE/PF 5,000 UNIT/0.5 ML SYRINGE SQ SCH ×3 (10:01→23:01)
[2022-11-15] MEDS: DILTIAZEM CD 120 MG CAP.ER.24H PO SCH (10:01)
[2022-11-15] MEDS: ASPIRIN 325 MG TAB PO SCH (10:01)
[2022-11-15] MEDS: FUROSEMIDE 10 MG/ML 2 ML VIAL IV SCH ×2 (10:01→16:01)
[2022-11-15] MEDS: CLOPIDOGREL 75 MG TAB PO SCH (10:01)
[2022-11-15] MEDS: ACETAMINOPHEN TAB 500 MG TAB PO PRN ×2 (10:01→16:02)
[2022-11-15] MEDS: CYANOCOBALAMIN 500 MCG TAB PO SCH (10:02)
[2022-11-15] MEDS: POTASSIUM CHLORIDE ER 20 MEQ TAB.ER PO SCH ×2 (10:02→16:02)
--- NOTE | 2022-11-15 10:48 | P.PN ---
Subjective Progress Note Date: 11/15/22 Subjective: Patient seen and examined at bedside. No acute events overnight. Continues to require BiPAP at night. Patient continues to be delirious with waxing mentation. She is not combative. Patient has been voiding well, and no bowel movements recorded yesterday. Patient is completely alert and orientated at baseline. Pertinent positives and negatives as discussed above, a complete review of systems was performed and all other systems are negative. Vitals Signs Reviewed. General: nontoxic, no distress, appears at stated age Derm: warm, dry, sternal dressing appears clean, dry, intact Head: atraumatic, normocephalic, symmetric Eyes: EOMI, no lid lag, anicteric sclera Mouth: no lip lesion, mucus membranes moist Cardiovascular: S1S2 reg, no murmur Lungs: CTA bilateral, no rhonchi, no rales , no accessory muscle use Abdominal: soft, nontender to palpation, no guarding, no appreciable organomegaly Ext: no gross muscle atrophy, no edema, no contractures Neuro: CN II-XI grossly intact, no focal neuro deficits Psych: Alert, oriented 1, appropriate affect Data Reviewed Today: Pertinent Labs: Hemoglobin 9.0, bicarb 30, BUN 21, potassium 3.6, blood sugars ranged between 106-132, B12 greater than 3600, folic acid 13.4, TSH 2.7 Imaging: Chest x-ray independently interpreted, worsening bilateral interstitial opacities, likely pulmonary vessel congestion, poor inspiratory effort Assessment and Plan: Patient is a 76-year-old female with atrial fibrillation, asthma, hypertension, dyslipidemia, and fatty infiltration of the liver who presented for coronary art matthew bypass grafting with a CHOPRA to the LAD as well as aortic valve replacement, bioprosthetic. Patient continues to require BiPAP at night, currently in the ICU, critically ill. Active: Postop and ICU delirium, improving CAD s/p CHOPRA to LAD with bioprosthetic valve replacement Pulmonary vascular congestion Mild hypokalemia Hyperglycemia with prediabetes - A1c 10/12/22 6.3 Acute blood loss anemia, anticipated outcome of surgery, resolving Iron deficiency anemia - Patient likely has postop and ICU delirium, having bowel movements, voiding well, continue delirium precautions, avoid narcotics, useTylenol for pain -Continue sleep optimalization, on melatonin 3 mg at night, patient is also on B iPAP at night - TSH and B12 level within normal limits - sugars well controlled, Continue with sliding scale insulin. - Cardio note reviewed: Continue current care, no changes - Cardiothoracic note reviewed: Continue 20 mg IV Lasix twice a day, losartan 12.5 mg added - Box Gluer note reviewed: Continue current management, mental status improving - Getting 20 mEq of oral potassium twice a day, BMP tomorrow - Hemoglobin improving - Possible discharge to inpatient rehab if excepted, continue work with PT/OT Resolved: Reactive leukocytosis Elevated lactic acid, anticipated outcome thrombocytopenia Chronic: Chronic atrial fibrillation Asthma without exacerbation Hypertension Dyslipidemia Fatty infiltration of the liver Chronic kidney disease stage II DVT ppx: Subcu heparin Thank you for allowing us to participate in the care of this pleasant patient. Do not hesitate to contact us with questions. Someone can be reached from the [facility] hospitalist group all hours of the day at [phone] or via [employer]. Objective - Vital Signs Vital signs: Vital Signs Temp 97.6 F 11/15/22 04:00 Pulse 74 11/15/22 08:56 Resp 16 11/15/22 08:56 BP 95/45 11/15/22 07:00 Pulse Ox 92 L 11/15/22 08:46 FiO2 35 11/15/22 08:46 Intake & Output 11/14/22 11/15/22 11/15/22 18:59 06:59 18:59 Intake Total 500 320 Output Total 1050 500 Balance -550 -180 Weight 86 kg Intake: Oral 500 320 Output: Urine 1050 500 Other: Voiding Method Bedside Commode Bedside Commode # Voids 1 1 # Bowel Movements 1 ABP, PAP, CO, CI - Last Documented Arterial Blood Pressure 118/46 Pulmonary Artery Pressure 27/10 Cardiac Output 5.2 Cardiac Index 2.7 - Labs CBC & Chem 7: 11/15/22 05:31 11/15/22 05:31 Labs: Abnormal Lab Results - Last 24 Hours (Table) 11/14/22 11/14/22 11/14/22 Range/Units 06:02 16:14 20:28 RBC (3.80-5.40) m/uL Hgb (11.4-16.0) gm/dL Hct (34.0-46.0) % BUN (7-17) mg/dL Glucose (74-99) mg/dL POC Glucose (mg/dL) 118 H 132 H (70-110) mg/dL Total Protein (6.3-8.2) g/dL Vitamin B12 >3600.0 H (200.0-944.0) pg/mL 11/15/22 11/15/22 11/15/22 Range/Units 05:31 05:31 06:11 RBC 2.98 L (3.80-5.40) m/uL Hgb 9.0 L (11.4-16.0) gm/dL Hct 27.1 L (34.0-46.0) % BUN 21 H (7-17) mg/dL Glucose 106 H (74-99) mg/dL POC Glucose (mg/dL) 115 H (70-110) mg/dL Total Protein 6.2 L (6.3-8.2) g/dL Vitamin B12 (200.0-944.0) pg/mL
[2022-11-15 11:21] LABS: Glucose,Whole Blood 193 mg/dL (70-110)
[2022-11-15] MEDS: LOSARTAN 25 MG TAB PO SCH (11:32)
[2022-11-15 14:19] VITALS: BMI 34.7
[2022-11-15 16:27] LABS: Glucose,Whole Blood 97 mg/dL (70-110)
[2022-11-15 20:12] LABS: Glucose,Whole Blood 144 mg/dL (70-110)
[2022-11-15] MEDS: SENNOSIDES-DOCUSATE SODIUM 1 EACH TAB PO SCH (20:13)
[2022-11-15] MEDS: MELATONIN 3 MG TABLET PO SCH (20:14)
[2022-11-16] MEDS: ACETAMINOPHEN TAB 500 MG TAB PO PRN (00:19)
[2022-11-16 06:15] LABS: Glucose,Whole Blood 136 mg/dL (70-110)
[2022-11-16 06:28] LABS: HCT 26.7 % (34.0-46.0); HGB 8.6 gm/dL (11.4-16.0); MCH 29.5 pg (25.0-35.0); MCHC 32.3 g/dL (31.0-37.0); MCV 91.2 fL (80.0-100.0); Mean Platelet Volume 8.1; Platelet Count 290 k/uL (150-450); RBC 2.93 m/uL (3.80-5.40); RDW 14.5 % (11.5-15.5); WBC 7.5 k/uL (3.8-10.6)
[2022-11-16] MEDS: INSULIN ASPART (NovoLOG) 100 UNIT/ML VIAL SQ SCH ×3 (06:31→17:05)
[2022-11-16] MEDS: PANTOPRAZOLE 40 MG TABLET PO SCH (06:31)
[2022-11-16] MEDS: ASCORBIC ACID 500 MG TAB PO SCH ×2 (06:31→16:55)
[2022-11-16] MEDS: FERROUS SULFATE 325 MG TAB PO SCH ×2 (06:31→16:55)
[2022-11-16 06:41] LABS: Calcium 9.2 mg/dL (8.4-10.2); Potassium 3.8 mmol/L (3.5-5.1)
--- NOTE | 2022-11-16 07:37 | P.PN ---
Subjective Progress Note Date: 11/16/22 On today's evaluation of 11/15/2022, the patient is postop day #7. The patient is doing better gradually. Her confusion gradually improving and although she still confused she is much more alert and awake and communicating. She has no focal neurological deficits. She is post single-vessel bypass surgery with CHOPRA to LAD and she also underwent an aortic valve replacement. The patient is currently on room air oxygen. Current cardiac rhythm is sinus. She is sitting up on a chair. She is using the incentive spirometer. Surgical once is striking and intact. The chest x-ray showing cardiomegaly and small pleural effusions most on the left and there is some atelectatic changes in the right midlung in the left midlung area. The patient currently is on amiodarone 400 mg by mouth twice a day and her current cardiac rhythm is sinus pH she is also on aspirin 325 mg by mouth daily. She is on Lasix 20 mg IV every 12 hours. She is on losartan for blood pressure control 12.5 mg by mouth on a daily basis. She is also on Cardizem 120 mg by mouth daily. Her blood work is showing a number of this, 7.4 with a hemoglobin of 9 and a platelet count of 281. BUN is at 21 with a creatinine of 0.8 and a sodium level is at 138. Overall fluid balance over the past 24 hours is -2.1 L. On 11/16/2022, the patient is postop day #8. She is awake and alert. She is answering questions appropriately. She is profoundly weak. She is able to hold a conversation. There is some limited infusions on and off. She had a single- vessel bypass surgery with CHOPRA to LAD and aortic valve replacement. Chest x- rays showing cardiomegaly and mild vascular congestion and small pleural effusions. Otherwise, her sternum stable clean and intact. She is using the incentive spirometer and she is pulling approximately 500 on her incentive spirometer. Hemodynamically, she is stable. Cardiac rhythm is sinus. There is a gauze at 7.5 with a hemoglobin of 8.6 up from 9.0. Platelet count is at 290. Sodium is at 139 with a BUN of 14 and a creatinine of 0.8. Glucose 125. Magnesium is at 2.0. Cardiac rhythm is sinus. She is afebrile. Objective - Vital Signs Vital signs: Vital Signs Temp 98.0 F 11/16/22 04:00 Pulse 72 11/16/22 07:00 Resp 20 11/16/22 07:00 BP 97/55 11/16/22 06:00 Pulse Ox 94 L 11/16/22 07:00 FiO2 40 11/16/22 04:00 Intake & Output 11/15/22 11/16/22 11/16/22 18:59 06:59 18:59 Intake Total 470 300 Output Total 1450 650 Balance -980 -350 Weight 86 kg 85.4 kg Intake: Oral 470 300 Output: Urine 1450 650 Other: Voiding Method Bedside Commode Bedside Commode # Voids 1 1 # Bowel Movements 1 ABP, PAP, CO, CI - Last Documented Arterial Blood Pressure 118/46 Pulmonary Artery Pressure 27/10 Cardiac Output 5.2 Cardiac Index 2.7 - Exam No acute distress, currently on room air. No signs of any respiratory distress. She is laying comfortably on a recliner. HEENT examination is grossly unremarkable. Neck supple. Full range of motion. No adenopathy thyromegaly or neck vein distention. Cardiovascular examination reveals regular rhythm rate. S1-S2 normal. No S3 or S4. No discernible murmur noted. Lungs reveal clear breath sounds. Breath sounds are equal bilaterally. No adventitious lung sounds including wheezes rhonchi or crackles. Abdomen soft bowel sounds are heard. No masses or tenderness. Extremities are intact. No cyanosis clubbing or edema. Skin is without rash or lesion. Neurologic examination is brief but nonfocal. The patient appears much more awake, but is still confused.The patient is the patient is alert and oriented x2, profound generalized weakness in all 4 extremities. I feel like she does have some difficulties with gaze. She always has an upward gaze. Her extraocular muscles are normal. No facial asymmetry. - Labs CBC & Chem 7: 11/16/22 05:50 11/16/22 05:50 Labs: Abnormal Lab Results - Last 24 Hours (Table) 11/15/22 11/15/22 11/16/22 Range/Units 11:19 20:11 05:50 RBC 2.93 L (3.80-5.40) m/uL Hgb 8.6 L (11.4-16.0) gm/dL Hct 26.7 L (34.0-46.0) % Carbon Dioxide (22-30) mmol/L Glucose (74-99) mg/dL POC Glucose (mg/dL) 193 H 144 H (70-110) mg/dL 11/16/22 11/16/22 Range/Units 05:50 06:13 RBC (3.80-5.40) m/uL Hgb (11.4-16.0) gm/dL Hct (34.0-46.0) % Carbon Dioxide 31 H (22-30) mmol/L Glucose 125 H (74-99) mg/dL POC Glucose (mg/dL) 136 H (70-110) mg/dL Assessment and Plan Plan: Postop day #8, status post aortic valve replacement, and single-vessel bypass, CHOPRA to LAD, and ligation of left atrial appendage. Routine postoperative ventilator management, status post extubation on 11/08/2022. The patient is currently on room air oxygen. Postoperative confusion, somnolence, and lethargy. Neurologically, the patient continues to improve slowly. She has demonstrated profound weakness in all 4 extremities. Her oral intake is still diminished. Her swallow was adequate. No focal neurological deficit for now. History of long-standing aortic stenosis. History of CAD. History of atrial fibrillation. The cardiac rhythm is sinus History of hypertension. History of hyperlipidemia. Plan The patient's altered mentation is improving gradually. The patient does have some residual confusion. Neurologic on the case. There is no focal neurological deficits. CAT scan of the brain was noted. The patient has some atelectatic changes in the lungs" or megaly microvascular congestion and small effusions. The patient remains on IV Lasix. she would benefit from ongoing use of incentive spirometer Agree with diuretics and the patient is oriented and in negative fluid balance. The patient is receiving 20 mg IV Lasix every 12 hours. She is still in a negative fluid balance Continue aspirin and Plavix continue Cardizem 120 mg by mouth on a daily basis in addition to losartan 12.5 mg by mouth daily Increase mobility and activity hemoglobin stable at 8.6 We'll continue to follow consult PT and rehab
--- NOTE | 2022-11-16 07:53 | XR ---
EXAMINATION TYPE: XR chest 2V DATE OF EXAM: 11/16/2022 COMPARISON: 11/15/2022 HISTORY: Post cardiac surgery FINDINGS: There are bilateral pleural effusions with cardiomegaly and bibasilar infiltrate. There is a diffuse interstitial pattern. Postsurgical changes seen. No sizable pneumothorax. Arthropathy of the shoulde rs. Limited inspiration. IMPRESSION: 1. Postsurgical changes correlate for CHF similar to prior exam.
--- NOTE | 2022-11-16 07:54 | P.PN ---
Subjective Progress Note Date: 11/16/22 PROGRESS NOTE The patient is a 76-year-old female status post aortic valve replacement and CABG with episodes of paroxysmal atrial ablation. She had episode of confusion, improving. She is complaining of soreness but no clear anginal pain. She has no dizziness or palpitations. Her breathing is stable. She had improvement in her mentation according to the nursing staff. Hemodynamically she is stable. Her urinary output has been stable November 16: The patient is awake, following commands, appears to be somnolent. Continues to be in sinus mechanism. There is no episodes of atrial fibrillation or malignant arrhythmia. Hemodynamically she is stable. She denies any chest discomfort, dizziness or palpitations but she feels and looks weak. Medications: Amiodarone 400 mg twice a day, aspirin, Plavix 75 mg daily, diltiazem 120 mg daily, Lasix 20 mg IV twice a day, losartan 12-1/2 mg daily PHYSICAL EXAMINATION: Blood pressure 118/100 heart rate 70 LUNGS: Decreased breath sounds at the bases HEART: Regular rate and rhythm, S1, S2. No S3. systolic ejection murmur ABDOMEN: Soft, nontender, no organomegaly EXTREMETIES: No edema LAB: Hemoglobin of 8.6, BUN 17, creatinine 0.87 IMPRESSION: 1. Status post CABG and aortic valve replacement 2. Encephalopathy, improving 3. Paroxysmal atrial fibrillation, maintaining sinus mechanism 4. Hyperlipidemia, intolerant to statin PLAN: 1. Continue present therapy 2. Increase physical activity 3. Follow her renal functions 4. Depending on her progress further recommendations will be made, the patient may require outpatient rehab Objective - Vital Signs Vital signs: Vital Signs Temp 98.0 F 11/16/22 04:00 Pulse 72 11/16/22 07:00 Resp 20 11/16/22 07:00 BP 97/55 11/16/22 06:00 Pulse Ox 94 L 11/16/22 07:00 FiO2 40 11/16/22 04:00 Intake & Output 11/15/22 11/16/22 11/16/22 18:59 06:59 18:59 Intake Total 470 300 Output Total 1450 650 Balance -980 -350 Weight 86 kg 85.4 kg Intake: Oral 470 300 Output: Urine 1450 650 Other: Voiding Method Bedside Commode Bedside Commode # Voids 1 1 # Bowel Movements 1 ABP, PAP, CO, CI - Last Documented Arterial Blood Pressure 118/46 Pulmonary Artery Pressure 27/10 Cardiac Output 5.2 Cardiac Index 2.7 - Labs CBC & Chem 7: 11/16/22 05:50 11/16/22 05:50 Labs: Abnormal Lab Results - Last 24 Hours (Table) 11/15/22 11/15/22 11/16/22 Range/Units 11:19 20:11 05:50 RBC 2.93 L (3.80-5.40) m/uL Hgb 8.6 L (11.4-16.0) gm/dL Hct 26.7 L (34.0-46.0) % Carbon Dioxide (22-30) mmol/L Glucose (74-99) mg/dL POC Glucose (mg/dL) 193 H 144 H (70-110) mg/dL 11/16/22 11/16/22 Range/Units 05:50 06:13 RBC (3.80-5.40) m/uL Hgb (11.4-16.0) gm/dL Hct (34.0-46.0) % Carbon Dioxide 31 H (22-30) mmol/L Glucose 125 H (74-99) mg/dL POC Glucose (mg/dL) 136 H (70-110) mg/dL
[2022-11-16] MEDS: IPRATROPIUM 0.5 MG/2.5 ML NEBU INHALATION SCH ×3 (09:05→16:24)
[2022-11-16] MEDS: ALBUTEROL NEBULIZED 2.5 MG/3 ML INHALATION SCH ×3 (09:05→16:24)
[2022-11-16 09:06] VITALS: RESP 16
[2022-11-16] MEDS ORDERED: POTASSIUM CHLORIDE ER 10 MEQ TAB.ER.PRT PO STA (09:22)
--- NOTE | 2022-11-16 09:38 | P.PN ---
Subjective Progress Note Date: 11/16/22 Principal diagnosis: Calcific aortic stenosis, single-vessel coronary artery disease in the LAD. Past medical history significant for preserved left ventricular function, HTN, HLD with statin intolerance, paroxysmal atrial fibrillation status post ablation on Eliquis for anticoagulation, stage III chronic kidney disease, previous tobacco dependence, family history of coronary artery disease. POD #8 coronary artery bypass grafting 1 with left internal mammary artery to the left anterior descending artery, aortic valve replacement with 21 mm Inspiris bovine aortic valve prosthesis, ligation of the left atrial appendage with 35 mm AtriCure clip, epi-aortic ultrasound. Postoperative acute blood loss anemia, expected given hemodilution, cardiopulmonary bypass pump and history of chronic kidney disease. Confusion, no acute events on CT of brain. Paroxysmal atrial fibrillation, known common occurrence after open heart surgery, not a complication. The patient was seen and examined at her bedside today 11/16/2022 in the intensive care unit. Currently she is sitting up to the bedside chair, is awake, alert, oriented [address] and is in no acute apparent distress. She remained hemodynamically stable and is currently on no inotropic pressure support. Oxygen saturations are 96% on room air and she is achieving 500 mL on her incentive spirometry with much encouragement. Bedside telemetry showing normal sinus rhythm heart rate 73 BPM. Lab results today show a CBC count of 7.5, hemoglobin 8.6, hematocrit 26.7, platelets 290, sodium 139, potassium 3.8, chloride 102, CO2 31, BUN 17, creatinine 0.87, glucose 125, calcium 9.2 and magnesium 2.0. She denies any complaints of pain or shortness of breath at this time. Chest x-ray was reviewed. Patient has been ambulating in the intensive care unit hallway with assistance from nursing and therapy staff. The patient continues to be alert but still has episodes of forgetfulness and her mentation is not yet back to baseline. Objective - Vital Signs Vital signs: Vital Signs Temp 98.1 F 11/16/22 08:00 Pulse 75 11/16/22 09:05 Resp 16 11/16/22 09:05 BP 121/57 11/16/22 08:00 Pulse Ox 96 11/16/22 08:00 FiO2 35 11/16/22 09:05 Intake & Output 11/15/22 11/16/22 11/16/22 18:59 06:59 18:59 Intake Total 470 300 240 Output Total 1450 650 Balance -980 -350 240 Weight 86 kg 85.4 kg Intake: Oral 470 300 240 Output: Urine 1450 650 Other: Voiding Method Bedside Commode Bedside Commode # Voids 1 1 # Bowel Movements 1 ABP, PAP, CO, CI - Last Documented Arterial Blood Pressure 118/46 Pulmonary Artery Pressure 27/10 Cardiac Output 5.2 Cardiac Index 2.7 - Exam CONSTITUTIONAL: Appears comfortable, cooperative, no acute distress. RESPIRATORY: Lungs sounds clear throughout, diminished bilateral bases. Respirations are symmetrical, nonlabored. Oxygen saturation 96% on room air. Achieving 500 mL on her incentive spirometry with much encouragement. Strong cough. CARDIOVASCULAR: S1, S2 present. Regular rate and rhythm, sinus rhythm on telemetry, heart rate 73 BPM. Sternum stable. Palpable peripheral pulses bilaterally. No edema present. No calf pain or tenderness noted. Heart hugger, antiembolism stockings, SCDs present. GASTROINTESTINAL: Abdomen soft, nontender, nondistended. Active bowel sounds present 4 quadrants. Tolerating diet. GENITOURINARY: Continues to void. Urine output 450 mL in the last 8 hours. INTEGUMENTARY: Skin is warm and dry, no clubbing or cyanosis. Mediastinal chest incision well approximated and covered with dry intact dressing. No drainage or redness present. NEUROLOGIC: Cranial nerves II through XII intact. No focal deficits. MUSKULOSKELETAL: Able to move all extremities, strength equal bilaterally, generalized weakness. PSYCHIATRIC: Awake and alert, oriented to person, place, situation, doesn't know the date. - Allied health notes Allied health notes reviewed: nursing - Labs CBC & Chem 7: 11/16/22 05:50 11/16/22 05:50 Labs: Abnormal Lab Results - Last 24 Hours (Table) 11/15/22 11/15/22 11/16/22 Range/Units 11:19 20:11 05:50 RBC 2.93 L (3.80-5.40) m/uL Hgb 8.6 L (11.4-16.0) gm/dL Hct 26.7 L (34.0-46.0) % Carbon Dioxide (22-30) mmol/L Glucose (74-99) mg/dL POC Glucose (mg/dL) 193 H 144 H (70-110) mg/dL 11/16/22 11/16/22 Range/Units 05:50 06:13 RBC (3.80-5.40) m/uL Hgb (11.4-16.0) gm/dL Hct (34.0-46.0) % Carbon Dioxide 31 H (22-30) mmol/L Glucose 125 H (74-99) mg/dL POC Glucose (mg/dL) 136 H (70-110) mg/dL - Imaging and Cardiology Chest x-ray: report reviewed, image reviewed Assessment and Plan Assessment: 1. Calcific aortic stenosis, status post bioprostetic AVR 2. Single-vessel coronary artery disease in the LAD, status post 1V CABG 3. Preserved left ventricular function, EF 55% on MELISSA 4. Hypertension 5. Hyperlipidemia with statin intolerance, currently on Repatha, cholesterol 195, LDL 98 6. Paroxysmal atrial fibrillation status post ablation on Eliquis for anticoagulation, currently sinus, status post ligation of left atrial appendage 7. Stage III chronic kidney disease 8. Previous tobacco dependence, preoperative FEV1 96% of predicted 9. Family history of coronary artery disease 10. Postoperative acute blood loss anemia, expected 11. Confusion 12. Paroxysmal atrial fibrillation, currently sinus 13. Medical debility Plan: 1. Continue to maximize medical therapy with aspirin, Plavix, Cardizem cd 120 mg by mouth daily and losartan 12.5 mg by mouth daily. Continue Repatha at home (only takes every 2 weeks). Patient has not been started on a beta severiano due to her ALLERGY to beta severiano. 2. Continue amiodarone for afib prophylaxis, amiodarone 400 mg by mouth twice a day. 3. Encourage incentive spirometry is 10 times every hour while awake. Bronchodilators per pulmonology. 4. Increase activity as tolerated, PT/OT/cardiac rehab following. Needs much encouragement with activity. 5. Will monitor daily labs and chest x-rays. Electrolyte replacement per protocol. 6. GI/DVT prophylaxis. 7. Pain control with current medication regimen. Avoid narcotics due to the patient's confusion. 8. Insulin management per primary care service. Patient is not diabetic, hemoglobin A1c 6.3%. 9. Continue to monitor strict accurate intake and output. 10. Daily weights 11. Reorient PRN. 12. Patient takes multuple homeopathic meds at home, continue to hold. 13. Discharge planning is in progress, anticipate discharge to subacute rehab [facility] within the next 24 hours, insurance authorization pending. 14. Continue to encourage nutrition. 15. Continue Lasix 20 mg IV twice a day at 9 AM and at 4 PM. Potassium chloride 10 mEq by mouth twice a day@9 AM and at 4 PM while on Lasix. At discharge the Lasix will be changed to Lasix 20 mg by mouth daily and potassium chloride 10 mEq by mouth daily. 16. More recommendations to follow based on patient's clinical course. Time with Patient: Greater than 30
[2022-11-16] MEDS: HEPARIN SODIUM,PORCINE/PF 5,000 UNIT/0.5 ML SYRINGE SQ SCH (10:07)
[2022-11-16] MEDS: CLOPIDOGREL 75 MG TAB PO SCH (10:08)
[2022-11-16] MEDS: POTASSIUM CHLORIDE ER 20 MEQ TAB.ER PO SCH ×2 (10:08→16:54)
[2022-11-16] MEDS: CYANOCOBALAMIN 500 MCG TAB PO SCH (10:08)
[2022-11-16] MEDS: DILTIAZEM CD 120 MG CAP.ER.24H PO SCH (10:09)
[2022-11-16] MEDS: AMIODARONE 200 MG TAB PO SCH (10:09)
[2022-11-16] MEDS: ASPIRIN 325 MG TAB PO SCH (10:09)
[2022-11-16] MEDS: FUROSEMIDE 10 MG/ML 2 ML VIAL IV SCH ×2 (10:10→16:54)
[2022-11-16 11:13] LABS: Glucose,Whole Blood 130 mg/dL (70-110)
[2022-11-16] MEDS ORDERED: DEXTROSE 5% IN WATER 100 ML with AMIODARONE 150 MG IV ONE ×2 (11:50→14:04)
--- NOTE | 2022-11-16 12:59 | P.PN ---
Subjective Progress Note Date: 11/16/22 (delayed charting seen at approx 0930) Patient is a 76-year-old female with atrial fibrillation, asthma, hypertension, dyslipidemia, and fatty infiltration of the liver who presented for coronary artery bypass grafting with a CHOPRA to the LAD as well as aortic valve replacement, bioprosthetic. She tolerated the procedure well was admitted to the ICU. Imaging: CT head-no acute hemorrhage or mass effect, some asymmetry of the frontal horn, nonspecific white matter changes. Patient seen and examined at bedside. She is in a chair and awakes to voice. She does report 8/10 chest pain that is worse with movement she denies shortness of breath. She is confused and thinks that she had surgery yesterday. Vital signs reviewed General: nontoxic, no distress, appears at stated age Cardiovascular: S1S2 reg, no murmur, positive posterior tibial pulse bilateral, Lungs: Decreased bs bilateral, no rhonchi, no rales , no accessory muscle use Abdominal: soft, nontender to palpation, no guarding, no appreciable organomegaly Ext: no gross muscle atrophy, trace edema, no contractures Neuro: CN II-XII grossly intact, moving all 4 extremieits independently. Psych: Awake, alert, conversational Assessment: CAD s/p CHOPRA to LAD with bioprosthetic valve replacement Acute toxic, metabolic encepahopathy Prediabetes - A1c 10/12/22 6.3 Acute blood loss anemia, anticipated outcome of surgery. Iron deficiency anemia Chronic: Paroxysmal atrial fibrillation-- had 3-4 hour run on 11/11, currently in NSR Asthma without exacerbation Hypertension Dyslipidemia Fatty infiltration of the liver Chronic kidney disease stage II Resolved: Elevated lactic acid, anticipated outcome thrombocytopenia Hyperglycemia Leukocytosis, reactive Imaging: Chest x-ray reviewed by myself from 11/16/22- left sided pleural effusion with increased interstitial markings, slightly rotated, Data Review: Labs reviewed- remarkable for HgB 8.6 (overall stable from yesterday at 9), BUN 31 -- increasing will need to monitor Blood sugars reviewed and a.m. fasting blood sugar was 136, evening blood sugars were 97,144 Plan: - sugars well controlled, Continue with sliding scale insulin. Will need repeat A1C in 3-6 months as outpatient for pre-diabetes. - Recommend ferrous sulfate 325 mg twice daily on discharge. D/W Jerry Epperson NP from cardiothorasic surgery. Currently awaiting auth for rehab. - could have a component for delirium related to pain, d/w Don and will change Tylenol to scheduled q6 hours and monitor for improvement. - Frequent reorientation, minimize sleep disturbances, - Pulmonary note reviewed. Conitnue with IS and Lasix - cardio thorasic note reviewed. Maximize medically therapy, Continue IV lasix twcie daily - will need monitoring of BMP and Magnesium while on IVF lasix for increased Cr decreased K+, and Mg as side effects of medication. - Cardio note reviewed: Increase activity - Ideally repeat CBC in AM with her anemia - Continue with aspirin 325 mg daily and Plavix 75 mg daily - Cozaar 12.5 mg oral daily Thank you for allowing us to participate in the care of this pleasant patient. Do not hesitate to contact us with questions. Someone can be reached from the [facility] hospitalist group all hours of the day at [phone] or via [employer] DVT prophylaxis: Heparin 5000 units every 8 hours Objective - Vital Signs Vital signs: Vital Signs Temp 98.1 F 11/16/22 08:00 Pulse 77 11/16/22 09:20 Resp 16 11/16/22 09:20 BP 121/57 11/16/22 08:00 Pulse Ox 94 L 11/16/22 09:08 FiO2 35 11/16/22 09:05 Intake & Output 11/15/22 11/16/22 11/16/22 18:59 06:59 18:59 Intake Total 470 300 270 Output Total 1450 650 400 Balance -980 -350 -130 Weight 86 kg 85.4 kg Intake: IV 30 Invasive Line 8 30 Oral 470 300 240 Output: Urine 1450 650 400 Other: Voiding Method Bedside Commode Bedside Commode Toilet # Voids 1 1 # Bowel Movements 1 1 ABP, PAP, CO, CI - Last Documented Arterial Blood Pressure 118/46 Pulmonary Artery Pressure 27/10 Cardiac Output 5.2 Cardiac Index 2.7 - Labs CBC & Chem 7: 11/16/22 05:50 11/16/22 05:50 Labs: Abnormal Lab Results - Last 24 Hours (Table) 11/15/22 11/16/22 11/16/22 Range/Units 20:11 05:50 05:50 RBC 2.93 L (3.80-5.40) m/uL Hgb 8.6 L (11.4-16.0) gm/dL Hct 26.7 L (34.0-46.0) % Carbon Dioxide 31 H (22-30) mmol/L Glucose 125 H (74-99) mg/dL POC Glucose (mg/dL) 144 H (70-110) mg/dL 11/16/22 11/16/22 Range/Units 06:13 11:12 RBC (3.80-5.40) m/uL Hgb (11.4-16.0) gm/dL Hct (34.0-46.0) % Carbon Dioxide (22-30) mmol/L Glucose (74-99) mg/dL POC Glucose (mg/dL) 136 H 130 H (70-110) mg/dL
[2022-11-16] MEDS: LOSARTAN 25 MG TAB PO SCH (13:00)
[2022-11-16 15:16] VITALS: BP 121/57; TEMP 98.1
[2022-11-16 16:28] VITALS: PULSE 77
[2022-11-16 16:47] LABS: Glucose,Whole Blood 99 mg/dL (70-110)
--- NOTE | 2022-11-16 16:54 | P.DS ---
Providers Date of admission: 11/08/22 05:39 Expected date of discharge: 11/16/22 Attending physician: Shankar Naylor Consults: 11/08/22 12:35 Consult Physician Routine Consulting Provider: Camacho Wagoner Consult Reason/Comments: Assistant Auditor Consult: post cardiac surgery Do you want consulting provider notified?: Yes Consult Physician Routine Consulting Provider: Conchita Garg Consult Reason/Comments: med mgmt; [facility] patient Do you want consulting provider notified?: Yes Consult Physician Routine Consulting Provider: Tadeo Sims Consult Reason/Comments: Mobility Specialist Consult: post cardiac surgery Do you want consulting provider notified?: Yes 11/12/22 09:32 Consult Physician Routine Consulting Provider: Ricki Plummer Consult Reason/Comments: IPR at DC Do you want consulting provider notified?: Yes Primary care physician: Geovanna Montoya [facility] Course: FINAL DIAGNOSIS: 1. Calcific aortic stenosis, status post bioprostetic AVR 2. Single-vessel coronary artery disease in the LAD, status post 1V CABG 3. Preserved left ventricular function, EF 55% on MELISSA 4. Hypertension 5. Hyperlipidemia with statin intolerance, currently on Repatha, cholesterol 195, LDL 98 6. Paroxysmal atrial fibrillation status post ablation on Eliquis for anticoagulation, currently sinus, status post ligation of left atrial appendage 7. Stage III chronic kidney disease 8. Previous tobacco dependence, preoperative FEV1 96% of predicted 9. Family history of coronary artery disease 10. Postoperative acute blood loss anemia, expected 11. Confusion, unknown etiology, improving 12. Paroxysmal atrial fibrillation, currently sinus 13. Medical debility PRINCIPAL PROCEDURE: 1. Coronary artery bypass grafting 1 with left internal mammary artery to left anterior descending coronary artery 2. Aortic valve replacement with a 21 mm Inspiris bovine aortic valve prosthesis 3. Ligation of the left atrial appendage with a 35 mm Atricure clip 4. Epi-aortic ultrasound 5. Intraoperative transesophageal echocardiogram HISTORY OF PRESENT ILLNESS: This is a 76-year-old female patient who follows [facility] Dr. Geovanna Montoya for her primary care and Dr. Lira for her cardiology care. The patient has a known history of aortic valvular stenosis for many years which has been followed on an outpatient basis. The patient reports she has been getting fatigued over the past few months but denies any complaints of shortness of breath or dyspnea on exertion. She has been very active and has been taking care of a friend who she has been pushing around in a wheelchair and denies any complaints of chest discomfort or shortness of breath with pushing her friend. Subsequently, the patient underwent a echocardiogram which showed an EF of 60-65% with a trileaflet aortic valve, and aortic valve peak gradient of 80 mmHg, and mean gradient of 47 mmHg, a peak velocity of 4.46 m/s, and moderate central mitral valve regurgitation. For further evaluation a cardiac catheterization was completed which demonstrated a tight stenosis in the proximal left anterior descending coronary artery of over 90%. It also demonstrated a 30-40% stenosis to her ostial right coronary artery and a 15-20% stenosis to her first obtuse marginal coronary artery. Also during the cardiac catheterization the aortic valve was crossed and showed a mean gradient of 38 mmHg. The patient was seen and evaluated in the structural heart clinic for shared decision-making by Dr. Naylor from cardiothoracic surgery and Dr. Sims from cardiology, treatment options were discussed including surgical aortic valve replacement and myocardial revascularization and it was also discussed with the patient to undergo percutaneous intervention of the left anterior descending coronary artery with stenting and continue follow-up and if the patient becomes more symptomatic undergo a transcatheter aortic valve replacement. Risks and benefits of the procedure were discussed with the patient including the STS risk score and the patient wished to proceed with the surgical option undergoing a aortic valve replacement and coronary artery bypass grafting 1. HOSPITAL COURSE: The patient was brought to the hospital on 11/08/2022, consent was obtained, she was taken to the preoperative area, prepared in the usual fashion and subsequently taken to the operating room for Dr. Shankar Naylor performed a coronary artery bypass grafting 1 and an aortic valve replacement with a 21 mm Inspiris bovine aortic valve prosthesis. Upon completion of the surgery the patient was transferred to the cardiovascular intensive care unit where she was recovered and monitored hemodynamically. She was extubated, all lines, tubes and supportive drips were discontinued when appropriate and transfer orders were placed to the third floor cardiac stepdown unit, but due to lack of beds was In the intensive care unit. Postoperatively the patient did have some episodes of confusion, is oriented [address] which has been improving. Her oxygen was titrated down, she continued to work with physical and occupational therapy, inpatient cardiac rehab, she was tolerating an oral diet, her pain was controlled and she was ready to be discharged to [facility] for further monitoring and rehabilitation. She has received written and verbal instructions regarding her medications, activity restrictions, signs and symptoms requiring physician or indication and will follow up with her physicians accordingly once discharged from [facility]. The patient will not be discharged with a beta severiano or statin at this time as the patient is ALLERGY to beta severiano and has statin intolerance. Plan - Discharge Summary Discharge Rx Participant: Yes New Discharge Prescriptions: New Ipratropium Nebulized [Atrovent Nebulized 0.2 MG/ML] 0.5 mg INHALATION RT-QID ml Ipratropium Nebulized [Atrovent Nebulized 0.2 MG/ML] 0.5 mg INHALATION RT-Q2H PRN ml PRN Reason: Shortness Of Breath Or Wheezing Diltiazem Cd [Cardizem CD] 180 mg PO DAILY cap Losartan [Cozaar] 12.5 mg PO DAILY@1200 tab Ferrous Sulfate [Iron (65 MG Elemental)] 325 mg PO BID-W/MEALS tab Melatonin 3 mg PO HS tab Pantoprazole [Protonix] 40 mg PO AC-BRKFST tab Sennosides-Docusate Sodium [Senokot-S] 2 each PO HS tab Ascorbic Acid [Vitamin C] 500 mg PO BID-W/MEALS tab bisacodyL [Dulcolax] 10 mg RECTAL DAILY PRN suppositor PRN Reason: Constipation Apixaban [Eliquis] 5 mg PO BID tab Potassium Chloride ER [K-Dur 10] 10 meq PO DAILY tab Furosemide [Lasix] 20 mg PO DAILY tab Magnesium Hydroxide [Milk of Magnesia Concentrate] 2,400 mg PO BID PRN ml PRN Reason: Constipation polyethylene glycoL 3350 [Miralax] 17 gm PO DAILY PRN packet PRN Reason: Constipation Clopidogrel [Plavix] 75 mg PO DAILY tab Acetaminophen Tab [Tylenol] 1,000 mg PO Q6HR tab Albuterol Nebulized [Ventolin Nebulized] 2.5 mg INHALATION RT-QID ml Albuterol Nebulized [Ventolin Nebulized] 2.5 mg INHALATION RT-Q2H PRN ml PRN Reason: Shortness Of Breath Or Wheezing Continue Zinc Gluconate [Zinc] 30 mg PO DAILY Magnesium 400 mg PO DAILY Cyanocobalamin (Vitamin B-12) [Vitamin B-12] 5,000 mcg PO DAILY Evolocumab [Repatha Syringe] 140 mg SQ Q14D #0 Discontinued Apixaban [Eliquis] 5 mg PO BID Losartan [Cozaar] 50 mg PO DAILY dilTIAZem HCL [dilTIAZem HCL 24Hr ER] 120 mg PO DAILY Vit C/Quercetin/Bioflav,[place] [Quercetin Complex Capsule] 1 each PO BID Red Yeast Rice 600 mg PO BID Triamterene/Hydrochlorothiazid [Triamterene-Hctz 75-50 mg Tab] 1 each PO DAILY Astaxanthin 1 tab PO DAILY Aspirin [Dane Aspirin EC] 81 mg PO DAILY Discharge Medication List Cyanocobalamin (Vitamin B-12) [Vitamin B-12] 5,000 mcg PO DAILY 10/08/22 [History] Magnesium 400 mg PO DAILY 10/08/22 [History] Zinc Gluconate [Zinc] 30 mg PO DAILY 10/08/22 [History] Acetaminophen Tab [Tylenol] 1,000 mg PO Q6HR tab 11/16/22 [Rx] Albuterol Nebulized [Ventolin Nebulized] 2.5 mg INHALATION RT-Q2H PRN ml 11/16/22 [Rx] Albuterol Nebulized [Ventolin Nebulized] 2.5 mg INHALATION RT-QID ml 11/16/22 [Rx] Apixaban [Eliquis] 5 mg PO BID tab 11/16/22 [Rx] Ascorbic Acid [Vitamin C] 500 mg PO BID-W/MEALS tab 11/16/22 [Rx] Clopidogrel [Plavix] 75 mg PO DAILY tab 11/16/22 [Rx] Diltiazem Cd [Cardizem CD] 180 mg PO DAILY cap 11/16/22 [Rx] Evolocumab [Repatha Syringe] 140 mg SQ Q14D #0 11/16/22 [Rx] Ferrous Sulfate [Iron (65 MG Elemental)] 325 mg PO BID-W/MEALS tab 11/16/22 [Rx] Furosemide [Lasix] 20 mg PO DAILY tab 11/16/22 [Rx] Ipratropium Nebulized [Atrovent Nebulized 0.2 MG/ML] 0.5 mg INHALATION RT-Q2H PRN ml 11/16/22 [Rx] Ipratropium Nebulized [Atrovent Nebulized 0.2 MG/ML] 0.5 mg INHALATION RT-QID ml 11/16/22 [Rx] Losartan [Cozaar] 12.5 mg PO DAILY@1200 tab 11/16/22 [Rx] Magnesium Hydroxide [Milk of Magnesia Concentrate] 2,400 mg PO BID PRN ml 11/16/22 [Rx] Melatonin 3 mg PO HS tab 11/16/22 [Rx] Pantoprazole [Protonix] 40 mg PO AC-BRKFST tab 11/16/22 [Rx] Potassium Chloride ER [K-Dur 10] 10 meq PO DAILY tab 11/16/22 [Rx] Sennosides-Docusate Sodium [Senokot-S] 2 each PO HS tab 11/16/22 [Rx] bisacodyL [Dulcolax] 10 mg RECTAL DAILY PRN suppositor 11/16/22 [Rx] polyethylene glycoL 3350 [Miralax] 17 gm PO DAILY PRN packet 11/16/22 [Rx] Follow up Appointment(s)/Referral(s): Ziggy Lira MD [STAFF PHYSICIAN] - [facility] - 4 Weeks (You will receive a phone call in approximately 4-6 weeks for evaluation for cardiac rehab) [facility] - [facility] arrange a visit once discharged from [facility].) Shankar Naylor MD [STAFF PHYSICIAN] - 4 Weeks Camacho Wagoner DO [Doctor of Osteopathic Medicine] - 2 Weeks Geovanna Montoya [Primary Care Provider] - 2 Weeks Ambulatory/Diagnostic Orders: Complete Blood Count w/diff [LAB.AMB] Time Frame: 11/19/22, Facility: [facility], Location: [facility] Comprehensive Metabolic Panel [LAB.AMB] Time Frame: 11/19/22, Facility: [facility], Location: [facility] Activity/Diet/Wound Care/Special Instructions: doneDISCHARGE INSTRUCTIONS: 1. No driving for 4 weeks, or until physician gives their ok. 2. The patient should sleep in their own bed, no medical bed needed. 3. Stairs are not an issue. If the bedroom is upstairs, it is advised that the patient go up at night and down in the morning for the first week. Go slowly, using handrail and take 1 step at a time. 4. SHEELA hose are to be worn for 30 days post surgery or until physician discontinues. 5. Heart hugger is to be worn 100% of the time until physician discontinues.(except when showering) 6. No lifting, pushing, or pulling more than 10 pounds for 12 weeks. The physician will advise of any restriction changes. 7. The patient is expected to continue the prescribed walking program. 8. Continue pain control per as needed orders. 9. Continue with incentive spirometry and splinting/heart hugger until otherwise directed by the physician. 10. Must shower daily using liquid antibacterial soap 11. Routine sternal incision care. No powders, lotions, ointments on incisions. No dressings are necessary on incisions unless they are draining. Dermabond tape is to remain on sternal incision until surgeon follow-up. 12. Please call surgeon/BALANCE WHEEL FACER for temp greater than 101 F or purulent drainage from incisions. 13. You should weigh yourself daily, record and bring log with you to follow up appointments. 14. All prescriptions given by surgeon for 30 days. Refills need to be filled through finance analyst/primary care physician. 15. A Red armband has been placed on the patient. It should be worn for 30 days post discharge from surgery and will be removed by the cardiac surgeons. If an ER visit is necessary, please make sure the number on the Red armband is called before going to ER. 16. You have been referred to and are expected to begin Cardiac Rehab in approximately 4-6 weeks. 17. Please check fasting a.m. blood sugars prior to breakfast and record blood sugars. Preoperative hemoglobin A1c was 6.3%. Repeat A1C in 3-6 months. HOME HEALTH SERVICES TO PROVIDE: RN SKILLED HOME CARE SERVICES FOR POST-OP SURGICAL PATIENTS WITH THE FOLLOWING: Coronary Artery Bypass Surgery (CABG), Mitral Valve Replacement/Repair ( MVR), Aortic Valve Replacement/Repair (AVR) RN TO CONTINUE EDUCATION FROM ``ROAD TO A HEALTH HEART PATIENT EDUCATION MANUAL (GIVEN TO PATIENT IN THE HOSPITAL) MEDICATION RECONCILIATION WITH EDUCATION NEEDED ON FIRST HOME VISIT EMPHASIZE IMPORTANCE OF WEARING BREAST SUPPORT/HEART HUGGER ENCOURAGE USE OF INCENTIVE SPIROMETER 10 X EVERY HOUR WHILE AWAKE ENCOURAGE UTILIZATION OF LOWER EXTREMITY COMPRESSION STOCKINGS/SHEELA HOSE and ELEVATE LEGS ABOVE LEVEL OF HEART WHILE AT REST. ENCOURAGE AMBULATION 3-5x/day INCREASING TOLERATES, WHILE AVOIDING EXTREMES IN TEMPERATURE FREQUENCY: RN TO OPEN THE PATIENT WITHIN 24 HOURS OF DISCHARGE FROM THE HOSPITAL WITH TELEHEALTH INSTALLED AT [facility], RN TO VISIT 2-3 X A WEEK FOR 4 WEEKS ESTABLISHED BY PATIENT NEEDS. LABORATORY: CBC, CMP TO BE DRAWN ON THE THIRD DAY HOME, (RAN STAT) FAX RESULTS TO [phone]. TELEHEALTH PARAMETERS: WEIGHT: NOTIFY MD OF WEIGHT GAIN OF 2 LBS IN 24 HOURS OR 5 LBS IN ONE WEEK HR: NOTIFY MD OF HR <55 BPM OR HR>100 BPM BP: NOTIFY MD IF BP <90/55 OR BP>140/100 O2 SAT: NOTIFY MD IF PO2<93% ON ROOM AIR SEND TELEHEALTH REPORT TO OPERATIONS ARCHITECT AND CARDIOVASCULAR SURGEON THE FIRST WEEK OF CARE AND THEN BI-WEEKLY. PLEASE ADDITIONALLY COMMUNICATE ANY ABNORMALS AND NEW FINDINGS TO THE SURGEONS OFFICE. Discharge Disposition: TRANSFER TO SNF/ECF
[2022-11-16 17:00] LABS: Glucose,Whole Blood 99 mg/dL (70-110)
[2022-11-16] MEDS ORDERED: ACETAMINOPHEN TAB 500 MG TAB PO SCH (18:00)
[2022-11-16] MEDS ORDERED: APIXABAN 5 MG TAB PO SCH (21:00)
[2022-11-17] MEDS ORDERED: FUROSEMIDE 20 MG TAB PO SCH (09:00)
[2022-11-17] MEDS ORDERED: DILTIAZEM CD 180 MG CAP.ER.24H PO SCH (09:00)
[2022-11-17] MEDS ORDERED: POTASSIUM CHLORIDE ER 10 MEQ TAB.ER.PRT PO SCH (09:00)
--- NOTE | 2022-11-17 13:19 | CDI ---
Documentation Clarification Form Date: 11/17/2022 12:26:45 PM From: Citlalli Maher Phone: Admit Date: 11/08/2022 5:39:00 AM Patient Name: Litzy Amos Visit Number: [id number] Discharge Date: 11/16/2022 5:57:00 PM ATTENTION: The Clinical Documentation Specialists (CDI) and [facility] Coding Staff appreciate your assistance in clarifying documentation. Please respond to the clarification below the line at the bottom and electronically sign. The CDI & [facility] [employer] Coding staff will review the response and follow-up if needed. Please note: Queries are made part of the Legal Health Record. If you have any questions, please contact the author of this message via ITS. Dr. Gilbert Pugh Postop ICU delirium is documented in your progress note starting on 11/13/2022 and patient had CABG x 1 with left internal mammary artery to the left anterior descending artery, aortic valve replacement on 11/08/2022. Additional clarification is requested regarding the relationship, if any, that exists between the diagnosis and the procedure. Patients Admitting Diagnosis: Calcific aortic stenosis, single-vessel coronary artery disease in the LAD Post-Operative Diagnosis: Same Procedure performed: CABG x 1 with left internal mammary artery to the left anterior descending artery, aortic valve replacement, ligation of left atrial appendage. History/Risk Factors: A Fib, Hypertension, Dyslipidemia, CKD Stage III, Fatty infiltration of liver Clinical Indicators: 76-year-old female with shortness of breath and chest pain found to have significant disease in the left anterior descending coronary artery and severe aortic valvular stenosis. 3/4 patient in ICU VS 107/54 78 24 98.9 97% 3/L NC, A/O X 2. Lungs sounds clear. 3/4 Labs: WBC 6.1 hgb 8.4 hct 24.9 bun 24 Cr 0.75 Treatment: ICU/Telemetry monitoring Avoid Narcotics delirium precautions Amiodarone 400 MG PO BID, ASA 325 PO Daily, Cardizem Cd 180 MG PO Daily Encourage incentive spirometry, Bronchodilators per pulmonology Increase activity as tolerated, PT/OT/cardiac rehab following What relationship, if any, exists between the diagnosis of postop ICU delirium and the procedure? [ ] Postop ICU delirium is a complication of surgical procedure [ x] Postop ICU delirium is an expected outcome of the surgical procedure [ ] Postop ICU delirium is related to patients co-morbid condition(s) of [insert co-morbid dxs] & not a complication of the procedure [ ] Postop ICU delirium has been ruled out [ ] Other please specify ____ [ ] Unable to determine (Template Last Revised: November 2020) MTDD
--- NOTE | 2022-11-17 22:43 | CDI ---
Documentation Clarification Form Date: 11/17/2022 10:29:46 PM From: Janette Goodwin Phone: Admit Date: 11/08/2022 5:39:00 AM Patient Name: Litzy Amos Visit Number: [id number] Discharge Date: 11/16/2022 5:57:00 PM ATTENTION: The Clinical Documentation Specialists (CDI) and [facility] Coding Staff appreciate your assistance in clarifying documentation. Please respond to the clarification below the line at the bottom and electronically sign. The CDI & [facility] Coding staff will review the response and follow-up if needed. Please note: Queries are made part of the Legal Health Record. If you have any questions, please contact the author of this message via ITS. Dr. Conchita Garg CKD III is documented per Progress Note 11/09/22 but CKD II is documented per Progress Note 11/10/22 Additional clarification regarding the stage of CKD is requested. History/Risk Factors: 76yo F, s/p; CAD s/p CABG, preserved LV function, HTN, HLD, PAF, CKD, Hx smoker, FHX CAD, PO ABLA, confusion, medicaldebility Clinical Indicators: GFR (CKD) 76 >90 >90 Blood Urea Nitrogen (mg/dL) 17 24H 26H Creatinine (mg/dL) 0.87 0.75 0.71 Non- GFR(CKD) 66 79 85 Treatment: BMPin a.m. to the invasive nature ofcoronary artery bypass graftingand hx ofCKD. Please clarify the stage of the CKD, if known: [ ] CKD Stage 1 (GFR > 90) [ ] CKD Stage 2 (GFR 60-89) [ ] CKD Stage 3a (GFR 45-59) [ ] Other, please specify [ ] Unable to determine (Template last revised: October 2020) As per my note on 11/16 "Chronic kidney disease stage II" Documentation Clarification Form Date: 11/17/2022 10:29:46 PM From: Janette Goodwin Phone: Admit Date: 11/08/2022 5:39:00 AM Patient Name: Litzy Amos Visit Number: [id number] Discharge Date: 11/16/2022 5:57:00 PM ATTENTION: The Clinical Documentation Specialists (CDI) and [facility] Coding Staff appreciate your assistance in clarifying documentation. Please respond to the clarification below the line at the bottom and electronically sign. The CDI & [facility] Coding staff will review the response and follow-up if needed. Please note: Queries are made part of the Legal Health Record. If you have any questions, please contact the author of this message via ITS. Dr. Conchita Garg CKD III is documented per Progress Note 11/09/22 but CKD II is documented per Progress Note 11/10/22 Additional clarification regarding the stage of CKD is requested. History/Risk Factors: 76yo F, s/p; CAD s/p CABG, preserved LV function, HTN, HLD, PAF, CKD, Hx smoker, FHX CAD, PO ABLA, confusion, medicaldebility Patients Historical BUN/CR/GFR Clinical Indicators: GFR (CKD) 76 >90 >90 Blood Urea Nitrogen (mg/dL) 17 24H 26H Creatinine (mg/dL) 0.87 0.75 0.71 Non- GFR(CKD) 66 79 85 Treatment: BMPin a.m. to the invasive nature ofcoronary artery bypass graftingand hx ofCKD Please clarify the stage of the CKD, if known: [ ] CKD Stage 1 (GFR > 90) [X ] CKD Stage 2 (GFR 60-89) [ ] CKD Stage 3a (GFR 45-59) [ ] Other, please specify [ ] Unable to determine (Template last revised: October 2020) As per my note on 11/16 "Chronic kidney disease stage II" MTDD
--- NOTE | 2023-01-11 10:35 | CDI ---
Encephalopathy is documented 11/10 CT Surgery note by Dr. Sims. Additional clarification regarding the type of encephalopathy is requested. History/Risk Factors: 76-year-old female presented with shortness of breath and chest pain found to have significant disease in the left anterior descending coronary artery as well as severe aortic valvular stenosis. She was evaluated in the high risk valve clinic and felt to be appropriate for either surgery or 4 percutaneous intervention. A CABG x1 was performed on 11/08. Clinical Indicators: 11/10 Dr. Naylor note: Confusion, encephalopathy - Appears comfortable but somewhat fidgity, cooperative, no acute distress, very sleepy. Currently on 7 L high flow nasal cannula, only able to achieve 500 mL on her incentive spirometer with poor effort, was on bipap last night due to ABGs 7.52/28/57/23.Patient remains very sleepy this morning, oriented to person only, does not know where she is or why she is here, doesn't know the date. 11/10 Dr. Sims note: Change in mental status 11/11 Dr. Wagoner Progress note: Postoperative confusion, somnolence, and lethargy. Computed tomography scan of the brain without contrast, showed no acute hemorrhage or mass effect. Other changes are noted. MRI was recommended. The patient is currently on 7 L high flow oxygen. 11/14 Dr. Evans note: Confusion, encephalopathy, no acute events on CT of brain. Pain control with current medication regimen. Avoid narcotics due to the patient's confusion. 11/15 Dr. Winchester note: Postoperative confusion, somnolence, and lethargy. The patient's altered mentation is improving gradually. The patient does have some residual confusion. The patient has some atelectatic changes in the lungs and she would benefit from ongoing use of incentive spirometer. 11/16 Discharge summary: Confusion, unknown etiology, improving: Postoperatively the patient did have some episodes of confusion, is oriented [address] which has been improving. CT Brain 11/10: No acute hemorrhage or mass effect. Asymmetry of the frontal horn could be nn the basis of a synechia. No prior studies available for comparison. MRI recommended for further evaluation. 2.Nonspecific white matter changes most likely on the basis of remote white matter ischemia. If concern for acute ischemia or brain edema correlate with MRI as clinically indicated. Treatment: Incentive Spirometer, Reorientation, Oxygen titration, Narcotic avoidance per Dr. Landry 11/14 note. Please clarify the type of encephalopathy, if known: [ x ] Metabolic Encephalopathy [ ] Encephalopathy due to (Please specify type/cause) [ ] Other, please specify [ ] Unable to determine (Template Last Revised: November 2020) MTDD
== END 2022-11-16 17:57 | DRG 219 ==
LOC: 2ORMAIN 05:39 → 2SICU 11:27
PROVIDERS: ADMIT Thoracic Surgery (Cardiothoracic Vascular Surgery); ATTEND Thoracic Surgery (Cardiothoracic Vascular Surgery)
PROC: 02L70CK Occlusion of Left Atrial Appendage with Extraluminal Device, Open Approach (ICD-10-PCS; 2022-11-08)
PROC: B24BZZZ Ultrasonography of Heart with Aorta (ICD-10-PCS; 2022-11-08)
PROC: 02100Z9 Bypass Coronary Artery, One Artery from Left Internal Mammary, Open Approach (ICD-10-PCS; principal; 2022-11-08 08:00)
PROC: 02RF08Z Replacement of Aortic Valve with Zooplastic Tissue, Open Approach (ICD-10-PCS; 2022-11-08 08:00)
PROC: 5A1221Z Performance of Cardiac Output, Continuous (ICD-10-PCS; 2022-11-08 08:00)
PROC: 5A0935A Assistance with Respiratory Ventilation, Less than 24 Consecutive Hours, High Flow/Velocity Cannula (ICD-10-PCS; 2022-11-10)
DX: I35.0 Nonrheumatic aortic (valve) stenosis (principal); G93.41 Metabolic encephalopathy; D62 Acute posthemorrhagic anemia; G93.40 Encephalopathy, unspecified; E87.3 Alkalosis; F05 Delirium due to known physiological condition; I48.20 Chronic atrial fibrillation, unspecified; D69.6 Thrombocytopenia, unspecified; K76.0 Fatty (change of) liver, not elsewhere classified; I12.9 Hypertensive chronic kidney disease with stage 1 through stage 4 chronic kidney disease, or unspecified chronic kidney disease; J45.909 Unspecified asthma, uncomplicated; I34.0 Nonrheumatic mitral (valve) insufficiency; I25.10 Atherosclerotic heart disease of native coronary artery without angina pectoris; E78.5 Hyperlipidemia, unspecified; N18.2 Chronic kidney disease, stage 2 (mild); I48.0 Paroxysmal atrial fibrillation; R73.03 Prediabetes; R73.9 Hyperglycemia, unspecified; D72.828 Other elevated white blood cell count; R53.81 Other malaise; E87.6 Hypokalemia; Z96.641 Presence of right artificial hip joint; Z28.310 Unvaccinated for COVID-19; Z87.891 Personal history of nicotine dependence; Z79.01 Long term (current) use of anticoagulants; Z79.82 Long term (current) use of aspirin; Z88.8 Allergy status to other drugs, medicaments and biological substances; Z79.899 Other long term (current) drug therapy; Z88.0 Allergy status to penicillin; Z88.6 Allergy status to analgesic agent; Z82.49 Family history of ischemic heart disease and other diseases of the circulatory system
CPT/HCPCS: 36600; 70450; 71045; 71046; 80048; 80053; 81001; 82140; 82330; 82607; 82728; 82746; 82805; 83540; 83550; 83605; 83735; 84132; 84443; 85025; 85027; 85520; 85610; 85730; 86850; 86870; 86880; 86891; 86900; 86901; 86902; 86920; 87635; 88305; 88311; 94002; 94640; 94660

== ENCOUNTER → 2023-03-22 | Outpatient (CLI) | payer MEDICARE ==
--- NOTE | 2023-03-22 14:16 | CT ---
EXAMINATION TYPE: CT brain wo con DATE OF EXAM: 03/22/2023 COMPARISON: 11/10/2022 HISTORY: memory loss CT DLP: 1201 mGycm Automated exposure control for dose reduction was used. FINDINGS: There is hyperostosis of the calvarium which appears intact. There is no midline shift or mass effect . Mild generalized degenerative change. Intracranial atherosclerotic changes are noted. There is low attenuation in the white matter which is nonspecific but most likely on the basis of rem ote white matter ischemia. Intracranial atherosclerotic changes. Craniocervical junction maintained. Sella turcica is normal. Orbits are symmetric. Sinuses are clear. IMPRESSION: 1. MILD TO MODERATE GENERALIZED DEGENERATIVE CHANGE WITH MILD REMOTE ISCHEMIC WHITE MATTER MICROVASCU LAR CHANGES. SIMILAR PRIOR
== END | disposition home or self-care (01) ==
LOC: RADCTMAIN 12:47
PROVIDERS: ATTEND Psychiatry & Neurology Neurology
DX: I67.82 Cerebral ischemia (principal); R41.82 Altered mental status, unspecified; R90.82 White matter disease, unspecified; R41.3 Other amnesia
CPT/HCPCS: 70450

== ENCOUNTER → 2023-06-17 | Outpatient (CLI) | payer OTHER ==
--- NOTE | 2023-06-17 14:55 | BD ---
EXAMINATION TYPE: Axial Bone Density DATE OF EXAM: 06/17/2023 CLINICAL HISTORY: 77 years old Female. ICD-10 CODE: Z13.820 SCREENING FOR OSTEOPOROSIS Height: 61.5in Weight: 176lb FRAX RISK QUESTIONS: History of Fracture in Adulthood: yes Secondary Osteoporosis: RISK FACTORS HISTORY OF: History of : Right hip replacement History of Wrist Fracture: yes, right When: unsure Family History of Osteoporosis: unsure Active: yes Postmenopausal woman: yes MEDICATIONS: Additional Medications: bp med, cholesterol med, calcium with vitamin d Additional History: rt wrist fx, rt hip replacement EXAM MEASUREMENTS: Bone mineral densitometry was performed using the Etreasure[employer] System. Bone mineral density as measured about the Lumbar spine is: ----- L1-L4(G/cm2): 0.961 T Score Values are as follows: ----- L1: -1.9 ----- L2: -2.2 ----- L3: -1.5 ----- L4: -1.9 ----- L1-L4: -1.8 Z Score Values are as follows: ----- L1: -0.7 ----- L2: -0.9 ----- L3: -0.2 ----- L4: -0.6 ----- L1-L4: -0.6 First dexa at [facility] Bone mineral density about the L hip (g/cm2): 0.789 T Score values are as follows: -----L Neck: -2.0 -----L Total: -1.7 Z Score values are as follows: -----L Neck: -0.4 -----L Total: -0.3 FRAX%s: The graph provided illustrates a 19.1% chance for a major osteoporotic fx and a 4.5% chance f or the hips probability for fx in 10 years time. IMPRESSION: Osteopenia (T Score between -2.5 and -1). There is slightly increased risk of fracture and the patient may be considered for treatment. Re-Screen 2-5 years. NOTE: T-SCORE=SD OF THE YOUNG ADULT MEAN.
== END | disposition home or self-care (01) ==
LOC: RADBDWWP 12:20
PROVIDERS: ATTEND Emergency Medicine
DX: Z13.820 Encounter for screening for osteoporosis (principal); M85.88 Other specified disorders of bone density and structure, other site; Z78.0 Asymptomatic menopausal state
CPT/HCPCS: 77080

== ENCOUNTER 2024-03-30 16:02 | Emergency (ER) | payer MEDICARE, OTHER ==
[2024-03-30 16:28] VITALS: RESP 18; TEMP 98.1
--- NOTE | 2024-03-30 16:51 | ED ---
Fall HPI - General Chief Complaint: Fall Stated Complaint: fall-on thinners Time Seen by Provider: 03/30/24 16:47 Source: patient, family, RN notes reviewed Mode of arrival: wheelchair - History of Present Illness Initial Comments: 78 year old female on Eliquis presenting to ER with chief complain of head injury s/p mechanical fall. States she was walking her dog and her foot got stuck in uneven sidewalk and she fell face forward and hit her head on the cement. Denies LOC. Denies other injuries. She has a 2 inch laceration on top of head and abrasions on her nose. she is also complaining of chin pain. last tetanus unknown. denies CP, SOB, headache, nausea, vomiting. - Related Data Home Medications Medication Instructions Recorded Confirmed Cyanocobalamin (Vitamin B-12) 5,000 mcg PO DAILY 10/08/22 11/08/22 [Vitamin B-12] Magnesium 400 mg PO DAILY 10/08/22 11/08/22 Zinc Gluconate [Zinc] 30 mg PO DAILY 10/08/22 11/08/22 Previous Rx's Medication Instructions Recorded Acetaminophen Tab [Tylenol] 1,000 mg PO Q6HR tab 11/16/22 Albuterol Nebulized [Ventolin 2.5 mg INHALATION RT-Q2H PRN ml 11/16/22 Nebulized] Albuterol Nebulized [Ventolin 2.5 mg INHALATION RT-QID ml 11/16/22 Nebulized] Apixaban [Eliquis] 5 mg PO BID tab 11/16/22 Ascorbic Acid [Vitamin C] 500 mg PO BID-W/MEALS tab 11/16/22 Clopidogrel [Plavix] 75 mg PO DAILY tab 11/16/22 Diltiazem Cd [Cardizem CD] 180 mg PO DAILY cap 11/16/22 Evolocumab [Repatha Syringe] 140 mg SQ Q14D #0 11/16/22 Ferrous Sulfate [Iron (65 MG 325 mg PO BID-W/MEALS tab 11/16/22 Elemental)] Furosemide [Lasix] 20 mg PO DAILY tab 11/16/22 Ipratropium Nebulized [Atrovent 0.5 mg INHALATION RT-Q2H PRN ml 11/16/22 Nebulized 0.2 MG/ML] Ipratropium Nebulized [Atrovent 0.5 mg INHALATION RT-QID ml 11/16/22 Nebulized 0.2 MG/ML] Losartan [Cozaar] 12.5 mg PO DAILY@1200 tab 11/16/22 Magnesium Hydroxide [Milk of 2,400 mg PO BID PRN ml 11/16/22 Magnesia Concentrate] Melatonin 3 mg PO HS tab 11/16/22 Pantoprazole [Protonix] 40 mg PO AC-BRKFST tab 11/16/22 Potassium Chloride ER [K-Dur 10] 10 meq PO DAILY tab 11/16/22 Sennosides-Docusate Sodium 2 each PO HS tab 11/16/22 [Senokot-S] bisacodyL [Dulcolax] 10 mg RECTAL DAILY PRN suppositor 11/16/22 polyethylene glycoL 3350 [Miralax] 17 gm PO DAILY PRN packet 11/16/22 Allergies Allergy/AdvReac Type Severity Reaction Status Date / Time ibuprofen Allergy throat Verified 03/30/24 16:28 swelling Penicillins Allergy throat Verified 03/30/24 16:28 swelling diphenhydramine AdvReac elevates Verified 03/30/24 16:28 [From Benadryl] blood pressure lactose AdvReac Abdominal Verified 03/30/24 16:28 Pain, increases phlegm [id number] Reductase AdvReac Unknown Verified 03/30/24 16:28 Inhibitor beta severiano AdvReac Cough Uncoded 03/30/24 16:28 Review of Systems ROS Statement: Those systems with pertinent positive or pertinent negative responses have been documented in the HPI. ROS Other: All systems not noted in ROS Statement are negative. Past Medical History Past Medical History: Atrial Fibrillation, Hyperlipidemia, Hypertension, Liver Disease, Osteoarthritis (OA), Renal Disease Additional Past Medical History / Comment(s): problem w/aortic valve per pt., SOB w/exertion, allergy induced asthma, sees nephr.([facility] [place]) for some decreased kidney function, some meds affecting liver in past but now resolved History of Any Multi-Drug Resistant Organisms: None Reported Past Surgical History: Cardiac Ablation, Joint Replacement, Orthopedic Surgery, Tonsillectomy Additional Past Surgical History / Comment(s): right hip replaced, left knee replaced, ghulam CTS, cyst removed from foot, cyst removed from back, cataract removed right eye Past Anesthesia/Blood Transfusion Reactions: No Reported Reaction Past Psychological History: No Psychological Hx Reported Smoking Status: Never smoker Past Alcohol Use History: Occasional Past Drug Use History: None Reported - Past Family History Father Family Medical History: Coronary Artery Disease (CAD) Additional Family Medical History / Comment(s): CABG x6 General Exam Limitations: no limitations General appearance: alert, in no apparent distress Head exam: Present: normocephalic, other (2 inch linear laceration on top of scalp. minor abrasions present on nose. no active bleeding. tenderness to palpation over chin) Eye exam: Present: normal appearance, PERRL, EOMI. Absent: scleral icterus, conjunctival injection, periorbital swelling ENT exam: Present: normal exam, mucous membranes moist, other (Nasal cavities clear, no bleeding, no hematomas) Neck exam: Present: normal inspection. Absent: tenderness, meningismus, lymphadenopathy Respiratory exam: Present: normal lung sounds bilaterally. Absent: respiratory distress, wheezes, rales, rhonchi, stridor Cardiovascular Exam: Present: regular rate, normal rhythm, normal heart sounds. Absent: systolic murmur, diastolic murmur, rubs, gallop, clicks GI/Abdominal exam: Present: soft, normal bowel sounds. Absent: distended, tenderness, guarding, rebound, rigid Extremities exam: Present: normal inspection, full ROM, normal capillary refill. Absent: tenderness, pedal edema, joint swelling, calf tenderness Back exam: Present: normal inspection Neurological exam: Present: alert, oriented X3, CN II-XII intact Psychiatric exam: Present: normal affect, normal mood Skin exam: Present: warm, dry, intact, normal color. Absent: rash Course Vital Signs 03/30/24 03/30/24 16:22 18:35 Temperature 98.1 F Pulse Rate 61 64 Respiratory 18 18 Rate Blood Pressure 192/76 174/84 O2 Sat by Pulse 96 97 Oximetry Procedures - Laceration Laceration #1 Consent Obtained: verbal consent Indication: laceration Site: scalp Size (cm): 5 Description: linear Depth: simple, single layer Pre-repair: wound explored, irrigated extensively, deep structures intact Patient Tolerated Procedure: well, no complications Additional Comments: 6 abida placed with no complications Medical Decision Making - Medical Decision Making Was pt. sent in by a medical professional or institution (, PA, LEGAL AIDE, urgent care, hospital, or detention...) When possible be specific @ -No Did you speak to anyone other than the patient for history (EMS, parent, family, police, friend...)? What history was obtained from this source @ -Patient's granddaughter supplemented history Did you review nursing and triage notes (agree or disagree)? Why? @ -I reviewed and agree with nursing and triage notes Were old charts reviewed (outside hosp., previous admission, EMS record, old EKG, old radiological studies, urgent care reports/EKG's, detention records)? Report findings @ -No old charts were reviewed Differential Diagnosis (chest pain, altered mental status, abdominal pain women, abdominal pain men, vaginal bleeding, weakness, fever, dyspnea, syncope, headache, dizziness, GI bleed, back pain, seizure, CVA, palpatations, mental health, musculoskeletal)? @ -Differential Musculoskeletal Intracranial bleed, facial fracture, nasal fracture, muscular strain, contusion, ligament sprain, fracture, arthritis, septic arthritis, bursitis, cellulitis, muscle spasm, nerve compression, DVT, arterial occlusion, herpes zoster, electrolyte abnormality, tumor.... This is not meant to be in all inclusive list EKG interpreted by me (3pts min.). @ -None X-rays interpreted by me (1pt min.). @ -None done CT interpreted by me (1pt min.). @ -CT revealed no acute intracranial process, nasal bone deformity suggesting acute fracture with associated soft tissue edema, no evidence of C-spine fracture, moderate DDD U/S interpreted by me (1pt. min.). @ -None done What testing was considered but not performed or refused? (CT, X-rays, U/S, labs)? Why? @ -None What meds were considered but not given or refused? Why? @ -None Did you discuss the management of the patient with other professionals (professionals i.e. ., PA, LEGAL AIDE, lab, RT, psych nurse, social work supervisor, quill machine operator, teacher, credit control officer, manager case)? Give summary @ -No Was smoking cessation discussed for >3mins.? @ -No Was critical care preformed (if so, how long)? @ -No Were there social determinants of health that impacted care today? How? (Homelessness, low income, unemployed, alcoholism, drug addiction, singh sportation, low edu. Level, literacy, decrease access to med. care, halfway, rehab)? @ -No Was there de-escalation of care discussed even if they declined (Discuss DNR or withdrawal of care, Hospice)? DNR status @ -No What co-morbidities impacted this encounter? (DM, HTN, Smoking, COPD, CAD, Cancer, CVA, ARF, Chemo, Hep., AIDS, mental health diagnosis, sleep apnea, morbid obesity)? @ -None Was patient admitted / discharged? Hospital course, mention meds given and route, prescriptions, significant lab abnormalities, going to OR and other pertinent info. @ -Patient was discharged. Patient was seen and evaluated for head injury after mechanical fall. Patient is taking Eliquis, denies loss of consciousness. There is a 2 inch laceration present on top of scalp. Neuro exam is unremarkable. 6 abida were placed to scalp. CT revealed no acute intracranial process, there is a nasal bone deformity suggesting acute fracture with associated soft tissue edema, no evidence of C-spine fracture. Tetanus was updated. Advised patient to follow-up with ENT regarding nasal bone fracture. Follow-up in 7 days for staple removal. Supportive care discussed. Return parameters discussed with patient and granddaughter and they show understanding and agree with plan. Case was discussed with my ED attending Dr. Dawson. Patient discharged in stable condition. Undiagnosed new problem with uncertain prognosis? @ -No Drug Therapy requiring intensive monitoring for toxicity (Heparin, Nitro, Insulin, Cardizem)? @ -No Were any procedures done? @ -6 abida placed Diagnosis/symptom? @ -Head laceration, head injury due to trauma, nasal bone fracture Acute, or Chronic, or Acute on Chronic? @ -Acute Uncomplicated (without systemic symptoms) or Complicated (systemic symptoms)? @ -Uncomplicated Side effects of treatment? @ -No Exacerbation, Progression, or Severe Exacerbation? @ -No Poses a threat to life or bodily function? How? (Chest pain, [place], [place], pneumonia, PE, COPD, DKA, ARF, appy, cholecystitis, CVA, Diverticulitis, Homicidal, Suicidal, threat to staff... and all critical care pts) @ -Unlikely at this time Disposition Clinical Impression: Head injury due to trauma, Nasal bone fracture Disposition: HOME SELF-CARE Condition: Stable Instructions (If sedation given, give patient instructions): Nasal Fracture (ED) Additional Instructions: Please follow-up with ENT for nasal fracture. Refrain from blowing your nose. Apply ice to nose. Please return to the Emergency Department if symptoms worsen or any other concerns. Is patient prescribed a controlled substance at d/c from ED?: No Referrals: Didier Castanon MD [Primary Care Provider] - 1-2 days Andrew Galloway MD [STAFF PHYSICIAN] - 1-2 days Time of Disposition: 18:31
[2024-03-30] MEDS: ACETAMINOPHEN TAB 325 MG TAB PO STA (17:08)
[2024-03-30] MEDS: DIPH,PERTUS(ACELL)TETVAC-LF 0.5 ML VIAL IM ONE (17:09)
--- NOTE | 2024-03-30 17:39 | CT ---
EXAMINATION TYPE: CT brain cspine wo con, CT facial bones wo con CT DLP: 1277.4 mGycm, Automated exposure control for dose reduction was used. DATE OF EXAM: 03/30/2024 5:23 PM COMPARISON: None. CLINICAL INDICATION:Female, 78 years old with history of pain; Fall, head injury TECHNIQUE: Brain: Multiple axial CT images of the brain were obtained without IV contrast. Cspine: Axial CT images from the skull base to the inferior aspect of T2 we obtained without intraven ous contrast. Coronal and sagittal reformatted images were also reviewed. Facial: Axial imaging max of facial structures with sagittal coronal reformats. FINDINGS: Brain: Extra-axial spaces: No abnormal extra-axial fluid collections. Ventricular system: Within normal limits Cerebral parenchyma: No acute intraparenchymal hemorrhage or mass effect. The sainz-white junction is well differentiated. Cerebellum: Unremarkable. Mass effect: No evidence of midline shift. Intracranial vasculature: Atherosclerotic calcifications of the intracranial vessels. Soft tissues: Normal. Calvarium/osseous structures: No depressed skull fracture. Paranasal sinuses and mastoid air cells: Clear. Visualized orbits: Bilateral aphakia Cervical spine: Fracture: None. Osseous structures: Multilevel degenerative disc disease changes with endplate spurring and disc oste ophyte complex's. Vertebral alignment: Within normal limits. Spinal canal/Neural Foramina: No evidence of significant spinal canal narrowing. No evidence for sign ificant neural foraminal stenosis. Neck soft tissues: Prevertebral soft tissues are within normal limits. Other: The airway is patent. The lung apices are clear. Facial: Subtle deformity to the nasal bone. There is mild soft tissue edema over the nasal bone. Ther e is no additional evidence of fracture, subluxation, dislocation. The orbital contents are unremarka ble.The temporal-mandibular joints appear symmetric. The visualized portion of the paranasal sinuses appear clear. IMPRESSION: 1. No acute intracranial process. 2. Nasal bone deformity suggesting acute fracture with associated soft tissue edema. 3. No evidence of cervical spine fracture. 4. Moderate multilevel degenerative disc disease.
[2024-03-30 18:36] VITALS: BP 174/84; PULSE 64
== END 2024-03-30 18:36 | disposition home or self-care (01) ==
LOC: SUPCPDRO 16:02 → EC 16:02
DX: S02.2XXA Fracture of nasal bones, initial encounter for closed fracture (principal); S01.01XA Laceration without foreign body of scalp, initial encounter; Z79.01 Long term (current) use of anticoagulants; Z88.0 Allergy status to penicillin; Z88.6 Allergy status to analgesic agent; Z91.011 Allergy to milk products; Z23 Encounter for immunization; W18.30XA Fall on same level, unspecified, initial encounter; Y92.480 Sidewalk as the place of occurrence of the external cause; Y93.K1 Activity, walking an animal
CPT/HCPCS: 12002; 70450; 70486; 72125; 90471; 90715; 99284

== ENCOUNTER 2024-09-09 12:55 | Emergency (ER) | payer OTHER ==
[2024-09-09 13:19] VITALS: TEMP 98.3
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
[2024-09-09 16:05] VITALS: BP 147/82; PULSE 58; RESP 16
== END 2024-09-09 16:04 | disposition home or self-care (01) ==
LOC: EC 12:55
DX: Z04.1 Encounter for examination and observation following transport accident (principal); Z88.0 Allergy status to penicillin; Z88.8 Allergy status to other drugs, medicaments and biological substances; Z79.01 Long term (current) use of anticoagulants
CPT/HCPCS: 70450; 99284